=== PATIENT | male | born 1940 | race Hispanic/Latino ===

== ENCOUNTER 2019-01-08 16:57 | Inpatient (IN) | payer MEDICARE, OTHER, SELFPAY ==
[2019-01-08] VITALS (22 sets, daily range): BP systolic 76–187; BP diastolic 51–80; PULSE 123–170; RESP 12–50; TEMP 38–39.2; O2SAT 6–98; BMI 28.8; BMI 28.5
--- NOTE | 2019-01-08 17:12 | EKG12_ITS ---
Test Reason : SOB Blood Pressure : / mmHG Vent. Rate : 148 BPM Atrial Rate : 148 BPM P-R Int : 132 ms QRS Dur : 088 ms QT Int : 264 ms P-R-T Axes : 056 034 021 degrees QTc Int : 414 ms Sinus tachycardia Nonspecific ST and T wave abnormality Abnormal ECG Confirmed by SHARRI TILLMAN, ARIEL ([id number]), acquisition editor KINGSLEY VANG ([id number] on 01/10/2019 1:34:42 PM Referred By: Hebert Perkins Confirmed By:ARIEL HARRELL MD
--- NOTE | 2019-01-08 17:20 | RAD_ITS ---
STUDY: X-RAY CHEST REASON FOR EXAM: Male, 78 years old. Shortness of breath. TECHNIQUE: Single AP portable view of the chest. COMPARISON: September 21, 2017. FINDINGS: Telemetry wires overlie the chest. The lungs are hypoexpanded. There is patchy infiltrate in the left hilar and left lung base. Minimal patchy infiltrate is seen laterally in the lower right lung. Pleural effusions cannot be ruled out. Normal size heart. Normal mediastinum and darnell. Normal visualized pulmonary arteries. There is atherosclerotic calcification of the aortic arch with tortuosity. There are diffuse degenerative changes of the visualized thoracic spine. There is degenerative osteoarthritis of the bilateral shoulders. There is no demonstrated abnormality of the visualized soft tissue structures of the upper abdomen. RAD/Chest 1 View (Portable) IMPRESSION: Bibasilar infiltrates. Electronically Signed: Parker Sun DO at 17:47 EST Tel [phone], Service support ,
[2019-01-08] MEDS: 0.9% Normal Saline 1,000 ML 150 ML IV (17:24)
[2019-01-08] MEDS: Ipratropium/Albuterol Sulfate 3 ML AMPUL.NEB INHALATION (17:39)
[2019-01-08] MEDS: Albuterol 2.5 MG/3 ML VIAL.NEB. INHALATION ×3 (17:39→18:00)
[2019-01-08] MEDS: MethylPREDNISolone 125 MG/2 ML Vial IV (17:43)
[2019-01-08] MEDS: Ceftriaxone 1 GM/50 ML BAG IV (17:43)
[2019-01-08 17:54] LABS: Hemoglobin 11.5 g/dl (13.0-16.5); Mean Corp Hgb Conc 31.9 g/gl (32-36); Mean Corpuscular Hgb 27.8 pg (27.0-32.0); Mean Corpuscular Volume 87.2 fL (80-94); Mean Platelet Vol. 9.9 fl (6.2-12.0); Platelet Count 246 K/mm3 (150-450); RBC Distribution Width CV 14.9 % (11.6-14.6); RBC Distribution Width SD 47.6 fl (35.1-43.9); Red Blood Count 4.13 M/mm3 (4.6-6.2); White Blood Count 2.1 K/mm3 (4.4-11.0)
[2019-01-08 17:56] LABS: POSITIVE COUNT NO; POSITIVE DIFFERENTIAL YES; POSITIVE MORPHOLOGY YES
[2019-01-08 17:57] LABS: Anion Gap 15 (5-15); BUN 44 mg/dL (7-18); BUN/Creat Ratio 20.6 RATIO (10-20); Calcium,Total 8.7 mg/dL (8.5-10.1); Chloride 107 mmol/L (98-107); Creatinine, Serum 2.14 mg/dL (0.70-1.30); EST Glomerular Filtration Rate 32 mL/min (>60); Est Glom Filt Rate - Afr Amer 38 mL/min (>60); Estimated Creatinine Clearance 27.08 ml/min; Glucose 198 mg/dL (74-106); Sodium Level 145 mmol/L (136-145)
[2019-01-08 18:05] LABS: Lactic Acid 6.2 mmol/L (0.4-2.0)
--- NOTE | 2019-01-08 18:06 | ED.RN ---
LACTIC 6.[address] THE LAB. DR ANDRADE AWARE
[2019-01-08] MEDS: Succinylcholine Chloride 200 MG/10 ML Vial 100 MG IV (18:19)
[2019-01-08] MEDS: Propofol 10MG/Ml 1,000 MG/100 ML Bottle 5.16 MG CONT INF (18:20)
--- NOTE | 2019-01-08 18:25 | RAD_ITS ---
STUDY: X-RAY CHEST REASON FOR EXAM: Male, 78 years old. Tube placement TECHNIQUE: Frontal views COMPARISON: January 08, 2019 at 17:18 hours FINDINGS: Endotracheal tube with tip 42 mm above the mora. Nasogastric tube extends into the stomach. The lungs are expanded. Patchy pulmonary infiltrates bilaterally, left more than right. Increasing right upper lobe infiltrate. Normal size heart. Normal mediastinum and darnell. Normal visualized pulmonary arteries. Calcified aortic arch and descending thoracic aorta. Degenerative changes of the thoracic spine. Normal visualized ribs, clavicles, and shoulders. There is no demonstrated abnormality of the visualized soft tissue structures of the upper abdomen. RAD/Chest 1 View (Portable) IMPRESSION: Patchy infiltrates bilaterally, left more than right. Increasing right upper lobe infiltrate. Electronically Signed: Lamin Keene DO at 19:06 EST Tel [phone], Service support ,
[2019-01-08 18:32] LABS: Lymphocyte 26 % (19-41); Metamyelocyte 22 % (0-1); Monocyte 4 % (0-10); Myelocyte 6 (0-0); Neutrophil-Band 28 % (0-5); Total Cells Counted 50 (MANUAL DIFF)
[2019-01-08 18:33] LABS: Hypochromasia RARE; Scan Smear per Review Criteria MANUAL DIFF
[2019-01-08 18:39] LABS: Blast 2 % (0-0); Neutrophil-Segmented 12 % (47-70)
[2019-01-08] MEDS: Acetaminophen 650 MG Suppository RECTAL (18:40)
--- NOTE | 2019-01-08 18:42 | ED.DCSUM_ITS ---
- ER Visit Summary Date of Service: 01/08/19 Chief Complaint: [Shortness of breath] History of Present Illness: The patient is a 78 M [presents to the emergency department complaint shortness of breath for about a week. Patient's been running a fever and had a cough. Patient had increased fatigue. Patient does not speak [place] however his son is with him and interprets for me. Patient does have a history of COPD, diabetes, and high cholesterol. Patient denies any chest pain. Cough apparently has been productive but patient has not described to the son what the sputum looks like.] Physical Examination: [HEENT-PERRLA, EOMI. Cranial nerves II through XII grossly intact. TMs clear. Mucous membranes moist. No adenopathy. Cardiovascular-regular and tachycardic. No murmurs auscultated. Lungs-diminished bilaterally with rhonchi and expiratory wheezes bilaterally. Patient is tachypneic. Patient has accessory muscle use. Patient has conversational dyspnea. Abdomen-normoactive bowel sounds, soft, nontender, no rebound or rigidity, no peritoneal signs. Extremities-intact ?4, normal range of motion, normal pulses, atraumatic] Test Results: [EKG obtained arrival shows sinus tachycardia with a ventricular rate of 148 bpm with some nonspecific ST changes. CBC with differential showed white count 2.1, hemoglobin 11.5, hematocrit 36, placed 246. Chemistries unremarkable. BUN was 44 and creatinine 2.14. Glucose is 198. Troponin was 0.017. Chest x-ray was read by radiology as bibasilar infiltrates.] Emergency Department Course and Treatment: [Patient initially given Solu-Medrol and DuoNeb aerosol as well as albuterol aerosols. Patient continued to be hypoxic and tachypneic therefore he was attempted on BiPAP. Despite BiPAP patient continues to be quite dyspneic and hypoxic and decision was made to intubate the patient. Patient was given etomidate initially 20 mg IV as well as 100 mg of succinyl choline and was easily intubated using a 7.5 ET tube. Patient was started on propofol drip. Patient initially on arrival had blood cultures ordered and was started on Rocephin and Zithromax.] Treatment Plan: [Admit] Disposition: [Admit] Impression: [[place] acquired pneumonia Respiratory failure Severe sepsis Acute kidney injury] This note was generated with Dragon dictation software. It may contain incorrect words, spelling, and punctuation that were not noted in review of the chart prior to signing ED Disposition - Plan for ED Patient: Referrals: Feliberto Richards MD [Primary Care Provider] -
--- NOTE | 2019-01-08 19:14 | PCM.HP.STD ---
Problem List (1) Sepsis due to pneumonia Status: Acute (2) Essential (primary) hypertension Status: Chronic (3) COPD (chronic obstructive pulmonary disease) Status: Chronic (4) Diabetes mellitus Status: Chronic (5) Hyperlipemia, mixed Status: Chronic History of Present Illness Date of Admission: 01/08/19 Chief Complaint: Fevers, shortness of breath The patient is a 78 year old M with PMH as below who presented to the ER from home with fevers, cough, and shortness of breath for about a week. On my exam and interview patient was intubated therefore most of the information was taken from chart review and patient's family. His son, who is power of contract attorney, stated that he was recently sick with an upper respiratory infection for the last week or so and then his father became sick around Monday and has steadily gotten worse. He tried to get him to come to the hospital which she refused to do multiplications. He went to work today when he came back he noticed that his father could barely speak because of how short of breath he was and called EMS who brought him into the hospital in the ER he was found to be febrile as well as to have leukopenia, tachypnea and tachycardia. Lactic acid was obtained which was elevated to 6.2, and a chest x-ray showed bibasilar infiltrates. He was intubated in the ER secondary to respiratory distress and hypoxia. Past Medical History Past Medical History (Chronic Problems): Chronic Problems (Last Updated 11/02/17 @ 08:07 by SHEYLA Smalls) Essential (primary) hypertension (Chronic) COPD (chronic obstructive pulmonary disease) (Chronic) Diabetes mellitus (Chronic) Hyperlipemia, mixed (Chronic) Chest pain, exertional (Chronic) Medical History: Medical History (Last Updated 11/02/17 @ 08:07 by ISABEL SmallsC) Essential (primary) hypertension (Chronic) I10 COPD (chronic obstructive pulmonary disease) (Chronic) J44.9 Diabetes mellitus (Chronic) E11.9 Hyperlipemia, mixed (Chronic) E78.2 Chest pain, exertional (Chronic) R07.9 Anemia D64.9 Emphysema, unspecified J43.9 GERD (gastroesophageal reflux disease) K21.9 Allergies metformin Allergy (Verified 01/08/19 16:59) Unknown Home Medications: Ambulatory Orders Medication Instructions Recorded Aspirin 81 mg PO DAILY 10/02/17 Atorvastatin Calcium 40 mg PO QHS 10/02/17 Clopidogrel Bisulfate [Plavix] 75 mg PO DAILY 10/02/17 Fluticasone Prop 100 mcg [Flovent 1 puff INHALATION BID 10/02/17 Diskus 100 Mcg] Gemfibrozil [Lopid] 600 mg PO BIDAC 10/02/17 Glimepiride [Amaryl] 2 mg PO DAILY 10/02/17 Lisinopril [Zestril] 2.5 mg PO DAILY 10/02/17 [place]-3 Fatty Acids/Fish Oil 1 each PO DAILY 10/02/17 [[place] 3 1,000 mg Softgel] Omeprazole 40 mg PO DAILY 10/02/17 Pioglitazone HCl 30 mg PO DAILY 10/02/17 Surgical History: Surgical History (Last Updated 11/02/17 @ 08:07 by Mauro Ley NP-C) H/O hernia repair Z98.890, Z87.19 Smoking Status: Former smoker Tobacco Use: Cigarettes Alcohol: None Drugs: None - *Family History Maternal Family History: Family History (Last Updated 11/02/17 @ 08:05 by Mauro Ley NP-C) Mother CAD (coronary artery disease) Father Colon cancer Review of Systems Unable to obtain accurate/complete ROS d/t: Intubation and sedation VTE Information - Inpt Only VTE Present on Admission: No Patient Problems: Active and Suspected Problems (Last Updated 11/02/17 @ 08:07 by Mauro Ley, LOCKSTITCH BINDER-C) Sepsis due to pneumonia (Acute) - Physical Exam General: - - Intubated and sedated HEENT: Atraumatic, PERRLA, Normocephalic Oral: Dry Mucosa Neck: Supple, No JVD, Trachea Midline Lungs: Diminished, Rhonchi, Tachypneic Cardiovascular: Regular Rhythm, Normal S1, Normal S2, No murmurs, Tachycardic Abdomen: Soft, Non-Distended, No Hepato-splenomegaly Extremities: No edema, Capillary Refill Less than 3 Seconds Skin: No rashes, No breakdown Neurological: - - Intubated and sedated Psych/Mental Status: - - Debated and sedated Vital Signs Temp Pulse Resp BP Pulse Ox 102.6 F H 137 H 29 H 127/52 H 97 01/08/19 18:45 01/08/19 18:45 01/08/19 18:45 01/08/19 18:45 01/08/19 18:45 Oxygen Flow Rate (L/min) 6 Oxygen Delivery Method Mechanical Ventilator Weight: 189 lb 9.561 oz Body Mass Index (BMI) 28.8 Microbiology Past 72 Hours 01/08/19 17:30 Influenza Types A,B Direct FA (BETTY) - Final Mucosa - Nose Laboratory Tests Past 24 Hrs 01/08/19 01/08/19 01/08/19 17:20 17:20 17:20 WBC 2.1 L RBC 4.13 L Hgb 11.5 L Hct 36.0 L MCV 87.2 MCH 27.8 MCHC 31.9 L RDW 14.9 H RDW Differential 47.6 H Plt Count 246 MPV 9.9 Immature Gran % (Auto) LOCKSTITCH BINDER Neut % (Auto) LOCKSTITCH BINDER Lymph % (Auto) LOCKSTITCH BINDER [place] % (Auto) LOCKSTITCH BINDER Eos % (Auto) LOCKSTITCH BINDER Baso % (Auto) LOCKSTITCH BINDER Absolute Neuts (auto) 0.8 L Absolute Lymphs (auto) 0.55 L Total Counted 50 Neutrophils % (Manual) 12 L Band Neutrophils % 28 H Lymphocytes % (Manual) 26 Monocytes % (Manual) 4 Metamyelocytes % 22 H Myelocytes % 6 H Blast Cells % 2 H* Diff Path Review May foll Hypochromasia RARE Sodium 145 Potassium 3.0 L Chloride 107 Carbon Dioxide 23.0 Anion Gap 15 BUN 44 H Creatinine 2.14 H Estim Creat Clear Calc 27.08 Est GFR (MDRD) Af Amer 38 L Est GFR (MDRD) Non-Af 32 L BUN/Creatinine Ratio 20.6 H Glucose 198 H Lactic Acid 6.2 H* Calcium 8.7 Troponin I 0.017 Assessment/Plan All Active Problems (Last Updated 11/02/17 @ 08:07 by Mauro Ley, LOCKSTITCH BINDER-C) Sepsis due to pneumonia (Acute) 1. Acute hypoxic respiratory failure secondary to community-acquired pneumonia leading to sepsis/AK I -He has 4 out of 4 Sirs criteria positive with bibasilar infiltrates on chest x-ray -Received sepsis bolus in the ER as well as first dose of Rocephin and azithromycin which will be continued on the inpatient side -We will admit to the ICU since patient is ventilated -Continue with propofol and fentanyl drip for sedation -IV fluids at 125 cc/h, will Place James for accurate I's and O's -Repeat lactate -Urine Legionella and strep antigen are pending -Creatinine is 2.14, prior creatinine was 1.11 two years ago, will monitor -Respiratory panel and influenza panel were both negative, blood cultures are pending 2. DM 2 -He is on home glimepiride and Actos, will hold -initiate every 4 glucose monitoring and sliding scale insulin while intubated and n.p.o. 3. HTN/HLD -We will hold his blood pressure medications -He has no history of coronary artery disease and will need to have an updated medication list prior to doing a home med rec 4. GERD -He is on omeprazole at home -We will currently continue with IV Pepcid for GI prophylaxis as well since he is intubated DVT: Lovenox/SCDs Code Visit Inpatient E&M: 23958 Init Hosp L3
--- NOTE | 2019-01-08 19:18 | HP.PCM_ITS ---
Problem List (1) Sepsis due to pneumonia Status: Acute (2) Essential (primary) hypertension Status: Chronic (3) COPD (chronic obstructive pulmonary disease) Status: Chronic (4) Diabetes mellitus Status: Chronic (5) Hyperlipemia, mixed Status: Chronic History of Present Illness Date of Admission: 01/08/19 Chief Complaint: Fevers, shortness of breath The patient is a 78 year old M with PMH as below who presented to the ER from home with fevers, cough, and shortness of breath for about a week. On my exam and interview patient was intubated therefore most of the information was taken from chart review and patient's family. His son, who is power of estate planning attorney, stated that he was recently sick with an upper respiratory infection for the last week or so and then his father became sick around Monday and has steadily gotten worse. He tried to get him to come to the hospital which she refused to do multiplications. He went to work today when he came back he noticed that his father could barely speak because of how short of breath he was and called EMS who brought him into the hospital in the ER he was found to be febrile as well as to have leukopenia, tachypnea and tachycardia. Lactic acid was obtained which was elevated to 6.2, and a chest x-ray showed bibasilar infiltrates. He was intubated in the ER secondary to respiratory distress and hypoxia. Past Medical History Past Medical History (Chronic Problems): Chronic Problems (Last Updated 11/02/17 @ 08:07 by SHEYLA Smalls) Essential (primary) hypertension (Chronic) COPD (chronic obstructive pulmonary disease) (Chronic) Diabetes mellitus (Chronic) Hyperlipemia, mixed (Chronic) Chest pain, exertional (Chronic) Medical History: Medical History (Last Updated 11/02/17 @ 08:07 by ISABEL SmallsC) Essential (primary) hypertension (Chronic) I10 COPD (chronic obstructive pulmonary disease) (Chronic) J44.9 Diabetes mellitus (Chronic) E11.9 Hyperlipemia, mixed (Chronic) E78.2 Chest pain, exertional (Chronic) R07.9 Anemia D64.9 Emphysema, unspecified J43.9 GERD (gastroesophageal reflux disease) K21.9 Allergies metformin Allergy (Verified 01/08/19 16:59) Unknown Home Medications: Ambulatory Orders Medication Instructions Recorded Aspirin 81 mg PO DAILY 10/02/17 Atorvastatin Calcium 40 mg PO QHS 10/02/17 Clopidogrel Bisulfate [Plavix] 75 mg PO DAILY 10/02/17 Fluticasone Prop 100 mcg [Flovent 1 puff INHALATION BID 10/02/17 Diskus 100 Mcg] Gemfibrozil [Lopid] 600 mg PO BIDAC 10/02/17 Glimepiride [Amaryl] 2 mg PO DAILY 10/02/17 Lisinopril [Zestril] 2.5 mg PO DAILY 10/02/17 [place]-3 Fatty Acids/Fish Oil 1 each PO DAILY 10/02/17 [[place] 3 1,000 mg Softgel] Omeprazole 40 mg PO DAILY 10/02/17 Pioglitazone HCl 30 mg PO DAILY 10/02/17 Surgical History: Surgical History (Last Updated 11/02/17 @ 08:07 by Mauro Ley NP-C) H/O hernia repair Z98.890, Z87.19 Smoking Status: Former smoker Tobacco Use: Cigarettes Alcohol: None Drugs: None - *Family History Maternal Family History: Family History (Last Updated 11/02/17 @ 08:05 by Mauro Ley NP-C) Mother CAD (coronary artery disease) Father Colon cancer Review of Systems Unable to obtain accurate/complete ROS d/t: Intubation and sedation VTE Information - Inpt Only VTE Present on Admission: No Patient Problems: Active and Suspected Problems (Last Updated 11/02/17 @ 08:07 by Mauro Ley, BUTTONHOLE MACHINE OPERATOR- C) Sepsis due to pneumonia (Acute) - Physical Exam General: - - Intubated and sedated HEENT: Atraumatic, PERRLA, Normocephalic Oral: Dry Mucosa Neck: Supple, No JVD, Trachea Midline Lungs: Diminished, Rhonchi, Tachypneic Cardiovascular: Regular Rhythm, Normal S1, Normal S2, No murmurs, Tachycardic Abdomen: Soft, Non-Distended, No Hepato-splenomegaly Extremities: No edema, Capillary Refill Less than 3 Seconds Skin: No rashes, No breakdown Neurological: - - Intubated and sedated Psych/Mental Status: - - Debated and sedated Vital Signs Temp Pulse Resp BP Pulse Ox 102.6 F H 137 H 29 H 127/52 H 97 01/08/19 18:45 01/08/19 18:45 01/08/19 18:45 01/08/19 18:45 01/08/19 18:45 Oxygen Flow Rate (L/min) 6 Oxygen Delivery Method Mechanical Ventilator Weight: 189 lb 9.561 oz Body Mass Index (BMI) 28.8 Microbiology Past 72 Hours 01/08/19 17:30 Influenza Types A,B Direct FA (BETTY) - Final Mucosa - Nose Laboratory Tests Past 24 Hrs 01/08/19 01/08/19 01/08/19 17:20 17:20 17:20 WBC 2.1 L RBC 4.13 L Hgb 11.5 L Hct 36.0 L MCV 87.2 MCH 27.8 MCHC 31.9 L RDW 14.9 H RDW Differential 47.6 H Plt Count 246 MPV 9.9 Immature Gran % (Auto) BUTTONHOLE MACHINE OPERATOR Neut % (Auto) BUTTONHOLE MACHINE OPERATOR Lymph % (Auto) BUTTONHOLE MACHINE OPERATOR [place] % (Auto) BUTTONHOLE MACHINE OPERATOR Eos % (Auto) BUTTONHOLE MACHINE OPERATOR Baso % (Auto) BUTTONHOLE MACHINE OPERATOR Absolute Neuts (auto) 0.8 L Absolute Lymphs (auto) 0.55 L Total Counted 50 Neutrophils % (Manual) 12 L Band Neutrophils % 28 H Lymphocytes % (Manual) 26 Monocytes % (Manual) 4 Metamyelocytes % 22 H Myelocytes % 6 H Blast Cells % 2 H* Diff Path Review May foll Hypochromasia RARE Sodium 145 Potassium 3.0 L Chloride 107 Carbon Dioxide 23.0 Anion Gap 15 BUN 44 H Creatinine 2.14 H Estim Creat Clear Calc 27.08 Est GFR (MDRD) Af Amer 38 L Est GFR (MDRD) Non-Af 32 L BUN/Creatinine Ratio 20.6 H Glucose 198 H Lactic Acid 6.2 H* Calcium 8.7 Troponin I 0.017 Assessment/Plan All Active Problems (Last Updated 11/02/17 @ 08:07 by Mauro Ley, BUTTONHOLE MACHINE OPERATOR-C) Sepsis due to pneumonia (Acute) 1. Acute hypoxic respiratory failure secondary to community-acquired pneumonia leading to sepsis/AK I -He has 4 out of 4 Sirs criteria positive with bibasilar infiltrates on chest x- ray -Received sepsis bolus in the ER as well as first dose of Rocephin and azithromycin which will be continued on the inpatient side -We will admit to the ICU since patient is ventilated -Continue with propofol and fentanyl drip for sedation -IV fluids at 125 cc/h, will Place [place] for accurate I's and O's -Repeat lactate -Urine Legionella and strep antigen are pending -Creatinine is 2.14, prior creatinine was 1.11 two years ago, will monitor -Respiratory panel and influenza panel were both negative, blood cultures are pending 2. DM 2 -He is on home glimepiride and Actos, will hold -initiate every 4 glucose monitoring and sliding scale insulin while intubated and n.p.o. 3. HTN/HLD -We will hold his blood pressure medications -He has no history of coronary artery disease and will need to have an updated medication list prior to doing a home med rec 4. GERD -He is on omeprazole at home -We will currently continue with IV Pepcid for GI prophylaxis as well since he is intubated DVT: Lovenox/SCDs Code Visit Inpatient E&M: 31850 Init Hosp L3
[2019-01-08] MEDS: fentaNYL drip 100 ML 2.5 MCG IV (19:22)
[2019-01-08 19:32] LABS: Base Excess -9 mmol/L (-2 to +2); Bicarbonate 19.1 mmol/L (22-26); Blood Gas Specimen Type ART; FI02 100; Mode A-C; O2 Delivery Device Vent; PEEP 5; PO2 289 mmHG (75-100); RR 30; SITE L Radial; SO2 100 % (95-99); Total Carbon Dioxide 21 mmol/L; Vt 490; pCO2 47.2 mmHg (35-45); pH 7.22 (7.35-7.45)
[2019-01-08 20:19] LABS: Differential Indicated MANUAL DIFF
[2019-01-08 20:20] LABS: Absolute Neutrophil Count 0.8 X10^3/uL (2.0-7.7)
[2019-01-08 20:21] LABS: Absolute Lymphocyte Count 0.55 X10^3/ul (0.83-4.51)
[2019-01-08 20:24] LABS: Absolute Nucleated RBC Count 0.16 10^3/uL (0-5); NRBC Flagged by Analyzer 7.7 % (0-5)
[2019-01-08] MEDS: Potassium Chloride 10mEq/100mL 10 MEQ/100 ML IV.SOLN. 100 MEQ IV BOLUS ×3 (21:08→23:10)
--- NOTE | 2019-01-08 21:15 | NURSING ---
SUKHJINDER Delgadillo RN, passed along in report Rodriguez ordered to keep MAPs >60.
[2019-01-08] MEDS: Chlorhexidine 15 ML PO (21:30)
[2019-01-08] MEDS: Insulin Lispro 100 UNIT/ML INSULN.PEN SQ (21:30)
--- NOTE | 2019-01-08 21:30 | NURSING ---
Patient's wedding ring placed in medication cup and locked in ICU4 medication drawer.
[2019-01-08 21:32] LABS: Reflex Lactate? Y
[2019-01-08] MEDS: 0.9% Normal Saline 1,000 ML 999 ML IV ×2 (21:45→23:02)
[2019-01-08 21:51] LABS: Bedside Glucose 222 mg/dL (70-110)
[2019-01-08 22:16] LABS: Lactic Acid 6.4 mmol/L (0.4-2.0)
--- NOTE | 2019-01-08 23:20 | RAD_ITS ---
STUDY: X-RAY CHEST REASON FOR EXAM: Male, 78 years old. Respiratory failure TECHNIQUE: Single AP portable view of the chest. COMPARISON: 01/08/2019 at 1829 hours FINDINGS: Endotracheal tube tip projects 2 cm above the mora. Nasogastric tube extends below the diaphragm. Patchy airspace infiltration throughout the left midlung with consolidation of the left lung base which obscures the hemidiaphragm, slightly worsened compared to prior imaging. Worsened patchy airspace infiltration in the right midlung and right lung base. Borderline cardiomegaly. Normal mediastinum and darnell. Normal visualized pulmonary arteries. There is atherosclerotic calcification of the aortic arch . There are diffuse degenerative changes of the visualized thoracic spine. Normal visualized ribs, clavicles, and shoulders. There is no demonstrated abnormality of the visualized soft tissue structures of the upper abdomen. RAD/Chest 1 View (Portable) IMPRESSION: 1. Worsening bilateral airspace infiltrates. 2. Appropriate positioning of supportive tubing. Electronically Signed: Wan Arora MD at 3:37 EST Tel , Service support ,
--- NOTE | 2019-01-08 23:27 | NURSING ---
Respiratory therapist advanced ETT at 2213 to 25 @ lip, portable CXR ordered.
[2019-01-08 23:43] LABS: Magnesium 1.8 mg/dL (1.6-2.6); Phosphorus 1.6 mg/dL (2.5-4.9)
[2019-01-09] VITALS (53 sets, daily range): BP systolic 68–104; BP diastolic 47–63; PULSE 108–132; RESP 12–30; TEMP 36.3–39.2; O2SAT 85–97
[2019-01-09] MEDS: Potassium Chloride 10mEq/100mL 10 MEQ/100 ML IV.SOLN. 100 MEQ IV BOLUS (00:12)
[2019-01-09] MEDS: Na Biphos/Potassium Phosphate PACKET 2 PACKET GT (00:32)
--- NOTE | 2019-01-09 00:51 | NURSING ---
Communication difficulties due to patient non-portuguese speaking, attempted iPad, however uncertain of dialect. Will attempt in AM to contact son for specific dialect to use iPad to aid communication.
[2019-01-09 01:08] LABS: Lactic Acid 4.3 mmol/L (0.4-2.0)
[2019-01-09] MEDS: 0.9% Normal Saline 1,000 ML 100 ML IV (01:57)
[2019-01-09 04:37] LABS: Anion Gap 13 (5-15); BUN 47 mg/dL (7-18); BUN/Creat Ratio 17.2 RATIO (10-20); Calcium,Total 7.2 mg/dL (8.5-10.1); Chloride 113 mmol/L (98-107); Creatinine, Serum 2.74 mg/dL (0.70-1.30); EST Glomerular Filtration Rate 24 mL/min (>60); Est Glom Filt Rate - Afr Amer 29 mL/min (>60); Estimated Creatinine Clearance 21.15 ml/min; Glucose 168 mg/dL (74-106); Lactic Acid 3.1 mmol/L (0.4-2.0); Magnesium 1.8 mg/dL (1.6-2.6); Phosphorus 4.8 mg/dL (2.5-4.9); Potassium 4.1 mmol/L (3.5-5.1); Sodium Level 146 mmol/L (136-145)
[2019-01-09 04:51] LABS: Reflex Lactate? Y
[2019-01-09] MEDS: fentaNYL drip 100 ML 2.5 MCG IV ×3 (05:08→19:43)
[2019-01-09] MEDS: Insulin Lispro 100 UNIT/ML INSULN.PEN SC (05:08)
[2019-01-09 05:17] LABS: Bedside Glucose 162 mg/dL (70-110)
[2019-01-09 05:25] LABS: Hematocrit 32.8 % (40-54); Hemoglobin 10.3 g/dl (13.0-16.5); Mean Corp Hgb Conc 31.4 g/gl (32-36); Mean Corpuscular Hgb 28.1 pg (27.0-32.0); Mean Corpuscular Volume 89.4 fL (80-94); Mean Platelet Vol. 10.3 fl (6.2-12.0); Platelet Count 188 K/mm3 (150-450); RBC Distribution Width CV 15.3 % (11.6-14.6); RBC Distribution Width SD 50.2 fl (35.1-43.9); Red Blood Count 3.67 M/mm3 (4.6-6.2); White Blood Count 2.3 K/mm3 (4.4-11.0)
[2019-01-09 05:36] LABS: Differential Indicated MANUAL DIFF; POSITIVE COUNT NO; POSITIVE DIFFERENTIAL NO; POSITIVE MORPHOLOGY YES
[2019-01-09] MEDS: Propofol 10MG/Ml 1,000 MG/100 ML Bottle 5.16 MG CONT INF ×2 (05:40→18:20)
[2019-01-09 06:29] LABS: International Normalized Ratio 1.6; Prothrombin Time (Protime)PT. 19.4 SECONDS (11.7-14.9)
[2019-01-09 06:30] LABS: Partial Thromboplast Time 40.5 Seconds (24.1-36.2)
--- NOTE | 2019-01-09 06:38 | NURSING ---
Spoke with son, Aakash, in regards to patient's low BPs. Son consented to both central line and arterial line placement, and to give blood products if needed. Verified by this RN and Sammi Trinh RN.
--- NOTE | 2019-01-09 07:04 | PCM.CON.CC ---
Problem List (1) Sepsis due to pneumonia Status: Acute (2) Essential (primary) hypertension Status: Chronic (3) COPD (chronic obstructive pulmonary disease) Status: Chronic (4) Diabetes mellitus Status: Chronic (5) Hyperlipemia, mixed Status: Chronic Reason for Consult Date of Consultation: 01/09/19 Reason for Consultation: Respiratory failure History of Present Illness: The patient is a 78 year old M, with past medical history listed below, who presented to [facility] on 01/08/2019 secondary to progressive shortness of breath over a week with fever and a productive cough. Patient reportedly does not speak K[place] at baseline, but has a reported history of COPD. Patient reportedly had a productive cough, but color was unclear. Patient was noted to have conversational dyspnea on presentation. In the emergency room, patient was given Solu-Medrol, DuoNeb and noted to be hypoxic and tachypneic. Patient was attempted on BiPAP therapy, but ended up having to require rapid sequence intubation. Patient was placed on Rocephin, Zithromax and admitted to the intensive care unit. Patient was noted to be in sinus tachycardia with a rate of 148 bpm on presentation. CBC was remarkable for a white count of 2.1 and an elevated creatinine at 2.14. Troponin was negative. Since being in the intensive care unit, patient has had significant hypoxemia. Patient had responded initially to increase in PEEP therapy, but required 80-90% FiO2 to maintain saturations. On my arrival this morning, patient was noted to be hypotensive and hypoxic despite 100% FiO2. PEEP has been increased with some stabilization in oxygenation. Patient is unresponsive at this time. Chest x-ray showing progressive bilateral infiltrates. ABG has been ordered. Past Medical History Past Medical History (Chronic Problems): Chronic Problems (Last Updated 11/02/17 @ 08:07 by SHEYLA Smalls) Essential (primary) hypertension (Chronic) COPD (chronic obstructive pulmonary disease) (Chronic) Diabetes mellitus (Chronic) Hyperlipemia, mixed (Chronic) Chest pain, exertional (Chronic) Medical History: Medical History (Last Updated 11/02/17 @ 08:07 by SHEYLA Smalls) Essential (primary) hypertension (Chronic) I10 COPD (chronic obstructive pulmonary disease) (Chronic) J44.9 Diabetes mellitus (Chronic) E11.9 Hyperlipemia, mixed (Chronic) E78.2 Chest pain, exertional (Chronic) R07.9 Anemia D64.9 Emphysema, unspecified J43.9 GERD (gastroesophageal reflux disease) K21.9 Allergies metformin Allergy (Verified 01/08/19 16:59) Unknown Home Medications: Ambulatory Orders Medication Instructions Recorded Aspirin 81 mg PO DAILY 10/02/17 Atorvastatin Calcium 40 mg PO QHS 10/02/17 Clopidogrel Bisulfate [Plavix] 75 mg PO DAILY 10/02/17 Fluticasone Prop 100 mcg [Flovent 1 puff INHALATION BID 10/02/17 Diskus 100 Mcg] Gemfibrozil [Lopid] 600 mg PO BIDAC 10/02/17 Glimepiride [Amaryl] 2 mg PO DAILY 10/02/17 Lisinopril [Zestril] 2.5 mg PO DAILY 10/02/17 [place]-3 Fatty Acids/Fish Oil 1 each PO DAILY 10/02/17 [[place] 3 1,000 mg Softgel] Omeprazole 40 mg PO DAILY 10/02/17 Pioglitazone HCl 30 mg PO DAILY 10/02/17 Surgical History: Surgical History (Last Updated 11/02/17 @ 08:07 by ISABEL SmallsC) H/O hernia repair Z98.890, Z87.19 Smoking Status: Former smoker Tobacco Use: Cigarettes Alcohol: None Drugs: None - *Family History Maternal Family History: Family History (Last Updated 11/02/17 @ 08:05 by ISABEL SmallsC) Mother CAD (coronary artery disease) Father Colon cancer Review of Systems Unable to obtain accurate/complete ROS d/t: Intubated and sedated Patient Problems: Active and Suspected Problems (Last Updated 11/02/17 @ 08:07 by Mauro Ley NP-C) Sepsis due to pneumonia (Acute) Objective: Chest x-ray shows progressive bilateral infiltrates. Cardiac catheterization completed September 2017 showed an EF of 65% with normal coronary arteries - Physical Exam General: - - Intubated and sedated. Breathing with the ventilator. RASS -2. HEENT: Atraumatic, PERRLA, EOMI, Normocephalic, - - No scleral icterus or injection noted. Oral: Moist Mucosa, No Gingival or Mucosal Lesions/ Ulcerations Neck: Supple, No JVD, No Nodes, Trachea Midline Lungs: No wheeze, No rales, Rhonchi - Bilateral, - - Symmetric expansion. No dullness to percussion. Brown secretions noted Cardiovascular: Normal S1, Normal S2, No murmurs, No rub noted, No Gallop, Tachycardic Abdomen: Bowel Sounds Present, Soft, Non Tender, Non-Distended Extremities: No clubbing, No cyanosis, No edema, Capillary Refill Less than 3 Seconds Skin: No rashes, No breakdown Musculoskeletal: No Tenderness to Palpation of Joints or Extremities Lymphatic: No Cervical, Supraclavicular, or Inguinal Adenopathy Neurological: Cranial nerves II-XII grossly intact, Neuro grossly intact Psych/Mental Status: Flat Affect Vital Signs Temp Pulse Resp BP Pulse Ox 36.3 C L 115 H 14 88/51 L 89 01/09/19 06:00 01/09/19 07:00 01/09/19 07:00 01/09/19 07:00 01/09/19 07:00 Oxygen Flow Rate (L/min) 6 Oxygen Delivery Method Mechanical Ventilator Weight: 88.7 kg Body Mass Index (BMI) 28.5 Intake and Output for Last 24 Hours 01/07/19 01/08/19 01/09/19 23:59 23:59 23:59 Intake Total 2585.5 / 2585.5 1186.2 / 1186.2 Output Total 100 / 100 275 / 275 Balance 2485.5 / 2485.5 911.2 / 911.2 Microbiology Past 72 Hours 01/08/19 21:25 Legionella Antigen - Final Urine Catheter - Catheter 01/08/19 21:25 Streptococcus pneumoniae Antigen (M - Final Urine Catheter - Catheter 01/08/19 17:30 Influenza Types A,B Direct FA (BETTY) - Final Mucosa - Nose Laboratory Tests Past 24 Hrs 01/08/19 01/08/19 01/08/19 17:20 17:20 17:20 WBC 2.1 L RBC 4.13 L Hgb 11.5 L Hct 36.0 L MCV 87.2 MCH 27.8 MCHC 31.9 L RDW 14.9 H RDW Differential 47.6 H Plt Count 246 MPV 9.9 Immature Gran % (Auto) [employer] Neut % (Auto) [employer]ST[employer]ER Lymph % (Auto) [employer]ER [place] % (Auto) [employer] INST[employer]ER Eos % (Auto) [employer] INST[employer]ER Baso % (Auto) [employer]ER Absolute Neuts (auto) 0.8 L Absolute Lymphs (auto) 0.55 L Total Counted 50 Neutrophils % (Manual) 12 L Band Neutrophils % 28 H Lymphocytes % (Manual) 26 Monocytes % (Manual) 4 Metamyelocytes % 22 H Myelocytes % 6 H Blast Cells % 2 H* Nucleated RBC % 7.7 H Diff Path Review May foll Hypochromasia RARE Absolute Retic 0.16 PT INR APTT Specimen Type Sample Site pH Bicarbonate Actual POC Total CO2 Base Excess O2 Saturation O2 % ABG pCO2 ABG pO2 David Test Respiration Rate O2 Delivery Device Minute Volume Vent Mode Tidal Volume POC PEEP Blood Gas Notified Whom Sodium 145 Potassium 3.0 L Chloride 107 Carbon Dioxide 23.0 Anion Gap 15 BUN 44 H Creatinine 2.14 H Estim Creat Clear Calc 27.08 Est GFR (MDRD) Af Amer 38 L Est GFR (MDRD) Non-Af 32 L BUN/Creatinine Ratio 20.6 H Glucose 198 H Lactic Acid 6.2 H* Calcium 8.7 Phosphorus Magnesium Troponin I 0.017 01/08/19 01/08/19 01/08/19 17:22 19:25 20:05 WBC RBC Hgb Hct MCV MCH MCHC RDW RDW Differential Plt Count MPV Immature Gran % (Auto) Neut % (Auto) Lymph % (Auto) [place] % (Auto) Eos % (Auto) Baso % (Auto) Absolute Neuts (auto) Absolute Lymphs (auto) Total Counted Neutrophils % (Manual) Band Neutrophils % Lymphocytes % (Manual) Monocytes % (Manual) Metamyelocytes % Myelocytes % Blast Cells % Nucleated RBC % Diff Path Review Hypochromasia Absolute Retic PT INR APTT Specimen Type ART Sample Site L Radial pH 7.22 L Bicarbonate Actual 19.1 L POC Total CO2 21 Base Excess -9 L O2 Saturation 100 H O2 % 100 ABG pCO2 47.2 H ABG pO2 289 H David Test NA Respiration Rate 30 O2 Delivery Device Vent Minute Volume 14.00 Vent Mode A-C Tidal Volume 490 POC PEEP 5 Blood Gas Notified Whom ED Sodium Potassium Chloride Carbon Dioxide Anion Gap BUN Creatinine Estim Creat Clear Calc Est GFR (MDRD) Af Amer Est GFR (MDRD) Non-Af BUN/Creatinine Ratio Glucose Lactic Acid 6.4 H* Calcium Phosphorus 1.6 L Magnesium 1.8 Troponin I 01/09/19 01/09/19 01/09/19 00:30 03:50 03:50 WBC 2.3 L RBC 3.67 L Hgb 10.3 L Hct 32.8 L MCV 89.4 MCH 28.1 MCHC 31.4 L RDW 15.3 H RDW Differential 50.2 H Plt Count 188 MPV 10.3 Immature Gran % (Auto) Neut % (Auto) Not Reportable Lymph % (Auto) [place] % (Auto) Eos % (Auto) Baso % (Auto) Absolute Neuts (auto) Not Reportable Absolute Lymphs (auto) Total Counted Pending Neutrophils % (Manual) Band Neutrophils % Lymphocytes % (Manual) Monocytes % (Manual) Metamyelocytes % Myelocytes % Blast Cells % Nucleated RBC % Diff Path Review Hypochromasia Absolute Retic PT INR APTT Specimen Type Sample Site pH Bicarbonate Actual POC Total CO2 Base Excess O2 Saturation O2 % ABG pCO2 ABG pO2 David Test Respiration Rate O2 Delivery Device Minute Volume Vent Mode Tidal Volume POC PEEP Blood Gas Notified Whom Sodium 146 H Potassium 4.1 Chloride 113 H Carbon Dioxide 20.0 L Anion Gap 13 BUN 47 H Creatinine 2.74 H Estim Creat Clear Calc 21.15 Est GFR (MDRD) Af Amer 29 L Est GFR (MDRD) Non-Af 24 L BUN/Creatinine Ratio 17.2 Glucose 168 H Lactic Acid 4.3 H* Calcium 7.2 L Phosphorus Magnesium Troponin I 01/09/19 01/09/19 01/09/19 03:50 03:50 06:10 WBC RBC Hgb Hct MCV MCH MCHC RDW RDW Differential Plt Count MPV Immature Gran % (Auto) Neut % (Auto) Lymph % (Auto) [place] % (Auto) Eos % (Auto) Baso % (Auto) Absolute Neuts (auto) Absolute Lymphs (auto) Total Counted Neutrophils % (Manual) Band Neutrophils % Lymphocytes % (Manual) Monocytes % (Manual) Metamyelocytes % Myelocytes % Blast Cells % Nucleated RBC % Diff Path Review Hypochromasia Absolute Retic PT 19.4 H INR 1.6 APTT 40.5 H Specimen Type Sample Site pH Bicarbonate Actual POC Total CO2 Base Excess O2 Saturation O2 % ABG pCO2 ABG pO2 David Test Respiration Rate O2 Delivery Device Minute Volume Vent Mode Tidal Volume POC PEEP Blood Gas Notified Whom Sodium Potassium Chloride Carbon Dioxide Anion Gap BUN Creatinine Estim Creat Clear Calc Est GFR (MDRD) Af Amer Est GFR (MDRD) Non-Af BUN/Creatinine Ratio Glucose Lactic Acid 3.1 H Calcium Phosphorus 4.8 Magnesium 1.8 Troponin I POC Glucose 01/09/19 01/08/19 05:04 21:26 POC Glucose 162 H 222 H Clinical Impression(s) from Imaging Studies Chest X-Ray 01/08/19 17:20 IMPRESSION: Bibasilar infiltrates. Electronically Signed: Parker Sun, DO at 17:47 EST Tel [phone], Service support , Chest X-Ray 01/08/19 18:25 IMPRESSION: Patchy infiltrates bilaterally, left more than right. Increasing right upper lobe infiltrate. Electronically Signed: Lamin Jassi, DO at 19:06 EST Tel [phone], Service support , Chest X-Ray 01/08/19 23:20 IMPRESSION: 1. Worsening bilateral airspace infiltrates. 2. Appropriate positioning of supportive tubing. Electronically Signed: Wan Arora MD at 3:37 EST Tel , Service support , Assessment/Plan Active and Suspected Problems (Last Updated 11/02/17 @ 08:07 by Mauro Ley NP-C) Sepsis due to pneumonia (Acute) RECOMMENDATIONS: 1. Increase PEEP as necessary 2. Potential need for central line and pressors 3. Continue empiric antibiotics, add empiric steroid therapy 4. Clarify CODE STATUS with family 5. Wean oxygen as tolerated, spontaneous breathing and awakening trial per protocol 6. Likely initiate tube feeds later today IMPRESSIONS: 1. Acute hypoxic respiratory failure secondary to probable ARDS secondary to community-acquired pneumonia Patient with bilateral infiltrates and reported preserved ejection fraction on previous cardiac catheterization approximately 1 year ago. Clinical suspicion for ARDS secondary to community-acquired pneumonia. Unclear patient has received antibiotics recently. We will need to verify this with the family. If patient has received antibiotics, broadening spectrum would be indicated. Await ABG to see if low tidal volume ventilation is an option. Patient has a reported history of COPD of unclear significance. Will add empiric steroid therapy 2. Severe sepsis, potential septic shock secondary to community-acquired pneumonia Patient has received significant fluids overnight. Patient's blood pressure is marginal at this time. Unclear if this is secondary to decreased venous return from PEEP versus septic shock. Patient does have an elevated temperature overnight and 4 out of 4 Sirs criteria. Patient will likely need a central line placed. May initiate pressor therapy. 3. Pth-vjhtjcg-pqxjixepu diabetes mellitus She currently on sliding scale insulin. Will need to watch closely given initiation of steroid therapy. 4. Acute renal failure Clinical suspicion for ATN secondary to prerenal etiology associated with problem #1 and problem #2. Decreased urine output over the 12-16 hours. ARDS would recommend low fluid balance if possible. Hold off any diuretic therapy given patient's current acute renal failure. 5. Poor history/hypertension/hyperlipidemia/GERD Complicates care, management, recovery and prognosis. Will attempt to clarify CODE STATUS on family arrival. Addendum 7:23 AM: ABG shows significant mixed acidosis. Ventilator was increased to a rate of 14 and 500 tidal volume. TIME: 48 minutes critical care time spent addressing patient's acute hypoxic respiratory failure, ARDS, septic shock, diabetes mellitus, acute renal failure, review of all data and collaboration with care team (5:45 AM to 6:45 AM) Code Visit 9xxxx: [id number] Critical care first hour
--- NOTE | 2019-01-09 07:08 | CON.PCM_ITS ---
Problem List (1) Sepsis due to pneumonia Status: Acute (2) Essential (primary) hypertension Status: Chronic (3) COPD (chronic obstructive pulmonary disease) Status: Chronic (4) Diabetes mellitus Status: Chronic (5) Hyperlipemia, mixed Status: Chronic Reason for Consult Date of Consultation: 01/09/19 Reason for Consultation: Respiratory failure History of Present Illness: The patient is a 78 year old M, with past medical history listed below, who presented to [facility] on 01/08/2019 secondary to progressive shortness of breath over a week with fever and a productive cough. Patient reportedly does not speak Turkmen at baseline, but has a reported history of COPD. Patient reportedly had a productive cough, but color was unclear. Patient was noted to have conversational dyspnea on presentation. In the emergency room, patient was given Solu-Medrol, DuoNeb and noted to be hypoxic and tachypneic. Patient was attempted on BiPAP therapy, but ended up having to require rapid sequence intubation. Patient was placed on Rocephin, Zithromax and admitted to the intensive care unit. Patient was noted to be in sinus tachycardia with a rate of 148 bpm on presentation. CBC was remarkable for a white count of 2.1 and an elevated creatinine at 2.14. Troponin was negative. Since being in the intensive care unit, patient has had significant hypoxemia. Patient had responded initially to increase in PEEP therapy, but required 80-90% FiO2 to maintain saturations. On my arrival this morning, patient was noted to be hypotensive and hypoxic despite 100% FiO2. PEEP has been increased with some stabilization in oxygenation. Patient is unresponsive at this time. Chest x- ray showing progressive bilateral infiltrates. ABG has been ordered. Past Medical History Past Medical History (Chronic Problems): Chronic Problems (Last Updated 11/02/17 @ 08:07 by SHEYLA Smalls) Essential (primary) hypertension (Chronic) COPD (chronic obstructive pulmonary disease) (Chronic) Diabetes mellitus (Chronic) Hyperlipemia, mixed (Chronic) Chest pain, exertional (Chronic) Medical History: Medical History (Last Updated 11/02/17 @ 08:07 by SHEYLA Smalls) Essential (primary) hypertension (Chronic) I10 COPD (chronic obstructive pulmonary disease) (Chronic) J44.9 Diabetes mellitus (Chronic) E11.9 Hyperlipemia, mixed (Chronic) E78.2 Chest pain, exertional (Chronic) R07.9 Anemia D64.9 Emphysema, unspecified J43.9 GERD (gastroesophageal reflux disease) K21.9 Allergies metformin Allergy (Verified 01/08/19 16:59) Unknown Home Medications: Ambulatory Orders Medication Instructions Recorded Aspirin 81 mg PO DAILY 10/02/17 Atorvastatin Calcium 40 mg PO QHS 10/02/17 Clopidogrel Bisulfate [Plavix] 75 mg PO DAILY 10/02/17 Fluticasone Prop 100 mcg [Flovent 1 puff INHALATION BID 10/02/17 Diskus 100 Mcg] Gemfibrozil [Lopid] 600 mg PO BIDAC 10/02/17 Glimepiride [Amaryl] 2 mg PO DAILY 10/02/17 Lisinopril [Zestril] 2.5 mg PO DAILY 10/02/17 Girdletree-3 Fatty Acids/Fish Oil 1 each PO DAILY 10/02/17 [Gird[place]ree 3 1,000 mg Softgel] Omeprazole 40 mg PO DAILY 10/02/17 Pioglitazone HCl 30 mg PO DAILY 10/02/17 Surgical History: Surgical History (Last Updated 11/02/17 @ 08:07 by ISABEL SmallsC) H/O hernia repair Z98.890, Z87.19 Smoking Status: Former smoker Tobacco Use: Cigarettes Alcohol: None Drugs: None - *Family History Maternal Family History: Family History (Last Updated 11/02/17 @ 08:05 by ISABEL SmallsC) Mother CAD (coronary artery disease) Father Colon cancer Review of Systems Unable to obtain accurate/complete ROS d/t: Intubated and sedated Patient Problems: Active and Suspected Problems (Last Updated 11/02/17 @ 08:07 by Mauro Ley NP- C) Sepsis due to pneumonia (Acute) Objective: Chest x-ray shows progressive bilateral infiltrates. Cardiac catheterization completed September 2017 showed an EF of 65% with normal coronary arteries - Physical Exam General: - - Intubated and sedated. Breathing with the ventilator. RASS -2. HEENT: Atraumatic, PERRLA, EOMI, Normocephalic, - - No scleral icterus or inj ection noted. Oral: Moist Mucosa, No Gingival or Mucosal Lesions/ Ulcerations Neck: Supple, No JVD, No Nodes, Trachea Midline Lungs: No wheeze, No rales, Rhonchi - Bilateral, - - Symmetric expansion. No dullness to percussion. Brown secretions noted Cardiovascular: Normal S1, Normal S2, No murmurs, No rub noted, No Gallop, Tachycardic Abdomen: Bowel Sounds Present, Soft, Non Tender, Non-Distended Extremities: No clubbing, No cyanosis, No edema, Capillary Refill Less than 3 Seconds Skin: No rashes, No breakdown Musculoskeletal: No Tenderness to Palpation of Joints or Extremities Lymphatic: No Cervical, Supraclavicular, or Inguinal Adenopathy Neurological: Cranial nerves II-XII grossly intact, Neuro grossly intact Psych/Mental Status: Flat Affect Vital Signs Temp Pulse Resp BP Pulse Ox 36.3 C L 115 H 14 88/51 L 89 01/09/19 06:00 01/09/19 07:00 01/09/19 07:00 01/09/19 07:00 01/09/19 07:00 Oxygen Flow Rate (L/min) 6 Oxygen Delivery Method Mechanical Ventilator Weight: 88.7 kg Body Mass Index (BMI) 28.5 Intake and Output for Last 24 Hours 01/07/19 01/08/19 01/09/19 23:59 23:59 23:59 Intake Total 2585.5 / 2585.5 1186.2 / 1186.2 Output Total 100 / 100 275 / 275 Balance 2485.5 / 2485.5 911.2 / 911.2 Microbiology Past 72 Hours 01/08/19 21:25 Legionella Antigen - Final Urine Catheter - Catheter 01/08/19 21:25 Streptococcus pneumoniae Antigen (M - Final Urine Catheter - Catheter 01/08/19 17:30 Influenza Types A,B Direct FA (BETTY) - Final Mucosa - Nose Laboratory Tests Past 24 Hrs 01/08/19 01/08/19 01/08/19 17:20 17:20 17:20 WBC 2.1 L RBC 4.13 L Hgb 11.5 L Hct 36.0 L MCV 87.2 MCH 27.8 MCHC 31.9 L RDW 14.9 H RDW Differential 47.6 H Plt Count 246 MPV 9.9 Immature Gran % (Auto) [employer] Neut % (Auto) [employer] Lymph % (Auto) [employer]ER Chester % (Auto) [employer]ER Eos % (Auto) [employer]ER Baso % (Auto) [employer] Absolute Neuts (auto) 0.8 L Absolute Lymphs (auto) 0.55 L Total Counted 50 Neutrophils % (Manual) 12 L Band Neutrophils % 28 H Lymphocytes % (Manual) 26 Monocytes % (Manual) 4 Metamyelocytes % 22 H Myelocytes % 6 H Blast Cells % 2 H* Nucleated RBC % 7.7 H Diff Path Review May foll Hypochromasia RARE Absolute Retic 0.16 PT INR APTT Specimen Type Sample Site pH Bicarbonate Actual POC Total CO2 Base Excess O2 Saturation O2 % ABG pCO2 ABG pO2 David Test Respiration Rate O2 Delivery Device Minute Volume Vent Mode Tidal Volume POC PEEP Blood Gas Notified Whom Sodium 145 Potassium 3.0 L Chloride 107 Carbon Dioxide 23.0 Anion Gap 15 BUN 44 H Creatinine 2.14 H Estim Creat Clear Calc 27.08 Est GFR (MDRD) Af Amer 38 L Est GFR (MDRD) Non-Af 32 L BUN/Creatinine Ratio 20.6 H Glucose 198 H Lactic Acid 6.2 H* Calcium 8.7 Phosphorus Magnesium Troponin I 0.017 01/08/19 01/08/19 01/08/19 17:22 19:25 20:05 WBC RBC Hgb Hct MCV MCH MCHC RDW RDW Differential Plt Count MPV Immature Gran % (Auto) Neut % (Auto) Lymph % (Auto) Chester % (Auto) Eos % (Auto) Baso % (Auto) Absolute Neuts (auto) Absolute Lymphs (auto) Total Counted Neutrophils % (Manual) Band Neutrophils % Lymphocytes % (Manual) Monocytes % (Manual) Metamyelocytes % Myelocytes % Blast Cells % Nucleated RBC % Diff Path Review Hypochromasia Absolute Retic PT INR APTT Specimen Type ART Sample Site L Radial pH 7.22 L Bicarbonate Actual 19.1 L POC Total CO2 21 Base Excess -9 L O2 Saturation 100 H O2 % 100 ABG pCO2 47.2 H ABG pO2 289 H David Test NA Respiration Rate 30 O2 Delivery Device Vent Minute Volume 14.00 Vent Mode A-C Tidal Volume 490 POC PEEP 5 Blood Gas Notified Whom ED Sodium Potassium Chloride Carbon Dioxide Anion Gap BUN Creatinine Estim Creat Clear Calc Est GFR (MDRD) Af Amer Est GFR (MDRD) Non-Af BUN/Creatinine Ratio Glucose Lactic Acid 6.4 H* Calcium Phosphorus 1.6 L Magnesium 1.8 Troponin I 01/09/19 01/09/19 01/09/19 00:30 03:50 03:50 WBC 2.3 L RBC 3.67 L Hgb 10.3 L Hct 32.8 L MCV 89.4 MCH 28.1 MCHC 31.4 L RDW 15.3 H RDW Differential 50.2 H Plt Count 188 MPV 10.3 Immature Gran % (Auto) Neut % (Auto) Not Reportable Lymph % (Auto) Chester % (Auto) Eos % (Auto) Baso % (Auto) Absolute Neuts (auto) Not Reportable Absolute Lymphs (auto) Total Counted Pending Neutrophils % (Manual) Band Neutrophils % Lymphocytes % (Manual) Monocytes % (Manual) Metamyelocytes % Myelocytes % Blast Cells % Nucleated RBC % Diff Path Review Hypochromasia Absolute Retic PT INR APTT Specimen Type Sample Site pH Bicarbonate Actual POC Total CO2 Base Excess O2 Saturation O2 % ABG pCO2 ABG pO2 David Test Respiration Rate O2 Delivery Device Minute Volume Vent Mode Tidal Volume POC PEEP Blood Gas Notified Whom Sodium 146 H Potassium 4.1 Chloride 113 H Carbon Dioxide 20.0 L Anion Gap 13 BUN 47 H Creatinine 2.74 H Estim Creat Clear Calc 21.15 Est GFR (MDRD) Af Amer 29 L Est GFR (MDRD) Non-Af 24 L BUN/Creatinine Ratio 17.2 Glucose 168 H Lactic Acid 4.3 H* Calcium 7.2 L Phosphorus Magnesium Troponin I 01/09/19 01/09/19 01/09/19 03:50 03:50 06:10 WBC RBC Hgb Hct MCV MCH MCHC RDW RDW Differential Plt Count MPV Immature Gran % (Auto) Neut % (Auto) Lymph % (Auto) Chester % (Auto) Eos % (Auto) Baso % (Auto) Absolute Neuts (auto) Absolute Lymphs (auto) Total Counted Neutrophils % (Manual) Band Neutrophils % Lymphocytes % (Manual) Monocytes % (Manual) Metamyelocytes % Myelocytes % Blast Cells % Nucleated RBC % Diff Path Review Hypochromasia Absolute Retic PT 19.4 H INR 1.6 APTT 40.5 H Specimen Type Sample Site pH Bicarbonate Actual POC Total CO2 Base Excess O2 Saturation O2 % ABG pCO2 ABG pO2 David Test Respiration Rate O2 Delivery Device Minute Volume Vent Mode Tidal Volume POC PEEP Blood Gas Notified Whom Sodium Potassium Chloride Carbon Dioxide Anion Gap BUN Creatinine Estim Creat Clear Calc Est GFR (MDRD) Af Amer Est GFR (MDRD) Non-Af BUN/Creatinine Ratio Glucose Lactic Acid 3.1 H Calcium Phosphorus 4.8 Magnesium 1.8 Troponin I POC Glucose 01/09/19 01/08/19 05:04 21:26 POC Glucose 162 H 222 H Clinical Impression(s) from Imaging Studies Chest X-Ray 01/08/19 17:20 IMPRESSION: Bibasilar infiltrates. Electronically Signed: Parker Haverford, at 17:47 EST Tel [phone], Service support , Chest X-Ray 01/08/19 18:25 IMPRESSION: Patchy infiltrates bilaterally, left more than right. Increasing right upper lobe infiltrate. Electronically Signed: Laminandriy Keene, DO at 19:06 EST Tel [phone], Service support , Chest X-Ray 01/08/19 23:20 IMPRESSION: 1. Worsening bilateral airspace infiltrates. 2. Appropriate positioning of supportive tubing. Electronically Signed: Wan Arora MD at 3:37 EST Tel , Service support , Assessment/Plan Active and Suspected Problems (Last Updated 11/02/17 @ 08:07 by Mauro Ley [employer]ER- C) Sepsis due to pneumonia (Acute) RECOMMENDATIONS: 1. Increase PEEP as necessary 2. Potential need for central line and pressors 3. Continue empiric antibiotics, add empiric steroid therapy 4. Clarify CODE STATUS with family 5. Wean oxygen as tolerated, spontaneous breathing and awakening trial per protocol 6. Likely initiate tube feeds later today IMPRESSIONS: 1. Acute hypoxic respiratory failure secondary to probable ARDS secondary to community-acquired pneumonia Patient with bilateral infiltrates and reported preserved ejection fraction on previous cardiac catheterization approximately 1 year ago. Clinical suspicion for ARDS secondary to community-acquired pneumonia. Unclear patient has received antibiotics recently. We will need to verify this with the family. If patient has received antibiotics, broadening spectrum would be indicated. A wait ABG to see if low tidal volume ventilation is an option. Patient has a reported history of COPD of unclear significance. Will add empiric steroid therapy 2. Severe sepsis, potential septic shock secondary to community-acquired pneumonia Patient has received significant fluids overnight. Patient's blood pressure is marginal at this time. Unclear if this is secondary to decreased venous return from PEEP versus septic shock. Patient does have an elevated temperature overnight and 4 out of 4 Sirs criteria. Patient will likely need a central line placed. May initiate pressor therapy. 3. Mav-mrngiqz-cstooqpje diabetes mellitus She currently on sliding scale insulin. Will need to watch closely given initiation of steroid therapy. 4. Acute renal failure Clinical suspicion for ATN secondary to prerenal etiology associated with problem #1 and problem #2. Decreased urine output over the 12-16 hours. ARDS would recommend low fluid balance if possible. Hold off any diuretic therapy given patient's current acute renal failure. 5. Poor history/hypertension/hyperlipidemia/GERD Complicates care, management, recovery and prognosis. Will attempt to clarify CODE STATUS on family arrival. Addendum 7:23 AM: ABG shows significant mixed acidosis. Ventilator was increased to a rate of 14 and 500 tidal volume. TIME: 48 minutes critical care time spent addressing patient's acute hypoxic respiratory failure, ARDS, septic shock, diabetes mellitus, acute renal failure, review of all data and collaboration with care team (5:45 AM to 6:45 AM) Code Visit 9xxxx: [id number] Critical care first hour
[2019-01-09 07:09] LABS: Lymphocyte 24 % (19-41); Metamyelocyte 24 % (0-1); Monocyte 4 % (0-10); Myelocyte 2 (0-0); Neutrophil-Band 40 % (0-5); Neutrophil-Segmented 6 % (47-70); Total Cells Counted 50 (MANUAL DIFF)
[2019-01-09 07:10] LABS: Anisocytosis 1+; Hypochromasia 1+; Microcytosis 1+; Platelet Estimate ADEQUATE (ADEQ); Platelet Morphology LARGE; Polychromasia 1+
[2019-01-09 07:12] LABS: Absolute Nucleated RBC Count 0.25 10^3/uL (0-5); NRBC Flagged by Analyzer 10.8 % (0-5)
[2019-01-09 07:13] LABS: Absolute Lymphocyte Count 0.55 X10^3/ul (0.83-4.51); Absolute Neutrophil Count 1.1 X10^3/uL (2.0-7.7)
[2019-01-09 07:16] LABS: Base Excess -12 mmol/L (-2 to +2); Bicarbonate 19.1 mmol/L (22-26); Blood Gas Specimen Type ART; FI02 100; Mode A-C; O2 Delivery Device Vent; PEEP 12; PO2 77 mmHG (75-100); RR 12; SITE R Radial; SO2 85 % (95-99); Time Given 711; Total Carbon Dioxide 21 mmol/L; Vt 450
[2019-01-09 08:01] LABS: Reflex Lactate? Y
[2019-01-09 09:03] LABS: Allen Test POS; Blood Gas Specimen Type ART; FI02 60; Mode A-C; O2 Delivery Device Vent; PEEP 5; RR 16; SITE L RADIAL; Vt 500
[2019-01-09 09:04] LABS: Base Excess -11 mmol/L (-2 to +2); Bicarbonate 16.3 mmol/L (22-26); PO2 68 mmHG (75-100); SO2 89 % (95-99); Time Given 2150; Total Carbon Dioxide 18 mmol/L; pCO2 39.8 mmHg (35-45); pH 7.22 (7.35-7.45)
--- NOTE | 2019-01-09 09:15 | CASEMGMT ---
RN CM Note: Interdisciplinary rounds: presented with pneumonia. Pt continues on mechanical ventilation, OG, Central line placement today. -Attempted to complete RN CM Assessment. Pt unable to participate and family not available. Attempted call to son, Aakash, no answer. Will attempt tomorrow after ICU rounds. Shanae OSORION RN ACM
--- NOTE | 2019-01-09 09:43 | RAD_ITS ---
STUDY: X-RAY CHEST REASON FOR EXAM: Male, 78 years old. Line placement TECHNIQUE: Single AP portable view of the chest. COMPARISON: 01/08/2019 FINDINGS: Stable ET tube and enteric tube. Placement of right IJ central venous catheter with tip in the mid SVC. No definite pneumothorax. Slight worsening of diffuse patchy airspace disease and consolidation; left greater than right. Remainder is unchanged. RAD/Chest 1 View (Portable) IMPRESSION: Stable ET tube and enteric tube. Placement of right IJ central venous catheter as above. No evidence of pneumothorax. Worsening patchy consolidation Electronically Signed: James Alvarez DO at 10:37 EST Tel , Service support ,
--- NOTE | 2019-01-09 09:56 | PCM.OPRPT ---
Report of Operation Date of Procedure: 01/09/19 Surgery/Procedure Performed:: Triple-lumen insertion Description of Surgical Findings:: Central line placement procedure note Indication: IV access/hemodynamic instability/vasoactive medications Procedure: A time-out was completed to verify correct patient, indication, medication allergies, procedure, coagulation studies, informed consent signed, and equipment needed. The patient was placed in the supine position for a central line placement to the rt IJ vein. The patients rt neck was prepped using chlorhexidine and a full body sterile drape was applied. 1% lidocaine was used to anesthetize the surrounding skin. A 7fr 16 cm blue guard triple lumen catheter introduced into the internal jugular vein using the modified Seldinger technique with the assistance of ultrasound. The catheter was threaded smoothly over the guidewire, the guidewire was removed easily, nonpulsatile blood returned. All ports were aspirated of air and flushed with sterile saline. The catheter was sutured in place and covered with an occlusive dressing impregnated with chlorhexidine. Post-procedure: The patient tolerated the procedure well. Vital signs remained stable. EBL 5cc. No complications. Chest X Ray ordered to confirm tip placement and the absence of pneumothorax. Code Visit Procedures: [id number] Insert Non-tunnel CV Cath
--- NOTE | 2019-01-09 10:11 | PCM.PROGNOTE ---
Patient Problems: Active and Suspected Problems (Last Updated 11/02/17 @ 08:07 by Mauro Ley, EMS COORDINATOR-C) Acute combined respiratory failure (Acute) Respiratory acidosis (Acute) Acute renal failure (Acute) Septic shock (Acute) Community acquired pneumonia (Acute) Subjective: Chief complaint: Follow-up after admission for septic shock secondary to bilateral community-acquired pneumonia, acute hypoxic and hypercapnic respiratory failure, respiratory acidosis and acute renal failure. Patient seen and examined. He is sedated, intubated, on full vent support. He is on IV fentanyl and propofol for sedation, on IV Levophed. He is hypotensive, tachycardic, afebrile. - Physical Exam General: - - Sedated, intubated. HEENT: Atraumatic, PERRLA, Normocephalic Oral: Moist Mucosa, No Gingival or Mucosal Lesions/ Ulcerations Neck: Supple, No JVD, Negative Carotid Bruits, Trachea Midline, Thyroid Normal Size and Texture Lungs: No wheeze, Diminished, Rales, Rhonchi, - - Decreased breath sounds bilateral, bilateral rhonchi. Cardiovascular: Regular rate, Regular Rhythm, Normal S1, Normal S2, PMI Normal, Tachycardic Abdomen: Bowel Sounds Present, Soft, Non Tender, Non-Distended, No Hepato-splenomegaly Extremities: No clubbing, No cyanosis, No edema Skin: No rashes, No breakdown Lymphatic: No Cervical, Supraclavicular, or Inguinal Adenopathy Neurological: - - Unable to assess, patient is sedated. Psych/Mental Status: - - Unable to assess, patient is sedated. Vital Signs Temp Pulse Resp BP Pulse Ox 97.8 F 119 H 14 96/55 L 86 01/09/19 08:00 01/09/19 09:30 01/09/19 09:30 01/09/19 08:00 01/09/19 09:30 Oxygen Flow Rate (L/min) 6 Oxygen Delivery Method Mechanical Ventilator Weight: 195 lb 8.8 oz Body Mass Index (BMI) 28.5 Intake and Output for Last 24 Hours 01/07/19 01/08/19 01/09/19 23:59 23:59 23:59 Intake Total 2585.5 / 2585.5 1186.2 / 1186.2 Output Total 100 / 100 275 / 275 Balance 2485.5 / 2485.5 911.2 / 911.2 Microbiology Past 72 Hours 01/08/19 17:30 Respiratory Panel (PCR) - Final Mucosa - Nose Influenza A (Subtype H1) 01/08/19 17:22 Blood Culture - Preliminary Blood Culture (Wb) - Left Wrist 01/08/19 17:20 Blood Culture - Preliminary Blood Culture (Wb) #2 - Anticubital Right 01/08/19 21:25 Legionella Antigen - Final Urine Catheter - Catheter 01/08/19 21:25 Streptococcus pneumoniae Antigen (M - Final Urine Catheter - Catheter 01/08/19 17:30 Influenza Types A,B Direct FA (BETTY) - Final Mucosa - Nose Laboratory Tests Past 24 Hrs 01/08/19 01/08/19 01/08/19 17:20 17:20 17:20 WBC 2.1 L RBC 4.13 L Hgb 11.5 L Hct 36.0 L MCV 87.2 MCH 27.8 MCHC 31.9 L RDW 14.9 H RDW Differential 47.6 H Plt Count 246 MPV 9.9 Immature Gran % (Auto) EMS COORDINATOR Neut % (Auto) EMS COORDINATOR Lymph % (Auto) EMS COORDINATOR Woodward % (Auto) EMS COORDINATOR Eos % (Auto) EMS COORDINATOR Baso % (Auto) EMS COORDINATOR Absolute Neuts (auto) 0.8 L Absolute Lymphs (auto) 0.55 L Total Counted 50 Neutrophils % (Manual) 12 L Band Neutrophils % 28 H Lymphocytes % (Manual) 26 Monocytes % (Manual) 4 Metamyelocytes % 22 H Myelocytes % 6 H Blast Cells % 2 H* Nucleated RBC % 7.7 H Diff Path Review May foll Platelet Estimate Plt Morphology Comment Polychromasia Hypochromasia RARE Anisocytosis Microcytosis Absolute Retic 0.16 PT INR APTT Specimen Type Sample Site pH Bicarbonate Actual POC Total CO2 Base Excess O2 Saturation O2 % ABG pCO2 ABG pO2 David Test Respiration Rate O2 Delivery Device Minute Volume Vent Mode Tidal Volume POC PEEP Blood Gas Notified Whom Blood Gas Notified Time Sodium 145 Potassium 3.0 L Chloride 107 Carbon Dioxide 23.0 Anion Gap 15 BUN 44 H Creatinine 2.14 H Estim Creat Clear Calc 27.08 Est GFR (MDRD) Af Amer 38 L Est GFR (MDRD) Non-Af 32 L BUN/Creatinine Ratio 20.6 H Glucose 198 H Lactic Acid 6.2 H* Calcium 8.7 Phosphorus Magnesium Troponin I 0.017 MRSA (PCR) 01/08/19 01/08/19 01/08/19 17:22 19:25 20:05 WBC RBC Hgb Hct MCV MCH MCHC RDW RDW Differential Plt Count MPV Immature Gran % (Auto) Neut % (Auto) Lymph % (Auto) Woodward % (Auto) Eos % (Auto) Baso % (Auto) Absolute Neuts (auto) Absolute Lymphs (auto) Total Counted Neutrophils % (Manual) Band Neutrophils % Lymphocytes % (Manual) Monocytes % (Manual) Metamyelocytes % Myelocytes % Blast Cells % Nucleated RBC % Diff Path Review Platelet Estimate Plt Morphology Comment Polychromasia Hypochromasia Anisocytosis Microcytosis Absolute Retic PT INR APTT Specimen Type ART Sample Site L Radial pH 7.22 L Bicarbonate Actual 19.1 L POC Total CO2 21 Base Excess -9 L O2 Saturation 100 H O2 % 100 ABG pCO2 47.2 H ABG pO2 289 H David Test NA Respiration Rate 30 O2 Delivery Device Vent Minute Volume 14.00 Vent Mode A-C Tidal Volume 490 POC PEEP 5 Blood Gas Notified Whom ED MD Blood Gas Notified Time Sodium Potassium Chloride Carbon Dioxide Anion Gap BUN Creatinine Estim Creat Clear Calc Est GFR (MDRD) Af Amer Est GFR (MDRD) Non-Af BUN/Creatinine Ratio Glucose Lactic Acid 6.4 H* Calcium Phosphorus 1.6 L Magnesium 1.8 Troponin I MRSA (PCR) 01/08/19 01/09/19 01/09/19 21:50 00:30 03:50 WBC 2.3 L RBC 3.67 L Hgb 10.3 L Hct 32.8 L MCV 89.4 MCH 28.1 MCHC 31.4 L RDW 15.3 H RDW Differential 50.2 H Plt Count 188 MPV 10.3 Immature Gran % (Auto) Neut % (Auto) Not Reportable Lymph % (Auto) Woodward % (Auto) Eos % (Auto) Baso % (Auto) Absolute Neuts (auto) 1.1 L Absolute Lymphs (auto) 0.55 L Total Counted 50 Neutrophils % (Manual) 6 L Band Neutrophils % 40 H Lymphocytes % (Manual) 24 Monocytes % (Manual) 4 Metamyelocytes % 24 H Myelocytes % 2 H Blast Cells % Nucleated RBC % 10.8 H Diff Path Review May foll Platelet Estimate ADEQUATE Plt Morphology Comment LARGE Polychromasia 1+ Hypochromasia 1+ Anisocytosis 1+ Microcytosis 1+ Absolute Retic 0.25 PT INR APTT Specimen Type ART Sample Site L RADIAL pH 7.22 L Bicarbonate Actual 16.3 L POC Total CO2 18 Base Excess -11 L O2 Saturation 89 L O2 % 60 ABG pCO2 39.8 ABG pO2 68 L David Test POS Respiration Rate 16 O2 Delivery Device Vent Minute Volume 14.00 Vent Mode A-C Tidal Volume 500 POC PEEP 5 Blood Gas Notified Whom ICU MD Blood Gas Notified Time 2150 Sodium Potassium Chloride Carbon Dioxide Anion Gap BUN Creatinine Estim Creat Clear Calc Est GFR (MDRD) Af Amer Est GFR (MDRD) Non-Af BUN/Creatinine Ratio Glucose Lactic Acid 4.3 H* Calcium Phosphorus Magnesium Troponin I MRSA (PCR) 01/09/19 01/09/19 01/09/19 03:50 03:50 03:50 WBC RBC Hgb Hct MCV MCH MCHC RDW RDW Differential Plt Count MPV Immature Gran % (Auto) Neut % (Auto) Lymph % (Auto) Woodward % (Auto) Eos % (Auto) Baso % (Auto) Absolute Neuts (auto) Absolute Lymphs (auto) Total Counted Neutrophils % (Manual) Band Neutrophils % Lymphocytes % (Manual) Monocytes % (Manual) Metamyelocytes % Myelocytes % Blast Cells % Nucleated RBC % Diff Path Review Platelet Estimate Plt Morphology Comment Polychromasia Hypochromasia Anisocytosis Microcytosis Absolute Retic PT INR APTT Specimen Type Sample Site pH Bicarbonate Actual POC Total CO2 Base Excess O2 Saturation O2 % ABG pCO2 ABG pO2 David Test Respiration Rate O2 Delivery Device Minute Volume Vent Mode Tidal Volume POC PEEP Blood Gas Notified Whom Blood Gas Notified Time Sodium 146 H Potassium 4.1 Chloride 113 H Carbon Dioxide 20.0 L Anion Gap 13 BUN 47 H Creatinine 2.74 H Estim Creat Clear Calc 21.15 Est GFR (MDRD) Af Amer 29 L Est GFR (MDRD) Non-Af 24 L BUN/Creatinine Ratio 17.2 Glucose 168 H Lactic Acid 3.1 H Calcium 7.2 L Phosphorus 4.8 Magnesium 1.8 Troponin I MRSA (PCR) 01/09/19 01/09/19 01/09/19 06:10 07:10 09:10 WBC RBC Hgb Hct MCV MCH MCHC RDW RDW Differential Plt Count MPV Immature Gran % (Auto) Neut % (Auto) Lymph % (Auto) [place] % (Auto) Eos % (Auto) Baso % (Auto) Absolute Neuts (auto) Absolute Lymphs (auto) Total Counted Neutrophils % (Manual) Band Neutrophils % Lymphocytes % (Manual) Monocytes % (Manual) Metamyelocytes % Myelocytes % Blast Cells % Nucleated RBC % Diff Path Review Platelet Estimate Plt Morphology Comment Polychromasia Hypochromasia Anisocytosis Microcytosis Absolute Retic PT 19.4 H INR 1.6 APTT 40.5 H Specimen Type ART Sample Site R Radial pH 7.00 L* Bicarbonate Actual 19.1 L POC Total CO2 21 Base Excess -12 L O2 Saturation 85 L O2 % 100 ABG pCO2 77.0 H* ABG pO2 77 David Test NA Respiration Rate 12 O2 Delivery Device Vent Minute Volume 6.00 Vent Mode A-C Tidal Volume 450 POC PEEP 12 Blood Gas Notified Whom ICU MD Blood Gas Notified Time 711 Sodium Potassium Chloride Carbon Dioxide Anion Gap BUN Creatinine Estim Creat Clear Calc Est GFR (MDRD) Af Amer Est GFR (MDRD) Non-Af BUN/Creatinine Ratio Glucose Lactic Acid Calcium Phosphorus Magnesium Troponin I MRSA (PCR) Pending POC Glucose 01/09/19 01/08/19 05:04 21:26 POC Glucose 162 H 222 H Clinical Impression(s) from Imaging Studies Chest X-Ray 01/08/19 17:20 IMPRESSION: Bibasilar infiltrates. Electronically Signed: Parker Sun DO at 17:47 EST Tel [phone], Service support , Chest X-Ray 01/08/19 18:25 IMPRESSION: Patchy infiltrates bilaterally, left more than right. Increasing right upper lobe infiltrate. Electronically Signed: Lamin Keene DO at 19:06 EST Tel [phone], Service support , Chest X-Ray 01/08/19 23:20 IMPRESSION: 1. Worsening bilateral airspace infiltrates. 2. Appropriate positioning of supportive tubing. Electronically Signed: Wan Arora MD at 3:37 EST Tel , Service support , Medical Necessity - Tobacco Use Smoking Status: Former smoker Tobacco Use: Cigarettes Assessment/Plan All Active Problems (Last Updated 11/02/17 @ 08:07 by Mauro Ley, EMS COORDINATOR-C) Acute combined respiratory failure (Acute) Respiratory acidosis (Acute) Acute renal failure (Acute) Septic shock (Acute) Community acquired pneumonia (Acute) This is a 78 years old male patient presented to the emergency room because of shortness of breath, found to have bilateral infiltrates on chest x-ray consistent with community-acquired pneumonia, became very dyspneic and tachypneic while on BiPAP in the ED and he was intubated and started on mechanical ventilation, found to have septic shock secondary to chronic acquired pneumonia complicated by acute hypoxic and hypercapnic respiratory failure and acute renal failure. #1 septic shock: Secondary to pneumonia. Patient is on IV vasopressors, IV antibiotics, IV steroids and IV fluids. He is hypotensive, tachycardic. Lactic acid is trending down. Respiratory panel for viruses positive for influenza A. Pneumococcal and Legionella antigen were negative. Blood culture is positive for gram-positive cocci. Plan to continue vasopressors, IV antibiotics, continue mechanical ventilation. #2 acute bacterial bilateral community-acquired pneumonia: Chest x-ray reviewed. He is on IV Rocephin and Zithromax. Blood cultures positive for gram-positive cocci. Pneumococcal and Legionella antigen were negative. Positive for influenza A. Plan to continue same treatment, continue IV vasopressors and antibiotics. #3 gram-positive bacteremia: Probable source is the pneumonia. He is on IV Rocephin and Zithromax as above. Plan as above. #4 acute hypoxic and hypercapnic respiratory failure/respiratory acidosis: Secondary to pneumonia. ABG this morning revealed pH of 7, PCO2 of 77 and PO2 of 77. He does have a respiratory acidosis because of CO2 retention. Plan as above. #5 acute renal failure: Secondary to septic shock, tissue hypoperfusion. Baseline kidney function is normal, admission creatinine is 2.14, today's creatinine is 2.74, worsening. He has poor urine output, plan to continue IV fluids, IV vasopressors, repeat BMP tomorrow morning. #6 type 2 diabetes mellitus: Blood sugar has been stable, he is on sliding scale only. #7 hypertension: He is hypotensive because of septic shock. Antihypertensive medications held. #8 hyperlipidemia: Statin is held, patient is intubated. #9 GERD: He is on IV Pepcid daily. #10 DVT prophylaxis: Change to subcu heparin. This note was generated with [employer] dictation software. It may contain incorrect words, spelling, and punctuation that were not noted in checking the note before signing. Code Visit Inpatient E&M: 56355 Subs Hosp L3
--- NOTE | 2019-01-09 10:16 | PN_ITS ---
Patient Problems: Active and Suspected Problems (Last Updated 11/02/17 @ 08:07 by Mauro Ley, JAVA APPLICATION ENGINEER- C) Acute combined respiratory failure (Acute) Respiratory acidosis (Acute) Acute renal failure (Acute) Septic shock (Acute) Community acquired pneumonia (Acute) Subjective: Chief complaint: Follow-up after admission for septic shock secondary to bilateral community-acquired pneumonia, acute hypoxic and hypercapnic respiratory failure, respiratory acidosis and acute renal failure. Patient seen and examined. He is sedated, intubated, on full vent support. He is on IV fentanyl and propofol for sedation, on IV Levophed. He is hypotensive, tachycardic, afebrile. - Physical Exam General: - - Sedated, intubated. HEENT: Atraumatic, PERRLA, Normocephalic Oral: Moist Mucosa, No Gingival or Mucosal Lesions/ Ulcerations Neck: Supple, No JVD, Negative Carotid Bruits, Trachea Midline, Thyroid Normal Size and Texture Lungs: No wheeze, Diminished, Rales, Rhonchi, - - Decreased breath sounds bi lateral, bilateral rhonchi. Cardiovascular: Regular rate, Regular Rhythm, Normal S1, Normal S2, PMI Normal, Tachycardic Abdomen: Bowel Sounds Present, Soft, Non Tender, Non-Distended, No Hepato- splenomegaly Extremities: No clubbing, No cyanosis, No edema Skin: No rashes, No breakdown Lymphatic: No Cervical, Supraclavicular, or Inguinal Adenopathy Neurological: - - Unable to assess, patient is sedated. Psych/Mental Status: - - Unable to assess, patient is sedated. Vital Signs Temp Pulse Resp BP Pulse Ox 97.8 F 119 H 14 96/55 L 86 01/09/19 08:00 01/09/19 09:30 01/09/19 09:30 01/09/19 08:00 01/09/19 09:30 Oxygen Flow Rate (L/min) 6 Oxygen Delivery Method Mechanical Ventilator Weight: 195 lb 8.8 oz Body Mass Index (BMI) 28.5 Intake and Output for Last 24 Hours 01/07/19 01/08/19 01/09/19 23:59 23:59 23:59 Intake Total 2585.5 / 2585.5 1186.2 / 1186.2 Output Total 100 / 100 275 / 275 Balance 2485.5 / 2485.5 911.2 / 911.2 Microbiology Past 72 Hours 01/08/19 17:30 Respiratory Panel (PCR) - Final Mucosa - Nose Influenza A (Subtype H1) 01/08/19 17:22 Blood Culture - Preliminary Blood Culture (Wb) - Left Wrist 01/08/19 17:20 Blood Culture - Preliminary Blood Culture (Wb) #2 - Anticubital Right 01/08/19 21:25 Legionella Antigen - Final Urine Catheter - Catheter 01/08/19 21:25 Streptococcus pneumoniae Antigen (M - Final Urine Catheter - Catheter 01/08/19 17:30 Influenza Types A,B Direct FA (BETTY) - Final Mucosa - Nose Laboratory Tests Past 24 Hrs 01/08/19 01/08/19 01/08/19 17:20 17:20 17:20 WBC 2.1 L RBC 4.13 L Hgb 11.5 L Hct 36.0 L MCV 87.2 MCH 27.8 MCHC 31.9 L RDW 14.9 H RDW Differential 47.6 H Plt Count 246 MPV 9.9 Immature Gran % (Auto) JAVA APPLICATION ENGINEER Neut % (Auto) JAVA APPLICATION ENGINEER Lymph % (Auto) JAVA APPLICATION ENGINEER [place] % (Auto) JAVA APPLICATION ENGINEER Eos % (Auto) JAVA APPLICATION ENGINEER Baso % (Auto) JAVA APPLICATION ENGINEER Absolute Neuts (auto) 0.8 L Absolute Lymphs (auto) 0.55 L Total Counted 50 Neutrophils % (Manual) 12 L Band Neutrophils % 28 H Lymphocytes % (Manual) 26 Monocytes % (Manual) 4 Metamyelocytes % 22 H Myelocytes % 6 H Blast Cells % 2 H* Nucleated RBC % 7.7 H Diff Path Review May foll Platelet Estimate Plt Morphology Comment Polychromasia Hypochromasia RARE Anisocytosis Microcytosis Absolute Retic 0.16 PT INR APTT Specimen Type Sample Site pH Bicarbonate Actual POC Total CO2 Base Excess O2 Saturation O2 % ABG pCO2 ABG pO2 David Test Respiration Rate O2 Delivery Device Minute Volume Vent Mode Tidal Volume POC PEEP Blood Gas Notified Whom Blood Gas Notified Time Sodium 145 Potassium 3.0 L Chloride 107 Carbon Dioxide 23.0 Anion Gap 15 BUN 44 H Creatinine 2.14 H Estim Creat Clear Calc 27.08 Est GFR (MDRD) Af Amer 38 L Est GFR (MDRD) Non-Af 32 L BUN/Creatinine Ratio 20.6 H Glucose 198 H Lactic Acid 6.2 H* Calcium 8.7 Phosphorus Magnesium Troponin I 0.017 MRSA (PCR) 01/08/19 01/08/19 01/08/19 17:22 19:25 20:05 WBC RBC Hgb Hct MCV MCH MCHC RDW RDW Differential Plt Count MPV Immature Gran % (Auto) Neut % (Auto) Lymph % (Auto) [place] % (Auto) Eos % (Auto) Baso % (Auto) Absolute Neuts (auto) Absolute Lymphs (auto) Total Counted Neutrophils % (Manual) Band Neutrophils % Lymphocytes % (Manual) Monocytes % (Manual) Metamyelocytes % Myelocytes % Blast Cells % Nucleated RBC % Diff Path Review Platelet Estimate Plt Morphology Comment Polychromasia Hypochromasia Anisocytosis Microcytosis Absolute Retic PT INR APTT Specimen Type ART Sample Site L Radial pH 7.22 L Bicarbonate Actual 19.1 L POC Total CO2 21 Base Excess -9 L O2 Saturation 100 H O2 % 100 ABG pCO2 47.2 H ABG pO2 289 H David Test NA Respiration Rate 30 O2 Delivery Device Vent Minute Volume 14.00 Vent Mode A-C Tidal Volume 490 POC PEEP 5 Blood Gas Notified Whom ED MD Blood Gas Notified Time Sodium Potassium Chloride Carbon Dioxide Anion Gap BUN Creatinine Estim Creat Clear Calc Est GFR (MDRD) Af Amer Est GFR (MDRD) Non-Af BUN/Creatinine Ratio Glucose Lactic Acid 6.4 H* Calcium Phosphorus 1.6 L Magnesium 1.8 Troponin I MRSA (PCR) 01/08/19 01/09/19 01/09/19 21:50 00:30 03:50 WBC 2.3 L RBC 3.67 L Hgb 10.3 L Hct 32.8 L MCV 89.4 MCH 28.1 MCHC 31.4 L RDW 15.3 H RDW Differential 50.2 H Plt Count 188 MPV 10.3 Immature Gran % (Auto) Neut % (Auto) Not Reportable Lymph % (Auto) [place] % (Auto) Eos % (Auto) Baso % (Auto) Absolute Neuts (auto) 1.1 L Absolute Lymphs (auto) 0.55 L Total Counted 50 Neutrophils % (Manual) 6 L Band Neutrophils % 40 H Lymphocytes % (Manual) 24 Monocytes % (Manual) 4 Metamyelocytes % 24 H Myelocytes % 2 H Blast Cells % Nucleated RBC % 10.8 H Diff Path Review May foll Platelet Estimate ADEQUATE Plt Morphology Comment LARGE Polychromasia 1+ Hypochromasia 1+ Anisocytosis 1+ Microcytosis 1+ Absolute Retic 0.25 PT INR APTT Specimen Type ART Sample Site L RADIAL pH 7.22 L Bicarbonate Actual 16.3 L POC Total CO2 18 Base Excess -11 L O2 Saturation 89 L O2 % 60 ABG pCO2 39.8 ABG pO2 68 L David Test POS Respiration Rate 16 O2 Delivery Device Vent Minute Volume 14.00 Vent Mode A-C Tidal Volume 500 POC PEEP 5 Blood Gas Notified Whom ICU MD Blood Gas Notified Time 2150 Sodium Potassium Chloride Carbon Dioxide Anion Gap BUN Creatinine Estim Creat Clear Calc Est GFR (MDRD) Af Amer Est GFR (MDRD) Non-Af BUN/Creatinine Ratio Glucose Lactic Acid 4.3 H* Calcium Phosphorus Magnesium Troponin I MRSA (PCR) 01/09/19 01/09/19 01/09/19 03:50 03:50 03:50 WBC RBC Hgb Hct MCV MCH MCHC RDW RDW Differential Plt Count MPV Immature Gran % (Auto) Neut % (Auto) Lymph % (Auto) [place] % (Auto) Eos % (Auto) Baso % (Auto) Absolute Neuts (auto) Absolute Lymphs (auto) Total Counted Neutrophils % (Manual) Band Neutrophils % Lymphocytes % (Manual) Monocytes % (Manual) Metamyelocytes % Myelocytes % Blast Cells % Nucleated RBC % Diff Path Review Platelet Estimate Plt Morphology Comment Polychromasia Hypochromasia Anisocytosis Microcytosis Absolute Retic PT INR APTT Specimen Type Sample Site pH Bicarbonate Actual POC Total CO2 Base Excess O2 Saturation O2 % ABG pCO2 ABG pO2 David Test Respiration Rate O2 Delivery Device Minute Volume Vent Mode Tidal Volume POC PEEP Blood Gas Notified Whom Blood Gas Notified Time Sodium 146 H Potassium 4.1 Chloride 113 H Carbon Dioxide 20.0 L Anion Gap 13 BUN 47 H Creatinine 2.74 H Estim Creat Clear Calc 21.15 Est GFR (MDRD) Af Amer 29 L Est GFR (MDRD) Non-Af 24 L BUN/Creatinine Ratio 17.2 Glucose 168 H Lactic Acid 3.1 H Calcium 7.2 L Phosphorus 4.8 Magnesium 1.8 Troponin I MRSA (PCR) 01/09/19 01/09/19 01/09/19 06:10 07:10 09:10 WBC RBC Hgb Hct MCV MCH MCHC RDW RDW Differential Plt Count MPV Immature Gran % (Auto) Neut % (Auto) Lymph % (Auto) [place] % (Auto) Eos % (Auto) Baso % (Auto) Absolute Neuts (auto) Absolute Lymphs (auto) Total Counted Neutrophils % (Manual) Band Neutrophils % Lymphocytes % (Manual) Monocytes % (Manual) Metamyelocytes % Myelocytes % Blast Cells % Nucleated RBC % Diff Path Review Platelet Estimate Plt Morphology Comment Polychromasia Hypochromasia Anisocytosis Microcytosis Absolute Retic PT 19.4 H INR 1.6 APTT 40.5 H Specimen Type ART Sample Site R Radial pH 7.00 L* Bicarbonate Actual 19.1 L POC Total CO2 21 Base Excess -12 L O2 Saturation 85 L O2 % 100 ABG pCO2 77.0 H* ABG pO2 77 David Test NA Respiration Rate 12 O2 Delivery Device Vent Minute Volume 6.00 Vent Mode A-C Tidal Volume 450 POC PEEP 12 Blood Gas Notified Whom ICU Blood Gas Notified Time 711 Sodium Potassium Chloride Carbon Dioxide Anion Gap BUN Creatinine Estim Creat Clear Calc Est GFR (MDRD) Af Amer Est GFR (MDRD) Non-Af BUN/Creatinine Ratio Glucose Lactic Acid Calcium Phosphorus Magnesium Troponin I MRSA (PCR) Pending POC Glucose 01/09/19 01/08/19 05:04 21:26 POC Glucose 162 H 222 H Clinical Impression(s) from Imaging Studies Chest X-Ray 01/08/19 17:20 IMPRESSION: Bibasilar infiltrates. Electronically Signed: Parker Sun DO at 17:47 EST Tel [phone], Service support , Chest X-Ray 01/08/19 18:25 IMPRESSION: Patchy infiltrates bilaterally, left more than right. Increasing right upper lobe infiltrate. Electronically Signed: Lamin Keene DO at 19:06 EST Tel [phone], Service support , Chest X-Ray 01/08/19 23:20 IMPRESSION: 1. Worsening bilateral airspace infiltrates. 2. Appropriate positioning of supportive tubing. Electronically Signed: Wan Arora MD at 3:37 EST Tel , Service support , Medical Necessity - Tobacco Use Smoking Status: Former smoker Tobacco Use: Cigarettes Assessment/Plan All Active Problems (Last Updated 11/02/17 @ 08:07 by Mauro Ley, JAVA APPLICATION ENGINEER-C) Acute combined respiratory failure (Acute) Respiratory acidosis (Acute) Acute renal failure (Acute) Septic shock (Acute) Community acquired pneumonia (Acute) This is a 78 years old male patient presented to the emergency room because of shortness of breath, found to have bilateral infiltrates on chest x-ray consistent with community-acquired pneumonia, became very dyspneic and tachypneic while on BiPAP in the ED and he was intubated and started on mechanical ventilation, found to have septic shock secondary to chronic acquired pneumonia complicated by acute hypoxic and hypercapnic respiratory failure and acute renal failure. #1 septic shock: Secondary to pneumonia. Patient is on IV vasopressors, IV antibiotics, IV steroids and IV fluids. He is hypotensive, tachycardic. Lactic acid is trending down. Respiratory panel for viruses positive for influenza A. Pneumococcal and Legionella antigen were negative. Blood culture is positive for gram-positive cocci. Plan to continue vasopressors, IV antibiotics, co ntinue mechanical ventilation. #2 acute bacterial bilateral community-acquired pneumonia: Chest x-ray reviewed. He is on IV Rocephin and Zithromax. Blood cultures positive for gram-positive cocci. Pneumococcal and Legionella antigen were negative. Positive for influenza A. Plan to continue same treatment, continue IV vasopressors and antibiotics. #3 gram-positive bacteremia: Probable source is the pneumonia. He is on IV Rocephin and Zithromax as above. Plan as above. #4 acute hypoxic and hypercapnic respiratory failure/respiratory acidosis: Secondary to pneumonia. ABG this morning revealed pH of 7, PCO2 of 77 and PO2 of 77. He does have a respiratory acidosis because of CO2 retention. Plan as above. #5 acute renal failure: Secondary to septic shock, tissue hypoperfusion. [facility] kidney function is normal, admission creatinine is 2.14, today's creatinine is 2.74, worsening. He has poor urine output, plan to continue IV fluids, IV vasopressors, repeat BMP tomorrow morning. #6 type 2 diabetes mellitus: Blood sugar has been stable, he is on sliding scale only. #7 hypertension: He is hypotensive because of septic shock. Antihypertensive medications held. #8 hyperlipidemia: Statin is held, patient is intubated. #9 GERD: He is on IV Pepcid daily. #10 DVT prophylaxis: Change to subcu heparin. This note was generated with [employer] dictation software. It may contain incorrect words, spelling, and punctuation that were not noted in checking the note before signing. Code Visit Inpatient E&M: 66891 Subs Hosp L3
[2019-01-09] MEDS: Senna/Docusate Sodium 1 Tablet 2 TABLET PO (10:44)
[2019-01-09] MEDS: Chlorhexidine 15 ML PO ×2 (10:45→21:38)
[2019-01-09] MEDS: Enoxaparin 30 MG/0.3 ML Syringe SC (10:46)
[2019-01-09 12:09] LABS: M R Staph aureus DNA By PCR Negative (Negative); Probe Check PASS; Specimen Processing Control PASS
[2019-01-09 12:21] LABS: Bedside Glucose 91 mg/dL (70-110)
[2019-01-09] MEDS: Vital AF 1.2 Cal Liquid 1,000 ML 70 ML GT (12:29)
[2019-01-09 12:34] LABS: Pathologist Review Reviewed
[2019-01-09 12:36] LABS: Pathologist Review Reviewed
[2019-01-09] MEDS: CHLORHEXIDINE GLUC 2% CLOTH 1 EACH TOWELETTE TOPICAL (16:24)
[2019-01-09 18:37] LABS: Bedside Glucose 74 mg/dL (70-110)
--- NOTE | 2019-01-09 20:50 | NURSING ---
Patient's wedding ring and necklace given to Aakash Sandovalfosterbg, son/Next of Kin.
[2019-01-09] MEDS: Ceftriaxone 1 GM/50 ML BAG IV (21:38)
[2019-01-09] MEDS: Heparin Injection (Vial) 5,000 UNIT/ML VIAL 5000 UNIT SC (21:38)
[2019-01-09] MEDS: Acetaminophen 650 MG/20 ML UDC GT (21:52)
[2019-01-09] MEDS: 0.9% NaCl Peripheral Flush Adult/Peds IV (22:00)
[2019-01-09 23:41] LABS: Bedside Glucose 140 mg/dL (70-110)
[2019-01-10] VITALS (57 sets, daily range): BP systolic 77–137; BP diastolic 44–83; PULSE 92–129; RESP 20–48; TEMP 36.7–39.4; O2SAT 86–96
--- NOTE | 2019-01-10 00:29 | NURSING ---
At 2330, repositioned patient, patient fighting ventilator, slow cautious movement of right arm, gag reflux present. Entered room at this time to check cooling blanket d/t patient's temp increasing to 103.0, patient's O2 sats remain 86%, suctioned patient, no gag reflux present, no babinski reflux present, not responding to painful stimuli, no PERRLA. Respiratory at bedside to obtain ABG. Will notifiy .
[2019-01-10 00:51] LABS: Base Excess -14 mmol/L (-2 to +2); Bicarbonate 16.9 mmol/L (22-26); Blood Gas Specimen Type ART; FI02 100; Mode A-C; O2 Delivery Device Vent; PEEP 16; PO2 58 mmHG (75-100); RR 14; SITE L Brachial; SO2 74 % (95-99); Time Given 37; Total Carbon Dioxide 19 mmol/L; Vt 500; pCO2 65.7 mmHg (35-45); pH 7.02 (7.35-7.45)
--- NOTE | 2019-01-10 01:03 | RAD_ITS ---
HISTORY: Respiratory failure EXAM:XR Chest 1 View: Portable COMPARISON: 01/09/2019 and 01/08/2019 FINDINGS: EKG leads in place. Medical devices: The endotracheal tube and NG tube remain in good position. The right internal jugular central venous line appears unchanged in position. No significant change. Extensive consolidation involving the right upper lobe and the left mid and left lower lung zones. Right basilar patchy infiltrate. The heart is unchanged in size. No pneumothorax. RAD/Chest 1 View (Portable) IMPRESSION: 1. No significant change. Extensive bilateral pulmonary infiltrates. at 0453 Reported and signed by: Mello Calvillo MD Electronically Signed: Mello Calvillo, at 4:52 EST Tel , Service support ,
[2019-01-10 01:07] LABS: Base Excess -15 mmol/L (-2 to +2); Bicarbonate 16.7 mmol/L (22-26); Blood Gas Specimen Type ART; FI02 100; Mode A-C; O2 Delivery Device Vent; PEEP 16; PO2 56 mmHG (75-100); RR 14; SITE L Radial; SO2 71 % (95-99); Time Given 48; Total Carbon Dioxide 19 mmol/L; Vt 500; pCO2 67.4 mmHg (35-45)
[2019-01-10] MEDS: Sodium Bicarbonate 8.4% 50 ML Syringe 100 MEQ IV (01:12)
[2019-01-10] MEDS: 0.9% NaCl Peripheral Flush Adult/Peds IV ×2 (01:13→05:16)
[2019-01-10 02:36] LABS: Base Excess -10 mmol/L (-2 to +2); Bicarbonate 19.7 mmol/L (22-26); Blood Gas Specimen Type ART; FI02 100; Mode APRV; O2 Delivery Device Vent; PO2 61 mmHG (75-100); SITE L Radial; SO2 79 % (95-99); T LOW 0.5; Time Given 220; Total Carbon Dioxide 22 mmol/L; pCO2 66.1 mmHg (35-45); pH 7.08 (7.35-7.45)
[2019-01-10 04:18] LABS: Anion Gap 14 (5-15); BUN 67 mg/dL (7-18); BUN/Creat Ratio 15.1 RATIO (10-20); Calcium,Total 7.2 mg/dL (8.5-10.1); Chloride 111 mmol/L (98-107); Creatinine, Serum 4.43 mg/dL (0.70-1.30); EST Glomerular Filtration Rate 14 mL/min (>60); Est Glom Filt Rate - Afr Amer 17 mL/min (>60); Estimated Creatinine Clearance 13.08 ml/min; Glucose 154 mg/dL (74-106); Phosphorus 8.1 mg/dL (2.5-4.9); Potassium 5.2 mmol/L (3.5-5.1); Sodium Level 144 mmol/L (136-145)
[2019-01-10 04:48] LABS: Hematocrit 35.1 % (40-54); Hemoglobin 10.6 g/dl (13.0-16.5); Mean Corp Hgb Conc 30.2 g/gl (32-36); Mean Corpuscular Hgb 27.3 pg (27.0-32.0); Mean Corpuscular Volume 90.5 fL (80-94); Mean Platelet Vol. 11.6 fl (6.2-12.0); Platelet Count 179 K/mm3 (150-450); RBC Distribution Width CV 16.3 % (11.6-14.6); RBC Distribution Width SD 54.6 fl (35.1-43.9); Red Blood Count 3.88 M/mm3 (4.6-6.2); White Blood Count 12.1 K/mm3 (4.4-11.0)
[2019-01-10 04:49] LABS: Absolute Nucleated RBC Count 0.23 10^3/uL (0-5); Differential Indicated MANUAL DIFF; NRBC Flagged by Analyzer 1.9 % (0-5); POSITIVE COUNT NO; POSITIVE DIFFERENTIAL NO; POSITIVE MORPHOLOGY YES
--- NOTE | 2019-01-10 06:07 | CPS ---
Critical Results read to Dr. Flores. Physician Aware.
--- NOTE | 2019-01-10 06:08 | CPS ---
Critical Result read to Dr. Flores. Physician Aware.
[2019-01-10 06:44] LABS: Lymphocyte 7 % (19-41); Metamyelocyte 5 % (0-1); Monocyte 2 % (0-10); Myelocyte 2 (0-0); Neutrophil-Band 27 % (0-5); Neutrophil-Segmented 56 % (47-70); Promyelocyte 1 (0-0); Total Cells Counted 100 (MANUAL DIFF)
[2019-01-10 06:46] LABS: Platelet Estimate ADEQUATE (ADEQ); Red Cell Morphology NORM C+C NORMAL (NORM C&C)
[2019-01-10] MEDS: Cefazolin 2 GM in 0.9% Normal Saline 100 ML IV ×2 (06:46→21:01)
[2019-01-10 06:47] LABS: Absolute Lymphocyte Count 0.85 X10^3/ul (0.83-4.51)
[2019-01-10 06:51] LABS: Bedside Glucose 141 mg/dL (70-110)
--- NOTE | 2019-01-10 06:55 | PCM.PN.INT ---
Subjective: Patient with significant hypoxemia and hypotension overnight. Patient did have to be transitioned to APRV ventilation with improvement in oxygenation. Patient continues to have little to no urine output. Patient did spike a fever of 39.4 ?C overnight. Transition APRV has led to improvement in blood pressure and patient's Levophed is currently off. Objective: Chest x-ray was personally reviewed and shows bilateral infiltrates that are slightly improved compared to previous. There is a possible left effusion noted. General: - - Intubated and sedated. Not following any commands at this time. HEENT: Atraumatic, Normocephalic, - - No scleral icterus or injection noted. Oral: Moist Mucosa, No Gingival or Mucosal Lesions/ Ulcerations Neck: Supple, No JVD, No Nodes, Trachea Midline Lungs: No rales, Diminished, Rhonchi, Wheezes, - - Symmetric expansion. No dullness to percussion. Cardiovascular: Normal S1, Normal S2, No murmurs, No rub noted, No Gallop, Tachycardic Abdomen: Soft, Non Tender, Hypoactive Bowel Sounds, Distended - Slightly Extremities: No clubbing, No cyanosis, Capillary Refill Less than 3 Seconds, Edema Skin: No rashes, No breakdown Musculoskeletal: No Tenderness to Palpation of Joints or Extremities Lymphatic: No Cervical, Supraclavicular, or Inguinal Adenopathy Neurological: - - Decreased spontaneous movement. Patient did have a cough and gag reflex noted. Patient would shake his head up and down to verbal commands, but would not open his eyes. Psych/Mental Status: Flat Affect Vital Signs Temp Pulse Resp BP Pulse Ox 36.8 C 120 H 23 H 107/80 90 01/10/19 06:00 01/10/19 06:30 01/10/19 06:00 01/10/19 06:30 01/10/19 06:00 Oxygen Flow Rate (L/min) 6 Oxygen Delivery Method Mechanical Ventilator Weight: 91.5 kg Body Mass Index (BMI) 28.5 Intake and Output for Last 24 Hours 01/08/19 01/09/19 01/10/19 23:59 23:59 23:59 Intake Total 2585.5 / 2585.5 4902.5 / 4902.5 567.6 / 567.6 Output Total 100 / 100 345 / 345 15 / 15 Balance 2485.5 / 2485.5 4557.5 / 4557.5 552.6 / 552.6 Labs (Last 48 Hours) 01/08/19 01/08/19 01/08/19 17:20 17:20 17:20 WBC 2.1 L RBC 4.13 L Hgb 11.5 L Hct 36.0 L MCV 87.2 MCH 27.8 MCHC 31.9 L RDW 14.9 H RDW Differential 47.6 H Plt Count 246 MPV 9.9 Immature Gran % (Auto) FUNDS DEVELOPMENT DIRECTOR Neut % (Auto) FUNDS DEVELOPMENT DIRECTOR Lymph % (Auto) FUNDS DEVELOPMENT DIRECTOR [place] % (Auto) FUNDS DEVELOPMENT DIRECTOR Eos % (Auto) FUNDS DEVELOPMENT DIRECTOR Baso % (Auto) FUNDS DEVELOPMENT DIRECTOR Absolute Neuts (auto) 0.8 L Absolute Lymphs (auto) 0.55 L Total Counted 50 Neutrophils % (Manual) 12 L Band Neutrophils % 28 H Lymphocytes % (Manual) 26 Monocytes % (Manual) 4 Metamyelocytes % 22 H Myelocytes % 6 H Promyelocytes % Blast Cells % 2 H* Nucleated RBC % 7.7 H Diff Path Review Reviewed Platelet Estimate Plt Morphology Comment RBC Morphology Polychromasia Hypochromasia RARE Anisocytosis Microcytosis Absolute Retic 0.16 PT INR APTT Specimen Type Sample Site pH Bicarbonate Actual POC Total CO2 Base Excess O2 Saturation O2 % ABG pCO2 ABG pO2 David Test Respiration Rate O2 Delivery Device Minute Volume Vent Mode Tidal Volume POC PEEP Pressure High Pressure Low Time High Time Low Blood Gas Notified Whom Blood Gas Notified Time Sodium 145 Potassium 3.0 L Chloride 107 Carbon Dioxide 23.0 Anion Gap 15 BUN 44 H Creatinine 2.14 H Estim Creat Clear Calc 27.08 Est GFR (MDRD) Af Amer 38 L Est GFR (MDRD) Non-Af 32 L BUN/Creatinine Ratio 20.6 H Glucose 198 H Lactic Acid 6.2 H* Calcium 8.7 Phosphorus Magnesium Troponin I 0.017 MRSA (PCR) POC Glucose 01/08/19 01/08/19 01/08/19 17:22 19:25 20:05 WBC RBC Hgb Hct MCV MCH MCHC RDW RDW Differential Plt Count MPV Immature Gran % (Auto) Neut % (Auto) Lymph % (Auto) [place] % (Auto) Eos % (Auto) Baso % (Auto) Absolute Neuts (auto) Absolute Lymphs (auto) Total Counted Neutrophils % (Manual) Band Neutrophils % Lymphocytes % (Manual) Monocytes % (Manual) Metamyelocytes % Myelocytes % Promyelocytes % Blast Cells % Nucleated RBC % Diff Path Review Platelet Estimate Plt Morphology Comment RBC Morphology Polychromasia Hypochromasia Anisocytosis Microcytosis Absolute Retic PT INR APTT Specimen Type ART Sample Site L Radial pH 7.22 L Bicarbonate Actual 19.1 L POC Total CO2 21 Base Excess -9 L O2 Saturation 100 H O2 % 100 ABG pCO2 47.2 H ABG pO2 289 H David Test NA Respiration Rate 30 O2 Delivery Device Vent Minute Volume 14.00 Vent Mode A-C Tidal Volume 490 POC PEEP 5 Pressure High Pressure Low Time High Time Low Blood Gas Notified Whom ED MD Blood Gas Notified Time Sodium Potassium Chloride Carbon Dioxide Anion Gap BUN Creatinine Estim Creat Clear Calc Est GFR (MDRD) Af Amer Est GFR (MDRD) Non-Af BUN/Creatinine Ratio Glucose Lactic Acid 6.4 H* Calcium Phosphorus 1.6 L Magnesium 1.8 Troponin I MRSA (PCR) POC Glucose 01/08/19 01/08/19 01/09/19 21:26 21:50 00:30 WBC RBC Hgb Hct MCV MCH MCHC RDW RDW Differential Plt Count MPV Immature Gran % (Auto) Neut % (Auto) Lymph % (Auto) [place] % (Auto) Eos % (Auto) Baso % (Auto) Absolute Neuts (auto) Absolute Lymphs (auto) Total Counted Neutrophils % (Manual) Band Neutrophils % Lymphocytes % (Manual) Monocytes % (Manual) Metamyelocytes % Myelocytes % Promyelocytes % Blast Cells % Nucleated RBC % Diff Path Review Platelet Estimate Plt Morphology Comment RBC Morphology Polychromasia Hypochromasia Anisocytosis Microcytosis Absolute Retic PT INR APTT Specimen Type ART Sample Site L RADIAL pH 7.22 L Bicarbonate Actual 16.3 L POC Total CO2 18 Base Excess -11 L O2 Saturation 89 L O2 % 60 ABG pCO2 39.8 ABG pO2 68 L David Test POS Respiration Rate 16 O2 Delivery Device Vent Minute Volume 14.00 Vent Mode A-C Tidal Volume 500 POC PEEP 5 Pressure High Pressure Low Time High Time Low Blood Gas Notified Whom ICU Blood Gas Notified Time 2150 Sodium Potassium Chloride Carbon Dioxide Anion Gap BUN Creatinine Estim Creat Clear Calc Est GFR (MDRD) Af Amer Est GFR (MDRD) Non-Af BUN/Creatinine Ratio Glucose Lactic Acid 4.3 H* Calcium Phosphorus Magnesium Troponin I MRSA (PCR) POC Glucose 222 H 02/20/19 02/20/19 02/20/19 03:50 03:50 03:50 WBC 2.3 L RBC 3.67 L Hgb 10.3 L Hct 32.8 L MCV 89.4 MCH 28.1 MCHC 31.4 L RDW 15.3 H RDW Differential 50.2 H Plt Count 188 MPV 10.3 Immature Gran % (Auto) Neut % (Auto) Not Reportable Lymph % (Auto) [place] % (Auto) Eos % (Auto) Baso % (Auto) Absolute Neuts (auto) 1.1 L Absolute Lymphs (auto) 0.55 L Total Counted 50 Neutrophils % (Manual) 6 L Band Neutrophils % 40 H Lymphocytes % (Manual) 24 Monocytes % (Manual) 4 Metamyelocytes % 24 H Myelocytes % 2 H Promyelocytes % Blast Cells % Nucleated RBC % 10.8 H Diff Path Review Reviewed Platelet Estimate ADEQUATE Plt Morphology Comment LARGE RBC Morphology Polychromasia 1+ Hypochromasia 1+ Anisocytosis 1+ Microcytosis 1+ Absolute Retic 0.25 PT INR APTT Specimen Type Sample Site pH Bicarbonate Actual POC Total CO2 Base Excess O2 Saturation O2 % ABG pCO2 ABG pO2 David Test Respiration Rate O2 Delivery Device Minute Volume Vent Mode Tidal Volume POC PEEP Pressure High Pressure Low Time High Time Low Blood Gas Notified Whom Blood Gas Notified Time Sodium 146 H Potassium 4.1 Chloride 113 H Carbon Dioxide 20.0 L Anion Gap 13 BUN 47 H Creatinine 2.74 H Estim Creat Clear Calc 21.15 Est GFR (MDRD) Af Amer 29 L Est GFR (MDRD) Non-Af 24 L BUN/Creatinine Ratio 17.2 Glucose 168 H Lactic Acid 3.1 H Calcium 7.2 L Phosphorus Magnesium Troponin I MRSA (PCR) POC Glucose 01/09/19 01/09/19 01/09/19 03:50 05:04 06:10 WBC RBC Hgb Hct MCV MCH MCHC RDW RDW Differential Plt Count MPV Immature Gran % (Auto) Neut % (Auto) Lymph % (Auto) [place] % (Auto) Eos % (Auto) Baso % (Auto) Absolute Neuts (auto) Absolute Lymphs (auto) Total Counted Neutrophils % (Manual) Band Neutrophils % Lymphocytes % (Manual) Monocytes % (Manual) Metamyelocytes % Myelocytes % Promyelocytes % Blast Cells % Nucleated RBC % Diff Path Review Platelet Estimate Plt Morphology Comment RBC Morphology Polychromasia Hypochromasia Anisocytosis Microcytosis Absolute Retic PT 19.4 H INR 1.6 APTT 40.5 H Specimen Type Sample Site pH Bicarbonate Actual POC Total CO2 Base Excess O2 Saturation O2 % ABG pCO2 ABG pO2 David Test Respiration Rate O2 Delivery Device Minute Volume Vent Mode Tidal Volume POC PEEP Pressure High Pressure Low Time High Time Low Blood Gas Notified Whom Blood Gas Notified Time Sodium Potassium Chloride Carbon Dioxide Anion Gap BUN Creatinine Estim Creat Clear Calc Est GFR (MDRD) Af Amer Est GFR (MDRD) Non-Af BUN/Creatinine Ratio Glucose Lactic Acid Calcium Phosphorus 4.8 Magnesium 1.8 Troponin I MRSA (PCR) POC Glucose 162 H 01/09/19 01/09/19 01/09/19 07:10 09:10 12:08 WBC RBC Hgb Hct MCV MCH MCHC RDW RDW Differential Plt Count MPV Immature Gran % (Auto) Neut % (Auto) Lymph % (Auto) [place] % (Auto) Eos % (Auto) Baso % (Auto) Absolute Neuts (auto) Absolute Lymphs (auto) Total Counted Neutrophils % (Manual) Band Neutrophils % Lymphocytes % (Manual) Monocytes % (Manual) Metamyelocytes % Myelocytes % Promyelocytes % Blast Cells % Nucleated RBC % Diff Path Review Platelet Estimate Plt Morphology Comment RBC Morphology Polychromasia Hypochromasia Anisocytosis Microcytosis Absolute Retic PT INR APTT Specimen Type ART Sample Site R Radial pH 7.00 L* Bicarbonate Actual 19.1 L POC Total CO2 21 Base Excess -12 L O2 Saturation 85 L O2 % 100 ABG pCO2 77.0 H* ABG pO2 77 David Test NA Respiration Rate 12 O2 Delivery Device Vent Minute Volume 6.00 Vent Mode A-C Tidal Volume 450 POC PEEP 12 Pressure High Pressure Low Time High Time Low Blood Gas Notified Whom ICU Blood Gas Notified Time 711 Sodium Potassium Chloride Carbon Dioxide Anion Gap BUN Creatinine Estim Creat Clear Calc Est GFR (MDRD) Af Amer Est GFR (MDRD) Non-Af BUN/Creatinine Ratio Glucose Lactic Acid Calcium Phosphorus Magnesium Troponin I MRSA (PCR) Negative POC Glucose 91 01/09/19 01/09/19 01/10/19 18:24 23:27 00:40 WBC RBC Hgb Hct MCV MCH MCHC RDW RDW Differential Plt Count MPV Immature Gran % (Auto) Neut % (Auto) Lymph % (Auto) [place] % (Auto) Eos % (Auto) Baso % (Auto) Absolute Neuts (auto) Absolute Lymphs (auto) Total Counted Neutrophils % (Manual) Band Neutrophils % Lymphocytes % (Manual) Monocytes % (Manual) Metamyelocytes % Myelocytes % Promyelocytes % Blast Cells % Nucleated RBC % Diff Path Review Platelet Estimate Plt Morphology Comment RBC Morphology Polychromasia Hypochromasia Anisocytosis Microcytosis Absolute Retic PT INR APTT Specimen Type ART Sample Site L Brachial pH 7.02 L* Bicarbonate Actual 16.9 L POC Total CO2 19 Base Excess -14 L O2 Saturation 74 L O2 % 100 ABG pCO2 65.7 H ABG pO2 58 L David Test NA Respiration Rate 14 O2 Delivery Device Vent Minute Volume Vent Mode A-C Tidal Volume 500 POC PEEP 16 Pressure High Pressure Low Time High Time Low Blood Gas Notified Whom ICU MD Blood Gas Notified Time 37 Sodium Potassium Chloride Carbon Dioxide Anion Gap BUN Creatinine Estim Creat Clear Calc Est GFR (MDRD) Af Amer Est GFR (MDRD) Non-Af BUN/Creatinine Ratio Glucose Lactic Acid Calcium Phosphorus Magnesium Troponin I MRSA (PCR) POC Glucose 74 140 H 01/10/19 01/10/19 01/10/19 00:55 02:25 03:40 WBC 12.1 H RBC 3.88 L Hgb 10.6 L Hct 35.1 L MCV 90.5 MCH 27.3 MCHC 30.2 L RDW 16.3 H RDW Differential 54.6 H Plt Count 179 MPV 11.6 Immature Gran % (Auto) Neut % (Auto) Not Reportable Lymph % (Auto) [place] % (Auto) Eos % (Auto) Baso % (Auto) Absolute Neuts (auto) 10.0 H Absolute Lymphs (auto) 0.85 Total Counted 100 Neutrophils % (Manual) 56 Band Neutrophils % 27 H Lymphocytes % (Manual) 7 L Monocytes % (Manual) 2 Metamyelocytes % 5 H Myelocytes % 2 H Promyelocytes % 1 H Blast Cells % Nucleated RBC % 1.9 Diff Path Review May foll Platelet Estimate ADEQUATE Plt Morphology Comment RBC Morphology NORM C+C Polychromasia Hypochromasia Anisocytosis Microcytosis Absolute Retic 0.23 PT INR APTT Specimen Type ART ART Sample Site L Radial L Radial pH 7.00 L* 7.08 L* Bicarbonate Actual 16.7 L 19.7 L POC Total CO2 19 22 Base Excess -15 L -10 L O2 Saturation 71 L 79 L O2 % 100 100 ABG pCO2 67.4 H* 66.1 H ABG pO2 56 L 61 L David Test NA Respiration Rate 14 O2 Delivery Device Vent Vent Minute Volume Vent Mode A-C APRV Tidal Volume 500 POC PEEP 16 Pressure High 22.0 Pressure Low 0.0 Time High 4.0 Time Low 0.5 Blood Gas Notified Whom ICU MD Blood Gas Notified Time 48 220 Sodium Potassium Chloride Carbon Dioxide Anion Gap BUN Creatinine Estim Creat Clear Calc Est GFR (MDRD) Af Amer Est GFR (MDRD) Non-Af BUN/Creatinine Ratio Glucose Lactic Acid Calcium Phosphorus Magnesium Troponin I MRSA (PCR) POC Glucose 01/10/19 01/10/19 03:40 05:14 WBC RBC Hgb Hct MCV MCH MCHC RDW RDW Differential Plt Count MPV Immature Gran % (Auto) Neut % (Auto) Lymph % (Auto) [place] % (Auto) Eos % (Auto) Baso % (Auto) Absolute Neuts (auto) Absolute Lymphs (auto) Total Counted Neutrophils % (Manual) Band Neutrophils % Lymphocytes % (Manual) Monocytes % (Manual) Metamyelocytes % Myelocytes % Promyelocytes % Blast Cells % Nucleated RBC % Diff Path Review Platelet Estimate Plt Morphology Comment RBC Morphology Polychromasia Hypochromasia Anisocytosis Microcytosis Absolute Retic PT INR APTT Specimen Type Sample Site pH Bicarbonate Actual POC Total CO2 Base Excess O2 Saturation O2 % ABG pCO2 ABG pO2 David Test Respiration Rate O2 Delivery Device Minute Volume Vent Mode Tidal Volume POC PEEP Pressure High Pressure Low Time High Time Low Blood Gas Notified Whom Blood Gas Notified Time Sodium 144 Potassium 5.2 H Chloride 111 H Carbon Dioxide 19.0 L Anion Gap 14 BUN 67 H Creatinine 4.43 H Estim Creat Clear Calc 13.08 Est GFR (MDRD) Af Amer 17 L Est GFR (MDRD) Non-Af 14 L BUN/Creatinine Ratio 15.1 Glucose 154 H Lactic Acid Calcium 7.2 L Phosphorus 8.1 H Magnesium 2.0 Troponin I MRSA (PCR) POC Glucose 141 H Microbiology 01/08/19 17:20 Blood Culture (Wb) #2 - Anticubital Right Bacteria Detection (PCR) - Final Staphylococcus aureus 01/08/19 17:20 Blood Culture (Wb) #2 - Anticubital Right Blood Culture - Preliminary 01/09/19 00:15 Sputum, Induced/Lukens Gram Stain - Final 01/08/19 17:30 Mucosa - Nose Respiratory Panel (PCR) - Final Influenza A (Subtype H1) 01/08/19 17:22 Blood Culture (Wb) - Left Wrist Blood Culture - Preliminary 01/08/19 21:25 Urine Catheter - Catheter Legionella Antigen - Final 01/08/19 21:25 Urine Catheter - Catheter Streptococcus pneumoniae Antigen (M - Final 01/08/19 17:30 Mucosa - Nose Influenza Types A,B Direct FA (BETTY) - Final Clinical Impression(s) from Imaging Studies Chest X-Ray 01/09/19 09:43 IMPRESSION: Stable ET tube and enteric tube. Placement of right IJ central venous catheter as above. No evidence of pneumothorax. Worsening patchy consolidation Electronically Signed: James Alvarez DO at 10:37 EST Tel , Service support , Chest X-Ray 01/10/19 01:03 IMPRESSION: 1. No significant change. Extensive bilateral pulmonary infiltrates. at [id number] Reported and signed by: Mello Calvillo MD Electronically Signed: Mello Calvillo, at 4:52 EST Tel , Service support , Medical Necessity - Tobacco Use Smoking Status: Former smoker Tobacco Use: Cigarettes Assessment/Plan All Active Problems (Last Updated 11/02/17 @ 08:07 by Mauro Ley FUNDS DEVELOPMENT DIRECTOR-C) Acute combined respiratory failure (Acute) Respiratory acidosis (Acute) Acute renal failure (Acute) Septic shock (Acute) Community acquired pneumonia (Acute) RECOMMENDATIONS: 1. Continue APRV, wean oxygen as tolerated 2. Reinitiate Levophed if necessary 3. Continue empiric steroid therapy and transition to Ancef for MSSA 4. Clarify CODE STATUS with family 5. Wean oxygen as tolerated, spontaneous breathing and awakening trial per protocol 6. Okay to continue with tube feeds IMPRESSIONS: 1. Acute hypoxic respiratory failure secondary to probable ARDS secondary to community-acquired pneumonia Patient with bilateral infiltrates and reported preserved ejection fraction on previous cardiac catheterization approximately 1 year ago. Clinical suspicion for ARDS secondary to community-acquired pneumonia. Patient on empiric steroid therapy at this time. Patient does have extensive infiltrates and blood cultures positive for MSSA. Patient will be transition to [facility] for better coverage. 2. Septic shock secondary to community-acquired pneumonia Patient has received significant fluids overnight. Patient's blood pressure is improving on APRV. Unclear if this is secondary to decreased venous return from PEEP versus septic shock. Patient does have an elevated temperature overnight and 4 out of 4 Sirs criteria. Patient did require significant amounts of Levophed overnight. 3. Icj-[id number] diabetes mellitus Patient currently on sliding scale insulin. Will need to watch closely given initiation of steroid therapy. 4. Acute renal failure Clinical suspicion for ATN secondary to prerenal etiology associated with problem #1 and problem #2. Decreased urine output over the 12-16 hours. ARDS would recommend low fluid balance if possible. Hold off any diuretic therapy given patient's current acute renal failure. Will need to discuss with the family today if hemodialysis is an option. Patient does have an element of non-anion gap metabolic acidosis. 5. Poor history/hypertension/hyperlipidemia/GERD Complicates care, management, recovery and prognosis. Will attempt to clarify CODE STATUS on family arrival. TIME: 45 minutes critical care time spent addressing patient's acute hypoxic respiratory failure, ARDS, septic shock, diabetes mellitus, acute renal failure, review of all data and collaboration with care team (6:15 AM to 7:15 AM) Code Visit 9xxxx: [id number] Critical care first hour
--- NOTE | 2019-01-10 07:00 | PN_ITS ---
Subjective: Patient with significant hypoxemia and hypotension overnight. Patient did have to be transitioned to APRV ventilation with improvement in oxygenation. Patient continues to have little to no urine output. Patient did spike a fever of 39.4 ?C overnight. Transition APRV has led to improvement in blood pressure and patient's Levophed is currently off. Objective: Chest x-ray was personally reviewed and shows bilateral infiltrates that are slightly improved compared to previous. There is a possible left effusion not ed. General: - - Intubated and sedated. Not following any commands at this time. HEENT: Atraumatic, Normocephalic, - - No scleral icterus or injection noted. Oral: Moist Mucosa, No Gingival or Mucosal Lesions/ Ulcerations Neck: Supple, No JVD, No Nodes, Trachea Midline Lungs: No rales, Diminished, Rhonchi, Wheezes, - - Symmetric expansion. No dullness to percussion. Cardiovascular: Normal S1, Normal S2, No murmurs, No rub noted, No Gallop, Tac hycardic Abdomen: Soft, Non Tender, Hypoactive Bowel Sounds, Distended - Slightly Extremities: No clubbing, No cyanosis, Capillary Refill Less than 3 Seconds, Edema Skin: No rashes, No breakdown Musculoskeletal: No Tenderness to Palpation of Joints or Extremities Lymphatic: No Cervical, Supraclavicular, or Inguinal Adenopathy Neurological: - - Decreased spontaneous movement. Patient did have a cough and gag reflex noted. Patient would shake his head up and down to verbal commands, but would not open his eyes. Psych/Mental Status: Flat Affect Vital Signs Temp Pulse Resp BP Pulse Ox 36.8 C 120 H 23 H 107/80 90 01/10/19 06:00 01/10/19 06:30 01/10/19 06:00 01/10/19 06:30 01/10/19 06:00 Oxygen Flow Rate (L/min) 6 Oxygen Delivery Method Mechanical Ventilator Weight: 91.5 kg Body Mass Index (BMI) 28.5 Intake and Output for Last 24 Hours 01/08/19 01/09/19 01/10/19 23:59 23:59 23:59 Intake Total 2585.5 / 2585.5 4902.5 / 4902.5 567.6 / 567.6 Output Total 100 / 100 345 / 345 / Balance 2485.5 / 2485.5 4557.5 / 4557.5 552.6 / 552.6 Labs (Last 48 Hours) 01/08/19 01/08/19 01/08/19 17:20 17:20 17:20 WBC 2.1 L RBC 4.13 L Hgb 11.5 L Hct 36.0 L MCV 87.2 MCH 27.8 MCHC 31.9 L RDW 14.9 H RDW Differential 47.6 H Plt Count 246 MPV 9.9 Immature Gran % (Auto) [employer] Neut % (Auto) [employer] Lymph % (Auto) [employer] [place] % (Auto) [employer] Eos % (Auto) [employer] Baso % (Auto) [employer] Absolute Neuts (auto) 0.8 L Absolute Lymphs (auto) 0.55 L Total Counted 50 Neutrophils % (Manual) 12 L Band Neutrophils % 28 H Lymphocytes % (Manual) 26 Monocytes % (Manual) 4 Metamyelocytes % 22 H Myelocytes % 6 H Promyelocytes % Blast Cells % 2 H* Nucleated RBC % 7.7 H Diff Path Review Reviewed Platelet Estimate Plt Morphology Comment RBC Morphology Polychromasia Hypochromasia RARE Anisocytosis Microcytosis Absolute Retic 0.16 PT INR APTT Specimen Type Sample Site pH Bicarbonate Actual POC Total CO2 Base Excess O2 Saturation O2 % ABG pCO2 ABG pO2 David Test Respiration Rate O2 Delivery Device Minute Volume Vent Mode Tidal Volume POC PEEP Pressure High Pressure Low Time High Time Low Blood Gas Notified Whom Blood Gas Notified Time Sodium 145 Potassium 3.0 L Chloride 107 Carbon Dioxide 23.0 Anion Gap 15 BUN 44 H Creatinine 2.14 H Estim Creat Clear Calc 27.08 Est GFR (MDRD) Af Amer 38 L Est GFR (MDRD) Non-Af 32 L BUN/Creatinine Ratio 20.6 H Glucose 198 H Lactic Acid 6.2 H* Calcium 8.7 Phosphorus Magnesium Troponin I 0.017 MRSA (PCR) POC Glucose 01/08/19 01/08/19 01/08/19 17:22 19:25 20:05 WBC RBC Hgb Hct MCV MCH MCHC RDW RDW Differential Plt Count MPV Immature Gran % (Auto) Neut % (Auto) Lymph % (Auto) [place] % (Auto) Eos % (Auto) Baso % (Auto) Absolute Neuts (auto) Absolute Lymphs (auto) Total Counted Neutrophils % (Manual) Band Neutrophils % Lymphocytes % (Manual) Monocytes % (Manual) Metamyelocytes % Myelocytes % Promyelocytes % Blast Cells % Nucleated RBC % Diff Path Review Platelet Estimate Plt Morphology Comment RBC Morphology Polychromasia Hypochromasia Anisocytosis Microcytosis Absolute Retic PT INR APTT Specimen Type ART Sample Site L Radial pH 7.22 L Bicarbonate Actual 19.1 L POC Total CO2 21 Base Excess -9 L O2 Saturation 100 H O2 % 100 ABG pCO2 47.2 H ABG pO2 289 H David Test NA Respiration Rate 30 O2 Delivery Device Vent Minute Volume 14.00 Vent Mode A-C Tidal Volume 490 POC PEEP 5 Pressure High Pressure Low Time High Time Low Blood Gas Notified Whom ED Blood Gas Notified Time Sodium Potassium Chloride Carbon Dioxide Anion Gap BUN Creatinine Estim Creat Clear Calc Est GFR (MDRD) Af Amer Est GFR (MDRD) Non-Af BUN/Creatinine Ratio Glucose Lactic Acid 6.4 H* Calcium Phosphorus 1.6 L Magnesium 1.8 Troponin I MRSA (PCR) POC Glucose 01/08/19 01/08/19 01/09/19 21:26 21:50 00:30 WBC RBC Hgb Hct MCV MCH MCHC RDW RDW Differential Plt Count MPV Immature Gran % (Auto) Neut % (Auto) Lymph % (Auto) [place] % (Auto) Eos % (Auto) Baso % (Auto) Absolute Neuts (auto) Absolute Lymphs (auto) Total Counted Neutrophils % (Manual) Band Neutrophils % Lymphocytes % (Manual) Monocytes % (Manual) Metamyelocytes % Myelocytes % Promyelocytes % Blast Cells % Nucleated RBC % Diff Path Review Platelet Estimate Plt Morphology Comment RBC Morphology Polychromasia Hypochromasia Anisocytosis Microcytosis Absolute Retic PT INR APTT Specimen Type ART Sample Site L RADIAL pH 7.22 L Bicarbonate Actual 16.3 L POC Total CO2 18 Base Excess -11 L O2 Saturation 89 L O2 % 60 ABG pCO2 39.8 ABG pO2 68 L David Test POS Respiration Rate 16 O2 Delivery Device Vent Minute Volume 14.00 Vent Mode A-C Tidal Volume 500 POC PEEP 5 Pressure High Pressure Low Time High Time Low Blood Gas Notified Whom ICU Blood Gas Notified Time 2150 Sodium Potassium Chloride Carbon Dioxide Anion Gap BUN Creatinine Estim Creat Clear Calc Est GFR (MDRD) Af Amer Est GFR (MDRD) Non-Af BUN/Creatinine Ratio Glucose Lactic Acid 4.3 H* Calcium Phosphorus Magnesium Troponin I MRSA (PCR) POC Glucose 222 H 01/09/19 01/09/19 01/09/19 03:50 03:50 03:50 WBC 2.3 L RBC 3.67 L Hgb 10.3 L Hct 32.8 L MCV 89.4 MCH 28.1 MCHC 31.4 L RDW 15.3 H RDW Differential 50.2 H Plt Count 188 MPV 10.3 Immature Gran % (Auto) Neut % (Auto) Not Reportable Lymph % (Auto) [place] % (Auto) Eos % (Auto) Baso % (Auto) Absolute Neuts (auto) 1.1 L Absolute Lymphs (auto) 0.55 L Total Counted 50 Neutrophils % (Manual) 6 L Band Neutrophils % 40 H Lymphocytes % (Manual) 24 Monocytes % (Manual) 4 Metamyelocytes % 24 H Myelocytes % 2 H Promyelocytes % Blast Cells % Nucleated RBC % 10.8 H Diff Path Review Reviewed Platelet Estimate ADEQUATE Plt Morphology Comment LARGE RBC Morphology Polychromasia 1+ Hypochromasia 1+ Anisocytosis 1+ Microcytosis 1+ Absolute Retic 0.25 PT INR APTT Specimen Type Sample Site pH Bicarbonate Actual POC Total CO2 Base Excess O2 Saturation O2 % ABG pCO2 ABG pO2 David Test Respiration Rate O2 Delivery Device Minute Volume Vent Mode Tidal Volume POC PEEP Pressure High Pressure Low Time High Time Low Blood Gas Notified Whom Blood Gas Notified Time Sodium 146 H Potassium 4.1 Chloride 113 H Carbon Dioxide 20.0 L Anion Gap 13 BUN 47 H Creatinine 2.74 H Estim Creat Clear Calc 21.15 Est GFR (MDRD) Af Amer 29 L Est GFR (MDRD) Non-Af 24 L BUN/Creatinine Ratio 17.2 Glucose 168 H Lactic Acid 3.1 H Calcium 7.2 L Phosphorus Magnesium Troponin I MRSA (PCR) POC Glucose 01/09/19 01/09/19 01/09/19 03:50 05:04 06:10 WBC RBC Hgb Hct MCV MCH MCHC RDW RDW Differential Plt Count MPV Immature Gran % (Auto) Neut % (Auto) Lymph % (Auto) [place] % (Auto) Eos % (Auto) Baso % (Auto) Absolute Neuts (auto) Absolute Lymphs (auto) Total Counted Neutrophils % (Manual) Band Neutrophils % Lymphocytes % (Manual) Monocytes % (Manual) Metamyelocytes % Myelocytes % Promyelocytes % Blast Cells % Nucleated RBC % Diff Path Review Platelet Estimate Plt Morphology Comment RBC Morphology Polychromasia Hypochromasia Anisocytosis Microcytosis Absolute Retic PT 19.4 H INR 1.6 APTT 40.5 H Specimen Type Sample Site pH Bicarbonate Actual POC Total CO2 Base Excess O2 Saturation O2 % ABG pCO2 ABG pO2 David Test Respiration Rate O2 Delivery Device Minute Volume Vent Mode Tidal Volume POC PEEP Pressure High Pressure Low Time High Time Low Blood Gas Notified Whom Blood Gas Notified Time Sodium Potassium Chloride Carbon Dioxide Anion Gap BUN Creatinine Estim Creat Clear Calc Est GFR (MDRD) Af Amer Est GFR (MDRD) Non-Af BUN/Creatinine Ratio Glucose Lactic Acid Calcium Phosphorus 4.8 Magnesium 1.8 Troponin I MRSA (PCR) POC Glucose 162 H 01/09/19 01/09/19 01/09/19 07:10 09:10 12:08 WBC RBC Hgb Hct MCV MCH MCHC RDW RDW Differential Plt Count MPV Immature Gran % (Auto) Neut % (Auto) Lymph % (Auto) [place] % (Auto) Eos % (Auto) Baso % (Auto) Absolute Neuts (auto) Absolute Lymphs (auto) Total Counted Neutrophils % (Manual) Band Neutrophils % Lymphocytes % (Manual) Monocytes % (Manual) Metamyelocytes % Myelocytes % Promyelocytes % Blast Cells % Nucleated RBC % Diff Path Review Platelet Estimate Plt Morphology Comment RBC Morphology Polychromasia Hypochromasia Anisocytosis Microcytosis Absolute Retic PT INR APTT Specimen Type ART Sample Site R Radial pH 7.00 L* Bicarbonate Actual 19.1 L POC Total CO2 21 Base Excess -12 L O2 Saturation 85 L O2 % 100 ABG pCO2 77.0 H* ABG pO2 77 David Test NA Respiration Rate 12 O2 Delivery Device Vent Minute Volume 6.00 Vent Mode A-C Tidal Volume 450 POC PEEP 12 Pressure High Pressure Low Time High Time Low Blood Gas Notified Whom ICU Blood Gas Notified Time 711 Sodium Potassium Chloride Carbon Dioxide Anion Gap BUN Creatinine Estim Creat Clear Calc Est GFR (MDRD) Af Amer Est GFR (MDRD) Non-Af BUN/Creatinine Ratio Glucose Lactic Acid Calcium Phosphorus Magnesium Troponin I MRSA (PCR) Negative POC Glucose 91 01/09/19 01/09/19 01/10/19 18:24 23:27 00:40 WBC RBC Hgb Hct MCV MCH MCHC RDW RDW Differential Plt Count MPV Immature Gran % (Auto) Neut % (Auto) Lymph % (Auto) [place] % (Auto) Eos % (Auto) Baso % (Auto) Absolute Neuts (auto) Absolute Lymphs (auto) Total Counted Neutrophils % (Manual) Band Neutrophils % Lymphocytes % (Manual) Monocytes % (Manual) Metamyelocytes % Myelocytes % Promyelocytes % Blast Cells % Nucleated RBC % Diff Path Review Platelet Estimate Plt Morphology Comment RBC Morphology Polychromasia Hypochromasia Anisocytosis Microcytosis Absolute Retic PT INR APTT Specimen Type ART Sample Site L Brachial pH 7.02 L* Bicarbonate Actual 16.9 L POC Total CO2 19 Base Excess -14 L O2 Saturation 74 L O2 % 100 ABG pCO2 65.7 H ABG pO2 58 L David Test NA Respiration Rate 14 O2 Delivery Device Vent Minute Volume Vent Mode A-C Tidal Volume 500 POC PEEP 16 Pressure High Pressure Low Time High Time Low Blood Gas Notified Whom ICU MD Blood Gas Notified Time 37 Sodium Potassium Chloride Carbon Dioxide Anion Gap BUN Creatinine Estim Creat Clear Calc Est GFR (MDRD) Af Amer Est GFR (MDRD) Non-Af BUN/Creatinine Ratio Glucose Lactic Acid Calcium Phosphorus Magnesium Troponin I MRSA (PCR) POC Glucose 74 140 H 01/10/19 01/10/19 01/10/19 00:55 02:25 03:40 WBC 12.1 H RBC 3.88 L Hgb 10.6 L Hct 35.1 L MCV 90.5 MCH 27.3 MCHC 30.2 L RDW 16.3 H RDW Differential 54.6 H Plt Count 179 MPV 11.6 Immature Gran % (Auto) Neut % (Auto) Not Reportable Lymph % (Auto) [place] % (Auto) Eos % (Auto) Baso % (Auto) Absolute Neuts (auto) 10.0 H Absolute Lymphs (auto) 0.85 Total Counted 100 Neutrophils % (Manual) 56 Band Neutrophils % 27 H Lymphocytes % (Manual) 7 L Monocytes % (Manual) 2 Metamyelocytes % 5 H Myelocytes % 2 H Promyelocytes % 1 H Blast Cells % Nucleated RBC % 1.9 Diff Path Review May foll Platelet Estimate ADEQUATE Plt Morphology Comment RBC Morphology NORM C+C Polychromasia Hypochromasia Anisocytosis Microcytosis Absolute Retic 0.23 PT INR APTT Specimen Type ART ART Sample Site L Radial L Radial pH 7.00 L* 7.08 L* Bicarbonate Actual 16.7 L 19.7 L POC Total CO2 19 22 Base Excess -15 L -10 L O2 Saturation 71 L 79 L O2 % 100 100 ABG pCO2 67.4 H* 66.1 H ABG pO2 56 L 61 L David Test NA Respiration Rate 14 O2 Delivery Device Vent Vent Minute Volume Vent Mode A-C APRV Tidal Volume 500 POC PEEP 16 Pressure High 22.0 Pressure Low 0.0 Time High 4.0 Time Low 0.5 Blood Gas Notified Whom ICU MD Blood Gas Notified Time 48 220 Sodium Potassium Chloride Carbon Dioxide Anion Gap BUN Creatinine Estim Creat Clear Calc Est GFR (MDRD) Af Amer Est GFR (MDRD) Non-Af BUN/Creatinine Ratio Glucose Lactic Acid Calcium Phosphorus Magnesium Troponin I MRSA (PCR) POC Glucose 01/10/19 01/10/19 03:40 05:14 WBC RBC Hgb Hct MCV MCH MCHC RDW RDW Differential Plt Count MPV Immature Gran % (Auto) Neut % (Auto) Lymph % (Auto) [place] % (Auto) Eos % (Auto) Baso % (Auto) Absolute Neuts (auto) Absolute Lymphs (auto) Total Counted Neutrophils % (Manual) Band Neutrophils % Lymphocytes % (Manual) Monocytes % (Manual) Metamyelocytes % Myelocytes % Promyelocytes % Blast Cells % Nucleated RBC % Diff Path Review Platelet Estimate Plt Morphology Comment RBC Morphology Polychromasia Hypochromasia Anisocytosis Microcytosis Absolute Retic PT INR APTT Specimen Type Sample Site pH Bicarbonate Actual POC Total CO2 Base Excess O2 Saturation O2 % ABG pCO2 ABG pO2 David Test Respiration Rate O2 Delivery Device Minute Volume Vent Mode Tidal Volume POC PEEP Pressure High Pressure Low Time High Time Low Blood Gas Notified Whom Blood Gas Notified Time Sodium 144 Potassium 5.2 H Chloride 111 H Carbon Dioxide 19.0 L Anion Gap 14 BUN 67 H Creatinine 4.43 H Estim Creat Clear Calc 13.08 Est GFR (MDRD) Af Amer 17 L Est GFR (MDRD) Non-Af 14 L BUN/Creatinine Ratio 15.1 Glucose 154 H Lactic Acid Calcium 7.2 L Phosphorus 8.1 H Magnesium 2.0 Troponin I MRSA (PCR) POC Glucose 141 H Microbiology 01/08/19 17:20 Blood Culture (Wb) #2 - Anticubital Right Bacteria Detection (PCR) - Final Staphylococcus aureus 01/08/19 17:20 Blood Culture (Wb) #2 - Anticubital Right Blood Culture - Preliminary 01/09/19 00:15 Sputum, Induced/Lukens Gram Stain - Final 01/08/19 17:30 Mucosa - Nose Respiratory Panel (PCR) - Final Influenza A (Subtype H1) 01/08/19 17:22 Blood Culture (Wb) - Left Wrist Blood Culture - Preliminary 01/08/19 21:25 Urine Catheter - Catheter Legionella Antigen - Final 01/08/19 21:25 Urine Catheter - Catheter Streptococcus pneumoniae Antigen (M - Final 01/08/19 17:30 Mucosa - Nose Influenza Types A,B Direct FA (BETTY) - Final Clinical Impression(s) from Imaging Studies Chest X-Ray 01/09/19 09:43 IMPRESSION: Stable ET tube and enteric tube. Placement of right IJ central venous catheter as above. No evidence of pneumothorax. Worsening patchy consolidation Electronically Signed: James Alvarez DO at 10:37 EST Tel , Service support , Chest X-Ray 01/10/19 01:03 IMPRESSION: 1. No significant change. Extensive bilateral pulmonary infiltrates. at [id number] Reported and signed by: Mello Calvillo MD Electronically Signed: Mello Calvillo, at 4:52 EST Tel , Service support , Medical Necessity - Tobacco Use Smoking Status: Former smoker Tobacco Use: Cigarettes Assessment/Plan All Active Problems (Last Updated 11/02/17 @ 08:07 by Mauro Ley [employer]) Acute combined respiratory failure (Acute) Respiratory acidosis (Acute) Acute renal failure (Acute) Septic shock (Acute) Community acquired pneumonia (Acute) RECOMMENDATIONS: 1. Continue APRV, wean oxygen as tolerated 2. Reinitiate Levophed if necessary 3. Continue empiric steroid therapy and transition to Ancef for MSSA 4. Clarify CODE STATUS with family 5. Wean oxygen as tolerated, spontaneous breathing and awakening trial per protocol 6. Okay to continue with tube feeds IMPRESSIONS: 1. Acute hypoxic respiratory failure secondary to probable ARDS secondary to community-acquired pneumonia Patient with bilateral infiltrates and reported preserved ejection fraction on previous cardiac catheterization approximately 1 year ago. Clinical suspicion for ARDS secondary to community-acquired pneumonia. Patient on empiric steroid therapy at this time. Patient does have extensive infiltrates and blood cultures positive for MSSA. Patient will be transition to [facility] for better coverage. 2. Septic shock secondary to community-acquired pneumonia Patient has received significant fluids overnight. Patient's blood pressure is improving on APRV. Unclear if this is secondary to decreased venous return from PEEP versus septic shock. Patient does have an elevated temperature overnight and 4 out of 4 Sirs criteria. Patient did require significant amounts of Levophed overnight. 3. Ygu-dekubok-oickqppaw diabetes mellitus Patient currently on sliding scale insulin. Will need to watch closely given initiation of steroid therapy. 4. Acute renal failure Clinical suspicion for ATN secondary to prerenal etiology associated with problem #1 and problem #2. Decreased urine output over the 12-16 hours. ARDS would recommend low fluid balance if possible. Hold off any diuretic therapy given patient's current acute renal failure. Will need to discuss with the family today if hemodialysis is an option. Patient does have an element of non- anion gap metabolic acidosis. 5. Poor history/hypertension/hyperlipidemia/GERD Complicates care, management, recovery and prognosis. Will attempt to clarify CODE STATUS on family arrival. TIME: 45 minutes critical care time spent addressing patient's acute hypoxic res piratory failure, ARDS, septic shock, diabetes mellitus, acute renal failure, review of all data and collaboration with care team (6:15 AM to 7:15 AM) Code Visit 9xxxx: [id number] Critical care first hour
--- NOTE | 2019-01-10 07:56 | PN_ITS ---
Patient Problems: Active and Suspected Problems (Last Updated 11/02/17 @ 08:07 by Mauro Ley, BANK ANALYST- C) Acute combined respiratory failure (Acute) Respiratory acidosis (Acute) Acute renal failure (Acute) Septic shock (Acute) Community acquired pneumonia (Acute) Subjective: Chief complaint: Follow-up after admission for septic shock secondary to bilateral community-acquired pneumonia, acute hypoxic and hypercapnic respiratory failure, respiratory acidosis and acute renal failure. Patient seen and examined. Overnight, patient remained hypotensive and hypoxic. Still having spikes of high-grade fever. Nursing staff reported that after midnight, patient became unresponsive although he was in sedation but that was a change from his level of responsiveness. This morning, he was taken off IV Levophed drip. Transition to APRV vent settings and his progression improved. - Physical Exam General: - - Intubated, sedated. Not following commands. HEENT: Atraumatic, PERRLA, Normocephalic Oral: Moist Mucosa, No Gingival or Mucosal Lesions/ Ulcerations Neck: Supple, No JVD, Negative Carotid Bruits, Trachea Midline, Thyroid Normal Size and Texture Lungs: No rales, Diminished, Rhonchi, Short of Breath, Wheezes Cardiovascular: Regular rate, Regular Rhythm, Normal S1, Normal S2, PMI Normal, Tachycardic Abdomen: Soft, Non Tender, No Hepato-splenomegaly, Hypoactive Bowel Sounds, Distended Extremities: No clubbing, No cyanosis, No edema Skin: No rashes, No breakdown Lymphatic: No Cervical, Supraclavicular, or Inguinal Adenopathy Neurological: - - Patient was able to shake head up on verbal stimuli, no spontaneous eye opening. Moving all limbs. Psych/Mental Status: - - Unable to assess, patient is sedated. Vital Signs Temp Pulse Resp BP Pulse Ox 98.4 F 120 H 24 H 113/65 93 01/10/19 07:00 01/10/19 07:00 01/10/19 07:00 01/10/19 07:00 01/10/19 07:00 Oxygen Flow Rate (L/min) 6 Oxygen Delivery Method Mechanical Ventilator Weight: 201 lb 11.567 oz Body Mass Index (BMI) 28.5 Intake and Output for Last 24 Hours 01/08/19 01/09/19 01/10/19 23:59 23:59 23:59 Intake Total 2585.5 / 2585.5 4902.5 / 4902.5 567.6 / 567.6 Output Total 100 / 100 345 / 345 15 Balance 2485.5 / 2485.5 4557.5 / 4557.5 552.6 / 552.6 Microbiology Past 72 Hours 01/08/19 17:20 Bacteria Detection (PCR) - Final Blood Culture (Wb) #2 - Anticubital Right Staphylococcus aureus Blood Culture - Preliminary 01/09/19 00:15 Gram Stain - Final Sputum, Induced/Lukens 01/08/19 17:30 Respiratory Panel (PCR) - Final Mucosa - Nose Influenza A (Subtype H1) 01/08/19 17:22 Blood Culture - Preliminary Blood Culture (Wb) - Left Wrist 01/08/19 21:25 Legionella Antigen - Final Urine Catheter - Catheter 01/08/19 21:25 Streptococcus pneumoniae Antigen (M - Final Urine Catheter - Catheter 01/08/19 17:30 Influenza Types A,B Direct FA (BETTY) - Final Mucosa - Nose Laboratory Tests Past 24 Hrs 01/08/19 01/08/19 01/09/19 17:20 21:50 03:50 WBC RBC Hgb Hct MCV MCH MCHC RDW RDW Differential Plt Count MPV Neut % (Auto) Absolute Neuts (auto) Absolute Lymphs (auto) Total Counted Neutrophils % (Manual) Band Neutrophils % Lymphocytes % (Manual) Monocytes % (Manual) Metamyelocytes % Myelocytes % Promyelocytes % Nucleated RBC % Diff Path Review Reviewed Reviewed Platelet Estimate RBC Morphology Absolute Retic Specimen Type ART Sample Site L RADIAL pH 7.22 L Bicarbonate Actual 16.3 L POC Total CO2 18 Base Excess -11 L O2 Saturation 89 L O2 % 60 ABG pCO2 39.8 ABG pO2 68 L David Test POS Respiration Rate 16 O2 Delivery Device Vent Minute Volume 14.00 Vent Mode A-C Tidal Volume 500 POC PEEP 5 Pressure High Pressure Low Time High Time Low Blood Gas Notified Whom ICU Blood Gas Notified Time 2150 Sodium Potassium Chloride Carbon Dioxide Anion Gap BUN Creatinine Estim Creat Clear Calc Est GFR (MDRD) Af Amer Est GFR (MDRD) Non-Af BUN/Creatinine Ratio Glucose Calcium Phosphorus Magnesium MRSA (PCR) 01/09/19 01/10/19 01/10/19 09:10 00:40 00:55 WBC RBC Hgb Hct MCV MCH MCHC RDW RDW Differential Plt Count MPV Neut % (Auto) Absolute Neuts (auto) Absolute Lymphs (auto) Total Counted Neutrophils % (Manual) Band Neutrophils % Lymphocytes % (Manual) Monocytes % (Manual) Metamyelocytes % Myelocytes % Promyelocytes % Nucleated RBC % Diff Path Review Platelet Estimate RBC Morphology Absolute Retic Specimen Type ART ART Sample Site L Brachial L Radial pH 7.02 L* 7.00 L* Bicarbonate Actual 16.9 L 16.7 L POC Total CO2 19 19 Base Excess -14 L -15 L O2 Saturation 74 L 71 L O2 % 100 100 ABG pCO2 65.7 H 67.4 H* ABG pO2 58 L 56 L David Test NA NA Respiration Rate 14 14 O2 Delivery Device Vent Vent Minute Volume Vent Mode A-C A-C Tidal Volume 500 500 POC PEEP 16 16 Pressure High Pressure Low Time High Time Low Blood Gas Notified Whom ICU Blood Gas Notified Time 37 48 Sodium Potassium Chloride Carbon Dioxide Anion Gap BUN Creatinine Estim Creat Clear Calc Est GFR (MDRD) Af Amer Est GFR (MDRD) Non-Af BUN/Creatinine Ratio Glucose Calcium Phosphorus Magnesium MRSA (PCR) Negative 01/10/19 01/10/19 01/10/19 02:25 03:40 03:40 WBC 12.1 H RBC 3.88 L Hgb 10.6 L Hct 35.1 L MCV 90.5 MCH 27.3 MCHC 30.2 L RDW 16.3 H RDW Differential 54.6 H Plt Count 179 MPV 11.6 Neut % (Auto) Not Reportable Absolute Neuts (auto) 10.0 H Absolute Lymphs (auto) 0.85 Total Counted 100 Neutrophils % (Manual) 56 Band Neutrophils % 27 H Lymphocytes % (Manual) 7 L Monocytes % (Manual) 2 Metamyelocytes % 5 H Myelocytes % 2 H Promyelocytes % 1 H Nucleated RBC % 1.9 Diff Path Review May foll Platelet Estimate ADEQUATE RBC Morphology NORM C+C Absolute Retic 0.23 Specimen Type ART Sample Site L Radial pH 7.08 L* Bicarbonate Actual 19.7 L POC Total CO2 22 Base Excess -10 L O2 Saturation 79 L O2 % 100 ABG pCO2 66.1 H ABG pO2 61 L David Test Respiration Rate O2 Delivery Device Vent Minute Volume Vent Mode APRV Tidal Volume POC PEEP Pressure High 22.0 Pressure Low 0.0 Time High 4.0 Time Low 0.5 Blood Gas Notified Whom ICU Blood Gas Notified Time 220 Sodium 144 Potassium 5.2 H Chloride 111 H Carbon Dioxide 19.0 L Anion Gap 14 BUN 67 H Creatinine 4.43 H Estim Creat Clear Calc 13.08 Est GFR (MDRD) Af Amer 17 L Est GFR (MDRD) Non-Af 14 L BUN/Creatinine Ratio 15.1 Glucose 154 H Calcium 7.2 L Phosphorus 8.1 H Magnesium 2.0 MRSA (PCR) POC Glucose 01/10/19 01/09/19 01/09/19 05:14 23:27 18:24 POC Glucose 141 H 140 H 74 01/09/19 12:08 POC Glucose 91 Clinical Impression(s) from Imaging Studies Chest X-Ray 01/10/19 01:03 IMPRESSION: 1. No significant change. Extensive bilateral pulmonary infiltrates. at 0453 Reported and signed by: Mello Calvillo MD Electronically Signed: Mello Calvillo, at 4:52 EST Tel , Service support , Medical Necessity - Tobacco Use Smoking Status: Former smoker Tobacco Use: Cigarettes Assessment/Plan All Active Problems (Last Updated 11/02/17 @ 08:07 by Mauro Ley BANK ANALYST-C) Acute combined respiratory failure (Acute) Respiratory acidosis (Acute) Acute renal failure (Acute) Septic shock (Acute) Community acquired pneumonia (Acute) This is a 78 years old male patient presented to the emergency room because of shortness of breath, found to have bilateral infiltrates on chest x-ray consistent with community-acquired pneumonia, became very dyspneic and tachypneic while on BiPAP in the ED and he was intubated and started on mechanical ventilation, found to have septic shock secondary to chronic acquired pneumonia complicated by acute hypoxic and hypercapnic respiratory failure and acute renal failure. #1 septic shock: Secondary to pneumonia. At this time, he is off IV Levophed, blood pressure is maintained, tachycardic. Patient is on IV vasopressors, IV antibiotics, IV steroids and IV fluids. Respiratory panel for viruses positive for influenza A. Pneumococcal and Legionella antigen were negative. Blood culture is positive for staph aureus, final is pending. Plan to continue same treatment. #2 acute bacterial bilateral community-acquired pneumonia: Repeat chest x-ray today revealed extensive bilateral basilar infiltrate. Remained on IV Rocephin and Zithromax. Blood cultures positive for staph aureus, final is pending. Pneumococcal and Legionella antigen were negative. Positive for influenza A. Plan to continue same treatment as above. #3 Staphylococcal bacteremia: Probable source is the pneumonia. He is on IV Rocephin and Zithromax as above. Plan as above, awaiting final culture report. #4 acute hypoxic and hypercapnic respiratory failure/respiratory acidosis: Secondary to pneumonia. This morning, ABG revealed pH of 7.08, PCO2 of 66 and PO2 of 61. He is still acidotic, carbon dioxide is trending down. Plan to treat underlying etiology as above. #5 acute renal failure: Secondary to septic shock, tissue hypoperfusion. [facility] kidney function is normal, admission creatinine is 2.14, today's creatinine is 4.43, continued to worsen. He has poor urine output. Continue IV fluids, monitor BMP. #6 type 2 diabetes mellitus: Blood sugar has been stable, he is on sliding scale only. #7 hypertension: Blood pressure improved, still tachycardic. Antihypertensive medications held. #8 hyperlipidemia: Statin is held, patient is intubated. #9 GERD: He is on IV Pepcid daily. #10 DVT prophylaxis: Subcu heparin. This note was generated with [employer] software. It may contain incorrect words, spelling, and punctuation that were not noted in checking the note before signing. Code Visit Inpatient E&M: [id number] [facility] L[facility]
--- NOTE | 2019-01-10 09:50 | PCM.CONS.R ---
Problem List (1) LAURIE (acute kidney injury) Status: Acute Consultation - Renal PCP/ Referring MD: Requesting physician: [] Primary care physician: Feliberto Richards MD - History of Present Illness History of Present Illness: The patient is a 78 year old M past medical history of hypertension, diabetes, COPD and hyperlipidemia. Patient presented to the hospital on January 08 with progressive shortness of breath along with fever and cough. X-ray at admission showed bibasilar infiltrate. Patient was found to be tachypneic and hypoxemic and was intubated and admitted to ICU. Patient has been no shock from sepsis . Renal team was consulted for acute kidney injury with anuria for the last 48 hours. Potassium slightly high at 5.2. In 2017, creatinine was 1.1 mg a deciliter. Review of system: 12 systems review is not obtainable due to patient's condition [] - Allergies Allergies: Allergies metformin Allergy (Verified 01/08/19 16:59) Unknown - Current Medications Current Medications: Current Medications Acetaminophen (Tylenol Liquid) 650 mg GT Q6H PRN PRN PRN Reason: temp >100.4 Last Admin: 01/09/19 21:52 Dose: 650 mg Chlorhexidine Gluconate () 15 ml PO BID [facility] Last Admin: 01/09/19 21:38 Dose: 15 ml Chlorhexidine Gluconate () 1 each TOPICAL DAILY [facility] Last Admin: 01/09/19 16:24 Dose: 1 each Dextrose (D50w Syringe) 0 gm IV X1 PRN; Protocol PRN Reason: Hypoglycemia Glucagon () 1 mg IM .X1 PRN PRN Reason: Hypoglycemia Heparin Sodium (Porcine) (Heparin Na) 5,000 unit SC Q12 [facility] Last Admin: 01/09/19 21:38 Dose: 5,000 unit Propofol (Diprivan) 1,000 mg in 100 mls @ 5.16 mls/hr CONT INF .Q12H [facility] Last Admin: 01/10/19 06:33 Dose: Not Given Sodium Chloride () 250 mls @ 15 mls/hr IV .[id number] PRN PRN Reason: SALINE FLUSH Famotidine 20 mg/ Sodium (Chloride) 10 mls @ 300 mls/hr IV Q24 [facility] Last Admin: 01/09/19 13:09 Dose: 300 mls/hr Fentanyl () 100 mls @ 2.5 mls/hr IV .Q40H [facility] Last Admin: 01/09/19 19:43 Dose: 2.5 mls/hr Norepinephrine Bitartrate 8 mg (/ Dextrose) 258 mls @ 9.68 mls/hr IV .[id number] [facility] Last Admin: 01/09/19 18:22 Dose: 9.68 mls/hr Enteral Nutritional Formula (Vital Af 1.2 Malcom Liquid) 1,000 mls @ 70 mls/hr GT .[id number] [facility] Last Admin: 01/10/19 01:17 Dose: Not Given Cefazolin Sodium 2 gm/ Sodium (Chloride) 110 mls @ 150 mls/hr IV Q12 [facility] Last Admin: 01/10/19 06:46 Dose: 150 mls/hr Insulin Human Lispro (Humalog Kwikpen (Bkc)) 0 unit SC Q6 [facility]; Protocol Last Admin: 01/10/19 05:16 Dose: Not Given Magnesium Hydroxide (Milk Of Magnesia) 30 ml PO DAILY PRN PRN PRN Reason: Constipation Methylprednisolone (Solu-Medrol) 40 mg IV Q6 [facility] Last Admin: 01/10/19 05:16 Dose: 40 mg Senna/Docusate Sodium (Senokot-S, Meaghan-Colace) 2 tablet PO DAILY [facility] Last Admin: 01/09/19 10:44 Dose: 2 tablet Sodium Chloride () 5 - 15 ml IV UD PRN PRN Reason: SALINE FLUSH Last Admin: 01/10/19 05:16 Dose: 10 ml - Past Medical History Past Medical History (Chronic Problems): Chronic Problems (Last Updated 11/02/17 @ 08:07 by SHEYLA Smalls) Essential (primary) hypertension (Chronic) COPD (chronic obstructive pulmonary disease) (Chronic) Diabetes mellitus (Chronic) Hyperlipemia, mixed (Chronic) Chest pain, exertional (Chronic) - Social History Smoking Status: Former smoker Alcohol: None Drugs: None - Family History Maternal Family History: Family History (Last Updated 11/02/17 @ 08:05 by SHEYLA Smalls) Mother CAD (coronary artery disease) Father Colon cancer Patient Problems: Active and Suspected Problems (Last Updated 11/02/17 @ 08:07 by SHEYLA Smalls) LAURIE (acute kidney injury) (Acute) Acute combined respiratory failure (Acute) Respiratory acidosis (Acute) Acute renal failure (Acute) Septic shock (Acute) Community acquired pneumonia (Acute) - Physical Exam General: - - Intubated and sedated HEENT: Atraumatic, PERRLA Oral: - - ET tube in place Neck: Supple, No JVD Lungs: Tachypneic, Using Accessory Muscles, - - Bilateral rhonchi. Equal air entry. On vent support with FiO2 100% Cardiovascular: Regular Rhythm, Normal S1, Normal S2, Tachycardic Abdomen: Soft, Non Tender, Hypoactive Bowel Sounds Extremities: Cool, Edema - +1 edema of lower extremities Musculoskeletal: No Muscle Wasting Lymphatic: No Cervical, Supraclavicular, or Inguinal Adenopathy Neurological: - - Sedated Vital Signs Temp Pulse Resp BP Pulse Ox 98.4 F 120 H 26 H 123/65 H 94 01/10/19 07:00 01/10/19 08:00 01/10/19 08:00 01/10/19 08:00 01/10/19 08:00 Oxygen Flow Rate (L/min) 6 Oxygen Delivery Method Mechanical Ventilator Weight: 91.5 kg Body Mass Index (BMI) 28.5 Intake and Output for Last 24 Hours 01/08/19 01/09/19 01/10/19 23:59 23:59 23:59 Intake Total 2585.5 / 2585.5 4902.5 / 4902.5 567.6 / 567.6 Output Total 100 / 100 345 / 345 15 / 15 Balance 2485.5 / 2485.5 4557.5 / 4557.5 552.6 / 552.6 Microbiology Past 72 Hours 01/09/19 00:15 Gram Stain - Final Sputum, Induced/Lukens Respiratory Culture - Preliminary Staphylococcus aureus Streptococcus group C 01/08/19 17:22 Blood Culture - Final Blood Culture (Wb) - Left Wrist Staphylococcus aureus 01/08/19 17:20 Bacteria Detection (PCR) - Final Blood Culture (Wb) #2 - Anticubital Right Staphylococcus aureus Blood Culture - Preliminary Staphylococcus aureus 01/08/19 17:30 Respiratory Panel (PCR) - Final Mucosa - Nose Influenza A (Subtype H1) 01/08/19 21:25 Legionella Antigen - Final Urine Catheter - Catheter 01/08/19 21:25 Streptococcus pneumoniae Antigen (M - Final Urine Catheter - Catheter 01/08/19 17:30 Influenza Types A,B Direct FA (BETTY) - Final Mucosa - Nose Laboratory Tests Past 24 Hrs 01/08/19 01/09/19 01/09/19 17:20 03:50 09:10 WBC RBC Hgb Hct MCV MCH MCHC RDW RDW Differential Plt Count MPV Neut % (Auto) Absolute Neuts (auto) Absolute Lymphs (auto) Total Counted Neutrophils % (Manual) Band Neutrophils % Lymphocytes % (Manual) Monocytes % (Manual) Metamyelocytes % Myelocytes % Promyelocytes % Nucleated RBC % Diff Path Review Reviewed Reviewed Platelet Estimate RBC Morphology Absolute Retic Specimen Type Sample Site pH Bicarbonate Actual POC Total CO2 Base Excess O2 Saturation O2 % ABG pCO2 ABG pO2 David Test Respiration Rate O2 Delivery Device Vent Mode Tidal Volume POC PEEP Pressure High Pressure Low Time High Time Low Blood Gas Notified Whom Blood Gas Notified Time Sodium Potassium Chloride Carbon Dioxide Anion Gap BUN Creatinine Estim Creat Clear Calc Est GFR (MDRD) Af Amer Est GFR (MDRD) Non-Af BUN/Creatinine Ratio Glucose Calcium Phosphorus Magnesium MRSA (PCR) Negative 01/10/19 01/10/19 01/10/19 00:40 00:55 02:25 WBC RBC Hgb Hct MCV MCH MCHC RDW RDW Differential Plt Count MPV Neut % (Auto) Absolute Neuts (auto) Absolute Lymphs (auto) Total Counted Neutrophils % (Manual) Band Neutrophils % Lymphocytes % (Manual) Monocytes % (Manual) Metamyelocytes % Myelocytes % Promyelocytes % Nucleated RBC % Diff Path Review Platelet Estimate RBC Morphology Absolute Retic Specimen Type ART ART ART Sample Site L Brachial L Radial L Radial pH 7.02 L* 7.00 L* 7.08 L* Bicarbonate Actual 16.9 L 16.7 L 19.7 L POC Total CO2 19 19 22 Base Excess -14 L -15 L -10 L O2 Saturation 74 L 71 L 79 L O2 % 100 100 100 ABG pCO2 65.7 H 67.4 H* 66.1 H ABG pO2 58 L 56 L 61 L David Test NA NA Respiration Rate 14 14 O2 Delivery Device Vent Vent Vent Vent Mode A-C A-C APRV Tidal Volume 500 500 POC PEEP 16 16 Pressure High 22.0 Pressure Low 0.0 Time High 4.0 Time Low 0.5 Blood Gas Notified Whom ICU ICU MD Blood Gas Notified Time 37 48 220 Sodium Potassium Chloride Carbon Dioxide Anion Gap BUN Creatinine Estim Creat Clear Calc Est GFR (MDRD) Af Amer Est GFR (MDRD) Non-Af BUN/Creatinine Ratio Glucose Calcium Phosphorus Magnesium MRSA (PCR) 01/10/19 01/10/19 03:40 03:40 WBC 12.1 H RBC 3.88 L Hgb 10.6 L Hct 35.1 L MCV 90.5 MCH 27.3 MCHC 30.2 L RDW 16.3 H RDW Differential 54.6 H Plt Count 179 MPV 11.6 Neut % (Auto) Not Reportable Absolute Neuts (auto) 10.0 H Absolute Lymphs (auto) 0.85 Total Counted 100 Neutrophils % (Manual) 56 Band Neutrophils % 27 H Lymphocytes % (Manual) 7 L Monocytes % (Manual) 2 Metamyelocytes % 5 H Myelocytes % 2 H Promyelocytes % 1 H Nucleated RBC % 1.9 Diff Path Review May foll Platelet Estimate ADEQUATE RBC Morphology NORM C+C Absolute Retic 0.23 Specimen Type Sample Site pH Bicarbonate Actual POC Total CO2 Base Excess O2 Saturation O2 % ABG pCO2 ABG pO2 David Test Respiration Rate O2 Delivery Device Vent Mode Tidal Volume POC PEEP Pressure High Pressure Low Time High Time Low Blood Gas Notified Whom Blood Gas Notified Time Sodium 144 Potassium 5.2 H Chloride 111 H Carbon Dioxide 19.0 L Anion Gap 14 BUN 67 H Creatinine 4.43 H Estim Creat Clear Calc 13.08 Est GFR (MDRD) Af Amer 17 L Est GFR (MDRD) Non-Af 14 L BUN/Creatinine Ratio 15.1 Glucose 154 H Calcium 7.2 L Phosphorus 8.1 H Magnesium 2.0 MRSA (PCR) POC Glucose 01/10/19 01/09/19 01/09/19 05:14 23:27 18:24 POC Glucose 141 H 140 H 74 01/09/19 12:08 POC Glucose 91 Assessment/Plan All Active Problems (Last Updated 11/02/17 @ 08:07 by ISABEL SmallsC) LAURIE (acute kidney injury) (Acute) Acute combined respiratory failure (Acute) Respiratory acidosis (Acute) Acute renal failure (Acute) Septic shock (Acute) Community acquired pneumonia (Acute) 1-acute kidney injury and chronic kidney disease baseline creatinine seems around 1.1 mg a deciliter in 2017. Acute kidney injury is most probably from ischemic ATN. Creatinine rising significantly last 24-hour urine creatinine trend 2.7->4.23. Patient is anuric. No clear indication for hemodialysis today. If by tomorrow, patient remains anuric with worsening kidney function patient will need hemodialysis. I discussed with the family when they are back to the patient's room. Please keep mean arterial pressure more than 65. Avoid nephrotoxic. 2-high anion gap metabolic acidosis related to acute kidney injury and lactic acidosis. Lactic acid is trending down. Last lactic acid level is 3.1. We will continue to monitor bicarb level. No need for sodium bicarb for now 3-hyperkalemia: Related to acidosis, and LAURIE. Potassium 5.2. I will give 1 dose of Kayexalate 15 g p.o. 4-acute hypoxemic respiratory failure due to ARDS/pneumonia. On vent support as per the ICU team. 5- Sepsis from bilateral pneumonia with bacteremia. On antibiotics as per the ICU/ID team. Please dose medication for patient for GFR less than 10 Thank you for the consult. Renal team will continue to follow. Please call with any question or concern at my cell phone #[phone] Plan of care was discussed with Dr. Rajeev Mason MD
--- NOTE | 2019-01-10 09:54 | CON.PCM_ITS ---
Problem List (1) LAURIE (acute kidney injury) Status: Acute Consultation - Renal PCP/ Referring MD: Requesting physician: [] Primary care physician: Feliberto Richards MD - History of Present Illness History of Present Illness: The patient is a 78 year old M past medical history of hypertension, diabetes, COPD and hyperlipidemia. Patient presented to the hospital on January 08 with progressive shortness of breath along with fever and cough. X-ray at admission showed bibasilar infiltrate. Patient was found to be tachypneic and hypoxemic and was intubated and admitted to ICU. Patient has been no shock from sepsis . Renal team was consulted for acute kidney injury with anuria for the last 48 hours. Potassium slightly high at 5.2. In 2017, creatinine was 1.1 mg a deciliter. Review of system: 12 systems review is not obtainable due to patient's condition [] - Allergies Allergies: Allergies metformin Allergy (Verified 01/08/19 16:59) Unknown - Current Medications Current Medications: Current Medications Acetaminophen (Tylenol Liquid) 650 mg GT Q6H PRN PRN PRN Reason: temp >100.4 Last Admin: 01/09/19 21:52 Dose: 650 mg Chlorhexidine Gluconate () 15 ml PO BID ARPIT Last Admin: 01/09/19 21:38 Dose: 15 ml Chlorhexidine Gluconate () 1 each TOPICAL DAILY [facility] Last Admin: 01/09/19 16:24 Dose: 1 each Dextrose (D50w Syringe) 0 gm IV X1 PRN; Protocol PRN Reason: Hypoglycemia Glucagon () 1 mg IM .X1 PRN PRN Reason: Hypoglycemia Heparin Sodium (Porcine) (Heparin Na) 5,000 unit SC Q12 [facility] Last Admin: 01/09/19 21:38 Dose: 5,000 unit Propofol (Diprivan) 1,000 mg in 100 mls @ 5.16 mls/hr CONT INF .Q12H [facility] Last Admin: 01/10/19 06:33 Dose: Not Given Sodium Chloride () 250 mls @ 15 mls/hr IV .[id number] PRN PRN Reason: SALINE FLUSH Famotidine 20 mg/ Sodium (Chloride) 10 mls @ 300 mls/hr IV Q24 [facility] Last Admin: 01/09/19 13:09 Dose: 300 mls/hr Fentanyl () 100 mls @ 2.5 mls/hr IV .Q40H [facility] Last Admin: 01/09/19 19:43 Dose: 2.5 mls/hr Norepinephrine Bitartrate 8 mg (/ Dextrose) 258 mls @ 9.68 mls/hr IV .[id number] [facility] Last Admin: 01/09/19 18:22 Dose: 9.68 mls/hr Enteral Nutritional Formula (Vital Af 1.2 Malcom Liquid) 1,000 mls @ 70 mls/hr GT .[id number] [facility] Last Admin: 01/10/19 01:17 Dose: Not Given Cefazolin Sodium 2 gm/ Sodium (Chloride) 110 mls @ 150 mls/hr IV Q12 [facility] Last Admin: 01/10/19 06:46 Dose: 150 mls/hr Insulin Human Lispro (Humalog Kwikpen (Bkc)) 0 unit SC Q6 [facility]; Protocol Last Admin: 01/10/19 05:16 Dose: Not Given Magnesium Hydroxide (Milk Of Magnesia) 30 ml PO DAILY PRN PRN PRN Reason: Constipation Methylprednisolone (Solu-Medrol) 40 mg IV Q6 [facility] Last Admin: 01/10/19 05:16 Dose: 40 mg Senna/Docusate Sodium (Senokot-S, Meaghan-Colace) 2 tablet PO DAILY [facility] Last Admin: 01/09/19 10:44 Dose: 2 tablet Sodium Chloride () 5 - 15 ml IV UD PRN PRN Reason: SALINE FLUSH Last Admin: 01/10/19 05:16 Dose: 10 ml - Past Medical History Past Medical History (Chronic Problems): Chronic Problems (Last Updated 11/02/17 @ 08:07 by SHEYLA Smalls) Essential (primary) hypertension (Chronic) COPD (chronic obstructive pulmonary disease) (Chronic) Diabetes mellitus (Chronic) Hyperlipemia, mixed (Chronic) Chest pain, exertional (Chronic) - Social History Smoking Status: Former smoker Alcohol: None Drugs: None - Family History Maternal Family History: Family History (Last Updated 11/02/17 @ 08:05 by SHEYLA Smalls) Mother CAD (coronary artery disease) Father Colon cancer Patient Problems: Active and Suspected Problems (Last Updated 11/02/17 @ 08:07 by ISABEL Smalls) LAURIE (acute kidney injury) (Acute) Acute combined respiratory failure (Acute) Respiratory acidosis (Acute) Acute renal failure (Acute) Septic shock (Acute) Community acquired pneumonia (Acute) - Physical Exam General: - - Intubated and sedated HEENT: Atraumatic, PERRLA Oral: - - ET tube in place Neck: Supple, No JVD Lungs: Tachypneic, Using Accessory Muscles, - - Bilateral rhonchi. Equal air entry. On vent support with FiO2 100% Cardiovascular: Regular Rhythm, Normal S1, Normal S2, Tachycardic Abdomen: Soft, Non Tender, Hypoactive Bowel Sounds Extremities: Cool, Edema - +1 edema of lower extremities Musculoskeletal: No Muscle Wasting Lymphatic: No Cervical, Supraclavicular, or Inguinal Adenopathy Neurological: - - Sedated Vital Signs Temp Pulse Resp BP Pulse Ox 98.4 F 120 H 26 H 123/65 H 94 01/10/19 07:00 01/10/19 08:00 01/10/19 08:00 01/10/19 08:00 01/10/19 08:00 Oxygen Flow Rate (L/min) 6 Oxygen Delivery Method Mechanical Ventilator Weight: 91.5 kg Body Mass Index (BMI) 28.5 Intake and Output for Last 24 Hours 01/08/19 01/09/19 01/10/19 23:59 23:59 23:59 Intake Total 2585.5 / 2585.5 4902.5 / 4902.5 567.6 / 567.6 Output Total 100 / 100 345 / 345 15 / 15 Balance 2485.5 / 2485.5 4557.5 / 4557.5 552.6 / 552.6 Microbiology Past 72 Hours 01/09/19 00:15 Gram Stain - Final Sputum, Induced/Lukens Respiratory Culture - Preliminary Staphylococcus aureus Streptococcus group C 01/08/19 17:22 Blood Culture - Final Blood Culture (Wb) - Left Wrist Staphylococcus aureus 01/08/19 17:20 Bacteria Detection (PCR) - Final Blood Culture (Wb) #2 - Anticubital Right Staphylococcus aureus Blood Culture - Preliminary Staphylococcus aureus 01/08/19 17:30 Respiratory Panel (PCR) - Final Mucosa - Nose Influenza A (Subtype H1) 01/08/19 21:25 Legionella Antigen - Final Urine Catheter - Catheter 01/08/19 21:25 Streptococcus pneumoniae Antigen (M - Final Urine Catheter - Catheter 01/08/19 17:30 Influenza Types A,B Direct FA (BETTY) - Final Mucosa - Nose Laboratory Tests Past 24 Hrs 01/08/19 01/09/19 01/09/19 17:20 03:50 09:10 WBC RBC Hgb Hct MCV MCH MCHC RDW RDW Differential Plt Count MPV Neut % (Auto) Absolute Neuts (auto) Absolute Lymphs (auto) Total Counted Neutrophils % (Manual) Band Neutrophils % Lymphocytes % (Manual) Monocytes % (Manual) Metamyelocytes % Myelocytes % Promyelocytes % Nucleated RBC % Diff Path Review Reviewed Reviewed Platelet Estimate RBC Morphology Absolute Retic Specimen Type Sample Site pH Bicarbonate Actual POC Total CO2 Base Excess O2 Saturation O2 % ABG pCO2 ABG pO2 David Test Respiration Rate O2 Delivery Device Vent Mode Tidal Volume POC PEEP Pressure High Pressure Low Time High Time Low Blood Gas Notified Whom Blood Gas Notified Time Sodium Potassium Chloride Carbon Dioxide Anion Gap BUN Creatinine Estim Creat Clear Calc Est GFR (MDRD) Af Amer Est GFR (MDRD) Non-Af BUN/Creatinine Ratio Glucose Calcium Phosphorus Magnesium MRSA (PCR) Negative 01/10/19 01/10/19 01/10/19 00:40 00:55 02:25 WBC RBC Hgb Hct MCV MCH MCHC RDW RDW Differential Plt Count MPV Neut % (Auto) Absolute Neuts (auto) Absolute Lymphs (auto) Total Counted Neutrophils % (Manual) Band Neutrophils % Lymphocytes % (Manual) Monocytes % (Manual) Metamyelocytes % Myelocytes % Promyelocytes % Nucleated RBC % Diff Path Review Platelet Estimate RBC Morphology Absolute Retic Specimen Type ART ART ART Sample Site L Brachial L Radial L Radial pH 7.02 L* 7.00 L* 7.08 L* Bicarbonate Actual 16.9 L 16.7 L 19.7 L POC Total CO2 19 19 22 Base Excess -14 L -15 L -10 L O2 Saturation 74 L 71 L 79 L O2 % 100 100 100 ABG pCO2 65.7 H 67.4 H* 66.1 H ABG pO2 58 L 56 L 61 L David Test NA NA Respiration Rate 14 14 O2 Delivery Device Vent Vent Vent Vent Mode A-C A-C APRV Tidal Volume 500 500 POC PEEP 16 16 Pressure High 22.0 Pressure Low 0.0 Time High 4.0 Time Low 0.5 Blood Gas Notified Whom ICU ICU MD Blood Gas Notified Time 37 48 220 Sodium Potassium Chloride Carbon Dioxide Anion Gap BUN Creatinine Estim Creat Clear Calc Est GFR (MDRD) Af Amer Est GFR (MDRD) Non-Af BUN/Creatinine Ratio Glucose Calcium Phosphorus Magnesium MRSA (PCR) 01/10/19 01/10/19 03:40 03:40 WBC 12.1 H RBC 3.88 L Hgb 10.6 L Hct 35.1 L MCV 90.5 MCH 27.3 MCHC 30.2 L RDW 16.3 H RDW Differential 54.6 H Plt Count 179 MPV 11.6 Neut % (Auto) Not Reportable Absolute Neuts (auto) 10.0 H Absolute Lymphs (auto) 0.85 Total Counted 100 Neutrophils % (Manual) 56 Band Neutrophils % 27 H Lymphocytes % (Manual) 7 L Monocytes % (Manual) 2 Metamyelocytes % 5 H Myelocytes % 2 H Promyelocytes % 1 H Nucleated RBC % 1.9 Diff Path Review May foll Platelet Estimate ADEQUATE RBC Morphology NORM C+C Absolute Retic 0.23 Specimen Type Sample Site pH Bicarbonate Actual POC Total CO2 Base Excess O2 Saturation O2 % ABG pCO2 ABG pO2 David Test Respiration Rate O2 Delivery Device Vent Mode Tidal Volume POC PEEP Pressure High Pressure Low Time High Time Low Blood Gas Notified Whom Blood Gas Notified Time Sodium 144 Potassium 5.2 H Chloride 111 H Carbon Dioxide 19.0 L Anion Gap 14 BUN 67 H Creatinine 4.43 H Estim Creat Clear Calc 13.08 Est GFR (MDRD) Af Amer 17 L Est GFR (MDRD) Non-Af 14 L BUN/Creatinine Ratio 15.1 Glucose 154 H Calcium 7.2 L Phosphorus 8.1 H Magnesium 2.0 MRSA (PCR) POC Glucose 01/10/19 01/09/19 01/09/19 05:14 23:27 18:24 POC Glucose 141 H 140 H 74 01/09/19 12:08 POC Glucose 91 Assessment/Plan All Active Problems (Last Updated 11/02/17 @ 08:07 by ISABEL SmallsC) LAURIE (acute kidney injury) (Acute) Acute combined respiratory failure (Acute) Respiratory acidosis (Acute) Acute renal failure (Acute) Septic shock (Acute) Community acquired pneumonia (Acute) 1-acute kidney injury and chronic kidney disease baseline creatinine seems around 1.1 mg a deciliter in 2017. Acute kidney injury is most probably from ischemic ATN. Creatinine rising significantly last 24-hour urine creatinine trend 2.7->4.23. Patient is anuric. No clear indication for hemodialysis today. If by tomorrow, patient remains anuric with worsening kidney function patient will need hemodialysis. I discussed with the family when they are back to the patient's room. Please keep mean arterial pressure more than 65. Avoid nephrotoxic. 2-high anion gap metabolic acidosis related to acute kidney injury and lactic acidosis. Lactic acid is trending down. Last lactic acid level is 3.1. We will continue to monitor bicarb level. No need for sodium bicarb for now 3-hyperkalemia: Related to acidosis, and LAURIE. Potassium 5.2. I will give 1 dose of Kayexalate 15 g p.o. 4-acute hypoxemic respiratory failure due to ARDS/pneumonia. On vent support as per the ICU team. 5- Sepsis from bilateral pneumonia with bacteremia. On antibiotics as per the ICU/ID team. Please dose medication for patient for GFR less than 10 Thank you for the consult. Renal team will continue to follow. Please call with any question or concern at my cell phone #[phone] Plan of care was discussed with Dr. Rajeev Mason MD
--- NOTE | 2019-01-10 09:59 | CASEMGMT ---
RN CM Assessment Presentation: Acute hypoxic respiratory failure/Pneumonia. Required mechanical ventilation, pressor support and ICU monitoring. Will be starting hemodialysis. Intro role of CM and purpose of RN CM assessment. PCP: Dr. Richards Specialists: Dr. Avila, Dr. Mason Preferred Pharmacy: [facility] Pharmacy Insurance: [facility] Prescription Benefit: yes LNOK: sonAakash Living Arrangements: lives with son and daughter in law in one story home, 4 steps into home. Per son, independent in all ADL's. Transportation: son drives him DME/HHC: per son, pt does not have any ambulatory or oxygen DME. Is independent with ambulation and active prior to admission. DC PLAN: undetermined, remains on ventilator, starting acute dialysis. Shanae OSORION RN ACM
[2019-01-10] MEDS: Heparin Injection (Vial) 5,000 UNIT/ML VIAL 5000 UNIT SC ×2 (10:30→21:01)
[2019-01-10] MEDS: Senna/Docusate Sodium 1 Tablet 2 TABLET PO (10:30)
[2019-01-10] MEDS: Chlorhexidine 15 ML PO ×2 (10:30→21:01)
[2019-01-10] MEDS: Sodium Polystyrene Sulfonate 15 GM/60 ML UDC PO (12:05)
[2019-01-10] MEDS: Insulin Lispro 100 UNIT/ML INSULN.PEN SC ×3 (12:05→23:23)
[2019-01-10] MEDS: Vital AF 1.2 Cal Liquid 1,000 ML 70 ML GT (12:23)
[2019-01-10 12:35] LABS: Bedside Glucose 159 mg/dL (70-110)
[2019-01-10 13:41] LABS: Pathologist Review Reviewed
[2019-01-10] MEDS: Propofol 10MG/Ml 1,000 MG/100 ML Bottle 5.16 MG CONT INF (14:34)
[2019-01-10] MEDS: Acetaminophen 650 MG/20 ML UDC GT (15:43)
[2019-01-10] MEDS: Polyethylene Glycol 3350 17 GM PACKET GT ×2 (17:06→21:01)
[2019-01-10 18:36] LABS: Bedside Glucose 230 mg/dL (70-110)
--- NOTE | 2019-01-10 21:47 | EKG12_ITS ---
Test Reason : AFIB Blood Pressure : / mmHG Vent. Rate : 113 BPM Atrial Rate : 192 BPM P-R Int : 000 ms QRS Dur : 104 ms QT Int : 326 ms P-R-T Axes : 000 061 009 degrees QTc Int : 447 ms Atrial fibrillation Abnormal ECG Confirmed by SHARRI TILLMAN, ARIEL ([id number]), editorial manager PIPPA REINA ([id number] on 01/16/2019 10:39:24 AM Referred By: Hebert Perkins Confirmed By:ARIEL HARRELL MD
[2019-01-10] MEDS: Metoprolol Tartrate 5 MG/5 ML Vial 2.5 MG IV (21:58)
[2019-01-10] MEDS: 0.9% Saline Lock 10 ML Syringe IV ×2 (22:00→23:23)
[2019-01-10 23:36] LABS: Bedside Glucose 181 mg/dL (70-110)
[2019-01-11] VITALS (57 sets, daily range): BP systolic 77–127; BP diastolic 44–76; PULSE 102–127; RESP 20–52; TEMP 36.4–38.8; O2SAT 79–100
[2019-01-11 00:06] LABS: Allen Test POS; Base Excess -14 mmol/L (-2 to +2); Bicarbonate 16.1 mmol/L (22-26); Blood Gas Specimen Type ART; FI02 100; Mode APRV; O2 Delivery Device Vent; PEEP 0; PO2 87 mmHG (75-100); SITE R Radial; SO2 91 % (95-99); Time Given 2350; Total Carbon Dioxide 18 mmol/L; pH 7.04 (7.35-7.45)
--- NOTE | 2019-01-11 00:19 | CPS ---
YOBANI critical results read to GOSIA Morelos and .
[2019-01-11 05:13] LABS: Anion Gap 15 (5-15); BUN 93 mg/dL (7-18); Calcium,Total 7.1 mg/dL (8.5-10.1); Chloride 108 mmol/L (98-107); Creatinine, Serum 5.48 mg/dL (0.70-1.30); EST Glomerular Filtration Rate 11 mL/min (>60); Est Glom Filt Rate - Afr Amer 13 mL/min (>60); Estimated Creatinine Clearance 10.57 ml/min; Glucose 271 mg/dL (74-106); Magnesium 2.3 mg/dL (1.6-2.6); Phosphorus 7.7 mg/dL (2.5-4.9); Potassium 4.9 mmol/L (3.5-5.1); Sodium Level 141 mmol/L (136-145)
[2019-01-11 05:39] LABS: Hematocrit 29.4 % (40-54); Hemoglobin 9.2 g/dl (13.0-16.5); Mean Corp Hgb Conc 31.3 g/gl (32-36); Mean Corpuscular Hgb 27.6 pg (27.0-32.0); Mean Corpuscular Volume 88.3 fL (80-94); Platelet Count 150 K/mm3 (150-450); RBC Distribution Width CV 16.4 % (11.6-14.6); RBC Distribution Width SD 53.7 fl (35.1-43.9); Red Blood Count 3.33 M/mm3 (4.6-6.2); White Blood Count 21.3 K/mm3 (4.4-11.0)
[2019-01-11 05:41] LABS: Differential Indicated MANUAL DIFF; POSITIVE COUNT NO; POSITIVE DIFFERENTIAL NO; POSITIVE MORPHOLOGY YES
[2019-01-11 05:46] LABS: Bedside Glucose 240 mg/dL (70-110)
[2019-01-11] MEDS: 0.9% Saline Lock 10 ML Syringe IV (05:58)
[2019-01-11] MEDS: CHLORHEXIDINE GLUC 2% CLOTH 1 EACH TOWELETTE TOPICAL (05:58)
[2019-01-11] MEDS: Insulin Lispro 100 UNIT/ML INSULN.PEN SC ×3 (05:59→18:08)
[2019-01-11] MEDS: Acetaminophen 650 MG/20 ML UDC GT (06:22)
[2019-01-11 07:19] LABS: Anisocytosis 1+; Burr Cells 1+; Hypochromasia 1+; Lymphocyte 3 % (19-41); Metamyelocyte 6 % (0-1); Microcytosis 1+; Neutrophil-Band 19 % (0-5); Neutrophil-Segmented 72 % (47-70); Platelet Estimate ADEQUATE (ADEQ); Total Cells Counted 100 (MANUAL DIFF); Toxic Granulation 1+; Vacuolated Cells 1+
[2019-01-11 07:20] LABS: Dohle Bodies 1+; Platelet Morphology LARGE
[2019-01-11 07:22] LABS: Absolute Lymphocyte Count 0.64 X10^3/ul (0.83-4.51); Absolute Neutrophil Count 19.4 X10^3/uL (2.0-7.7); Absolute Nucleated RBC Count 0.27 10^3/uL (0-5); NRBC Flagged by Analyzer 1.2 % (0-5)
--- NOTE | 2019-01-11 07:28 | PN_ITS ---
Subjective: Patient with significant fever overnight leading to decompensation. Patient did have to be reinitiated on Levophed therapy. Patient also was noted to develop atrial fibrillation. Significant acidosis and little urine output has also been noted. Patient has been able to stay on 80% FiO2 without change in pressures on APRV. General: - - Intubated. Not following commands. Appears stated age. HEENT: Atraumatic, PERRLA, EOMI, Normocephalic, - - Scleral injection without icterus. Pinpoint pupils, but responsive. Oral: Moist Mucosa, No Gingival or Mucosal Lesions/ Ulcerations Neck: Supple, No JVD, No Nodes, Trachea Midline Lungs: No wheeze, No rales, Diminished, Rhonchi, - - Symmetric expansion. Cardiovascular: Normal S1, Normal S2, No murmurs, Irregular Rate, No rub noted, No Gallop, Tachycardic Abdomen: Bowel Sounds Present, Soft, Non Tender, Non-Distended, Obese Extremities: No clubbing, No cyanosis, Capillary Refill Less than 3 Seconds, Edema Skin: - - No significant change compared to previous Musculoskeletal: No Tenderness to Palpation of Joints or Extremities Lymphatic: No Cervical, Supraclavicular, or Inguinal Adenopathy Neurological: Cranial nerves II-XII grossly intact, Neuro grossly intact Psych/Mental Status: Flat Affect, Restless - At times Vital Signs Temp Pulse Resp BP Pulse Ox 37.4 C H 114 H 33 H 120/52 L 100 01/11/19 06:00 01/11/19 06:00 01/11/19 06:00 01/11/19 06:00 01/11/19 06:00 Oxygen Flow Rate (L/min) 6 Oxygen Delivery Method Mechanical Ventilator Weight: 93.1 kg Body Mass Index (BMI) 28.5 Intake and Output for Last 24 Hours 01/09/19 01/10/19 01/11/19 23:59 23:59 23:59 Intake Total 4902.5 / 4902.5 3117.1 / 3117.1 1297.4 / 1297.4 Output Total 345 / 345 88 / 88 5 / 5 Balance 4557.5 / 4557.5 3029.1 / 3029.1 1292.4 / 1292.4 Labs (Last 48 Hours) 01/08/19 01/08/19 01/09/19 17:20 21:50 03:50 WBC RBC Hgb Hct MCV MCH MCHC RDW RDW Differential Plt Count MPV Neut % (Auto) Absolute Neuts (auto) Absolute Lymphs (auto) Total Counted Neutrophils % (Manual) Band Neutrophils % Lymphocytes % (Manual) Monocytes % (Manual) Metamyelocytes % Myelocytes % Promyelocytes % Nucleated RBC % Differential Comment Diff Path Review Reviewed Reviewed Toxic Granulation Dohle Bodies Platelet Estimate Plt Morphology Comment RBC Morphology Hypochromasia Anisocytosis Microcytosis [place] Cells Absolute Retic Specimen Type ART Sample Site L RADIAL pH 7.22 L Bicarbonate Actual 16.3 L POC Total CO2 18 Base Excess -11 L O2 Saturation 89 L O2 % 60 ABG pCO2 39.8 ABG pO2 68 L David Test POS Respiration Rate 16 O2 Delivery Device Vent Minute Volume 14.00 Vent Mode A-C Tidal Volume 500 POC PEEP 5 Pressure High Pressure Low Time High Time Low Blood Gas Notified Whom ICU MD Blood Gas Notified Time 2150 Sodium Potassium Chloride Carbon Dioxide Anion Gap BUN Creatinine Estim Creat Clear Calc Est GFR (MDRD) Af Amer Est GFR (MDRD) Non-Af BUN/Creatinine Ratio Glucose Calcium Phosphorus Magnesium MRSA (PCR) POC Glucose 01/09/19 01/09/19 01/09/19 09:10 12:08 18:24 WBC RBC Hgb Hct MCV MCH MCHC RDW RDW Differential Plt Count MPV Neut % (Auto) Absolute Neuts (auto) Absolute Lymphs (auto) Total Counted Neutrophils % (Manual) Band Neutrophils % Lymphocytes % (Manual) Monocytes % (Manual) Metamyelocytes % Myelocytes % Promyelocytes % Nucleated RBC % Differential Comment Diff Path Review Toxic Granulation Dohle Bodies Platelet Estimate Plt Morphology Comment RBC Morphology Hypochromasia Anisocytosis Microcytosis [place] Cells Absolute Retic Specimen Type Sample Site pH Bicarbonate Actual POC Total CO2 Base Excess O2 Saturation O2 % ABG pCO2 ABG pO2 David Test Respiration Rate O2 Delivery Device Minute Volume Vent Mode Tidal Volume POC PEEP Pressure High Pressure Low Time High Time Low Blood Gas Notified Whom Blood Gas Notified Time Sodium Potassium Chloride Carbon Dioxide Anion Gap BUN Creatinine Estim Creat Clear Calc Est GFR (MDRD) Af Amer Est GFR (MDRD) Non-Af BUN/Creatinine Ratio Glucose Calcium Phosphorus Magnesium MRSA (PCR) Negative POC Glucose 91 74 01/09/19 01/10/19 01/10/19 23:27 00:40 00:55 WBC RBC Hgb Hct MCV MCH MCHC RDW RDW Differential Plt Count MPV Neut % (Auto) Absolute Neuts (auto) Absolute Lymphs (auto) Total Counted Neutrophils % (Manual) Band Neutrophils % Lymphocytes % (Manual) Monocytes % (Manual) Metamyelocytes % Myelocytes % Promyelocytes % Nucleated RBC % Differential Comment Diff Path Review Toxic Granulation Dohle Bodies Platelet Estimate Plt Morphology Comment RBC Morphology Hypochromasia Anisocytosis Microcytosis [place] Cells Absolute Retic Specimen Type ART ART Sample Site L Brachial L Radial pH 7.02 L* 7.00 L* Bicarbonate Actual 16.9 L 16.7 L POC Total CO2 19 19 Base Excess -14 L -15 L O2 Saturation 74 L 71 L O2 % 100 100 ABG pCO2 65.7 H 67.4 H* ABG pO2 58 L 56 L David Test NA NA Respiration Rate 14 14 O2 Delivery Device Vent Vent Minute Volume Vent Mode A-C A-C Tidal Volume 500 500 POC PEEP 16 16 Pressure High Pressure Low Time High Time Low Blood Gas Notified Whom ICU MD Blood Gas Notified Time 37 48 Sodium Potassium Chloride Carbon Dioxide Anion Gap BUN Creatinine Estim Creat Clear Calc Est GFR (MDRD) Af Amer Est GFR (MDRD) Non-Af BUN/Creatinine Ratio Glucose Calcium Phosphorus Magnesium MRSA (PCR) POC Glucose 140 H 01/10/19 01/10/19 01/10/19 02:25 03:40 03:40 WBC 12.1 H RBC 3.88 L Hgb 10.6 L Hct 35.1 L MCV 90.5 MCH 27.3 MCHC 30.2 L RDW 16.3 H RDW Differential 54.6 H Plt Count 179 MPV 11.6 Neut % (Auto) Not Reportable Absolute Neuts (auto) 10.0 H Absolute Lymphs (auto) 0.85 Total Counted 100 Neutrophils % (Manual) 56 Band Neutrophils % 27 H Lymphocytes % (Manual) 7 L Monocytes % (Manual) 2 Metamyelocytes % 5 H Myelocytes % 2 H Promyelocytes % 1 H Nucleated RBC % 1.9 Differential Comment Diff Path Review Reviewed Toxic Granulation Dohle Bodies Platelet Estimate ADEQUATE Plt Morphology Comment RBC Morphology NORM C+C Hypochromasia Anisocytosis Microcytosis [place] Cells Absolute Retic 0.23 Specimen Type ART Sample Site L Radial pH 7.08 L* Bicarbonate Actual 19.7 L POC Total CO2 22 Base Excess -10 L O2 Saturation 79 L O2 % 100 ABG pCO2 66.1 H ABG pO2 61 L David Test Respiration Rate O2 Delivery Device Vent Minute Volume Vent Mode APRV Tidal Volume POC PEEP Pressure High 22.0 Pressure Low 0.0 Time High 4.0 Time Low 0.5 Blood Gas Notified Whom ICU MD Blood Gas Notified Time 220 Sodium 144 Potassium 5.2 H Chloride 111 H Carbon Dioxide 19.0 L Anion Gap 14 BUN 67 H Creatinine 4.43 H Estim Creat Clear Calc 13.08 Est GFR (MDRD) Af Amer 17 L Est GFR (MDRD) Non-Af 14 L BUN/Creatinine Ratio 15.1 Glucose 154 H Calcium 7.2 L Phosphorus 8.1 H Magnesium 2.0 MRSA (PCR) POC Glucose 01/10/19 01/10/19 01/10/19 05:14 12:03 18:25 WBC RBC Hgb Hct MCV MCH MCHC RDW RDW Differential Plt Count MPV Neut % (Auto) Absolute Neuts (auto) Absolute Lymphs (auto) Total Counted Neutrophils % (Manual) Band Neutrophils % Lymphocytes % (Manual) Monocytes % (Manual) Metamyelocytes % Myelocytes % Promyelocytes % Nucleated RBC % Differential Comment Diff Path Review Toxic Granulation Dohle Bodies Platelet Estimate Plt Morphology Comment RBC Morphology Hypochromasia Anisocytosis Microcytosis [place] Cells Absolute Retic Specimen Type Sample Site pH Bicarbonate Actual POC Total CO2 Base Excess O2 Saturation O2 % ABG pCO2 ABG pO2 David Test Respiration Rate O2 Delivery Device Minute Volume Vent Mode Tidal Volume POC PEEP Pressure High Pressure Low Time High Time Low Blood Gas Notified Whom Blood Gas Notified Time Sodium Potassium Chloride Carbon Dioxide Anion Gap BUN Creatinine Estim Creat Clear Calc Est GFR (MDRD) Af Amer Est GFR (MDRD) Non-Af BUN/Creatinine Ratio Glucose Calcium Phosphorus Magnesium MRSA (PCR) POC Glucose 141 H 159 H 230 H 01/10/19 01/10/19 01/11/19 23:21 23:57 04:30 WBC 21.3 H RBC 3.33 L Hgb 9.2 L Hct 29.4 L MCV 88.3 MCH 27.6 MCHC 31.3 L RDW 16.4 H RDW Differential 53.7 H Plt Count 150 MPV 11.0 Neut % (Auto) Not Reportable Absolute Neuts (auto) Not Reportable Absolute Lymphs (auto) Total Counted Pending Neutrophils % (Manual) Pending Band Neutrophils % Pending Lymphocytes % (Manual) Pending Monocytes % (Manual) Metamyelocytes % Pending Myelocytes % Promyelocytes % Nucleated RBC % Differential Comment Pending Diff Path Review Toxic Granulation Pending Dohle Bodies Pending Platelet Estimate Pending Plt Morphology Comment Pending RBC Morphology Hypochromasia Pending Anisocytosis Pending Microcytosis Pending [place] Cells Pending Absolute Retic Pending Specimen Type ART Sample Site R Radial pH 7.04 L* Bicarbonate Actual 16.1 L POC Total CO2 18 Base Excess -14 L O2 Saturation 91 L O2 % 100 ABG pCO2 59.0 H ABG pO2 87 David Test POS Respiration Rate O2 Delivery Device Vent Minute Volume Vent Mode APRV Tidal Volume POC PEEP 0 Pressure High 26.0 Pressure Low 0.0 Time High 4.0 Time Low 0.0 Blood Gas Notified Whom ICU MD Blood Gas Notified Time 2350 Sodium Potassium Chloride Carbon Dioxide Anion Gap BUN Creatinine Estim Creat Clear Calc Est GFR (MDRD) Af Amer Est GFR (MDRD) Non-Af BUN/Creatinine Ratio Glucose Calcium Phosphorus Magnesium MRSA (PCR) POC Glucose 181 H 01/11/19 01/11/19 04:30 05:38 WBC RBC Hgb Hct MCV MCH MCHC RDW RDW Differential Plt Count MPV Neut % (Auto) Absolute Neuts (auto) Absolute Lymphs (auto) Total Counted Neutrophils % (Manual) Band Neutrophils % Lymphocytes % (Manual) Monocytes % (Manual) Metamyelocytes % Myelocytes % Promyelocytes % Nucleated RBC % Differential Comment Diff Path Review Toxic Granulation Dohle Bodies Platelet Estimate Plt Morphology Comment RBC Morphology Hypochromasia Anisocytosis Microcytosis [place] Cells Absolute Retic Specimen Type Sample Site pH Bicarbonate Actual POC Total CO2 Base Excess O2 Saturation O2 % ABG pCO2 ABG pO2 David Test Respiration Rate O2 Delivery Device Minute Volume Vent Mode Tidal Volume POC PEEP Pressure High Pressure Low Time High Time Low Blood Gas Notified Whom Blood Gas Notified Time Sodium 141 Potassium 4.9 Chloride 108 H Carbon Dioxide 18.0 L Anion Gap 15 BUN 93 H Creatinine 5.48 H Estim Creat Clear Calc 10.57 Est GFR (MDRD) Af Amer 13 L Est GFR (MDRD) Non-Af 11 L BUN/Creatinine Ratio 17.0 Glucose 271 H Calcium 7.1 L Phosphorus 7.7 H Magnesium 2.3 MRSA (PCR) POC Glucose 240 H Microbiology 01/09/19 00:15 Sputum, Induced/Lukens Gram Stain - Final 01/09/19 00:15 Sputum, Induced/Lukens Respiratory Culture - Preliminary Staphylococcus aureus Streptococcus group C 01/08/19 17:22 Blood Culture (Wb) - Left Wrist Blood Culture - Final Staphylococcus aureus 01/08/19 17:20 Blood Culture (Wb) #2 - Anticubital Right Bacteria Detection (PCR) - Final Staphylococcus aureus 01/08/19 17:20 Blood Culture (Wb) #2 - Anticubital Right Blood Culture - Preliminary Staphylococcus aureus 01/08/19 17:30 Mucosa - Nose Respiratory Panel (PCR) - Final Influenza A (Subtype H1) Medical Necessity - Tobacco Use Smoking Status: Former smoker Tobacco Use: Cigarettes Assessment/Plan All Active Problems (Last Updated 11/02/17 @ 08:07 by Mauro Ley MASS SPECTROMETRY MANAGER-C) LAURIE (acute kidney injury) (Acute) Acute combined respiratory failure (Acute) Respiratory acidosis (Acute) Acute renal failure (Acute) Septic shock (Acute) Community acquired pneumonia (Acute) RECOMMENDATIONS: 1. Continue APRV, wean oxygen as tolerated 2. Reinitiate Levophed if necessary 3. Continue empiric steroid therapy and Ancef for MSSA 4. Repeat blood cultures to ensure clearance 5. Hemodialysis catheter today with hemodialysis as tolerated 6. Okay to continue with tube feeds IMPRESSIONS: 1. Acute hypoxic respiratory failure secondary to probable ARDS secondary to community-acquired pneumonia Patient with bilateral infiltrates and reported preserved ejection fraction on previous cardiac catheterization approximately 1 year ago. Clinical suspicion for ARDS secondary to community-acquired pneumonia. Patient on empiric steroid therapy at this time given history of COPD. Patient does have extensive infiltrates and blood cultures positive for MSSA. Patient will be transition to Ancef for better coverage. Patient remains on APRV with mixed acidosis. Unable to use lower tidal volumes. Patient is in renal failure, so diuretics have not been used. 2. Septic shock secondary to community-acquired pneumonia Patient's blood pressure was improving on APRV, but appears to drop with any fever. Patient did require significant amounts of Levophed overnight. Repe at blood cultures today for evaluation of clearance. Previous cultures have been positive for MSSA in sputum and blood. 3. Shp-sgoiriz-vwyavticr diabetes mellitus Patient currently on sliding scale insulin. Will need to watch closely given initiation of steroid therapy. 4. Acute renal failure Clinical suspicion for ATN secondary to prerenal etiology associated with problem #1 and problem #2. Since admission. ARDS would recommend low fluid balance if possible. Hold off any diuretic therapy given patient's current acute renal failure. Patient continues to have no urine output and significant increase in creatinine and BUN indicating minimal GFR. 5. Poor history/hypertension/hyperlipidemia/GERD Complicates care, management, recovery and prognosis. Will attempt to clarify CODE STATUS on family arrival. TIME: 55 minutes critical care time, excluding procedures, spent addressing patient's acute hypoxic respiratory failure, ARDS, septic shock, diabetes mellitus, acute renal failure, review of all data and collaboration with care team (5:45 AM to 7 AM) Code Visit 9xxxx: [id number] Critical care first hour
--- NOTE | 2019-01-11 08:34 | PCM.PROGNOTE ---
Patient Problems: Active and Suspected Problems (Last Updated 11/02/17 @ 08:07 by Mauro Ley, OUTPATIENT SURGERY RN-C) LAURIE (acute kidney injury) (Acute) Acute combined respiratory failure (Acute) Respiratory acidosis (Acute) Acute renal failure (Acute) Septic shock (Acute) Community acquired pneumonia (Acute) Subjective: Chief complaint: Follow-up after admission for septic shock secondary to bilateral community-acquired pneumonia, acute hypoxic and hypercapnic respiratory failure, respiratory acidosis and acute renal failure. Patient seen and examined. Overnight, patient again having high-grade fever. He went into A. fib with RVR, received 1 small dose of IV Lopressor and his blood pressure dropped. He was a started back on IV Levophed drip. He is tachycardic, and A. fib with RVR, blood pressure is borderline with IV Levophed drip, remained on mechanical ventilation. - Physical Exam General: - - Intubated, sedated, spontaneous eye opening, not following commands. HEENT: Atraumatic, PERRLA, Normocephalic Oral: Moist Mucosa, No Gingival or Mucosal Lesions/ Ulcerations Neck: Supple, No JVD, Negative Carotid Bruits, Trachea Midline, Thyroid Normal Size and Texture Lungs: No wheeze, No rales, Diminished, Rhonchi, - - Decreased breath sounds bilateral, bilateral rhonchi. Cardiovascular: Normal S1, Normal S2, No murmurs, PMI Normal, Irregular Rate, Tachycardic Abdomen: Bowel Sounds Present, Soft, Non Tender, Non-Distended, No Hepato-splenomegaly Extremities: No clubbing, No cyanosis, No edema Skin: No rashes, No breakdown Lymphatic: No Cervical, Supraclavicular, or Inguinal Adenopathy Neurological: Cranial nerves II-XII grossly intact, - - Spontaneous eye opening, moving all limbs. Psych/Mental Status: Restless, - - Unable to assess. Vital Signs Temp Pulse Resp BP Pulse Ox 99.4 F H 121 H 44 H 120/52 L 93 01/11/19 06:00 01/11/19 07:13 01/11/19 07:13 01/11/19 06:00 01/11/19 07:13 Oxygen Flow Rate (L/min) 6 Oxygen Delivery Method Mechanical Ventilator Weight: 205 lb 4.006 oz Body Mass Index (BMI) 28.5 Intake and Output for Last 24 Hours 01/09/19 01/10/19 01/11/19 23:59 23:59 23:59 Intake Total 4902.5 / 4902.5 3117.1 / 3117.1 1297.4 / 1297.4 Output Total 345 / 345 88 / 88 5 / 5 Balance 4557.5 / 4557.5 3029.1 / 3029.1 1292.4 / 1292.4 Microbiology Past 72 Hours 01/09/19 00:15 Gram Stain - Final Sputum, Induced/Lukens Respiratory Culture - Final Staphylococcus aureus Streptococcus group C 01/08/19 17:20 Bacteria Detection (PCR) - Final Blood Culture (Wb) #2 - Anticubital Right Staphylococcus aureus Blood Culture - Final Staphylococcus aureus 01/08/19 17:22 Blood Culture - Final Blood Culture (Wb) - Left Wrist Staphylococcus aureus 01/08/19 17:30 Respiratory Panel (PCR) - Final Mucosa - Nose Influenza A (Subtype H1) 01/08/19 21:25 Legionella Antigen - Final Urine Catheter - Catheter 01/08/19 21:25 Streptococcus pneumoniae Antigen (M - Final Urine Catheter - Catheter 01/08/19 17:30 Influenza Types A,B Direct FA (BETTY) - Final Mucosa - Nose Laboratory Tests Past 24 Hrs 01/10/19 01/10/19 01/11/19 03:40 23:57 04:30 WBC 21.3 H RBC 3.33 L Hgb 9.2 L Hct 29.4 L MCV 88.3 MCH 27.6 MCHC 31.3 L RDW 16.4 H RDW Differential 53.7 H Plt Count 150 MPV 11.0 Neut % (Auto) Not Reportable Absolute Neuts (auto) 19.4 H Absolute Lymphs (auto) 0.64 L Total Counted 100 Neutrophils % (Manual) 72 H Band Neutrophils % 19 H Lymphocytes % (Manual) 3 L Metamyelocytes % 6 H Nucleated RBC % 1.2 Differential Comment 1+ Diff Path Review Reviewed May foll Toxic Granulation 1+ Dohle Bodies 1+ Platelet Estimate ADEQUATE Plt Morphology Comment LARGE Hypochromasia 1+ Anisocytosis 1+ Microcytosis 1+ [place] Cells 1+ Absolute Retic 0.27 Specimen Type ART Sample Site R Radial pH 7.04 L* Bicarbonate Actual 16.1 L POC Total CO2 18 Base Excess -14 L O2 Saturation 91 L O2 % 100 ABG pCO2 59.0 H ABG pO2 87 David Test POS O2 Delivery Device Vent Vent Mode APRV POC PEEP 0 Pressure High 26.0 Pressure Low 0.0 Time High 4.0 Time Low 0.0 Blood Gas Notified Whom ICU MD Blood Gas Notified Time 2350 Sodium Potassium Chloride Carbon Dioxide Anion Gap BUN Creatinine Estim Creat Clear Calc Est GFR (MDRD) Af Amer Est GFR (MDRD) Non-Af BUN/Creatinine Ratio Glucose Calcium Phosphorus Magnesium 01/11/19 04:30 WBC RBC Hgb Hct MCV MCH MCHC RDW RDW Differential Plt Count MPV Neut % (Auto) Absolute Neuts (auto) Absolute Lymphs (auto) Total Counted Neutrophils % (Manual) Band Neutrophils % Lymphocytes % (Manual) Metamyelocytes % Nucleated RBC % Differential Comment Diff Path Review Toxic Granulation Dohle Bodies Platelet Estimate Plt Morphology Comment Hypochromasia Anisocytosis Microcytosis [place] Cells Absolute Retic Specimen Type Sample Site pH Bicarbonate Actual POC Total CO2 Base Excess O2 Saturation O2 % ABG pCO2 ABG pO2 David Test O2 Delivery Device Vent Mode POC PEEP Pressure High Pressure Low Time High Time Low Blood Gas Notified Whom Blood Gas Notified Time Sodium 141 Potassium 4.9 Chloride 108 H Carbon Dioxide 18.0 L Anion Gap 15 BUN 93 H Creatinine 5.48 H Estim Creat Clear Calc 10.57 Est GFR (MDRD) Af Amer 13 L Est GFR (MDRD) Non-Af 11 L BUN/Creatinine Ratio 17.0 Glucose 271 H Calcium 7.1 L Phosphorus 7.7 H Magnesium 2.3 POC Glucose 01/11/19 01/10/19 01/10/19 05:38 23:21 18:25 POC Glucose 240 H 181 H 230 H 01/10/19 12:03 POC Glucose 159 H Medical Necessity - Tobacco Use Smoking Status: Former smoker Tobacco Use: Cigarettes Assessment/Plan All Active Problems (Last Updated 11/02/17 @ 08:07 by ISABEL SmallsC) LAURIE (acute kidney injury) (Acute) Acute combined respiratory failure (Acute) Respiratory acidosis (Acute) Acute renal failure (Acute) Septic shock (Acute) Community acquired pneumonia (Acute) This is a 78 years old male patient presented to the emergency room because of shortness of breath, found to have bilateral infiltrates on chest x-ray consistent with community-acquired pneumonia, became very dyspneic and tachypneic while on BiPAP in the ED and he was intubated and started on mechanical ventilation, found to have septic shock secondary to chronic acquired pneumonia complicated by acute hypoxic and hypercapnic respiratory failure and acute renal failure. #1 septic shock: Secondary to pneumonia. Over night, patient declined, started having high-grade fever again, went into A. fib with RVR and became hypotensive. Started back on IV Levophed drip. At this time, he is on full vent support, dyspneic, tachypneic, tachycardic. He is on IV fluids, IV antibiotics and IV steroids. Respiratory panel for viruses positive for influenza A. Pneumococcal and Legionella antigen were negative. Blood culture revealed MSSA. Plan to continue same treatment. #2 new onset A. fib with RVR: Patient went to A. fib with RVR, heart rate has been in the 120s. Received 1 dose of IV metoprolol 2.5 mg and his blood pressure dropped. Now, he is back on IV Levophed drip, still tachycardic. #3 acute bacterial bilateral community-acquired pneumonia: He is on IV cefazolin. Hemodynamically unstable, started back on IV Levophed drip. Blood cultures positive for MSSA. Pneumococcal and Legionella antigen were negative. Positive for influenza A. Plan to continue same treatment as above. #4 MSSA bacteremia: Probable source is the pneumonia. He is on IV cefazolin. Repeat blood cultures pending. #5 acute hypoxic and hypercapnic respiratory failure/respiratory acidosis: Secondary to pneumonia. Remained on mechanical ventilation, high PEEP with high FiO2. Plan to treat underlying etiology as above. #6 acute renal failure: Secondary to septic shock, tissue hypoperfusion. Baseline kidney function is normal, kidney function continued to worsen. Nephrology consulted, dialysis catheter inserted. Probably patient will need to start dialysis now. #7 type 2 diabetes mellitus: Blood sugar has been stable, he is on sliding scale only. #8 hypertension: Blood pressure dropped again, started back on IV Levophed drip as above. #9 hyperlipidemia: Statin is held, patient is intubated. #10 GERD: He is on IV Pepcid daily. #11 DVT prophylaxis: Subcu heparin. This note was generated with Patient Home Monitoring dictation software. It may contain incorrect words, spelling, and punctuation that were not noted in checking the note before signing. Code Visit Inpatient E&M: 89771 Subs Hosp L3
--- NOTE | 2019-01-11 09:33 | RAD_ITS ---
STUDY: X-RAY CHEST REASON FOR EXAM: Male, 78 years old. Dialysis catheter placement TECHNIQUE: A single frontal view of the chest was obtained. COMPARISON: January 10, 2019 FINDINGS: Lines and tubes: The endotracheal tube terminates about 3.4 cm above the mora. The gastric tube extends adequately into the upper abdomen. The right internal jugular central line is again seen terminating in the expected location of the distal SVC or cavoatrial junction. A left internal jugular catheter is now present. Lungs: Under aerated. Patchy airspace opacities are again seen in the mid right lung, mid left lung and left lung base. Pleura: Minimal blunting of the left costophrenic angle. Mediastinum/darnell: Unremarkable. Cardiovascular: Mildly enlarged cardiac silhouette. Indistinct central vessels. Atherosclerotic calcifications in the thoracic aorta. Soft tissues: Bones: Degenerative changes in spine and shoulders. Upper abdomen: No demonstrated abnormality. RAD/Chest 1 View (Portable) IMPRESSION: There are no acute abnormalities after left internal jugular dialysis catheter placement. There is no pneumothorax. The tip is in the expected location of the proximal SVC. Mildly improved bilateral patchy airspace opacities. Decreased size of the left pleural effusion. Stable mild enlargement of the cardiac silhouette with vascular congestion. Vascularity is mildly improved. Electronically Signed: Heather Gordon MD at 10:32 EST , Service support ,
--- NOTE | 2019-01-11 09:43 | CASEMGMT ---
Addendum entered by Nena Tran 01/11/19 12:09: SW did ask Aakash if he was adopted by pt, he states he was adopted by pt, they have the court papers at home. DIVINA Atkins, FORENSIC IDENTIFICATION SPECIALIST Original Note: Addendum entered by Nena Tran 01/11/19 12:00: Pt's son Best Nelson came in to visit pt w/Aakash. He states he supports any decisions Aakash makes in regard to pt. Best states Aakash is more of a POA than he is as pt lives w/him. He then called pt's son Yogi Nelson. SW spoke w/Yogi, Yogi also in agreement with any decisions Aakash makes in regard to pt's care. Aakash then called daughter Criss Melchor. SW then spoke w/Criss, who also states she is agreeable to any decisions Aakash makes in regard to pt's care. There was one more child, however that child has passed. All three children at this time are deferring to Aakash to make medical decisions. DIVINA Atkins, FORENSIC IDENTIFICATION SPECIALIST Original Note: Addendum entered by Nena Tran 01/11/19 10:54: CHELSEY spoke w/son, he states that the POA papers should be on file at the main campus of [facility]. SW attempted to call [facility], however nobody answers the phone in medical records. SW called son back. He states he called [facility], and though they have it documented that the POA papers were completed for both pt and his , there is no record of pt's POA papers in their record. Son is getting the numbers together of pt's other children so SW can call to see if they would like to be part of any decision making in regard this pt. DIVINA Atkins, FORENSIC IDENTIFICATION SPECIALIST Original Note: CHELSEY participated in ICU rounds this morning, spoke w/pt's son Aakash after rounds, support offered. Son Aakash explains that pt has lived with he and his since pt's . Aakash explains that he is the son of pt's late , pt has been the only father he has known for 50 years. Aakash explains pt does have 3 biological children. He states one son comes to visit in the evening even though he is staying in a hotel locally. Aakash has contacted the other two children and they do not want anything to do w/pt. He states one of the children told him to call him once the pt is gone, as he can't take time off of work. CHELSEY asked Aakash about POA papers, if he can bring them in. Aakash states he thinks Dr. Richards's office may have the papers. CHELSEY called Dr. Richards's office and they do not have POA papers on the chart, they have Aakash Sandovalclaudia listed as emergency contact. CHELSEY will call son again to let him know that they are not on file at Dr. Richards's office. DIVINA Atkins, FORENSIC IDENTIFICATION SPECIALIST
--- NOTE | 2019-01-11 09:44 | PCM.OPRPT ---
Report of Operation Date of Procedure: 01/11/19 Surgery/Procedure Performed:: Temporary dialysis catheter insertion Description of Surgical Findings:: Temporary dialysis catheter placement procedure note Indication: Hemodialysis Procedure: A time-out was completed to verify correct patient, indication, medication allergies, procedure, coagulation studies, informed consent signed, and equipment needed. The patient was placed in the supine position for a central line placement to the left IJ vein. The patients left neck was prepped using chlorhexidine and a full body sterile drape was applied. 1% lidocaine was used to anesthetize the surrounding skin. A 12fr 20 cm blue guard triple lumen catheter introduced into the internal jugular vein using the modified Seldinger technique with the assistance of ultrasound. The catheter was threaded smoothly over the guidewire, the guidewire was removed easily, nonpulsatile blood returned. All ports were aspirated of air and flushed with sterile saline. The catheter was sutured in place and covered with an occlusive dressing impregnated with chlorhexidine. Post-procedure: The patient tolerated the procedure well. Vital signs remained stable. EBL 5 cc. No complications. Chest X Ray ordered to confirm tip placement and the absence of pneumothorax. Code Visit Procedures: 56690 Insert Non-tunnel CV Cath
[2019-01-11] MEDS: Chlorhexidine 15 ML PO ×2 (10:24→22:04)
[2019-01-11] MEDS: Cefazolin 2 GM in 0.9% Normal Saline 100 ML IV (10:26)
[2019-01-11] MEDS: Senna/Docusate Sodium 1 Tablet 2 TABLET PO (10:26)
[2019-01-11] MEDS: Heparin Injection (Vial) 5,000 UNIT/ML VIAL 5000 UNIT SC ×2 (10:26→22:04)
[2019-01-11] MEDS: Heparin 10,000 UNITS/10 ML Vial IV ×2 (10:27→16:22)
--- NOTE | 2019-01-11 11:06 | CASEMGMT ---
SW spoke w/son Aakash who is POA in regard to POA papers, see CHELSEY note for further details, however the papers cannot be located at this time. Son to get this SW the numbers to the biological children, to see if any of them would like to be involved in decisions regarding this pt. DIVINA Atkins, HEEL SHAVER
[2019-01-11 12:20] LABS: Bedside Glucose 288 mg/dL (70-110)
[2019-01-11 13:26] LABS: Pathologist Review Reviewed
--- NOTE | 2019-01-11 15:20 | DIALYSIS ---
Hemodialysis x 2 hours completed. Pt tolerated tx well. Fluid balance -2000ml. Heparin 1000units/ml to close CVC ports to fill volume. Report givem to GOSIA Monet. Pt stable.
[2019-01-11] MEDS: Vital AF 1.2 Cal Liquid 1,000 ML 70 ML GT (15:30)
--- NOTE | 2019-01-11 15:48 | PCM.HP.ID ---
Problem List (1) Septic shock Status: Acute Reason for Consult: bacteremia Consulted by: Dr. Sadler History of Present Illness: The patient is a 78 year old M with h/o COPD who presented 01/08 with one week of reported SOB, fever, not feeling well. Lactate was over 6, in LAURIE, admitted to icu, intubated with 100% fiO2 requirements. Started on azithro/ceftriaxone. Sputum cx and Bcxs with mSSA, abx now narrowed to cefazolin. Remains febrile. Intermittent pressors. Rising Cr, neph following and HD started today. Flu A pcr was (+). ROS unobtainable due to intubation - Medical History Past Medical History (Chronic Problems): Chronic Problems (Last Updated 11/02/17 @ 08:07 by Mauro Ley NP-C) Essential (primary) hypertension (Chronic) COPD (chronic obstructive pulmonary disease) (Chronic) Diabetes mellitus (Chronic) Hyperlipemia, mixed (Chronic) Chest pain, exertional (Chronic) Allergies/Adverse Reactions: Allergies metformin Allergy (Verified 01/08/19 16:59) Unknown Home Medications: Ambulatory Orders Medication Instructions Recorded Aspirin 81 mg PO DAILY 10/02/17 Atorvastatin Calcium 40 mg PO QHS 10/02/17 Fluticasone Prop 100 mcg [Flovent 1 puff INHALATION BID 10/02/17 Diskus 100 Mcg] Gemfibrozil [Lopid] 600 mg PO BIDAC 10/02/17 Glimepiride [Amaryl] 2 mg PO BREAKFAST 10/02/17 Lisinopril [Zestril] 2.5 mg PO DAILY 10/02/17 [place]-3 Fatty Acids/Fish Oil 1 each PO DAILY 10/02/17 [[place] 3 1,000 mg Softgel] Omeprazole 40 mg PO DAILY 10/02/17 Pioglitazone HCl 30 mg PO DAILY 10/02/17 Ferrous Sulfate 325 mg PO BID 01/09/19 Vital Signs Temp Pulse Resp BP Pulse Ox 98.4 F 112 H 46 H 105/70 93 01/11/19 14:00 01/11/19 15:41 01/11/19 15:41 01/11/19 15:00 01/11/19 15:41 Oxygen Flow Rate (L/min) 6 Oxygen Delivery Method Mechanical Ventilator Weight: 93.1 kg Body Mass Index (BMI) 28.5 Microbiology Past 72 Hours 01/09/19 00:15 Gram Stain - Final Sputum, Induced/Lukens Respiratory Culture - Final Staphylococcus aureus Streptococcus group C 01/08/19 17:20 Bacteria Detection (PCR) - Final Blood Culture (Wb) #2 - Anticubital Right Staphylococcus aureus Blood Culture - Final Staphylococcus aureus 01/08/19 17:22 Blood Culture - Final Blood Culture (Wb) - Left Wrist Staphylococcus aureus 01/08/19 17:30 Respiratory Panel (PCR) - Final Mucosa - Nose Influenza A (Subtype H1) 01/08/19 21:25 Legionella Antigen - Final Urine Catheter - Catheter 01/08/19 21:25 Streptococcus pneumoniae Antigen (M - Final Urine Catheter - Catheter 01/08/19 17:30 Influenza Types A,B Direct FA (BETTY) - Final Mucosa - Nose Laboratory Tests Past 24 Hrs 01/10/19 01/11/19 01/11/19 23:57 04:30 04:30 WBC 21.3 H RBC 3.33 L Hgb 9.2 L Hct 29.4 L MCV 88.3 MCH 27.6 MCHC 31.3 L RDW 16.4 H RDW Differential 53.7 H Plt Count 150 MPV 11.0 Neut % (Auto) Not Reportable Absolute Neuts (auto) 19.4 H Absolute Lymphs (auto) 0.64 L Total Counted 100 Neutrophils % (Manual) 72 H Band Neutrophils % 19 H Lymphocytes % (Manual) 3 L Metamyelocytes % 6 H Nucleated RBC % 1.2 Differential Comment 1+ Diff Path Review Reviewed Toxic Granulation 1+ Dohle Bodies 1+ Platelet Estimate ADEQUATE Plt Morphology Comment LARGE Hypochromasia 1+ Anisocytosis 1+ Microcytosis 1+ Flaquito Cells 1+ Absolute Retic 0.27 Specimen Type ART Sample Site R Radial pH 7.04 L* Bicarbonate Actual 16.1 L POC Total CO2 18 Base Excess -14 L O2 Saturation 91 L O2 % 100 ABG pCO2 59.0 H ABG pO2 87 David Test POS O2 Delivery Device Vent Vent Mode APRV POC PEEP 0 Pressure High 26.0 Pressure Low 0.0 Time High 4.0 Time Low 0.0 Blood Gas Notified Whom ICU Blood Gas Notified Time 2350 Sodium 141 Potassium 4.9 Chloride 108 H Carbon Dioxide 18.0 L Anion Gap 15 BUN 93 H Creatinine 5.48 H Estim Creat Clear Calc 10.57 Est GFR (MDRD) Af Amer 13 L Est GFR (MDRD) Non-Af 11 L BUN/Creatinine Ratio 17.0 Glucose 271 H Calcium 7.1 L Phosphorus 7.7 H Magnesium 2.3 Hep Bs Antigen 01/11/19 13:52 WBC RBC Hgb Hct MCV MCH MCHC RDW RDW Differential Plt Count MPV Neut % (Auto) Absolute Neuts (auto) Absolute Lymphs (auto) Total Counted Neutrophils % (Manual) Band Neutrophils % Lymphocytes % (Manual) Metamyelocytes % Nucleated RBC % Differential Comment Diff Path Review Toxic Granulation Dohle Bodies Platelet Estimate Plt Morphology Comment Hypochromasia Anisocytosis Microcytosis [place] Cells Absolute Retic Specimen Type Sample Site pH Bicarbonate Actual POC Total CO2 Base Excess O2 Saturation O2 % ABG pCO2 ABG pO2 David Test O2 Delivery Device Vent Mode POC PEEP Pressure High Pressure Low Time High Time Low Blood Gas Notified Whom Blood Gas Notified Time Sodium Potassium Chloride Carbon Dioxide Anion Gap BUN Creatinine Estim Creat Clear Calc Est GFR (MDRD) Af Amer Est GFR (MDRD) Non-Af BUN/Creatinine Ratio Glucose Calcium Phosphorus Magnesium Hep Bs Antigen Pending - Other Studies Radiology: [] reviewed Other Studies: [] Route of nutrition/ use of supplements: [] Nutritional Intake: [] IV Site: [] James Catheter: [] - Physical Exam General: - - ill appearing, on vent, on HD HEENT: Atraumatic, PERRLA Neck: No Nodes Lungs: Diminished - bilat rhonchi Cardiovascular: Tachycardic Abdomen: Soft, Non Tender, Non-Distended Extremities: No edema Skin: No rashes, - - no janeway/osler/splinter hemorrhages on hands or feet IV Site: Central Line, without redness Musculoskeletal: No Tenderness to Palpation of Joints or Extremities Neurological: - - unable to follow commands - Assessment/Plan Antibiotics: [] Assessment/Plan: [] Active and Suspected Problems (Last Updated 11/02/17 @ 08:07 by Mauro Ley NP-C) LAURIE (acute kidney injury) (Acute) Acute combined respiratory failure (Acute) Respiratory acidosis (Acute) Acute renal failure (Acute) Septic shock (Acute) Community acquired pneumonia (Acute) Septic shock with LAURIE due to MSSA bacteremia from pneumonia and acute flu A - BP and FiO2 slightly improved. Remains critically ill. Neutropenic on admit. Repeat bcx pending. Sputum also showing some strep. HD started today, so will add tamiflu 30mg, should be given after dialysis sessions over the next 5 days. Recommend TTE; no sign of endocarditis or joint involvement on exam. Continue cefazolin, will change to q24h now he's on HD. Will follow, thank you, d/w Dr. Avila.
--- NOTE | 2019-01-11 16:15 | ECHOCS_ITS ---
Reason For Study: Afib, Aflutter Procedure This was a 2D Doppler, Color Flow transthoracic echocardiogram. The study was technically difficult. Contrast injection was performed. Patient scanned supine due to recent cardiac arrest. Definity used per Dr. Campoverde. Exam performed portable in ICU/CCU. Left Ventricle Normal LV size. Left ventricular systolic function is normal. The estimated ejection fraction is 60 %. No regional wall motion abnormalities noted. Right Ventricle Normal RV size. Normal systolic function. Atria The left atrium is mildly enlarged. Normal right atrium. No doppler evidence for ASD. Mitral Valve There is no mitral annular calcification. Normal mitral valve. Mild (1+) mitral valve insufficiency. Tricuspid Valve Normal tricuspid valve. Mild tricuspid valve insufficiency. Right ventricular systolic pressure estimated to be 55 mmHg. Aortic Valve Trisinus/trileaflet aortic valve. Mild focal aortic valve calcification. Pulmonic Valve The pulmonic valve is not well visualized. Mild (1+) pulmonic valve insufficiency. Great Vessels Normal sized aortic root. Pericardium/Pleural No pericardial effusion. Medication Definity0.2ml given slow IV push to enhance endocardial definition. MMode/2D Measurements & Calculations LVIDd: 4.5 cm IVSd: 1.4 cm Ao root diam: 2.4 cm LVIDs: 3.1 cm LVPWd: 1.2 cm LA dimension: 3.7 cm FS: 31.0 % LAV(MOD-bp): 45.5 ml LVAd ap4: 21.5 cm2 SV(MOD-sp4): 34.6 ml LAV(MOD-bp) Indexed: 22.8 ml/m2 EDV(MOD-sp4): 59.0 ml LAV(MOD-sp2): 49.5 ml EDV(sp4-el): 59.0 ml LAV(MOD-sp4): 37.2 ml LVAs ap4: 12.4 cm2 ESV(MOD-sp4): 24.5 ml ESV(sp4-el): 23.8 ml EF(MOD-sp4): 58.5 % EF(sp4-el): 59.6 % SV(sp4-el): 35.2 ml LA A4 area: 16.4 cm2 RA A4 area: 16.8 cm2 Doppler Measurements & Calculations MV E max cesar: 74.9 cm/sec Lat Peak E' Cesar: 9.9 cm/sec Med Peak E' Cesar: 6.8 cm/sec MV A max cesar: 36.0 cm/sec E/E' lat: 7.6 E/E' med: 11.0 MV E/A: 2.1 Ao V2 max: 178.6 cm/sec LV V1 max: 106.6 cm/sec PA V2 max: 98.8 cm/sec Ao max P.8 mmHg LV V1 max P.6 mmHg Ao V2 mean: 114.6 cm/sec Ao mean P.0 mmHg Ao V2 VTI: 19.2 cm TR max cesar: 313.9 cm/sec TR max P.4 mmHg Interpretation Summary The study was technically difficult. Contrast injection was performed. Left ventricular systolic function is normal. The estimated ejection fraction is 60 %. The left atrium is mildly enlarged. Mild (1+) mitral valve insufficiency. Mild tricuspid valve insufficiency. Mild focal aortic valve calcification. Mild (1+) pulmonic valve insufficiency. Right ventricular systolic pressure estimated to be 55 mmHg. Transmitral diastolic flow velocities suggest diastolic dysfunction (pseudonormal pattern). Ordering Physician: Aakash Wilson Referring Physician: Feliberto Richards Performed By: Nanette Ley, ENEDINA, RVT
--- NOTE | 2019-01-11 17:18 | PN.RENAL_ITS ---
Patient Problems: Active and Suspected Problems (Last Updated 11/02/17 @ 08:07 by Mauro Ley INVESTIGATIVE ANALYST- C) LAURIE (acute kidney injury) (Acute) Acute combined respiratory failure (Acute) Respiratory acidosis (Acute) Acute renal failure (Acute) Septic shock (Acute) Community acquired pneumonia (Acute) Subjective: Patient remain intubated, FiO2 80%. Not on any pressor. Patient had the first session of hemodialysis earlier today with 2 L ultrafiltration. Remains anuric. Cannot do review of system - Physical Exam General: - - Sedated and intubated HEENT: Atraumatic Oral: Moist Mucosa Neck: Supple, No JVD Lungs: No rhonchi, No wheeze - Equal air entry, Tachypneic, Using Accessory Muscles, - Cardiovascular: Regular Rhythm, Normal S1, Normal S2, Tachycardic Abdomen: Soft, Non-Distended, Hypoactive Bowel Sounds Extremities: No clubbing, No cyanosis, No edema Musculoskeletal: No Muscle Wasting Lymphatic: No Cervical, Supraclavicular, or Inguinal Adenopathy Neurological: - - Sedated Vital Signs Temp Pulse Resp BP Pulse Ox 98.4 F 125 H 30 H 106/58 L 96 01/11/19 14:00 01/11/19 15:45 01/11/19 15:45 01/11/19 15:45 01/11/19 15:45 Oxygen Flow Rate (L/min) 6 Oxygen Delivery Method Mechanical Ventilator Weight: 93.1 kg Body Mass Index (BMI) 28.5 Intake and Output for Last 24 Hours 01/09/19 01/10/19 01/11/19 23:59 23:59 23:59 Intake Total 4902.5 / 4902.5 3117.1 / 3117.1 2147.4 / 2147.4 Output Total 345 / 345 88 / 88 15 / Balance 4557.5 / 4557.5 3029.1 / 3029.1 2132.4 / 2132.4 Microbiology Past 72 Hours 01/09/19 00:15 Gram Stain - Final Sputum, Induced/Lukens Respiratory Culture - Final Staphylococcus aureus Streptococcus group C 01/08/19 17:20 Bacteria Detection (PCR) - Final Blood Culture (Wb) #2 - Anticubital Right Staphylococcus aureus Blood Culture - Final Staphylococcus aureus 01/08/19 17:22 Blood Culture - Final Blood Culture (Wb) - Left Wrist Staphylococcus aureus 01/08/19 17:30 Respiratory Panel (PCR) - Final Mucosa - Nose Influenza A (Subtype H1) 01/08/19 21:25 Legionella Antigen - Final Urine Catheter - Catheter 01/08/19 21:25 Streptococcus pneumoniae Antigen (M - Final Urine Catheter - Catheter 01/08/19 17:30 Influenza Types A,B Direct FA (BETTY) - Final Mucosa - Nose Laboratory Tests Past 24 Hrs 01/10/19 01/11/19 01/11/19 23:57 04:30 04:30 WBC 21.3 H RBC 3.33 L Hgb 9.2 L Hct 29.4 L MCV 88.3 MCH 27.6 MCHC 31.3 L RDW 16.4 H RDW Differential 53.7 H Plt Count 150 MPV 11.0 Neut % (Auto) Not Reportable Absolute Neuts (auto) 19.4 H Absolute Lymphs (auto) 0.64 L Total Counted 100 Neutrophils % (Manual) 72 H Band Neutrophils % 19 H Lymphocytes % (Manual) 3 L Metamyelocytes % 6 H Nucleated RBC % 1.2 Differential Comment 1+ Diff Path Review Reviewed Toxic Granulation 1+ Dohle Bodies 1+ Platelet Estimate ADEQUATE Plt Morphology Comment LARGE Hypochromasia 1+ Anisocytosis 1+ Microcytosis 1+ Flaquito Cells 1+ Absolute Retic 0.27 Specimen Type ART Sample Site R Radial pH 7.04 L* Bicarbonate Actual 16.1 L POC Total CO2 18 Base Excess -14 L O2 Saturation 91 L O2 % 100 ABG pCO2 59.0 H ABG pO2 87 David Test POS O2 Delivery Device Vent Vent Mode APRV POC PEEP 0 Pressure High 26.0 Pressure Low 0.0 Time High 4.0 Time Low 0.0 Blood Gas Notified Whom ICU Blood Gas Notified Time 2350 Sodium 141 Potassium 4.9 Chloride 108 H Carbon Dioxide 18.0 L Anion Gap 15 BUN 93 H Creatinine 5.48 H Estim Creat Clear Calc 10.57 Est GFR (MDRD) Af Amer 13 L Est GFR (MDRD) Non-Af 11 L BUN/Creatinine Ratio 17.0 Glucose 271 H Calcium 7.1 L Phosphorus 7.7 H Magnesium 2.3 Hep Bs Antigen 01/11/19 13:52 WBC RBC Hgb Hct MCV MCH MCHC RDW RDW Differential Plt Count MPV Neut % (Auto) Absolute Neuts (auto) Absolute Lymphs (auto) Total Counted Neutrophils % (Manual) Band Neutrophils % Lymphocytes % (Manual) Metamyelocytes % Nucleated RBC % Differential Comment Diff Path Review Toxic Granulation Dohle Bodies Platelet Estimate Plt Morphology Comment Hypochromasia Anisocytosis Microcytosis [place] Cells Absolute Retic Specimen Type Sample Site pH Bicarbonate Actual POC Total CO2 Base Excess O2 Saturation O2 % ABG pCO2 ABG pO2 David Test O2 Delivery Device Vent Mode POC PEEP Pressure High Pressure Low Time High Time Low Blood Gas Notified Whom Blood Gas Notified Time Sodium Potassium Chloride Carbon Dioxide Anion Gap BUN Creatinine Estim Creat Clear Calc Est GFR (MDRD) Af Amer Est GFR (MDRD) Non-Af BUN/Creatinine Ratio Glucose Calcium Phosphorus Magnesium Hep Bs Antigen Pending POC Glucose 01/11/19 01/11/19 01/10/19 12:03 05:38 23:21 POC Glucose 288 H 240 H 181 H 01/10/19 18:25 POC Glucose 230 H Medical Necessity - Tobacco Use Smoking Status: Former smoker Tobacco Use: Cigarettes Assessment/Plan All Active Problems (Last Updated 11/02/17 @ 08:07 by Mauro Ley NP-C) LAURIE (acute kidney injury) (Acute) Acute combined respiratory failure (Acute) Respiratory acidosis (Acute) Acute renal failure (Acute) Septic shock (Acute) Community acquired pneumonia (Acute) 1-Acute kidney injury and chronic kidney disease baseline creatinine seems around 1.1 mg a deciliter in 2017. Acute kidney injury is most probably from ischemic ATN. Patient was started on hemodialysis today January 10 for metabolic and volume support We will arrange for the second hemodialysis session tomorrow for 2-1/2 hours . No recovery of kidney function .patient remains anuric . Please keep mean arterial pressure more than 65 .we will continue to monitor for kidney function recovered. Avoid nephrotoxic. 2-high anion gap metabolic acidosis related to acute kidney injury and lactic acidosis. Lactic acid is trending down. Last lactic acid level is 3.1. Should improve with hemodialysis 3-hyperkalemia: Patient was treated with Kayexalate yesterday. Potassium today 4.9. Patient had hemodialysis today with 2K dialysate Check potassium level in the morning 4-Acute hypoxemic respiratory failure due to ARDS/pneumonia. On vent support as per the ICU team. 5- Sepsis from bilateral pneumonia with bacteremia. On antibiotics as per the ID team. Please decrease Tamiflu dose to 30 mg every other hemodialysis session Tamiflu should be given after the hemodialysis because it is dialyzable Renal team will continue to follow. Please call with any question or concern at my cell phone #[phone] Plan of care was discussed with Dr. Rajeev Mason MD
[2019-01-11] MEDS: Oseltamivir Phosphate 30 MG Capsule NG (18:09)
[2019-01-11 18:25] LABS: Bedside Glucose 166 mg/dL (70-110)
[2019-01-11] MEDS: 0.9% NaCl IVPB Med Flush (250 mL) 15 ML IV (22:04)
[2019-01-11] MEDS: Cefazolin 1 GM/50 ML BAG IV (22:04)
[2019-01-12] VITALS (73 sets, daily range): BP systolic 47–199; BP diastolic 35–87; PULSE 81–220; RESP 24–46; TEMP 36.3–39.4; O2SAT 70–96
[2019-01-12] MEDS: Insulin Lispro 100 UNIT/ML INSULN.PEN SC ×5 (00:03→23:00)
[2019-01-12] MEDS: 0.9% Saline Lock 10 ML Syringe IV ×6 (00:04→23:01)
[2019-01-12 00:20] LABS: Bedside Glucose 244 mg/dL (70-110)
[2019-01-12] MEDS: Acetaminophen 650 MG/20 ML UDC GT ×2 (04:37→11:21)
[2019-01-12] MEDS: CHLORHEXIDINE GLUC 2% CLOTH 1 EACH TOWELETTE TOPICAL (04:37)
[2019-01-12 05:17] LABS: Hematocrit 25.7 % (40-54); Hemoglobin 8.3 g/dl (13.0-16.5); Mean Corp Hgb Conc 32.3 g/gl (32-36); Mean Corpuscular Hgb 27.6 pg (27.0-32.0); Mean Corpuscular Volume 85.4 fL (80-94); Mean Platelet Vol. 11.2 fl (6.2-12.0); Platelet Count 126 K/mm3 (150-450); RBC Distribution Width CV 16.7 % (11.6-14.6); RBC Distribution Width SD 52.6 fl (35.1-43.9); Red Blood Count 3.01 M/mm3 (4.6-6.2); White Blood Count 21.9 K/mm3 (4.4-11.0)
[2019-01-12 05:18] LABS: Anion Gap 16 (5-15); BUN 98 mg/dL (7-18); Calcium,Total 7.2 mg/dL (8.5-10.1); Chloride 103 mmol/L (98-107); Creatinine, Serum 5.45 mg/dL (0.70-1.30); EST Glomerular Filtration Rate 11 mL/min (>60); Est Glom Filt Rate - Afr Amer 13 mL/min (>60); Estimated Creatinine Clearance 10.63 ml/min; Glucose 255 mg/dL (74-106); Magnesium 2.4 mg/dL (1.6-2.6); Phosphorus 6.5 mg/dL (2.5-4.9); Potassium 4.8 mmol/L (3.5-5.1); Sodium Level 138 mmol/L (136-145)
[2019-01-12 05:19] LABS: Differential Indicated MANUAL DIFF; POSITIVE COUNT YES; POSITIVE DIFFERENTIAL YES; POSITIVE MORPHOLOGY YES
[2019-01-12 05:56] LABS: Bedside Glucose 266 mg/dL (70-110)
[2019-01-12 07:38] LABS: Lymphocyte 8 % (19-41); Metamyelocyte 3 % (0-1); Monocyte 1 % (0-10); Neutrophil-Band 7 % (0-5); Neutrophil-Segmented 81 % (47-70); Nucleated Red Bld Cells,Manual 3 % (0-5); Total Cells Counted 100 (MANUAL DIFF)
[2019-01-12 07:39] LABS: Crenated RBC 2+; Platelet Estimate SLT DEC (ADEQ); Platelet Morphology LARGE
[2019-01-12 07:40] LABS: Absolute Neutrophil Count 19.5 X10^3/uL (2.0-7.7)
--- NOTE | 2019-01-12 07:41 | PN_ITS ---
Subjective: Patient did okay overnight. Patient was able to come off of Levophed therapy approximate 1 hour after hemodialysis. 2 L was removed. Patient's oxygenation status has remained stable. Patient has been tachycardic. Nursing continues to report stable neurologic status and no need for sedation therapy. No focal neurologic deficits have been reported, but patient is not following commands. General: Lethargic, Non-Cooperative, - - Intubated. No sedation at this time. HEENT: Atraumatic, PERRLA - Pinpoint but responsive, Normocephalic, - - Slight scleral injection without icterus Oral: Moist Mucosa, No Gingival or Mucosal Lesions/ Ulcerations, - - Fair dentition Neck: Supple, No Nodes, Trachea Midline, - - IJ's are clean, dry and intact. Lungs: No rales, Diminished, Rhonchi, Wheezes, - - Symmetric expansion. No dullness to percussion. Cardiovascular: Normal S1, Normal S2, No murmurs, No rub noted, No Gallop, Tachycardic Abdomen: Bowel Sounds Present, Soft, Non Tender, Distended - Slightly Extremities: No clubbing, No cyanosis, Diminished Peripheral Pulses, Edema Skin: - - No significant change compared to previous Musculoskeletal: No Tenderness to Palpation of Joints or Extremities, No Muscle Wasting Lymphatic: No Cervical, Supraclavicular, or Inguinal Adenopathy Neurological: Cranial nerves II-XII grossly intact, Neuro grossly intact, Motor Exam 5/5 strength throughout Psych/Mental Status: Flat Affect Vital Signs Temp Pulse Resp BP Pulse Ox 38.7 C H 126 H 39 H 94/66 91 01/12/19 06:00 01/12/19 07:11 01/12/19 07:11 01/12/19 06:00 01/12/19 07:11 Oxygen Flow Rate (L/min) 6 Oxygen Delivery Method Mechanical Ventilator Weight: 90.2 kg Body Mass Index (BMI) 28.5 Intake and Output for Last 24 Hours 01/10/19 01/11/19 01/12/19 23:59 23:59 23:59 Intake Total 3117.1 / 3117.1 3489.4 / 3489.4 683.5 / 683.5 Output Total 88 / 88 2019 / 2019 5 5 Balance 3029.1 / 3029.1 1469.4 / 1469.4 678.5 / 678.5 Labs (Last 48 Hours) 01/10/19 01/10/19 01/10/19 03:40 12:03 18:25 WBC RBC Hgb Hct MCV MCH MCHC RDW RDW Differential Plt Count MPV Neut % (Auto) Absolute Neuts (auto) Absolute Lymphs (auto) Total Counted Neutrophils % (Manual) Band Neutrophils % Lymphocytes % (Manual) Metamyelocytes % Nucleated RBC % Differential Comment Diff Path Review Reviewed Toxic Granulation Dohle Bodies Platelet Estimate Plt Morphology Comment Hypochromasia Anisocytosis Microcytosis [place] Cells Absolute Retic Specimen Type Sample Site pH Bicarbonate Actual POC Total CO2 Base Excess O2 Saturation O2 % ABG pCO2 ABG pO2 David Test O2 Delivery Device Vent Mode POC PEEP Pressure High Pressure Low Time High Time Low Blood Gas Notified Whom Blood Gas Notified Time Sodium Potassium Chloride Carbon Dioxide Anion Gap BUN Creatinine Estim Creat Clear Calc Est GFR (MDRD) Af Amer Est GFR (MDRD) Non-Af BUN/Creatinine Ratio Glucose Calcium Phosphorus Magnesium Hep Bs Antigen POC Glucose 159 H 230 H 01/10/19 01/10/19 01/11/19 23:21 23:57 04:30 WBC 21.3 H RBC 3.33 L Hgb 9.2 L Hct 29.4 L MCV 88.3 MCH 27.6 MCHC 31.3 L RDW 16.4 H RDW Differential 53.7 H Plt Count 150 MPV 11.0 Neut % (Auto) Not Reportable Absolute Neuts (auto) 19.4 H Absolute Lymphs (auto) 0.64 L Total Counted 100 Neutrophils % (Manual) 72 H Band Neutrophils % 19 H Lymphocytes % (Manual) 3 L Metamyelocytes % 6 H Nucleated RBC % 1.2 Differential Comment 1+ Diff Path Review Reviewed Toxic Granulation 1+ Dohle Bodies 1+ Platelet Estimate ADEQUATE Plt Morphology Comment LARGE Hypochromasia 1+ Anisocytosis 1+ Microcytosis 1+ [place] Cells 1+ Absolute Retic 0.27 Specimen Type ART Sample Site R Radial pH 7.04 L* Bicarbonate Actual 16.1 L POC Total CO2 18 Base Excess -14 L O2 Saturation 91 L O2 % 100 ABG pCO2 59.0 H ABG pO2 87 David Test POS O2 Delivery Device Vent Vent Mode APRV POC PEEP 0 Pressure High 26.0 Pressure Low 0.0 Time High 4.0 Time Low 0.0 Blood Gas Notified Whom ICU MD Blood Gas Notified Time 2350 Sodium Potassium Chloride Carbon Dioxide Anion Gap BUN Creatinine Estim Creat Clear Calc Est GFR (MDRD) Af Amer Est GFR (MDRD) Non-Af BUN/Creatinine Ratio Glucose Calcium Phosphorus Magnesium Hep Bs Antigen POC Glucose 181 H 01/11/19 01/11/19 01/11/19 04:30 05:38 12:03 WBC RBC Hgb Hct MCV MCH MCHC RDW RDW Differential Plt Count MPV Neut % (Auto) Absolute Neuts (auto) Absolute Lymphs (auto) Total Counted Neutrophils % (Manual) Band Neutrophils % Lymphocytes % (Manual) Metamyelocytes % Nucleated RBC % Differential Comment Diff Path Review Toxic Granulation Dohle Bodies Platelet Estimate Plt Morphology Comment Hypochromasia Anisocytosis Microcytosis [place] Cells Absolute Retic Specimen Type Sample Site pH Bicarbonate Actual POC Total CO2 Base Excess O2 Saturation O2 % ABG pCO2 ABG pO2 David Test O2 Delivery Device Vent Mode POC PEEP Pressure High Pressure Low Time High Time Low Blood Gas Notified Whom Blood Gas Notified Time Sodium 141 Potassium 4.9 Chloride 108 H Carbon Dioxide 18.0 L Anion Gap 15 BUN 93 H Creatinine 5.48 H Estim Creat Clear Calc 10.57 Est GFR (MDRD) Af Amer 13 L Est GFR (MDRD) Non-Af 11 L BUN/Creatinine Ratio 17.0 Glucose 271 H Calcium 7.1 L Phosphorus 7.7 H Magnesium 2.3 Hep Bs Antigen POC Glucose 240 H 288 H 01/11/19 01/11/19 01/12/19 13:52 18:04 00:02 WBC RBC Hgb Hct MCV MCH MCHC RDW RDW Differential Plt Count MPV Neut % (Auto) Absolute Neuts (auto) Absolute Lymphs (auto) Total Counted Neutrophils % (Manual) Band Neutrophils % Lymphocytes % (Manual) Metamyelocytes % Nucleated RBC % Differential Comment Diff Path Review Toxic Granulation Dohle Bodies Platelet Estimate Plt Morphology Comment Hypochromasia Anisocytosis Microcytosis [place] Cells Absolute Retic Specimen Type Sample Site pH Bicarbonate Actual POC Total CO2 Base Excess O2 Saturation O2 % ABG pCO2 ABG pO2 David Test O2 Delivery Device Vent Mode POC PEEP Pressure High Pressure Low Time High Time Low Blood Gas Notified Whom Blood Gas Notified Time Sodium Potassium Chloride Carbon Dioxide Anion Gap BUN Creatinine Estim Creat Clear Calc Est GFR (MDRD) Af Amer Est GFR (MDRD) Non-Af BUN/Creatinine Ratio Glucose Calcium Phosphorus Magnesium Hep Bs Antigen Pending POC Glucose 166 H 244 H 01/12/19 01/12/19 01/12/19 04:45 04:45 05:38 WBC 21.9 H RBC 3.01 L Hgb 8.3 L Hct 25.7 L MCV 85.4 MCH 27.6 MCHC 32.3 RDW 16.7 H RDW Differential 52.6 H Plt Count 126 L MPV 11.2 Neut % (Auto) Not Reportable Absolute Neuts (auto) Not Reportable Absolute Lymphs (auto) Total Counted Pending Neutrophils % (Manual) Band Neutrophils % Lymphocytes % (Manual) Metamyelocytes % Nucleated RBC % Differential Comment Diff Path Review Toxic Granulation Dohle Bodies Platelet Estimate Plt Morphology Comment Hypochromasia Anisocytosis Microcytosis [place] Cells Absolute Retic Specimen Type Sample Site pH Bicarbonate Actual POC Total CO2 Base Excess O2 Saturation O2 % ABG pCO2 ABG pO2 David Test O2 Delivery Device Vent Mode POC PEEP Pressure High Pressure Low Time High Time Low Blood Gas Notified Whom Blood Gas Notified Time Sodium 138 Potassium 4.8 Chloride 103 Carbon Dioxide 19.0 L Anion Gap 16 H BUN 98 H Creatinine 5.45 H Estim Creat Clear Calc 10.63 Est GFR (MDRD) Af Amer 13 L Est GFR (MDRD) Non-Af 11 L BUN/Creatinine Ratio 18.0 Glucose 255 H Calcium 7.2 L Phosphorus 6.5 H Magnesium 2.4 Hep Bs Antigen POC Glucose 266 H Microbiology 01/09/19 00:15 Sputum, Induced/Lukens Gram Stain - Final 01/09/19 00:15 Sputum, Induced/Lukens Respiratory Culture - Final Staphylococcus aureus Streptococcus group C 01/08/19 17:20 Blood Culture (Wb) #2 - Anticubital Right Bacteria Detection (PCR) - Final Staphylococcus aureus 01/08/19 17:20 Blood Culture (Wb) #2 - Anticubital Right Blood Culture - Final Staphylococcus aureus 01/08/19 17:22 Blood Culture (Wb) - Left Wrist Blood Culture - Final Staphylococcus aureus Clinical Impression(s) from Imaging Studies Chest X-Ray 01/11/19 09:33 IMPRESSION: There are no acute abnormalities after left internal jugular dialysis catheter placement. There is no pneumothorax. The tip is in the expected location of the proximal SVC. Mildly improved bilateral patchy airspace opacities. Decreased size of the left pleural effusion. Stable mild enlargement of the cardiac silhouette with vascular congestion. Vascularity is mildly improved. Electronically Signed: Heather Gordon MD at 10:32 EST , Service support , Medical Necessity - Tobacco Use Smoking Status: Former smoker Tobacco Use: Cigarettes Assessment/Plan All Active Problems (Last Updated 11/02/17 @ 08:07 by Mauro Ley NP-C) LAURIE (acute kidney injury) (Acute) Acute combined respiratory failure (Acute) Respiratory acidosis (Acute) Acute renal failure (Acute) Septic shock (Acute) Community acquired pneumonia (Acute) RECOMMENDATIONS: 1. Continue APRV, wean oxygen as tolerated 2. Reinitiate Levophed if necessary, especially to facilitate hemodialysis 3. Continue empiric steroid therapy and Ancef for MSSA 4. Await repeat blood cultures to ensure clearance, echo pending 5. Hemodialysis per nephrology 6. Okay to continue with tube feeds IMPRESSIONS: 1. Acute hypoxic respiratory failure secondary to probable ARDS secondary to community-acquired pneumonia Patient with bilateral infiltrates and reported preserved ejection fraction on previous cardiac catheterization approximately 1 year ago. Clinical suspicion for ARDS secondary to community-acquired pneumonia. Patient on em piric steroid therapy at this time given history of COPD. Patient does have extensive infiltrates and blood cultures positive for MSSA. Patient has been transition to Ancef for better coverage. Patient remains on APRV with mixed acidosis. Unable to use lower tidal volumes. Will repeat ABG today. Patient is in renal failure, so diuretics have not been used. 2. Septic shock secondary to community-acquired pneumonia Patient's blood pressure was improving on APRV, but appears to drop with any fever. Pressor requirements has improved with decrease in fever. Patient may also require Levophed to facilitate hemodialysis. Repeat blood cultures for evaluation of clearance completed. Previous cultures have been positive for MSSA in sputum and blood. 3. Hld-bfhmnrz-kkmrfephc diabetes mellitus Patient currently on sliding scale insulin. Will need to watch closely given initiation of steroid therapy. 4. Acute renal failure Clinical suspicion for ATN secondary to prerenal etiology associated with problem #1 and problem #2. Since admission. ARDS would recommend low fluid balance if possible. Hold off any diuretic therapy given patient's current acute renal failure. Patient continues to have no urine output and significant increase in creatinine and BUN indicating minimal GFR. 5. Poor history/hypertension/hyperlipidemia/GERD Complicates care, management, recovery and prognosis. Will attempt to clarify CODE STATUS on family arrival. CODE VANNESA update 8:44 AM ALBA GRANADO called at 8:14 AM when patient went bradycardic and then into PEA. Patient received approximately 5 minutes of CPR and 1 amp of epinephrine. Pat ient was bag mask ventilated with 16 of PEEP bivalve. Spontaneous rhythm was returned. Patient has remained hypoxic. EKG following acute episode did show some ST elevations. This has been forwarded to the ST elevation doc public administration teacher. Awaiting response at this time. ADDENDUM 11:32 AM After the code, patient's pH was noted at 6.8. Patient was transitioned to a T high of 3.5 for approximately 2 hours. Family meeting was conducted with 2 sons, multiple grandchildren and patient's cousin. Patient's current condition was reviewed in detail. They understand the prognosis is grim, but state that the patient was very active prior to hospitalization. They had decided that the patient would be DNR Comfort Care arrest, but want to continue with hemodialysis and other aggressive measures at this time. Repeat ABG showed improvement in pH to 7.2. However, patient saturating in the 80s. Patient was transitioned back to a T high of 4.5 in an effort to improve recruitment and therefore improved saturations. TIME: 111 minutes critical care time, excluding procedures, spent addressing patient's acute hypoxic respiratory failure, ARDS, septic shock, diabetes mellitus, acute renal failure, review of all data and collaboration with care team (6 AM to 7 AM, 8:15 AM to 8:50 AM, 9:30 AM to 11:30 AM) Code Visit Procedures: 75418 Critial Care Addl 30 Min - x2 (110 Minutes of total CCT) 9xxxx: [id number] Critical care first hour
--- NOTE | 2019-01-12 08:14 | NURSING ---
0814- Levophed started at 20 mcg/min. 0815- pt hillary, PEA, asystole, CPR started.
--- NOTE | 2019-01-12 08:42 | NURSING ---
91/44 map 59, Levo increased to 20 mcg/min.
[2019-01-12] MEDS: Sodium Bicarbonate 8.4% 50 ML Syringe 50 MEQ IV ×2 (08:53→09:17)
[2019-01-12 09:00] LABS: Base Excess -15 mmol/L (-2 to +2); Bicarbonate 17.9 mmol/L (22-26); Blood Gas Specimen Type ART; FI02 100; Mode APRV; O2 Delivery Device Vent; PEEP 5; PO2 69 mmHG (75-100); SITE R Radial; SO2 76 % (95-99); Time Given 850; Total Carbon Dioxide 21 mmol/L
[2019-01-12 09:28] LABS: HEPATITIS B SURFACE AG Negative (Negative)
--- NOTE | 2019-01-12 09:55 | CM.UR ---
Participated in interdisciplinary rounds. Patient has continued with fever. This am his bp dropped then he went into cardiac arrest. CPR was performed and rhythm returned. Patient is currently on vent with 100% o2. Dc plan is undetermined at this time. Case mgmt will continue to follow for discharge planning. GOSIA Tejada,CCM
[2019-01-12 11:15] LABS: Allen Test POS; Base Excess -6 mmol/L (-2 to +2); Bicarbonate 20.9 mmol/L (22-26); Blood Gas Specimen Type ART; FI02 100; Mode APRV; O2 Delivery Device Vent; PEEP 5; PO2 52 mmHG (75-100); SITE L Radial; SO2 81 % (95-99); Time Given 1108; Total Carbon Dioxide 22 mmol/L; pCO2 47.1 mmHg (35-45); pH 7.26 (7.35-7.45)
[2019-01-12] MEDS: Vital AF 1.2 Cal Liquid 1,000 ML 70 ML GT (11:19)
[2019-01-12] MEDS: Heparin Injection (Vial) 5,000 UNIT/ML VIAL 5000 UNIT SC ×2 (11:20→22:37)
[2019-01-12] MEDS: Chlorhexidine 15 ML PO ×2 (11:21→22:37)
[2019-01-12] MEDS: fentaNYL drip 100 ML 2.5 MCG IV (11:34)
--- NOTE | 2019-01-12 11:55 | PN_ITS ---
Patient Problems: Active and Suspected Problems (Last Updated 11/02/17 @ 08:07 by Mauro Ley, JAVA PERFORMANCE ENGINEER- C) LAURIE (acute kidney injury) (Acute) Subjective: Chief complaint: Follow-up after admission for septic shock secondary to bilateral community-acquired pneumonia, acute hypoxic and hypercapnic respiratory failure, respiratory acidosis and acute renal failure. This morning, CODE VANNESA called, patient was bradycardic and went into PEA, CPR initiated for about 5 minutes and received 1 dose of IV epinephrine. After 5 minutes, patient started having pulse again, remained hypoxic. EKG revealed questionable acute ST elevation on V5 and V6, cardiology consulted. Patient seen this morning after he had CODE BLUE. He remained on mechanical ventilation, tachycardic, blood pressure low, on IV Levophed. Started on IV vasopressin. Still having spikes of high-grade fever, tachycardia, hypotensive, on mechanical ventilation - Physical Exam General: - - Sedated, intubated, on mechanical ventilation, dyspneic and tachypneic. HEENT: Atraumatic, PERRLA, Normocephalic Oral: Moist Mucosa, No Gingival or Mucosal Lesions/ Ulcerations Neck: Supple, No JVD, Negative Carotid Bruits, Trachea Midline, Thyroid Normal Size and Texture Lungs: No wheeze, No rales, Diminished, Rhonchi, Short of Breath, Tachypneic, - - Decreased sounds bilateral, bilateral rhonchi. Cardiovascular: Regular rate, Regular Rhythm, Normal S1, Normal S2, No murmurs, PMI Normal, Tachycardic Abdomen: Bowel Sounds Present, Soft, Non Tender, Non-Distended, No Hepato-splenomegaly Extremities: No clubbing, No cyanosis, Edema Skin: No rashes, No breakdown Lymphatic: No Cervical, Supraclavicular, or Inguinal Adenopathy Neurological: - - Unable to assess, patient is sedated, intubated. Psych/Mental Status: - - Unable to assess, patient is sedated. Vital Signs Temp Pulse Resp BP Pulse Ox 101.6 F H 118 H 37 H 94/66 82 01/12/19 06:00 01/12/19 11:00 01/12/19 11:00 01/12/19 06:00 01/12/19 11:00 Oxygen Flow Rate (L/min) 6 Oxygen Delivery Method Mechanical Ventilator Weight: 198 lb 13.711 oz Body Mass Index (BMI) 28.5 Intake and Output for Last 24 Hours 01/10/19 01/11/19 01/12/19 23:59 23:59 23:59 Intake Total 3117.1 / 3117.1 3489.4 / 3489.4 683.5 / 683.5 Output Total / 2019 5 / 5 Balance 3029.1 / 3029.1 1469.4 / 1469.4 678.5 / 678.5 Microbiology Past 72 Hours 01/09/19 00:15 Gram Stain - Final Sputum, Induced/Lukens Respiratory Culture - Final Staphylococcus aureus Streptococcus group C 01/08/19 17:20 Bacteria Detection (PCR) - Final Blood Culture (Wb) #2 - Anticubital Right Staphylococcus aureus Blood Culture - Final Staphylococcus aureus 01/08/19 17:22 Blood Culture - Final Blood Culture (Wb) - Left Wrist Staphylococcus aureus 01/08/19 17:30 Respiratory Panel (PCR) - Final Mucosa - Nose Influenza A (Subtype H1) Laboratory Tests Past 24 Hrs 01/11/19 01/11/19 01/12/19 04:30 13:52 04:45 WBC 21.9 H RBC 3.01 L Hgb 8.3 L Hct 25.7 L MCV 85.4 MCH 27.6 MCHC 32.3 RDW 16.7 H RDW Differential 52.6 H Plt Count 126 L MPV 11.2 Neut % (Auto) Not Reportable Absolute Neuts (auto) 19.5 H Absolute Lymphs (auto) 1.80 Total Counted 100 Neutrophils % (Manual) 81 H Band Neutrophils % 7 H Lymphocytes % (Manual) 8 L Monocytes % (Manual) 1 Metamyelocytes % 3 H Nucleated RBCs/100 WBC 3 Diff Path Review Reviewed May foll Platelet Estimate SLT DEC Plt Morphology Comment LARGE RBC Morphology 2+ Specimen Type Sample Site pH Bicarbonate Actual POC Total CO2 Base Excess O2 Saturation O2 % ABG pCO2 ABG pO2 David Test O2 Delivery Device Vent Mode POC PEEP Pressure High Pressure Low Time High Time Low Blood Gas Notified Whom Blood Gas Notified Time Sodium Potassium Chloride Carbon Dioxide Anion Gap BUN Creatinine Estim Creat Clear Calc Est GFR (MDRD) Af Amer Est GFR (MDRD) Non-Af BUN/Creatinine Ratio Glucose Calcium Phosphorus Magnesium Hep Bs Antigen Negative 02/23/19 02/23/19 02/23/19 04:45 08:49 11:09 WBC RBC Hgb Hct MCV MCH MCHC RDW RDW Differential Plt Count MPV Neut % (Auto) Absolute Neuts (auto) Absolute Lymphs (auto) Total Counted Neutrophils % (Manual) Band Neutrophils % Lymphocytes % (Manual) Monocytes % (Manual) Metamyelocytes % Nucleated RBCs/100 WBC Diff Path Review Platelet Estimate Plt Morphology Comment RBC Morphology Specimen Type ART ART Sample Site R Radial L Radial pH 6.90 L* 7.26 L Bicarbonate Actual 17.9 L 20.9 L POC Total CO2 21 22 Base Excess -15 L -6 L O2 Saturation 76 L 81 L O2 % 100 100 ABG pCO2 92.0 H* 47.1 H ABG pO2 69 L 52 L David Test NA POS O2 Delivery Device Vent Vent Vent Mode APRV APRV POC PEEP 5 5 Pressure High 28.0 28.0 Pressure Low 0.0 0.0 Time High 4.0 4.0 Time Low 0.0 0.0 Blood Gas Notified Whom ICU MD ICU MD Blood Gas Notified Time 850 1108 Sodium 138 Potassium 4.8 Chloride 103 Carbon Dioxide 19.0 L Anion Gap 16 H BUN 98 H Creatinine 5.45 H Estim Creat Clear Calc 10.63 Est GFR (MDRD) Af Amer 13 L Est GFR (MDRD) Non-Af 11 L BUN/Creatinine Ratio 18.0 Glucose 255 H Calcium 7.2 L Phosphorus 6.5 H Magnesium 2.4 Hep Bs Antigen POC Glucose 01/12/19 01/12/19 01/11/19 05:38 00:02 18:04 POC Glucose 266 H 244 H 166 H 01/11/19 12:03 POC Glucose 288 H Medical Necessity - Tobacco Use Smoking Status: Former smoker Tobacco Use: Cigarettes Assessment/Plan All Active Problems (Last Updated 11/02/17 @ 08:07 by Mauro Ley NP-C) LAURIE (acute kidney injury) (Acute) Acute combined respiratory failure (Acute) Respiratory acidosis (Acute) Acute renal failure (Acute) Septic shock (Acute) Community acquired pneumonia (Acute) This is a 78 years old male patient presented to the emergency room because of shortness of breath, found to have bilateral infiltrates on chest x-ray consistent with community-acquired pneumonia, became very dyspneic and tachypneic while on BiPAP in the ED and he was intubated and started on mechanical ventilation, found to have septic shock secondary to chronic acquired pneumonia complicated by acute hypoxic and hypercapnic respiratory failure and acute renal failure. #1 septic shock: Secondary to pneumonia. Unstable, went into cardiac arrest this morning with bradycardia and then PEA, CPR for 5 minutes and pulse and blood pressure regained. He is tachycardic, febrile, blood pressure is low. Is back on IV Levophed, started on IV vasopressin. At this time, he is in sinus tachycardia. He is on IV fluids, IV antibiotics and IV steroids. Respiratory panel for viruses positive for influenza A. Pneumococcal and Legionella antigen were negative. Blood culture revealed MSSA, repeat blood cultures pending. Dr. Avila had a discussion with the family this morning about what happened this morning and family decided to go with DNR CC at this time, they want to continue treatment for now continue dialysis but no CPR if patient has cardiac arrest again. #2 new onset A. fib with RVR: This morning, sinus tachycardia after he had the episode of the cardiac arrest, received 1 dose of IV epinephrine. Now, he remained in the 130s 140s heart rate, blood pressure is low, dyspneic and tachypneic. Plan as above. #3 acute bacterial bilateral community-acquired pneumonia: He is on IV cefazolin. He is tachycardic, hypotensive, hemodynamic and stable. Blood cultures positive for MSSA. Pneumococcal and Legionella antigen were negative. Positive for influenza A. Plan to continue same treatment as above. #4 MSSA bacteremia: Probable source is the pneumonia. He is on IV cefazolin. Repeat blood cultures pending. #5 acute hypoxic and hypercapnic respiratory failure/respiratory acidosis: Secondary to pneumonia. Remained on mechanical ventilation, high PEEP with high FiO2. #6 acute renal failure: Secondary to septic shock, tissue hypoperfusion. Baseline kidney function is normal, kidney function remained the same as yesterday. Nephrology consulted, dialysis catheter inserted. Plan for hemodialysis as per nephrology recommendations. #7 type 2 diabetes mellitus: Blood sugar started to fluctuate, likely because of IV steroids. he is on sliding scale only. #8 hypertension: Blood pressure is low,, he is on IV Levophed drip and started on IV vasopressin as above. #9 hyperlipidemia: Statin is held, patient is intubated. #10 GERD: He is on IV Pepcid daily. #11 DVT prophylaxis: Subcu heparin. This note was generated with [employer] software. It may contain incorrect words, spelling, and punctuation that were not noted in checking the note before signing. Code Visit Inpatient E&M: 23050 Subs Hosp L3
[2019-01-12 12:05] LABS: Bedside Glucose 236 mg/dL (70-110)
--- NOTE | 2019-01-12 15:35 | PCM.PN.REN ---
Patient Problems: Active and Suspected Problems (Last Updated 11/02/17 @ 08:07 by Mauro Ley NP-C) LAURIE (acute kidney injury) (Acute) Subjective: events noted s/p arrest this am worsening oxygenation - Physical Exam HEENT: Atraumatic, PERRLA, EOMI, Normocephalic Neck: Supple, No JVD, Negative Carotid Bruits Lungs: Normal air movement Cardiovascular: Regular rate, No murmurs Abdomen: Bowel Sounds Present, Soft, Non Tender Extremities: No edema, Capillary Refill Less than 3 Seconds Skin: No rashes, No breakdown Musculoskeletal: No Tenderness to Palpation of Joints or Extremities Vital Signs Temp Pulse Resp BP Pulse Ox 100.8 F H 114 H 41 H 93/47 L 85 01/12/19 13:00 01/12/19 15:15 01/12/19 15:15 01/12/19 13:00 01/12/19 15:15 Oxygen Flow Rate (L/min) 6 Oxygen Delivery Method Mechanical Ventilator Weight: 90.2 kg Body Mass Index (BMI) 28.5 Intake and Output for Last 24 Hours 01/10/19 01/11/19 01/12/19 23:59 23:59 23:59 Intake Total 3117.1 / 3117.1 3489.4 / 3489.4 683.5 / 683.5 Output Total 88 / 88 2019 / 2019 5 / 5 Balance 3029.1 / 3029.1 1469.4 / 1469.4 678.5 / 678.5 Microbiology Past 72 Hours 01/09/19 00:15 Gram Stain - Final Sputum, Induced/Lukens Respiratory Culture - Final Staphylococcus aureus Streptococcus group C 01/08/19 17:20 Bacteria Detection (PCR) - Final Blood Culture (Wb) #2 - Anticubital Right Staphylococcus aureus Blood Culture - Final Staphylococcus aureus 01/08/19 17:22 Blood Culture - Final Blood Culture (Wb) - Left Wrist Staphylococcus aureus Laboratory Tests Past 24 Hrs 01/11/19 01/12/19 01/12/19 13:52 04:45 04:45 WBC 21.9 H RBC 3.01 L Hgb 8.3 L Hct 25.7 L MCV 85.4 MCH 27.6 MCHC 32.3 RDW 16.7 H RDW Differential 52.6 H Plt Count 126 L MPV 11.2 Neut % (Auto) Not Reportable Absolute Neuts (auto) 19.5 H Absolute Lymphs (auto) 1.80 Total Counted 100 Neutrophils % (Manual) 81 H Band Neutrophils % 7 H Lymphocytes % (Manual) 8 L Monocytes % (Manual) 1 Metamyelocytes % 3 H Nucleated RBCs/100 WBC 3 Diff Path Review May foll Platelet Estimate SLT DEC Plt Morphology Comment LARGE RBC Morphology 2+ Specimen Type Sample Site pH Bicarbonate Actual POC Total CO2 Base Excess O2 Saturation O2 % ABG pCO2 ABG pO2 David Test O2 Delivery Device Vent Mode POC PEEP Pressure High Pressure Low Time High Time Low Blood Gas Notified Whom Blood Gas Notified Time Sodium 138 Potassium 4.8 Chloride 103 Carbon Dioxide 19.0 L Anion Gap 16 H BUN 98 H Creatinine 5.45 H Estim Creat Clear Calc 10.63 Est GFR (MDRD) Af Amer 13 L Est GFR (MDRD) Non-Af 11 L BUN/Creatinine Ratio 18.0 Glucose 255 H Calcium 7.2 L Phosphorus 6.5 H Magnesium 2.4 Hep Bs Antigen Negative 01/12/19 01/12/19 08:49 11:09 WBC RBC Hgb Hct MCV MCH MCHC RDW RDW Differential Plt Count MPV Neut % (Auto) Absolute Neuts (auto) Absolute Lymphs (auto) Total Counted Neutrophils % (Manual) Band Neutrophils % Lymphocytes % (Manual) Monocytes % (Manual) Metamyelocytes % Nucleated RBCs/100 WBC Diff Path Review Platelet Estimate Plt Morphology Comment RBC Morphology Specimen Type ART ART Sample Site R Radial L Radial pH 6.90 L* 7.26 L Bicarbonate Actual 17.9 L 20.9 L POC Total CO2 21 22 Base Excess -15 L -6 L O2 Saturation 76 L 81 L O2 % 100 100 ABG pCO2 92.0 H* 47.1 H ABG pO2 69 L 52 L David Test NA POS O2 Delivery Device Vent Vent Vent Mode APRV APRV POC PEEP 5 5 Pressure High 28.0 28.0 Pressure Low 0.0 0.0 Time High 4.0 4.0 Time Low 0.0 0.0 Blood Gas Notified Whom ICU MD ICU MD Blood Gas Notified Time 850 1108 Sodium Potassium Chloride Carbon Dioxide Anion Gap BUN Creatinine Estim Creat Clear Calc Est GFR (MDRD) Af Amer Est GFR (MDRD) Non-Af BUN/Creatinine Ratio Glucose Calcium Phosphorus Magnesium Hep Bs Antigen POC Glucose 01/12/19 01/12/19 01/12/19 11:53 05:38 00:02 POC Glucose 236 H 266 H 244 H 01/11/19 18:04 POC Glucose 166 H Medical Necessity - Tobacco Use Smoking Status: Former smoker Tobacco Use: Cigarettes Assessment/Plan All Active Problems (Last Updated 11/02/17 @ 08:07 by Mauro Ley BUSINESS ACCOUNT SPECIALIST-C) LAURIE (acute kidney injury) (Acute) Acute combined respiratory failure (Acute) Respiratory acidosis (Acute) Acute renal failure (Acute) Septic shock (Acute) Community acquired pneumonia (Acute) 1-Acute kidney injury and chronic kidney disease baseline creatinine seems around 1.1 mg a deciliter in 2017. Acute kidney injury is most probably from ischemic ATN. Patient was started on hemodialysis January 10 for metabolic and volume support 2-high anion gap metabolic acidosis related to acute kidney injury and lactic acidosis. Lactic acid is trending down. 3-hyperkalemia: HD today 4-Acute hypoxemic respiratory failure due to ARDS/pneumonia. On vent support as per the ICU team. 5- Sepsis from bilateral pneumonia with bacteremia. On antibiotics as per the ID team. Plan dialysis today. will use slightly longer treatment to get fluid off. discussed with ICU staff called dialysis staff and went over prescription
--- NOTE | 2019-01-12 16:53 | CPS ---
Dr. Avila was notified of critical values on ABG.
[2019-01-12 17:31] LABS: Bedside Glucose 197 mg/dL (70-110)
[2019-01-12] MEDS: Oseltamivir Phosphate 30 MG Capsule NG (18:52)
[2019-01-12] MEDS: Cefazolin 1 GM/50 ML BAG IV (22:37)
[2019-01-12 23:06] LABS: Bedside Glucose 238 mg/dL (70-110)
[2019-01-13] VITALS (60 sets, daily range): BP systolic 87–148; BP diastolic 21–102; PULSE 95–170; RESP 17–40; TEMP 36.2–37.7; O2SAT 70–98
[2019-01-13] MEDS: 0.9% Saline Lock 10 ML Syringe IV ×5 (03:13→23:27)
[2019-01-13] MEDS: Vital AF 1.2 Cal Liquid 1,000 ML 70 ML GT (03:13)
[2019-01-13] MEDS: CHLORHEXIDINE GLUC 2% CLOTH 1 EACH TOWELETTE TOPICAL (03:13)
[2019-01-13] MEDS: Acetaminophen 650 MG/20 ML UDC GT ×2 (04:52→23:31)
[2019-01-13] MEDS: Insulin Lispro 100 UNIT/ML INSULN.PEN SC (05:11)
[2019-01-13 05:16] LABS: Bedside Glucose 184 mg/dL (70-110)
[2019-01-13 05:31] LABS: Allen Test POS; Base Excess -15 mmol/L (-2 to +2); Bicarbonate 17.1 mmol/L (22-26); Blood Gas Specimen Type ART; FI02 100; Mode APRV; O2 Delivery Device Vent; PO2 81 mmHG (75-100); SITE L Radial; SO2 84 % (95-99); Time Given 515; Total Carbon Dioxide 20 mmol/L; pCO2 82.8 mmHg (35-45); pH 6.92 (7.35-7.45)
--- NOTE | 2019-01-13 05:40 | RAD_ITS ---
STUDY: X-RAY CHEST REASON FOR EXAM: Male, 78 years old. Pneumonia TECHNIQUE: Frontal view COMPARISON: 01/11/2019 FINDINGS: The endotracheal tube is in the proximal trachea. NG tube is in the stomach. There is a RIGHT-sided central venous catheter. The tip is in the superior vena cava. The lungs are expanded. There are bilateral pulmonary infiltrates similar to prior study. There is no demonstrated pleural abnormality. The heart is borderline enlarged. Normal mediastinum and darnell. Normal visualized pulmonary arteries. Normal visualized aortic arch and descending thoracic aorta. Normal visualized thoracic spine. Normal visualized ribs, clavicles, and shoulders. There is no demonstrated abnormality of the visualized soft tissue structures of the upper abdomen. RAD/Chest 1 View (Portable) IMPRESSION: The endotracheal tube is in the proximal trachea. NG tube is in the stomach. There is a RIGHT-sided central venous catheter. The tip is in the superior vena cava. The lungs are expanded. There are bilateral pulmonary infiltrates similar to prior study. There is no demonstrated pleural abnormality. The heart is borderline enlarged. Electronically Signed: Dragan Love MD at 6:43 EST , Service support ,
[2019-01-13] MEDS: fentaNYL drip 100 ML 2.5 MCG IV (06:16)
--- NOTE | 2019-01-13 06:28 | CPS ---
Critical Values given to GOSIA Morelos and read to . Physician Aware of results.
[2019-01-13 06:29] LABS: Anion Gap 22 (5-15); BUN 84 mg/dL (7-18); BUN/Creat Ratio 16.8 RATIO (10-20); Calcium,Total 7.2 mg/dL (8.5-10.1); Chloride 96 mmol/L (98-107); Creatinine, Serum 4.99 mg/dL (0.70-1.30); EST Glomerular Filtration Rate 12 mL/min (>60); Est Glom Filt Rate - Afr Amer 15 mL/min (>60); Estimated Creatinine Clearance 11.61 ml/min; Glucose 174 mg/dL (74-106); Magnesium 2.9 mg/dL (1.6-2.6); Phosphorus 12.1 mg/dL (2.5-4.9); Potassium 5.7 mmol/L (3.5-5.1); Sodium Level 136 mmol/L (136-145)
--- NOTE | 2019-01-13 07:18 | PN_ITS ---
Subjective: Patient continues to have difficulty with oxygenation. Patient did have an episode of desaturation to 60% overnight despite 100% FiO2 and APRV. Repeat blood cultures from 01/12/2019 are now showing a possible gram-negative yuridia. Patient continues to spike high fevers. Patient did receive hemodialysis yesterday with 2.5 L removal of fluid. Patient continues to have minimal purposeful movement. Nursing is reporting some passage of blood clots with the stool this morning. This is new. Objective: Echocardiogram shows an EF of 60%, with no ASD. Right ventricular systolic pressure estimated at 55 mmHg. Patient does have some trivial valve insufficiency, but no vegetation was noted. Chest x-ray completed this morning during hypoxic episode is relatively unchanged continues to show bilateral infiltrates. General: - - Intubated and unresponsive. Anasarca. HEENT: Atraumatic, PERRLA, Normocephalic, - - Scleral injection without icterus noted. Oral: Moist Mucosa, No Gingival or Mucosal Lesions/ Ulcerations, - - Poor dentition Neck: Supple, No Nodes, Trachea Midline, JVD, Right, - - IJ's are clean, dry and intact. Lungs: No rhonchi, No wheeze, No rales, Diminished, - - Symmetric expansion. No dullness to percussion. Cardiovascular: Normal S1, Normal S2, No murmurs, No rub noted, No Gallop, Tachycardic Abdomen: Soft, Non Tender, Hypoactive Bowel Sounds, Distended Extremities: No clubbing, No cyanosis, Capillary Refill Less than 3 Seconds, Edema Skin: - - No significant change compared to previous Musculoskeletal: No Tenderness to Palpation of Joints or Extremities Lymphatic: No Cervical, Supraclavicular, or Inguinal Adenopathy Neurological: - - Neuro exam is grossly unchanged compared to previous. Patient continues to have pinpoint pupils, cough and gag reflexes. Very little spontaneous movement. Psych/Mental Status: Flat Affect Vital Signs Temp Pulse Resp BP Pulse Ox 37.0 C 105 H 40 H 116/63 89 01/13/19 07:00 01/13/19 07:05 01/13/19 07:05 01/13/19 07:00 01/13/19 07:05 Oxygen Flow Rate (L/min) 6 Oxygen Delivery Method Mechanical Ventilator Weight: 91.4 kg Body Mass Index (BMI) 28.5 Intake and Output for Last 24 Hours 01/11/19 01/12/19 01/13/19 23:59 23:59 23:59 Intake Total 3489.4 / 3489.4 2770.7 / 2770.7 1242.5 / 1242.5 Output Total 2019 2545 / 2545 5 / 5 Balance 1469.4 / 1469.4 225.7 / 225.7 1237.5 / 1237.5 Labs (Last 48 Hours) 01/11/19 01/11/19 01/11/19 04:30 12:03 13:52 WBC RBC Hgb Hct MCV MCH MCHC RDW RDW Differential Plt Count MPV Neut % (Auto) Absolute Neuts (auto) 19.4 H Absolute Lymphs (auto) 0.64 L Total Counted 100 Neutrophils % (Manual) 72 H Band Neutrophils % 19 H Lymphocytes % (Manual) 3 L Monocytes % (Manual) Metamyelocytes % 6 H Nucleated RBC % 1.2 Nucleated RBCs/100 WBC Differential Comment 1+ Diff Path Review Reviewed Toxic Granulation 1+ Dohle Bodies 1+ Platelet Estimate ADEQUATE Plt Morphology Comment LARGE RBC Morphology Hypochromasia 1+ Anisocytosis 1+ Microcytosis 1+ [place] Cells 1+ Absolute Retic 0.27 Specimen Type Sample Site pH Bicarbonate Actual POC Total CO2 Base Excess O2 Saturation O2 % ABG pCO2 ABG pO2 David Test O2 Delivery Device Vent Mode POC PEEP Pressure High Pressure Low Time High Time Low Blood Gas Notified Whom Blood Gas Notified Time Sodium Potassium Chloride Carbon Dioxide Anion Gap BUN Creatinine Estim Creat Clear Calc Est GFR (MDRD) Af Amer Est GFR (MDRD) Non-Af BUN/Creatinine Ratio Glucose Calcium Phosphorus Magnesium Hep Bs Antigen Negative POC Glucose 288 H 01/11/19 01/12/19 01/12/19 18:04 00:02 04:45 WBC 21.9 H RBC 3.01 L Hgb 8.3 L Hct 25.7 L MCV 85.4 MCH 27.6 MCHC 32.3 RDW 16.7 H RDW Differential 52.6 H Plt Count 126 L MPV 11.2 Neut % (Auto) Not Reportable Absolute Neuts (auto) 19.5 H Absolute Lymphs (auto) 1.80 Total Counted 100 Neutrophils % (Manual) 81 H Band Neutrophils % 7 H Lymphocytes % (Manual) 8 L Monocytes % (Manual) 1 Metamyelocytes % 3 H Nucleated RBC % Nucleated RBCs/100 WBC 3 Differential Comment Diff Path Review May foll Toxic Granulation Dohle Bodies Platelet Estimate SLT DEC Plt Morphology Comment LARGE RBC Morphology 2+ Hypochromasia Anisocytosis Microcytosis [place] Cells Absolute Retic Specimen Type Sample Site pH Bicarbonate Actual POC Total CO2 Base Excess O2 Saturation O2 % ABG pCO2 ABG pO2 David Test O2 Delivery Device Vent Mode POC PEEP Pressure High Pressure Low Time High Time Low Blood Gas Notified Whom Blood Gas Notified Time Sodium Potassium Chloride Carbon Dioxide Anion Gap BUN Creatinine Estim Creat Clear Calc Est GFR (MDRD) Af Amer Est GFR (MDRD) Non-Af BUN/Creatinine Ratio Glucose Calcium Phosphorus Magnesium Hep Bs Antigen POC Glucose 166 H 244 H 01/12/19 01/12/19 01/12/19 04:45 05:38 08:49 WBC RBC Hgb Hct MCV MCH MCHC RDW RDW Differential Plt Count MPV Neut % (Auto) Absolute Neuts (auto) Absolute Lymphs (auto) Total Counted Neutrophils % (Manual) Band Neutrophils % Lymphocytes % (Manual) Monocytes % (Manual) Metamyelocytes % Nucleated RBC % Nucleated RBCs/100 WBC Differential Comment Diff Path Review Toxic Granulation Dohle Bodies Platelet Estimate Plt Morphology Comment RBC Morphology Hypochromasia Anisocytosis Microcytosis [place] Cells Absolute Retic Specimen Type ART Sample Site R Radial pH 6.90 L* Bicarbonate Actual 17.9 L POC Total CO2 21 Base Excess -15 L O2 Saturation 76 L O2 % 100 ABG pCO2 92.0 H* ABG pO2 69 L David Test NA O2 Delivery Device Vent Vent Mode APRV POC PEEP 5 Pressure High 28.0 Pressure Low 0.0 Time High 4.0 Time Low 0.0 Blood Gas Notified Whom ICU MD Blood Gas Notified Time 850 Sodium 138 Potassium 4.8 Chloride 103 Carbon Dioxide 19.0 L Anion Gap 16 H BUN 98 H Creatinine 5.45 H Estim Creat Clear Calc 10.63 Est GFR (MDRD) Af Amer 13 L Est GFR (MDRD) Non-Af 11 L BUN/Creatinine Ratio 18.0 Glucose 255 H Calcium 7.2 L Phosphorus 6.5 H Magnesium 2.4 Hep Bs Antigen POC Glucose 266 H 01/12/19 01/12/19 01/12/19 11:09 11:53 17:24 WBC RBC Hgb Hct MCV MCH MCHC RDW RDW Differential Plt Count MPV Neut % (Auto) Absolute Neuts (auto) Absolute Lymphs (auto) Total Counted Neutrophils % (Manual) Band Neutrophils % Lymphocytes % (Manual) Monocytes % (Manual) Metamyelocytes % Nucleated RBC % Nucleated RBCs/100 WBC Differential Comment Diff Path Review Toxic Granulation Dohle Bodies Platelet Estimate Plt Morphology Comment RBC Morphology Hypochromasia Anisocytosis Microcytosis [place] Cells Absolute Retic Specimen Type ART Sample Site L Radial pH 7.26 L Bicarbonate Actual 20.9 L POC Total CO2 22 Base Excess -6 L O2 Saturation 81 L O2 % 100 ABG pCO2 47.1 H ABG pO2 52 L David Test POS O2 Delivery Device Vent Vent Mode APRV POC PEEP 5 Pressure High 28.0 Pressure Low 0.0 Time High 4.0 Time Low 0.0 Blood Gas Notified Whom ICU Blood Gas Notified Time 1108 Sodium Potassium Chloride Carbon Dioxide Anion Gap BUN Creatinine Estim Creat Clear Calc Est GFR (MDRD) Af Amer Est GFR (MDRD) Non-Af BUN/Creatinine Ratio Glucose Calcium Phosphorus Magnesium Hep Bs Antigen POC Glucose 236 H 197 H 01/12/19 01/13/19 01/13/19 22:59 04:45 04:45 WBC Pending RBC Pending Hgb Pending Hct Pending MCV Pending MCH Pending MCHC Pending RDW Pending RDW Differential Pending Plt Count Pending MPV Neut % (Auto) Pending Absolute Neuts (auto) Pending Absolute Lymphs (auto) Total Counted Pending Neutrophils % (Manual) Band Neutrophils % Lymphocytes % (Manual) Monocytes % (Manual) Metamyelocytes % Nucleated RBC % Nucleated RBCs/100 WBC Differential Comment Diff Path Review Toxic Granulation Dohle Bodies Platelet Estimate Plt Morphology Comment RBC Morphology Hypochromasia Anisocytosis Microcytosis [place] Cells Absolute Retic Specimen Type Sample Site pH Bicarbonate Actual POC Total CO2 Base Excess O2 Saturation O2 % ABG pCO2 ABG pO2 David Test O2 Delivery Device Vent Mode POC PEEP Pressure High Pressure Low Time High Time Low Blood Gas Notified Whom Blood Gas Notified Time Sodium 136 Potassium 5.7 H Chloride 96 L Carbon Dioxide 18.0 L Anion Gap 22 H BUN 84 H Creatinine 4.99 H Estim Creat Clear Calc 11.61 Est GFR (MDRD) Af Amer 15 L Est GFR (MDRD) Non-Af 12 L BUN/Creatinine Ratio 16.8 Glucose 174 H Calcium 7.2 L Phosphorus 12.1 H* Magnesium 2.9 H Hep Bs Antigen POC Glucose 238 H 01/13/19 01/13/19 05:10 05:20 WBC RBC Hgb Hct MCV MCH MCHC RDW RDW Differential Plt Count MPV Neut % (Auto) Absolute Neuts (auto) Absolute Lymphs (auto) Total Counted Neutrophils % (Manual) Band Neutrophils % Lymphocytes % (Manual) Monocytes % (Manual) Metamyelocytes % Nucleated RBC % Nucleated RBCs/100 WBC Differential Comment Diff Path Review Toxic Granulation Dohle Bodies Platelet Estimate Plt Morphology Comment RBC Morphology Hypochromasia Anisocytosis Microcytosis [place] Cells Absolute Retic Specimen Type ART Sample Site L Radial pH 6.92 L* Bicarbonate Actual 17.1 L POC Total CO2 20 Base Excess -15 L O2 Saturation 84 L O2 % 100 ABG pCO2 82.8 H* ABG pO2 81 David Test POS O2 Delivery Device Vent Vent Mode APRV POC PEEP Pressure High 28.0 Pressure Low 0.0 Time High 4.0 Time Low 0.0 Blood Gas Notified Whom ICU Blood Gas Notified Time 515 Sodium Potassium Chloride Carbon Dioxide Anion Gap BUN Creatinine Estim Creat Clear Calc Est GFR (MDRD) Af Amer Est GFR (MDRD) Non-Af BUN/Creatinine Ratio Glucose Calcium Phosphorus Magnesium Hep Bs Antigen POC Glucose 184 H Microbiology 01/12/19 04:45 Blood Culture (Wb) - Line Draw Blood Culture - Preliminary 01/09/19 00:15 Sputum, Induced/Lukens Gram Stain - Final 01/09/19 00:15 Sputum, Induced/Lukens Respiratory Culture - Final Staphylococcus aureus Streptococcus group C 01/08/19 17:20 Blood Culture (Wb) #2 - Anticubital Right Bacteria Detection (PCR) - Final Staphylococcus aureus 01/08/19 17:20 Blood Culture (Wb) #2 - Anticubital Right Blood Culture - Final Staphylococcus aureus Clinical Impression(s) from Imaging Studies Chest X-Ray 01/13/19 05:40 IMPRESSION: The endotracheal tube is in the proximal trachea. NG tube is in the stomach. There is a RIGHT-sided central venous catheter. The tip is in the superior vena cava. The lungs are expanded. There are bilateral pulmonary infiltrates similar to prior study. There is no demonstrated pleural abnormality. The heart is borderline enlarged. Electronically Signed: Dragan Love MD at 6:43 EST , Service support , Medical Necessity - Tobacco Use Smoking Status: Former smoker Tobacco Use: Cigarettes Assessment/Plan All Active Problems (Last Updated 11/02/17 @ 08:07 by Mauro Ley NP-C) LAURIE (acute kidney injury) (Acute) Acute combined respiratory failure (Acute) Respiratory acidosis (Acute) Acute renal failure (Acute) Septic shock (Acute) Community acquired pneumonia (Acute) RECOMMENDATIONS: 1. Continue APRV, wean oxygen as tolerated 2. Continue Levophed, add vasopressin 3. Continue empiric steroid therapy 4. Will broaden antibiotic coverage to Zosyn given reported gram-negatives on blood cultures 5. Hemodialysis per nephrology. Would prefer volume removal if possible 6. We will hold tube feeds for now to limit volume intake. IMPRESSIONS: 1. Acute hypoxic respiratory failure secondary to probable ARDS secondary to community-acquired pneumonia Patient with bilateral infiltrates and reported preserved ejection fraction on previous cardiac catheterization approximately 1 year ago. Clinical suspicion for ARDS secondary to community-acquired pneumonia. Patient on empiric steroid therapy at this time given history of COPD. Patient does have extensive infiltrates and blood cultures positive for MSSA. Patient appears to have more of a respiratory acidosis today on ABG. Patient does have 12-15 L minute ventilation on APRV. No changes in ventilator at this time. Chest x-ray does not show any significant difference. 2. Septic shock secondary to community-acquired pneumonia Patient's blood pressure was improving on APRV, but appears to drop with any fever. Pressor requirements has improved with decrease in fever. Patient may also require Levophed to facilitate hemodialysis. Patient's repeat blood cultures are showing a potential gram-negative. Will expand coverage with Zosyn pending species. Unclear source of gram-negative if present. 3. [id number] diabetes mellitus Patient currently on sliding scale insulin. Will need to watch closely given initiation of steroid therapy. 4. Acute renal failure Clinical suspicion for ATN secondary to prerenal etiology associated with problem #1 and problem #2. Since admission. ARDS would recommend low fluid balance if possible. Patient did receive hemodialysis yesterday with significa nt volume removal. Patient appeared to tolerate this well. Would continue to take fluid as possible. 5. Poor history/hypertension/hyperlipidemia/GERD Complicates care, management, recovery and prognosis. Family meeting yesterday confirmed CODE STATUS is DNR Comfort Care arrest. Family is not interested in comfort care only as they believe the patient was very functional prior to this hospitalization. 6. Hematochezia Nursing is reporting some blood clots noted in this morning stool. Unclear if this is secondary to bowel ischemia versus diverticular bleed versus diverticulitis. Await CBC from the morning. TIME: 35 minutes critical care time, excluding procedures, spent addressing laurence ent's acute hypoxic respiratory failure, ARDS, septic shock, diabetes mellitus, acute renal failure, review of all data and collaboration with care team (5:50 AM to 6:50 AM) Code Visit [id number]: [id number] Critical care first hour
[2019-01-13 07:24] LABS: Hematocrit 24.2 % (40-54); Hemoglobin 7.6 g/dl (13.0-16.5); Mean Corp Hgb Conc 31.4 g/gl (32-36); Mean Corpuscular Volume 89.3 fL (80-94); Platelet Count 71 K/mm3 (150-450); RBC Distribution Width CV 17.8 % (11.6-14.6); RBC Distribution Width SD 58.5 fl (35.1-43.9)
[2019-01-13 07:26] LABS: Red Blood Count 2.71 M/mm3 (4.6-6.2)
[2019-01-13 07:27] LABS: Differential Indicated MANUAL DIFF; POSITIVE COUNT YES; POSITIVE DIFFERENTIAL NO; POSITIVE MORPHOLOGY YES
[2019-01-13 07:37] LABS: White Blood Count 35.4 K/mm3 (4.4-11.0)
[2019-01-13 07:39] LABS: Lymphocyte 6 % (19-41); Metamyelocyte 11 % (0-1); Myelocyte 1 (0-0); Neutrophil-Band 4 % (0-5); Neutrophil-Segmented 75 % (47-70); Nucleated Red Bld Cells,Manual 3 % (0-5); Promyelocyte 3 (0-0); Total Cells Counted 100 (MANUAL DIFF)
[2019-01-13 07:40] LABS: Hypochromasia 1+; Platelet Estimate MOD DEC (ADEQ); Red Cell Morphology N CYTIC NORMAL (NORM C&C); Toxic Granulation 1+
[2019-01-13 07:41] LABS: Absolute Neutrophil Count 27.9 X10^3/uL (2.0-7.7)
--- NOTE | 2019-01-13 09:05 | PN_ITS ---
Patient Problems: Active and Suspected Problems (Last Updated 11/02/17 @ 08:07 by Mauro Ley NP- C) LAURIE (acute kidney injury) (Acute) Subjective: Chief complaint: Follow-up after admission for septic shock secondary to bilateral community-acquired pneumonia, acute hypoxic and hypercapnic respiratory failure, respiratory acidosis and acute renal failure. Status post cardiac arrest and CPR yesterday due to PEA. Patient seen and examined. At this time, he is on IV Levophed and vasopressin. Still requiring full vent support, desaturated to 60% overnight with FiO2 of 100%. Had dialysis yesterday, 2.5 L removed. Nursing staff reported that he had bowel movement l this morning and he had some blood clots. He is afebrile, tachycardic, blood pressure is maintained with 2 vasopressors, remains on mechanical ventilation. - Physical Exam General: - - Sedated, intubated, unresponsive. HEENT: Atraumatic, PERRLA, Normocephalic Oral: Moist Mucosa, No Gingival or Mucosal Lesions/ Ulcerations Neck: Supple, No JVD, Negative Carotid Bruits, Trachea Midline, Thyroid Normal Size and Texture Lungs: No wheeze, No rales, Diminished, Rhonchi, Short of Breath Cardiovascular: Regular rate, Regular Rhythm, Normal S1, Normal S2, PMI Normal, Tachycardic Abdomen: Bowel Sounds Present, Soft, Non Tender, No Hepato-splenomegaly, Distended Extremities: No clubbing, No cyanosis, No edema Skin: No rashes, No breakdown Lymphatic: No Cervical, Supraclavicular, or Inguinal Adenopathy Neurological: - - Unable to assess, patient sedated, unresponsive. Psych/Mental Status: - - Unable to assess, patient is sedated. Vital Signs Temp Pulse Resp BP Pulse Ox 98.6 F 105 H 40 H 116/63 89 01/13/19 07:00 01/13/19 07:05 01/13/19 07:05 01/13/19 07:00 01/13/19 07:05 Oxygen Flow Rate (L/min) 6 Oxygen Delivery Method Mechanical Ventilator Weight: 201 lb 8.04 oz Body Mass Index (BMI) 28.5 Intake and Output for Last 24 Hours 01/11/19 01/12/19 01/13/19 23:59 23:59 23:59 Intake Total 3489.4 / 3489.4 2770.7 / 2770.7 1242.5 / 1242.5 Output Total 2019 2545 / 2545 5 / 5 Balance 1469.4 / 1469.4 225.7 / 225.7 1237.5 / 1237.5 Microbiology Past 72 Hours 01/11/19 06:15 Blood Culture - Preliminary Blood Culture (Wb) - Central Line No growth in 48 hours. 01/11/19 06:15 Blood Culture - Preliminary Blood Culture (Wb) - Right Forearm No growth in 48 hours. 01/12/19 04:45 Blood Culture - Preliminary Blood Culture (Wb) - Line Draw 01/09/19 00:15 Gram Stain - Final Sputum, Induced/Lukens Respiratory Culture - Final Staphylococcus aureus Streptococcus group C 01/08/19 17:20 Bacteria Detection (PCR) - Final Blood Culture (Wb) #2 - Anticubital Right Staphylococcus aureus Blood Culture - Final Staphylococcus aureus 01/08/19 17:22 Blood Culture - Final Blood Culture (Wb) - Left Wrist Staphylococcus aureus Laboratory Tests Past 24 Hrs 01/11/19 01/12/19 01/12/19 13:52 08:49 11:09 WBC RBC Hgb Hct MCV MCH MCHC RDW RDW Differential Plt Count Neut % (Auto) Absolute Neuts (auto) Absolute Lymphs (auto) Total Counted Neutrophils % (Manual) Band Neutrophils % Lymphocytes % (Manual) Metamyelocytes % Myelocytes % Promyelocytes % Nucleated RBCs/100 WBC Diff Path Review Toxic Granulation Platelet Estimate RBC Morphology Hypochromasia Specimen Type ART ART Sample Site R Radial L Radial pH 6.90 L* 7.26 L Bicarbonate Actual 17.9 L 20.9 L POC Total CO2 21 22 Base Excess -15 L -6 L O2 Saturation 76 L 81 L O2 % 100 100 ABG pCO2 92.0 H* 47.1 H ABG pO2 69 L 52 L David Test NA POS O2 Delivery Device Vent Vent Vent Mode APRV APRV POC PEEP 5 5 Pressure High 28.0 28.0 Pressure Low 0.0 0.0 Time High 4.0 4.0 Time Low 0.0 0.0 Blood Gas Notified Whom ICU ICU Blood Gas Notified Time 850 1108 Sodium Potassium Chloride Carbon Dioxide Anion Gap BUN Creatinine Estim Creat Clear Calc Est GFR (MDRD) Af Amer Est GFR (MDRD) Non-Af BUN/Creatinine Ratio Glucose Calcium Phosphorus Magnesium Hep Bs Antigen Negative 01/13/19 01/13/19 01/13/19 04:45 04:45 05:20 WBC 35.4 H* RBC 2.71 L Hgb 7.6 L Hct 24.2 L MCV 89.3 MCH 28.0 MCHC 31.4 L RDW 17.8 H RDW Differential 58.5 H Plt Count 71 L Neut % (Auto) Not Reportable Absolute Neuts (auto) 27.9 H Absolute Lymphs (auto) 2.10 Total Counted 100 Neutrophils % (Manual) 75 H Band Neutrophils % 4 Lymphocytes % (Manual) 6 L Metamyelocytes % 11 H Myelocytes % 1 H Promyelocytes % 3 H Nucleated RBCs/100 WBC 3 Diff Path Review May foll Toxic Granulation 1+ Platelet Estimate MOD DEC RBC Morphology N CYTIC Hypochromasia 1+ Specimen Type ART Sample Site L Radial pH 6.92 L* Bicarbonate Actual 17.1 L POC Total CO2 20 Base Excess -15 L O2 Saturation 84 L O2 % 100 ABG pCO2 82.8 H* ABG pO2 81 David Test POS O2 Delivery Device Vent Vent Mode APRV POC PEEP Pressure High 28.0 Pressure Low 0.0 Time High 4.0 Time Low 0.0 Blood Gas Notified Whom ICU Blood Gas Notified Time 515 Sodium 136 Potassium 5.7 H Chloride 96 L Carbon Dioxide 18.0 L Anion Gap 22 H BUN 84 H Creatinine 4.99 H Estim Creat Clear Calc 11.61 Est GFR (MDRD) Af Amer 15 L Est GFR (MDRD) Non-Af 12 L BUN/Creatinine Ratio 16.8 Glucose 174 H Calcium 7.2 L Phosphorus 12.1 H* Magnesium 2.9 H Hep Bs Antigen POC Glucose 01/13/19 01/12/19 01/12/19 05:10 22:59 17:24 POC Glucose 184 H 238 H 197 H 01/12/19 11:53 POC Glucose 236 H Clinical Impression(s) from Imaging Studies Microbiology 01/11/19 06:15 Blood Culture (Wb) - Central Line Blood Culture - Preliminary No growth in 48 hours. 01/11/19 06:15 Blood Culture (Wb) - Right Forearm Blood Culture - Preliminary No growth in 48 hours. 01/12/19 04:45 Blood Culture (Wb) - Line Draw Blood Culture - Preliminary 01/09/19 00:15 Sputum, Induced/Lukens Gram Stain - Final 01/09/19 00:15 Sputum, Induced/Lukens Respiratory Culture - Final Staphylococcus aureus Streptococcus group C 01/08/19 17:20 Blood Culture (Wb) #2 - Anticubital Right Bacteria Detection (PCR) - Final Staphylococcus aureus 01/08/19 17:20 Blood Culture (Wb) #2 - Anticubital Right Blood Culture - Final Staphylococcus aureus 01/08/19 17:22 Blood Culture (Wb) - Left Wrist Blood Culture - Final Staphylococcus aureus 01/08/19 17:30 Mucosa - Nose Respiratory Panel (PCR) - Final Influenza A (Subtype H1) 01/08/19 21:25 Urine Catheter - Catheter Legionella Antigen - Final 01/08/19 21:25 Urine Catheter - Catheter Streptococcus pneumoniae Antigen (M - Final 01/08/19 17:30 Mucosa - Nose Influenza Types A,B Direct FA (BETTY) - Final Chest X-Ray 01/13/19 05:40 IMPRESSION: The endotracheal tube is in the proximal trachea. NG tube is in the stomach. There is a RIGHT-sided central venous catheter. The tip is in the superior vena cava. The lungs are expanded. There are bilateral pulmonary infiltrates similar to prior study. There is no demonstrated pleural abnormality. The heart is borderline enlarged. Electronically Signed: rDagan Love MD at 6:43 EST , Service support , Medical Necessity - Tobacco Use Smoking Status: Former smoker Tobacco Use: Cigarettes Assessment/Plan All Active Problems (Last Updated 11/02/17 @ 08:07 by Mauro Ley NP-C) LAURIE (acute kidney injury) (Acute) Acute combined respiratory failure (Acute) Respiratory acidosis (Acute) Acute renal failure (Acute) Septic shock (Acute) Community acquired pneumonia (Acute) This is a 78 years old male patient presented to the emergency room because of shortness of breath, found to have bilateral infiltrates on chest x-ray consistent with community-acquired pneumonia, became very dyspneic and tachypneic while on BiPAP in the ED and he was intubated and started on mechanical ventilation, found to have septic shock secondary to chronic acquired pneumonia complicated by acute hypoxic and hypercapnic respiratory failure and acute renal failure. #1 septic shock: Secondary to pneumonia. Remained on IV Levophed and vasopressin, still tachycardic, having spikes of fever. He is on IV fluids and IV steroids, antibiotic changed to IV Zosyn because repeat blood culture revealed gram-negative rods. White blood cell count is trending up. Respiratory panel for viruses positive for influenza A. Pneumococcal and Legionella antigen were negative. Blood culture revealed MSSA, repeat blood cultures revealed gram-negative rods, final is pending. Patient was changed to DNR CCA yesterday after he had cardiac arrest. Plan: Continue mechanical ventilation, continue AP RV, continue other treatments, hemodialysis as per nephrology. #2 acute on chronic anemia: Nursing staff reported that he had blood clots in his stool. Hemoglobin was 10.9 on 2017. Admission creatinine was 11.5, has been trending down and today, it is 7.6 g/dL. It is likely multifactorial because of hemodilution, infection, being not able to eat or drink for several days as well as probable GI bleed. May need to give blood transfusion if hemoglobin continues to drop, plan to repeat CBC tomorrow morning. #3 new onset A. fib with RVR: Remains in sinus tachycardia. As mentioned above, he is on IV Levophed and vasopressin. Yesterday, he had cardiac arrest, had PEA status post CPR for 5 minutes and we were able to regain his blood pressure and pulse. Afterwards, he had questionable ST elevation on V5 and V6, cardiology consulted and recommended medical treatment for now. #4 acute bacterial bilateral community-acquired pneumonia: Started on IV Zosyn today. Remained tachycardic, blood pressure is maintained with IV pressors. Blood cultures positive for MSSA. Repeat blood culture revealed gram-negative rods, final is pending. Pneumococcal and Legionella antigen were negative. Positive for influenza A. Plan to continue IV Zosyn. #5 MSSA bacteremia: Probable source is the pneumonia. Started on IV Zosyn today. Repeat blood cultures revealed gram-negative rods, final is pending. #6 acute hypoxic and hypercapnic respiratory failure/respiratory acidosis: Secondary to pneumonia. ABG today revealed severe acidosis, pH of 6.92, PCO2 of 82 and PO2 of 81. Remained on mechanical ventilation, APRV, high PEEP with high FiO2. #7 acute renal failure: Secondary to septic shock, tissue hypoperfusion. Had hemodialysis yesterday, 2.5 L taken out. BUN and creatinine are improving, poor urine output. Plan hemodialysis as per nephrology recommendation. #8 type 2 diabetes mellitus: Blood sugar has been fluctuating, likely because of IV steroids. he is on sliding scale only. #9 hypertension: Blood pressure is low, remained on IV Levophed and vasopressin.. #10 hyperlipidemia: Statin is held, patient is intubated. #11 GERD: He is on IV Pepcid daily. #12 DVT prophylaxis: Subcu heparin. This note was generated with [employer] dictation software. It may contain incorrect words, spelling, and punctuation that were not noted in checking the note before signing. Code Visit Inpatient E&M: 18545 Subs Hosp L3
[2019-01-13] MEDS: Chlorhexidine 15 ML PO ×2 (11:16→21:51)
--- NOTE | 2019-01-13 11:30 | PN.RENAL_ITS ---
Patient Problems: Active and Suspected Problems (Last Updated 11/02/17 @ 08:07 by Mauro Ley SCALE AND SKIP CAR OPERATOR- C) LAURIE (acute kidney injury) (Acute) Subjective: events noted. 2 pressors still on board. oxygenation poor. blood cultures now with gm negative rods. abx expanded to zosyn. WBC higher. PH is 6.9 most of it is respiratory with some metabolic component - Physical Exam Neck: Supple, No JVD, Negative Carotid Bruits Lungs: Clear to auscultation, Normal air movement Cardiovascular: Regular rate, No murmurs Abdomen: Bowel Sounds Present, Soft, Non Tender Extremities: No edema, Capillary Refill Less than 3 Seconds Skin: No rashes, No breakdown Musculoskeletal: No Tenderness to Palpation of Joints or Extremities Vital Signs Temp Pulse Resp BP Pulse Ox 97.5 F L 97 22 H 126/58 H 93 01/13/19 10:00 01/13/19 11:00 01/13/19 11:00 01/13/19 11:00 01/13/19 10:00 Oxygen Flow Rate (L/min) 6 Oxygen Delivery Method Mechanical Ventilator Weight: 91.4 kg Body Mass Index (BMI) 28.5 Intake and Output for Last 24 Hours 01/11/19 01/12/19 01/13/19 23:59 23:59 23:59 Intake Total 3489.4 / 3489.4 2770.7 / 2770.7 1633.1 / 1633.1 Output Total 2019 2545 / 2545 15 / 15 Balance 1469.4 / 1469.4 225.7 / 225.7 1618.1 / 1618.1 Microbiology Past 72 Hours 01/11/19 06:15 Blood Culture - Preliminary Blood Culture (Wb) - Central Line No growth in 48 hours. 01/11/19 06:15 Blood Culture - Preliminary Blood Culture (Wb) - Right Forearm No growth in 48 hours. 01/12/19 04:45 Blood Culture - Preliminary Blood Culture (Wb) - Line Draw 01/09/19 00:15 Gram Stain - Final Sputum, Induced/Lukens Respiratory Culture - Final Staphylococcus aureus Streptococcus group C 01/08/19 17:20 Bacteria Detection (PCR) - Final Blood Culture (Wb) #2 - Anticubital Right Staphylococcus aureus Blood Culture - Final Staphylococcus aureus 01/08/19 17:22 Blood Culture - Final Blood Culture (Wb) - Left Wrist Staphylococcus aureus Laboratory Tests Past 24 Hrs 01/13/19 01/13/19 01/13/19 04:45 04:45 05:20 WBC 35.4 H* RBC 2.71 L Hgb 7.6 L Hct 24.2 L MCV 89.3 MCH 28.0 MCHC 31.4 L RDW 17.8 H RDW Differential 58.5 H Plt Count 71 L Neut % (Auto) Not Reportable Absolute Neuts (auto) 27.9 H Absolute Lymphs (auto) 2.10 Total Counted 100 Neutrophils % (Manual) 75 H Band Neutrophils % 4 Lymphocytes % (Manual) 6 L Metamyelocytes % 11 H Myelocytes % 1 H Promyelocytes % 3 H Nucleated RBCs/100 WBC 3 Diff Path Review May foll Toxic Granulation 1+ Platelet Estimate MOD DEC RBC Morphology N CYTIC Hypochromasia 1+ Specimen Type ART Sample Site L Radial pH 6.92 L* Bicarbonate Actual 17.1 L POC Total CO2 20 Base Excess -15 L O2 Saturation 84 L O2 % 100 ABG pCO2 82.8 H* ABG pO2 81 David Test POS O2 Delivery Device Vent Vent Mode APRV Pressure High 28.0 Pressure Low 0.0 Time High 4.0 Time Low 0.0 Blood Gas Notified Whom ICU MD Blood Gas Notified Time 515 Sodium 136 Potassium 5.7 H Chloride 96 L Carbon Dioxide 18.0 L Anion Gap 22 H BUN 84 H Creatinine 4.99 H Estim Creat Clear Calc 11.61 Est GFR (MDRD) Af Amer 15 L Est GFR (MDRD) Non-Af 12 L BUN/Creatinine Ratio 16.8 Glucose 174 H Calcium 7.2 L Phosphorus 12.1 H* Magnesium 2.9 H POC Glucose 01/13/19 01/12/19 01/12/19 05:10 22:59 17:24 POC Glucose 184 H 238 H 197 H 01/12/19 11:53 POC Glucose 236 H Medical Necessity - Tobacco Use Smoking Status: Former smoker Tobacco Use: Cigarettes Assessment/Plan All Active Problems (Last Updated 11/02/17 @ 08:07 by Mauro Ley, SCALE AND SKIP CAR OPERATOR-C) LAURIE (acute kidney injury) (Acute) Acute combined respiratory failure (Acute) Respiratory acidosis (Acute) Acute renal failure (Acute) Septic shock (Acute) Community acquired pneumonia (Acute) 1-Acute kidney injury and chronic kidney disease baseline creatinine seems arou nd 1.1 mg a deciliter in 2017. Acute kidney injury is most probably from ischemic ATN. Patient was started on hemodialysis January 10 for metabolic and volume support 2-high anion gap metabolic acidosis related to acute kidney injury and lactic acidosis. last lactate 3.1 3-hyperkalemia: HD today 4-Acute hypoxemic respiratory failure due to ARDS/pneumonia. On vent support as per the ICU team. 5- Sepsis from bilateral pneumonia with bacteremia. On antibiotics as per the ID team. Plan CXR reviewed. looks about the same. mostly ARDS with some volume component likely ABG shows severe acidosis, mostly respiratory border line hyperkalemia severe hyperphosphatemia Plan HD today will try for volume removal today as well poor prognosis overall d/w Dr Avila
[2019-01-13 11:45] LABS: Bedside Glucose 153 mg/dL (70-110)
--- NOTE | 2019-01-13 13:17 | CPS ---
Unable to obtain a SpO2 at this time.
--- NOTE | 2019-01-13 17:06 | NURSING ---
1650- Pt's HR 130- ST, MAP<65, Levophed increased to 30 mcg/min. 1700- Pt's HR up to 170's, appears to be SVT vs AFIB w/RVR. Going from 170's back down to ST low 100's and back up again. senior finance manager stopping dialysis treatment. 1710- Pt's HR low 100's, SR.
[2019-01-13 19:11] LABS: Bedside Glucose 75 mg/dL (70-110)
[2019-01-13] MEDS: Oseltamivir Phosphate 30 MG Capsule NG (19:58)
[2019-01-13] MEDS: Vital AF 1.2 Cal Liquid 1,000 ML 20 ML GT (19:59)
[2019-01-14] VITALS (31 sets, daily range): BP systolic 35–143; BP diastolic 10–96; PULSE 65–109; RESP 16–37; TEMP 34.9–38.3; O2SAT 79–100
[2019-01-14 00:01] LABS: Bedside Glucose 75 mg/dL (70-110)
[2019-01-14] MEDS: 0.9% Saline Lock 10 ML Syringe IV (05:31)
[2019-01-14] MEDS: CHLORHEXIDINE GLUC 2% CLOTH 1 EACH TOWELETTE TOPICAL (05:31)
[2019-01-14] MEDS: Dextrose 50%-Water 25 GM/50 ML DISP.SYRIN IV ×3 (05:31→06:05)
[2019-01-14] MEDS: fentaNYL drip 100 ML 2.5 MCG IV (05:46)
[2019-01-14 05:55] LABS: Bedside Glucose 36 mg/dL (70-110)
[2019-01-14 05:55] LABS: Bedside Glucose < 10 mg/dL (70-110)
[2019-01-14 06:11] LABS: Bedside Glucose 33 mg/dL (70-110)
[2019-01-14 06:15] LABS: Hematocrit 20.8 % (40-54); Hemoglobin 6.4 g/dl (13.0-16.5); Mean Corp Hgb Conc 30.8 g/gl (32-36); Mean Corpuscular Hgb 27.8 pg (27.0-32.0); Mean Corpuscular Volume 90.4 fL (80-94); RBC Distribution Width CV 18.5 % (11.6-14.6); White Blood Count 29.4 K/mm3 (4.4-11.0)
[2019-01-14 06:16] LABS: AST(SGOT) 5720 U/L (15-37); Alanine Aminotransfer ALT/SGPT 411 U/L (16-61); Albumin, Serum 1.4 g/dL (3.2-5.0); Alkaline Phosphatase 340 U/L (45-117); Anion Gap 25 (5-15); BUN 82 mg/dL (7-18); BUN/Creat Ratio 15.8 RATIO (10-20); Bilirubin, Direct 3.07 mg/dL (0.00-0.30); Calcium,Total 6.8 mg/dL (8.5-10.1); Chloride 96 mmol/L (98-107); Creatinine, Serum 5.18 mg/dL (0.70-1.30); EST Glomerular Filtration Rate 12 mL/min (>60); Est Glom Filt Rate - Afr Amer 14 mL/min (>60); Estimated Creatinine Clearance 11.19 ml/min; Glucose 22 mg/dL (74-106); Magnesium 3.3 mg/dL (1.6-2.6); Phosphorus 15.3 mg/dL (2.5-4.9); Potassium 6.8 mmol/L (3.5-5.1); Protein, Total 5.4 g/dL (6.4-8.2); Sodium Level 137 mmol/L (136-145)
[2019-01-14 06:17] LABS: Differential Indicated MANUAL DIFF; POSITIVE COUNT YES; POSITIVE DIFFERENTIAL YES; POSITIVE MORPHOLOGY YES; Platelet Count 38 K/mm3 (150-450)
[2019-01-14] MEDS: Dextrose 10%-Water 250 ML 50 ML IV (06:42)
[2019-01-14 06:46] LABS: Bedside Glucose 32 mg/dL (70-110)
[2019-01-14 06:50] LABS: Anisocytosis 2+; Lymphocyte 8 % (19-41); Metamyelocyte 4 % (0-1); Monocyte 2 % (0-10); Myelocyte 1 (0-0); Neutrophil-Band 7 % (0-5); Neutrophil-Segmented 78 % (47-70); Total Cells Counted 100 (MANUAL DIFF)
[2019-01-14 06:51] LABS: Hypochromasia 2+; Schistocytes RARE
[2019-01-14 06:52] LABS: Platelet Estimate MKD DEC (ADEQ); Platelet Morphology LARGE; Polychromasia 1+
[2019-01-14 06:53] LABS: Absolute Lymphocyte Count 2.35 X10^3/ul (0.83-4.51)
[2019-01-14 06:55] LABS: Absolute Nucleated RBC Count 0.94 10^3/uL (0-5); NRBC Flagged by Analyzer 3.2 % (0-5)
[2019-01-14 07:05] LABS: Bedside Glucose 43 mg/dL (70-110)
--- NOTE | 2019-01-14 07:13 | PCM.PN.INT ---
Subjective: The patient was seen and examined at the bedside this morning. Events from the last 24 hours have been reviewed. The patient currently remains on levophed at 5 mcg and vasopressin to maintain hemodynamic stability. The patient did not tolerate hemodialysis yesterday due to the development of SVT. Overnight, the patient's blood sugars were noted to be extremely low. Glucose was noted to be 22 on this morning's chemistry profile. The patient continues to have a significant leukocytosis along with worsening anemia and thrombocytopenia. There are also a number of significant metabolic derangements including a potassium of 6.8, BUN of 82, and phosphorus of 15. The patient is currently overall net +13.7 L for the admission. The patient also has significantly elevated transaminase levels this morning, along with an elevated lipase level. I explained the clinical scenario to the patient's family at the bedside for rounds. They are going to have a family meeting this morning to discuss goals of care. Bedside Arterial Line Placement: A time-out was completed verifying correct patient, procedure, site, positioning, and special equipment if applicable. David?s test was performed to ensure adequate perfusion. The patient?s left wrist was prepped and draped in sterile fashion. A 18G Arrow arterial line was introduced into the radial artery. The catheter was threaded over the guide wire and the needle was removed with appropriate pulsatile blood return. The catheter was then sutured in place to the skin and a sterile dressing applied. Perfusion to the extremity distal to the point of catheter insertion was checked and found to be adequate. ULTRASOUND GUIDANCE STATEMENT (Vascular Access): I performed ultrasound image acquisition and interpretation for needle placement during this procedure. The vessel was identified and was found to be free of thrombosis by compression technique. A safe point of entry was marked at the skin and an angle for access was determined. The needle was guided by obtaining free flowing fluid and by real time visualization. Objective: The patient's most recent lab work, culture data and imaging studies have all been personally reviewed. Respiratory viral panel was positive for influenza A. Sputum culture was positive for staph aureus. Surface echocardiogram dated January 12 revealed normal LV size and function with an ejection fraction of 60%. Right ventricular systolic pressure was estimated to be 55 mmHg. General: - - Extremely ill in appearance. Currently nonresponsive to verbal and tactile stimulation. Remains intubated and mechanically ventilated. HEENT: Atraumatic, PERRLA, Normocephalic Oral: Dry Mucosa, - - Endotracheal and OG tubes are currently in place. Poor generalized dentition. Neck: Supple, No Nodes, Trachea Midline, - - Temporary hemodialysis catheter and triple-lumen central venous catheter in place. Lungs: No rhonchi, No wheeze, No rales, Diminished Cardiovascular: Normal S1, Normal S2, No murmurs, Tachycardic Abdomen: Soft, Hypoactive Bowel Sounds, Distended Extremities: Cool, Cyanosis, Diminished Peripheral Pulses, Edema Skin: - - Mottling of extremities present Musculoskeletal: No Tenderness to Palpation of Joints or Extremities Lymphatic: No Cervical, Supraclavicular, or Inguinal Adenopathy Neurological: - - The patient is currently nonresponsive to both verbal and noxious stimulation. No spontaneous movements noted. Vital Signs Temp Pulse Resp BP Pulse Ox 36.2 C L 67 23 H 102/56 L 99 01/14/19 07:00 01/14/19 07:00 01/14/19 07:00 01/14/19 07:00 01/14/19 04:00 Oxygen Flow Rate (L/min) 6 Oxygen Delivery Method Mechanical Ventilator Weight: 203 lb 14.841 oz Body Mass Index (BMI) 28.5 Intake and Output for Last 24 Hours 01/12/19 01/13/19 01/14/19 23:59 23:59 23:59 Intake Total 2770.7 / 2770.7 2496.0 / 2496.0 530 / 530 Output Total 2545 / 2545 1018 / 1018 0 / 0 Balance 225.7 / 225.7 1478.0 / 1478.0 530 / 530 Labs (Last 48 Hours) 01/11/19 01/12/19 01/12/19 13:52 04:45 08:49 WBC RBC Hgb Hct MCV MCH MCHC RDW RDW Differential Plt Count Neut % (Auto) Absolute Neuts (auto) 19.5 H Absolute Lymphs (auto) 1.80 Total Counted 100 Neutrophils % (Manual) 81 H Band Neutrophils % 7 H Lymphocytes % (Manual) 8 L Monocytes % (Manual) 1 Metamyelocytes % 3 H Myelocytes % Promyelocytes % Nucleated RBC % Nucleated RBCs/100 WBC 3 Diff Path Review May foll Toxic Granulation Platelet Estimate SLT DEC Plt Morphology Comment LARGE RBC Morphology 2+ Polychromasia Hypochromasia Anisocytosis Schistocytes Absolute Retic Specimen Type ART Sample Site R Radial pH 6.90 L* Bicarbonate Actual 17.9 L POC Total CO2 21 Base Excess -15 L O2 Saturation 76 L O2 % 100 ABG pCO2 92.0 H* ABG pO2 69 L David Test NA O2 Delivery Device Vent Vent Mode APRV POC PEEP 5 Pressure High 28.0 Pressure Low 0.0 Time High 4.0 Time Low 0.0 Blood Gas Notified Whom ICU MD Blood Gas Notified Time 850 Sodium Potassium Chloride Carbon Dioxide Anion Gap BUN Creatinine Estim Creat Clear Calc Est GFR (MDRD) Af Amer Est GFR (MDRD) Non-Af BUN/Creatinine Ratio Glucose Calcium Phosphorus Magnesium Total Bilirubin Direct Bilirubin AST ALT Alkaline Phosphatase Total Protein Albumin Globulin Hep Bs Antigen Negative POC Glucose 01/12/19 01/12/19 01/12/19 11:09 11:53 17:24 WBC RBC Hgb Hct MCV MCH MCHC RDW RDW Differential Plt Count Neut % (Auto) Absolute Neuts (auto) Absolute Lymphs (auto) Total Counted Neutrophils % (Manual) Band Neutrophils % Lymphocytes % (Manual) Monocytes % (Manual) Metamyelocytes % Myelocytes % Promyelocytes % Nucleated RBC % Nucleated RBCs/100 WBC Diff Path Review Toxic Granulation Platelet Estimate Plt Morphology Comment RBC Morphology Polychromasia Hypochromasia Anisocytosis Schistocytes Absolute Retic Specimen Type ART Sample Site L Radial pH 7.26 L Bicarbonate Actual 20.9 L POC Total CO2 22 Base Excess -6 L O2 Saturation 81 L O2 % 100 ABG pCO2 47.1 H ABG pO2 52 L David Test POS O2 Delivery Device Vent Vent Mode APRV POC PEEP 5 Pressure High 28.0 Pressure Low 0.0 Time High 4.0 Time Low 0.0 Blood Gas Notified Whom ICU MD Blood Gas Notified Time 1108 Sodium Potassium Chloride Carbon Dioxide Anion Gap BUN Creatinine Estim Creat Clear Calc Est GFR (MDRD) Af Amer Est GFR (MDRD) Non-Af BUN/Creatinine Ratio Glucose Calcium Phosphorus Magnesium Total Bilirubin Direct Bilirubin AST ALT Alkaline Phosphatase Total Protein Albumin Globulin Hep Bs Antigen POC Glucose 236 H 197 H 01/12/19 01/13/19 01/13/19 22:59 04:45 04:45 WBC 35.4 H* RBC 2.71 L Hgb 7.6 L Hct 24.2 L MCV 89.3 MCH 28.0 MCHC 31.4 L RDW 17.8 H RDW Differential 58.5 H Plt Count 71 L Neut % (Auto) Not Reportable Absolute Neuts (auto) 27.9 H Absolute Lymphs (auto) 2.10 Total Counted 100 Neutrophils % (Manual) 75 H Band Neutrophils % 4 Lymphocytes % (Manual) 6 L Monocytes % (Manual) Metamyelocytes % 11 H Myelocytes % 1 H Promyelocytes % 3 H Nucleated RBC % Nucleated RBCs/100 WBC 3 Diff Path Review May foll Toxic Granulation 1+ Platelet Estimate MOD DEC Plt Morphology Comment RBC Morphology N CYTIC Polychromasia Hypochromasia 1+ Anisocytosis Schistocytes Absolute Retic Specimen Type Sample Site pH Bicarbonate Actual POC Total CO2 Base Excess O2 Saturation O2 % ABG pCO2 ABG pO2 David Test O2 Delivery Device Vent Mode POC PEEP Pressure High Pressure Low Time High Time Low Blood Gas Notified Whom Blood Gas Notified Time Sodium 136 Potassium 5.7 H Chloride 96 L Carbon Dioxide 18.0 L Anion Gap 22 H BUN 84 H Creatinine 4.99 H Estim Creat Clear Calc 11.61 Est GFR (MDRD) Af Amer 15 L Est GFR (MDRD) Non-Af 12 L BUN/Creatinine Ratio 16.8 Glucose 174 H Calcium 7.2 L Phosphorus 12.1 H* Magnesium 2.9 H Total Bilirubin Direct Bilirubin AST ALT Alkaline Phosphatase Total Protein Albumin Globulin Hep Bs Antigen POC Glucose 238 H 01/13/19 01/13/19 01/13/19 05:10 05:20 11:24 WBC RBC Hgb Hct MCV MCH MCHC RDW RDW Differential Plt Count Neut % (Auto) Absolute Neuts (auto) Absolute Lymphs (auto) Total Counted Neutrophils % (Manual) Band Neutrophils % Lymphocytes % (Manual) Monocytes % (Manual) Metamyelocytes % Myelocytes % Promyelocytes % Nucleated RBC % Nucleated RBCs/100 WBC Diff Path Review Toxic Granulation Platelet Estimate Plt Morphology Comment RBC Morphology Polychromasia Hypochromasia Anisocytosis Schistocytes Absolute Retic Specimen Type ART Sample Site L Radial pH 6.92 L* Bicarbonate Actual 17.1 L POC Total CO2 20 Base Excess -15 L O2 Saturation 84 L O2 % 100 ABG pCO2 82.8 H* ABG pO2 81 David Test POS O2 Delivery Device Vent Vent Mode APRV POC PEEP Pressure High 28.0 Pressure Low 0.0 Time High 4.0 Time Low 0.0 Blood Gas Notified Whom ICU Blood Gas Notified Time 515 Sodium Potassium Chloride Carbon Dioxide Anion Gap BUN Creatinine Estim Creat Clear Calc Est GFR (MDRD) Af Amer Est GFR (MDRD) Non-Af BUN/Creatinine Ratio Glucose Calcium Phosphorus Magnesium Total Bilirubin Direct Bilirubin AST ALT Alkaline Phosphatase Total Protein Albumin Globulin Hep Bs Antigen POC Glucose 184 H 153 H 01/13/19 01/13/19 01/14/19 18:54 23:24 05:17 WBC RBC Hgb Hct MCV MCH MCHC RDW RDW Differential Plt Count Neut % (Auto) Absolute Neuts (auto) Absolute Lymphs (auto) Total Counted Neutrophils % (Manual) Band Neutrophils % Lymphocytes % (Manual) Monocytes % (Manual) Metamyelocytes % Myelocytes % Promyelocytes % Nucleated RBC % Nucleated RBCs/100 WBC Diff Path Review Toxic Granulation Platelet Estimate Plt Morphology Comment RBC Morphology Polychromasia Hypochromasia Anisocytosis Schistocytes Absolute Retic Specimen Type Sample Site pH Bicarbonate Actual POC Total CO2 Base Excess O2 Saturation O2 % ABG pCO2 ABG pO2 David Test O2 Delivery Device Vent Mode POC PEEP Pressure High Pressure Low Time High Time Low Blood Gas Notified Whom Blood Gas Notified Time Sodium Potassium Chloride Carbon Dioxide Anion Gap BUN Creatinine Estim Creat Clear Calc Est GFR (MDRD) Af Amer Est GFR (MDRD) Non-Af BUN/Creatinine Ratio Glucose Calcium Phosphorus Magnesium Total Bilirubin Direct Bilirubin AST ALT Alkaline Phosphatase Total Protein Albumin Globulin Hep Bs Antigen POC Glucose 75 75 < 10 L* 01/14/19 01/14/19 01/14/19 05:20 05:20 05:37 WBC 29.4 H RBC 2.30 L Hgb 6.4 L Hct 20.8 L MCV 90.4 MCH 27.8 MCHC 30.8 L RDW 18.5 H RDW Differential 61.0 H Plt Count 38 L* Neut % (Auto) Not Reportable Absolute Neuts (auto) 25.0 H Absolute Lymphs (auto) 2.35 Total Counted 100 Neutrophils % (Manual) 78 H Band Neutrophils % 7 H Lymphocytes % (Manual) 8 L Monocytes % (Manual) 2 Metamyelocytes % 4 H Myelocytes % 1 H Promyelocytes % Nucleated RBC % 3.2 Nucleated RBCs/100 WBC Diff Path Review May foll Toxic Granulation Platelet Estimate MKD DEC Plt Morphology Comment LARGE RBC Morphology Polychromasia 1+ Hypochromasia 2+ Anisocytosis 2+ Schistocytes RARE Absolute Retic 0.94 Specimen Type Sample Site pH Bicarbonate Actual POC Total CO2 Base Excess O2 Saturation O2 % ABG pCO2 ABG pO2 David Test O2 Delivery Device Vent Mode POC PEEP Pressure High Pressure Low Time High Time Low Blood Gas Notified Whom Blood Gas Notified Time Sodium 137 Potassium 6.8 H* Chloride 96 L Carbon Dioxide 16.0 L Anion Gap 25 H BUN 82 H Creatinine 5.18 H Estim Creat Clear Calc 11.19 Est GFR (MDRD) Af Amer 14 L Est GFR (MDRD) Non-Af 12 L BUN/Creatinine Ratio 15.8 Glucose 22 L* Calcium 6.8 L Phosphorus 15.3 H* Magnesium 3.3 H Total Bilirubin 3.70 H Direct Bilirubin 3.07 H AST 5720 H ALT 411 H Alkaline Phosphatase 340 H Total Protein 5.4 L Albumin 1.4 L Globulin 4.0 Hep Bs Antigen POC Glucose 36 L* 01/14/19 01/14/19 01/14/19 06:04 06:34 07:01 WBC RBC Hgb Hct MCV MCH MCHC RDW RDW Differential Plt Count Neut % (Auto) Absolute Neuts (auto) Absolute Lymphs (auto) Total Counted Neutrophils % (Manual) Band Neutrophils % Lymphocytes % (Manual) Monocytes % (Manual) Metamyelocytes % Myelocytes % Promyelocytes % Nucleated RBC % Nucleated RBCs/100 WBC Diff Path Review Toxic Granulation Platelet Estimate Plt Morphology Comment RBC Morphology Polychromasia Hypochromasia Anisocytosis Schistocytes Absolute Retic Specimen Type Sample Site pH Bicarbonate Actual POC Total CO2 Base Excess O2 Saturation O2 % ABG pCO2 ABG pO2 David Test O2 Delivery Device Vent Mode POC PEEP Pressure High Pressure Low Time High Time Low Blood Gas Notified Whom Blood Gas Notified Time Sodium Potassium Chloride Carbon Dioxide Anion Gap BUN Creatinine Estim Creat Clear Calc Est GFR (MDRD) Af Amer Est GFR (MDRD) Non-Af BUN/Creatinine Ratio Glucose Calcium Phosphorus Magnesium Total Bilirubin Direct Bilirubin AST ALT Alkaline Phosphatase Total Protein Albumin Globulin Hep Bs Antigen POC Glucose 33 L* 32 L* 43 L* Microbiology 01/11/19 06:15 Blood Culture (Wb) - Central Line Blood Culture - Preliminary No growth in 48 hours. 01/11/19 06:15 Blood Culture (Wb) - Right Forearm Blood Culture - Preliminary No growth in 48 hours. 01/12/19 04:45 Blood Culture (Wb) - Line Draw Blood Culture - Preliminary Clinical Impression(s) from Imaging Studies Chest X-Ray 01/08/19 17:20 IMPRESSION: Bibasilar infiltrates. Electronically Signed: Parker Sun, DO at 17:47 EST Tel [phone], Service support , Chest X-Ray 01/08/19 18:25 IMPRESSION: Patchy infiltrates bilaterally, left more than right. Increasing right upper lobe infiltrate. Electronically Signed: Lamin Keene, DO at 19:06 EST Tel [phone], Service support , Chest X-Ray 01/08/19 23:20 IMPRESSION: 1. Worsening bilateral airspace infiltrates. 2. Appropriate positioning of supportive tubing. Electronically Signed: Wan Arora MD at 3:37 EST Tel , Service support , Chest X-Ray 01/09/19 09:43 IMPRESSION: Stable ET tube and enteric tube. Placement of right IJ central venous catheter as above. No evidence of pneumothorax. Worsening patchy consolidation Electronically Signed: James Loftonkya, DO at 10:37 EST Tel , Service support , Chest X-Ray 01/10/19 01:03 IMPRESSION: 1. No significant change. Extensive bilateral pulmonary infiltrates. at 0453 Reported and signed by: Mello Calvillo MD Electronically Signed: Mello Calvillo, at 4:52 EST Tel , Service support , Chest X-Ray 01/11/19 09:33 IMPRESSION: There are no acute abnormalities after left internal jugular dialysis catheter placement. There is no pneumothorax. The tip is in the expected location of the proximal SVC. Mildly improved bilateral patchy airspace opacities. Decreased size of the left pleural effusion. Stable mild enlargement of the cardiac silhouette with vascular congestion. Vascularity is mildly improved. Electronically Signed: Heather Gordon MD at 10:32 EST , Service support , Chest X-Ray 01/13/19 05:40 IMPRESSION: The endotracheal tube is in the proximal trachea. NG tube is in the stomach. There is a RIGHT-sided central venous catheter. The tip is in the superior vena cava. The lungs are expanded. There are bilateral pulmonary infiltrates similar to prior study. There is no demonstrated pleural abnormality. The heart is borderline enlarged. Electronically Signed: Dragan Love MD at 6:43 EST , Service support , Medical Necessity - Tobacco Use Smoking Status: Former smoker Tobacco Use: Cigarettes Assessment/Plan All Active Problems (Last Updated 11/02/17 @ 08:07 by Mauro Ley [employer]PERVISOR-[employer]) LAURIE (acute kidney injury) (Acute) Acute combined respiratory failure (Acute) Respiratory acidosis (Acute) Acute renal failure (Acute) Septic shock (Acute) Community acquired pneumonia (Acute) RECOMMENDATIONS: 1. Hold tube feeds, given elevated lipase. 2. Continue D10 infusion until stabilization of blood glucose levels. 3. Discontinue all sedating medications. 4. Transition patient from APRV to assist control as ordered. 5. We will place arterial line, given inaccurate blood pressure readings by cuff. 6. Continue vasopressor support in an attempt to maintain a mean arterial pressure at or above 65 mmHg. 7. Continue antibiotics and Tamiflu as ordered. IMPRESSIONS: 1. Acute hypoxemic respiratory failure secondary to ARDS due to community-acquired pneumonia/influenza A infection The patient remains on treatment for ARDS secondary to influenza A with superimposed staphylococcal bacterial infection. Ventilator requirements remained exceedingly high. The patient will be transition from APRV to assist control this morning. We will plan to check repeat arterial blood gas. Continue to wean FiO2 and PEEP as tolerated. 2. Septic shock and multisystem organ failure secondary to community-acquired pneumonia The patient is essentially in refractory septic shock. He is currently requiring several vasopressors to maintain hemodynamic stability. Antibiotics will be continued accordingly. Overall clinical state and prognosis was discussed with the patient's family at length this morning. They are planning to gather is a family to discuss goals of care. 3. Acute kidney injury/anion gap metabolic acidosis/hyperkalemia/hyperphosphatemia Likely secondary to ischemic ATN in the setting of #2. Nephrology is currently following. Continue hemodialysis support as indicated. 4. Shock liver We will continue to provide supportive measures as noted above with vasopressor support as tolerated. We will continue to monitor liver function profile. 5. Encephalopathy Likely due to severe metabolic derangements. 6. Worsening anemia and thrombocytopenia Likely secondary to #2. Anticipate further worsening in the patient's clinical state. 7. Hypoglycemia Again, likely secondary to septic shock with multisystem organ dysfunction. In addition, the patient's fingerstick blood glucose readings are inaccurate. Continue dextrose containing infusion pending stability and blood glucose levels. 8. Diabetes mellitus/GERD/hypertension/hyperlipidemia/CODE STATUS Complicates care, management, recovery and prognosis. Hold all insulin-containing products for now. UPDATE: Following my discussion with the patient's family at the bedside this morning during rounds, and following a collective family discussion, the decision has been made to pursue comfort care measures and proceed with palliative extubation and withdrawal of life-sustaining support. The patient's CODE STATUS was updated accordingly to DNR comfort care. The patient will be premedicated with as needed fentanyl and Ativan for pain and anxiety. Family is in agreement with this plan. All questions were answered accordingly. At approximately 1307 on January 14, 2019, the patient peacefully with his family at the bedside. TIME: 50 minutes of critical care time, independent of procedures, was spent addressing the patient's acute respiratory failure, ARDS secondary to community-acquired pneumonia, refractory septic shock, multisystem organ dysfunction, acute kidney injury, shock liver, encephalopathy, anemia, thrombocytopenia, hypoglycemia, review of all data and collaboration with the care team. ([id number], [id number]) Code Visit [id number]: [id number] Critical care first hour
--- NOTE | 2019-01-14 07:18 | PN_ITS ---
Subjective: The patient was seen and examined at the bedside this morning. Events from the last 24 hours have been reviewed. The patient currently remains on levophed at 5 mcg and vasopressin to maintain hemodynamic stability. The patient did not tolerate hemodialysis yesterday due to the development of SVT. Overnight, the patient's blood sugars were noted to be extremely low. Glucose was noted to be 22 on this morning's chemistry profile. The patient continues to have a significant leukocytosis along with worsening anemia and thrombocytopenia. The re are also a number of significant metabolic derangements including a potassium of 6.8, BUN of 82, and phosphorus of 15. The patient is currently overall net +13.7 L for the admission. The patient also has significantly elevated transaminase levels this morning, along with an elevated lipase level. I explained the clinical scenario to the patient's family at the bedside for rounds. They are going to have a family meeting this morning to discuss goals of care. Bedside Arterial Line Placement: A time-out was completed verifying correct patient, procedure, site, p ositioning, and special equipment if applicable. David?s test was performed to ensure adequate perfusion. The patient?s left wrist was prepped and draped in sterile fashion. A 18G Arrow arterial line was introduced into the radial artery. The catheter was threaded over the guide wire and the needle was removed with appropriate pulsatile blood return. The catheter was then sutured in place to the skin and a sterile dressing applied. Perfusion to the extremity distal to the point of catheter insertion was checked and found to be adequate. ULTRASOUND GUIDANCE STATEMENT (Vascular Access): I performed ultrasound image acquisition and interpretation for needle placement during this procedure. The vessel was identified and was found to be free of thrombosis by compression technique. A safe point of entry was marked at the skin and an angle for access was determined. The needle was guided by obtaining free flowing fluid and by real time visualization. Objective: The patient's most recent lab work, culture data and imaging studies have all been personally reviewed. Respiratory viral panel was positive for influenza A. Sputum culture was positive for staph aureus. Surface echocardiogram dated January 12 revealed normal LV size and function with an ejection fraction of 60%. Right ventricular systolic pressure was estimated to be 55 mmHg. General: - - Extremely ill in appearance. Currently nonresponsive to verbal and tactile stimulation. Remains intubated and mechanically ventilated. HEENT: Atraumatic, PERRLA, Normocephalic Oral: Dry Mucosa, - - Endotracheal and OG tubes are currently in place. Poor generalized dentition. Neck: Supple, No Nodes, Trachea Midline, - - Temporary hemodialysis catheter and triple-lumen central venous catheter in place. Lungs: No rhonchi, No wheeze, No rales, Diminished Cardiovascular: Normal S1, Normal S2, No murmurs, Tachycardic Abdomen: Soft, Hypoactive Bowel Sounds, Distended Extremities: Cool, Cyanosis, Diminished Peripheral Pulses, Edema Skin: - - Mottling of extremities present Musculoskeletal: No Tenderness to Palpation of Joints or Extremities Lymphatic: No Cervical, Supraclavicular, or Inguinal Adenopathy Neurological: - - The patient is currently nonresponsive to both verbal and noxious stimulation. No spontaneous movements noted. Vital Signs Temp Pulse Resp BP Pulse Ox 36.2 C L 67 23 H 102/56 L 99 01/14/19 07:00 01/14/19 07:00 01/14/19 07:00 01/14/19 07:00 01/14/19 04:00 Oxygen Flow Rate (L/min) 6 Oxygen Delivery Method Mechanical Ventilator Weight: 203 lb 14.841 oz Body Mass Index (BMI) 28.5 Intake and Output for Last 24 Hours 01/12/19 01/13/19 01/14/19 23:59 23:59 23:59 Intake Total 2770.7 / 2770.7 2496.0 / 2496.0 530 / 530 Output Total 2545 / 2545 1018 / 1018 0 / 0 Balance 225.7 / 225.7 1478.0 / 1478.0 530 / 530 Labs (Last 48 Hours) 01/11/19 01/12/19 01/12/19 13:52 04:45 08:49 WBC RBC Hgb Hct MCV MCH MCHC RDW RDW Differential Plt Count Neut % (Auto) Absolute Neuts (auto) 19.5 H Absolute Lymphs (auto) 1.80 Total Counted 100 Neutrophils % (Manual) 81 H Band Neutrophils % 7 H Lymphocytes % (Manual) 8 L Monocytes % (Manual) 1 Metamyelocytes % 3 H Myelocytes % Promyelocytes % Nucleated RBC % Nucleated RBCs/100 WBC 3 Diff Path Review May foll Toxic Granulation Platelet Estimate SLT DEC Plt Morphology Comment LARGE RBC Morphology 2+ Polychromasia Hypochromasia Anisocytosis Schistocytes Absolute Retic Specimen Type ART Sample Site R Radial pH 6.90 L* Bicarbonate Actual 17.9 L POC Total CO2 21 Base Excess -15 L O2 Saturation 76 L O2 % 100 ABG pCO2 92.0 H* ABG pO2 69 L David Test NA O2 Delivery Device Vent Vent Mode APRV POC PEEP 5 Pressure High 28.0 Pressure Low 0.0 Time High 4.0 Time Low 0.0 Blood Gas Notified Whom ICU MD Blood Gas Notified Time 850 Sodium Potassium Chloride Carbon Dioxide Anion Gap BUN Creatinine Estim Creat Clear Calc Est GFR (MDRD) Af Amer Est GFR (MDRD) Non-Af BUN/Creatinine Ratio Glucose Calcium Phosphorus Magnesium Total Bilirubin Direct Bilirubin AST ALT Alkaline Phosphatase Total Protein Albumin Globulin Hep Bs Antigen Negative POC Glucose 01/12/19 01/12/19 01/12/19 11:09 11:53 17:24 WBC RBC Hgb Hct MCV MCH MCHC RDW RDW Differential Plt Count Neut % (Auto) Absolute Neuts (auto) Absolute Lymphs (auto) Total Counted Neutrophils % (Manual) Band Neutrophils % Lymphocytes % (Manual) Monocytes % (Manual) Metamyelocytes % Myelocytes % Promyelocytes % Nucleated RBC % Nucleated RBCs/100 WBC Diff Path Review Toxic Granulation Platelet Estimate Plt Morphology Comment RBC Morphology Polychromasia Hypochromasia Anisocytosis Schistocytes Absolute Retic Specimen Type ART Sample Site L Radial pH 7.26 L Bicarbonate Actual 20.9 L POC Total CO2 22 Base Excess -6 L O2 Saturation 81 L O2 % 100 ABG pCO2 47.1 H ABG pO2 52 L David Test POS O2 Delivery Device Vent Vent Mode APRV POC PEEP 5 Pressure High 28.0 Pressure Low 0.0 Time High 4.0 Time Low 0.0 Blood Gas Notified Whom ICU MD Blood Gas Notified Time 1108 Sodium Potassium Chloride Carbon Dioxide Anion Gap BUN Creatinine Estim Creat Clear Calc Est GFR (MDRD) Af Amer Est GFR (MDRD) Non-Af BUN/Creatinine Ratio Glucose Calcium Phosphorus Magnesium Total Bilirubin Direct Bilirubin AST ALT Alkaline Phosphatase Total Protein Albumin Globulin Hep Bs Antigen POC Glucose 236 H 197 H 01/12/19 01/13/19 01/13/19 22:59 04:45 04:45 WBC 35.4 H* RBC 2.71 L Hgb 7.6 L Hct 24.2 L MCV 89.3 MCH 28.0 MCHC 31.4 L RDW 17.8 H RDW Differential 58.5 H Plt Count 71 L Neut % (Auto) Not Reportable Absolute Neuts (auto) 27.9 H Absolute Lymphs (auto) 2.10 Total Counted 100 Neutrophils % (Manual) 75 H Band Neutrophils % 4 Lymphocytes % (Manual) 6 L Monocytes % (Manual) Metamyelocytes % 11 H Myelocytes % 1 H Promyelocytes % 3 H Nucleated RBC % Nucleated RBCs/100 WBC 3 Diff Path Review May foll Toxic Granulation 1+ Platelet Estimate MOD DEC Plt Morphology Comment RBC Morphology N CYTIC Polychromasia Hypochromasia 1+ Anisocytosis Schistocytes Absolute Retic Specimen Type Sample Site pH Bicarbonate Actual POC Total CO2 Base Excess O2 Saturation O2 % ABG pCO2 ABG pO2 David Test O2 Delivery Device Vent Mode POC PEEP Pressure High Pressure Low Time High Time Low Blood Gas Notified Whom Blood Gas Notified Time Sodium 136 Potassium 5.7 H Chloride 96 L Carbon Dioxide 18.0 L Anion Gap 22 H BUN 84 H Creatinine 4.99 H Estim Creat Clear Calc 11.61 Est GFR (MDRD) Af Amer 15 L Est GFR (MDRD) Non-Af 12 L BUN/Creatinine Ratio 16.8 Glucose 174 H Calcium 7.2 L Phosphorus 12.1 H* Magnesium 2.9 H Total Bilirubin Direct Bilirubin AST ALT Alkaline Phosphatase Total Protein Albumin Globulin Hep Bs Antigen POC Glucose 238 H 01/13/19 01/13/19 01/13/19 05:10 05:20 11:24 WBC RBC Hgb Hct MCV MCH MCHC RDW RDW Differential Plt Count Neut % (Auto) Absolute Neuts (auto) Absolute Lymphs (auto) Total Counted Neutrophils % (Manual) Band Neutrophils % Lymphocytes % (Manual) Monocytes % (Manual) Metamyelocytes % Myelocytes % Promyelocytes % Nucleated RBC % Nucleated RBCs/100 WBC Diff Path Review Toxic Granulation Platelet Estimate Plt Morphology Comment RBC Morphology Polychromasia Hypochromasia Anisocytosis Schistocytes Absolute Retic Specimen Type ART Sample Site L Radial pH 6.92 L* Bicarbonate Actual 17.1 L POC Total CO2 20 Base Excess -15 L O2 Saturation 84 L O2 % 100 ABG pCO2 82.8 H* ABG pO2 81 David Test POS O2 Delivery Device Vent Vent Mode APRV POC PEEP Pressure High 28.0 Pressure Low 0.0 Time High 4.0 Time Low 0.0 Blood Gas Notified Whom ICU MD Blood Gas Notified Time 515 Sodium Potassium Chloride Carbon Dioxide Anion Gap BUN Creatinine Estim Creat Clear Calc Est GFR (MDRD) Af Amer Est GFR (MDRD) Non-Af BUN/Creatinine Ratio Glucose Calcium Phosphorus Magnesium Total Bilirubin Direct Bilirubin AST ALT Alkaline Phosphatase Total Protein Albumin Globulin Hep Bs Antigen POC Glucose 184 H 153 H 01/13/19 01/13/19 01/14/19 18:54 23:24 05:17 WBC RBC Hgb Hct MCV MCH MCHC RDW RDW Differential Plt Count Neut % (Auto) Absolute Neuts (auto) Absolute Lymphs (auto) Total Counted Neutrophils % (Manual) Band Neutrophils % Lymphocytes % (Manual) Monocytes % (Manual) Metamyelocytes % Myelocytes % Promyelocytes % Nucleated RBC % Nucleated RBCs/100 WBC Diff Path Review Toxic Granulation Platelet Estimate Plt Morphology Comment RBC Morphology Polychromasia Hypochromasia Anisocytosis Schistocytes Absolute Retic Specimen Type Sample Site pH Bicarbonate Actual POC Total CO2 Base Excess O2 Saturation O2 % ABG pCO2 ABG pO2 David Test O2 Delivery Device Vent Mode POC PEEP Pressure High Pressure Low Time High Time Low Blood Gas Notified Whom Blood Gas Notified Time Sodium Potassium Chloride Carbon Dioxide Anion Gap BUN Creatinine Estim Creat Clear Calc Est GFR (MDRD) Af Amer Est GFR (MDRD) Non-Af BUN/Creatinine Ratio Glucose Calcium Phosphorus Magnesium Total Bilirubin Direct Bilirubin AST ALT Alkaline Phosphatase Total Protein Albumin Globulin Hep Bs Antigen POC Glucose 75 75 < 10 L* 01/14/19 01/14/19 01/14/19 05:20 05:20 05:37 WBC 29.4 H RBC 2.30 L Hgb 6.4 L Hct 20.8 L MCV 90.4 MCH 27.8 MCHC 30.8 L RDW 18.5 H RDW Differential 61.0 H Plt Count 38 L* Neut % (Auto) Not Reportable Absolute Neuts (auto) 25.0 H Absolute Lymphs (auto) 2.35 Total Counted 100 Neutrophils % (Manual) 78 H Band Neutrophils % 7 H Lymphocytes % (Manual) 8 L Monocytes % (Manual) 2 Metamyelocytes % 4 H Myelocytes % 1 H Promyelocytes % Nucleated RBC % 3.2 Nucleated RBCs/100 WBC Diff Path Review May foll Toxic Granulation Platelet Estimate MKD DEC Plt Morphology Comment LARGE RBC Morphology Polychromasia 1+ Hypochromasia 2+ Anisocytosis 2+ Schistocytes RARE Absolute Retic 0.94 Specimen Type Sample Site pH Bicarbonate Actual POC Total CO2 Base Excess O2 Saturation O2 % ABG pCO2 ABG pO2 David Test O2 Delivery Device Vent Mode POC PEEP Pressure High Pressure Low Time High Time Low Blood Gas Notified Whom Blood Gas Notified Time Sodium 137 Potassium 6.8 H* Chloride 96 L Carbon Dioxide 16.0 L Anion Gap 25 H BUN 82 H Creatinine 5.18 H Estim Creat Clear Calc 11.19 Est GFR (MDRD) Af Amer 14 L Est GFR (MDRD) Non-Af 12 L BUN/Creatinine Ratio 15.8 Glucose 22 L* Calcium 6.8 L Phosphorus 15.3 H* Magnesium 3.3 H Total Bilirubin 3.70 H Direct Bilirubin 3.07 H AST 5720 H ALT 411 H Alkaline Phosphatase 340 H Total Protein 5.4 L Albumin 1.4 L Globulin 4.0 Hep Bs Antigen POC Glucose 36 L* 01/14/19 01/14/19 01/14/19 06:04 06:34 07:01 WBC RBC Hgb Hct MCV MCH MCHC RDW RDW Differential Plt Count Neut % (Auto) Absolute Neuts (auto) Absolute Lymphs (auto) Total Counted Neutrophils % (Manual) Band Neutrophils % Lymphocytes % (Manual) Monocytes % (Manual) Metamyelocytes % Myelocytes % Promyelocytes % Nucleated RBC % Nucleated RBCs/100 WBC Diff Path Review Toxic Granulation Platelet Estimate Plt Morphology Comment RBC Morphology Polychromasia Hypochromasia Anisocytosis Schistocytes Absolute Retic Specimen Type Sample Site pH Bicarbonate Actual POC Total CO2 Base Excess O2 Saturation O2 % ABG pCO2 ABG pO2 David Test O2 Delivery Device Vent Mode POC PEEP Pressure High Pressure Low Time High Time Low Blood Gas Notified Whom Blood Gas Notified Time Sodium Potassium Chloride Carbon Dioxide Anion Gap BUN Creatinine Estim Creat Clear Calc Est GFR (MDRD) Af Amer Est GFR (MDRD) Non-Af BUN/Creatinine Ratio Glucose Calcium Phosphorus Magnesium Total Bilirubin Direct Bilirubin AST ALT Alkaline Phosphatase Total Protein Albumin Globulin Hep Bs Antigen POC Glucose 33 L* 32 L* 43 L* Microbiology 01/11/19 06:15 Blood Culture (Wb) - Central Line Blood Culture - Preliminary No growth in 48 hours. 01/11/19 06:15 Blood Culture (Wb) - Right Forearm Blood Culture - Prel iminary No growth in 48 hours. 01/12/19 04:45 Blood Culture (Wb) - Line Draw Blood Culture - Preliminary Clinical Impression(s) from Imaging Studies Chest X-Ray 01/08/19 17:20 IMPRESSION: Bibasilar infiltrates. Electronically Signed: Parker Sun, DO at 17:47 EST Tel [phone], Service support , Chest X-Ray 01/08/19 18:25 IMPRESSION: Patchy infiltrates bilaterally, left more than right. Increasing right upper lobe infiltrate. Electronically Signed: Lamin Keene, DO at 19:06 EST Tel [phone], Service support , Chest X-Ray 01/08/19 23:20 IMPRESSION: 1. Worsening bilateral airspace infiltrates. 2. Appropriate positioning of supportive tubing. Electronically Signed: Wan Arora MD at 3:37 EST Tel , Service support , Chest X-Ray 01/09/19 09:43 IMPRESSION: Stable ET tube and enteric tube. Placement of right IJ central venous catheter as above. No evidence of pneumothorax. Worsening patchy consolidation Electronically Signed: Jamesshankar Alvarez, DO at 10:37 EST Tel , Service support , Chest X-Ray 01/10/19 01:03 IMPRESSION: 1. No significant change. Extensive bilateral pulmonary infiltrates. at 0453 Reported and signed by: Mello Calvillo MD Electronically Signed: Mello Calvillo, at 4:52 EST Tel , Service support , Chest X-Ray 01/11/19 09:33 IMPRESSION: There are no acute abnormalities after left internal jugular dialysis catheter placement. There is no pneumothorax. The tip is in the expected location of the proximal SVC. Mildly improved bilateral patchy airspace opacities. Decreased size of the left pleural effusion. Stable mild enlargement of the cardiac silhouette with vascular congestion. Vascularity is mildly improved. Electronically Signed: Heather Gordon MD at 10:32 EST , Service support , Chest X-Ray 01/13/19 05:40 IMPRESSION: The endotracheal tube is in the proximal trachea. NG tube is in the stomach. There is a RIGHT-sided central venous catheter. The tip is in the superior vena cava. The lungs are expanded. There are bilateral pulmonary infiltrates similar to prior study. There is no demonstrated pleural abnormality. The heart is borderline enlarged. Electronically Signed: Dragan Love MD at 6:43 EST , Service support , Medical Necessity - Tobacco Use Smoking Status: Former smoker Tobacco Use: Cigarettes Assessment/Plan All Active Problems (Last Updated 11/02/17 @ 08:07 by Mauro Ley NP-C) LAURIE (acute kidney injury) (Acute) Acute combined respiratory failure (Acute) Respiratory acidosis (Acute) Acute renal failure (Acute) Septic shock (Acute) Community acquired pneumonia (Acute) RECOMMENDATIONS: 1. Hold tube feeds, given elevated lipase. 2. Continue D10 infusion until stabilization of blood glucose levels. 3. Discontinue all sedating medications. 4. Transition patient from APRV to assist control as ordered. 5. We will place arterial line, given inaccurate blood pressure readings by cuff. 6. Continue vasopressor support in an attempt to maintain a mean arterial pressure at or above 65 mmHg. 7. Continue antibiotics and Tamiflu as ordered. IMPRESSIONS: 1. Acute hypoxemic respiratory failure secondary to ARDS due to community- acquired pneumonia/influenza A infection The patient remains on treatment for ARDS secondary to influenza A with superimposed staphylococcal bacterial infection. Ventilator requirements remained exceedingly high. The patient will be transition from APRV to assist control this morning. We will plan to check repeat arterial blood gas. Continue to wean FiO2 and PEEP as tolerated. 2. Septic shock and multisystem organ failure secondary to community-acquired pneumonia The patient is essentially in refractory septic shock. He is currently requiring several vasopressors to maintain hemodynamic stability. Antibiotics will be continued accordingly. Overall clinical state and prognosis was discussed with the patient's family at length this morning. They are planning to gather is a family to discuss goals of care. 3. Acute kidney injury/anion gap metabolic acidosis/hyperkalemia/hyperphosphatemia Likely secondary to ischemic ATN in the setting of #2. Nephrology is currently following. Continue hemodialysis support as indicated. 4. Shock liver We will continue to provide supportive measures as noted above with vasopressor support as tolerated. We will continue to monitor liver function profile. 5. Encephalopathy Likely due to severe metabolic derangements. 6. Worsening anemia and thrombocytopenia Likely secondary to #2. Anticipate further worsening in the patient's clinical state. 7. Hypoglycemia Again, likely secondary to septic shock with multisystem organ dysfunction. In addition, the patient's fingerstick blood glucose readings are inaccurate. Continue dextrose containing infusion pending stability and blood glucose levels. 8. Diabetes mellitus/GERD/hypertension/hyperlipidemia/CODE STATUS Complicates care, management, recovery and prognosis. Hold all insulin- containing products for now. UPDATE: Following my discussion with the patient's family at the bedside this morning during rounds, and following a collective family discussion, the decision has been made to pursue comfort care measures and proceed with palliative extubation and withdrawal of life-sustaining support. The patient's CODE STATUS was updated accordingly to DNR comfort care. The patient will be premedicated with as needed fentanyl and Ativan for pain and anxiety. Family is in agreement with this plan. All questions were answered accordingly. At approximately 1307 on January 14, 2019, the patient peacefully with his family at the bedside. TIME: 50 minutes of critical care time, independent of procedures, was spent addressing the patient's acute respiratory failure, ARDS secondary to community- acquired pneumonia, refractory septic shock, multisystem organ dysfunction, a cute kidney injury, shock liver, encephalopathy, anemia, thrombocytopenia, hypoglycemia, review of all data and collaboration with the care team. (0900- 0930, [id number]) Code Visit [id number]: [id number] Critical care first hour
[2019-01-14 07:40] LABS: Bedside Glucose 58 mg/dL (70-110)
--- NOTE | 2019-01-14 07:47 | PN_ITS ---
Patient Problems: Active and Suspected Problems (Last Updated 11/02/17 @ 08:07 by Mauro Ley STOCKROOM ASSOCIATE- C) LAURIE (acute kidney injury) (Acute) Subjective: Patient is a 78-year-old gentleman with multiple comorbidities admitted with progressive shortness of breath. Chest x-ray demonstrated bilateral infiltrates and assessment of community-acquired pneumonia was made. Patient condition deteriorated was in the ICU initially managed on BiPAP and then intubated. Hospitalization complicated by septic shock as well as acute kidney injury Objective: GENERAL: On the vent HEENT: Atraumatic; moist oral mucosa EYES; Anicteric, Normal Conjunctiva NECK; supple, normal thyroid, . RESPIRATORY: Diminished to auscultation bilaterally, CARDIOVASCULAR: Regular S1 S2, GI: soft, non-tender, normoactive bowel sounds, : No Renal angle tenderness; EXTREMITIES: 2+ edema, no clubbing, NEURO: On the vent SKIN: Mottling of both upper and lower extremities PSYCH; able to assess on the vent Vitals/I&O's: Vital Signs Temp Pulse Resp BP Pulse Ox 97.2 F L 67 23 H 102/56 L 79 01/14/19 07:00 01/14/19 07:00 01/14/19 07:00 01/14/19 07:00 01/14/19 06:45 Oxygen Flow Rate (L/min) 6 Oxygen Delivery Method Mechanical Ventilator Weight: 92.5 kg Body Mass Index (BMI) 28.5 Intake and Output for Last 24 Hours 01/12/19 01/13/19 01/14/19 23:59 23:59 23:59 Intake Total 2770.7 / 2770.7 2496.0 / 2496.0 530 / 530 Output Total 2545 / 2545 1018 / 1018 0 / 0 Balance 225.7 / 225.7 1478.0 / 1478.0 530 / 530 Microbiology Past 72 Hours 01/11/19 06:15 Blood Culture (Wb) - Central Line Blood Culture - Preliminary No growth in 48 hours. 01/11/19 06:15 Blood Culture (Wb) - Right Forearm Blood Culture - Preliminary No growth in 48 hours. 01/12/19 04:45 Blood Culture (Wb) - Line Draw Blood Culture - Preliminary 01/09/19 00:15 Sputum, Induced/Lukens Gram Stain - Final 01/09/19 00:15 Sputum, Induced/Lukens Respiratory Culture - Final Staphylococcus aureus Streptococcus group C 01/08/19 17:20 Blood Culture (Wb) #2 - Anticubital Right Bacteria Detection (PCR) - Final Staphylococcus aureus 01/08/19 17:20 Blood Culture (Wb) #2 - Anticubital Right Blood Culture - Final Staphylococcus aureus Laboratory Results 01/13/19 11:24: POC Glucose 153 H 01/13/19 18:54: POC Glucose 75 01/13/19 23:24: POC Glucose 75 01/14/19 05:17: POC Glucose < 10 L* 01/14/19 05:20: WBC 29.4 H, RBC 2.30 L, Hgb 6.4 L, Hct 20.8 L, MCV 90.4, MCH 27.8, MCHC 30.8 L, RDW 18.5 H, RDW Differential 61.0 H, Plt Count 38 L*, Neut % (Auto) Not Reportable, Absolute Neuts (auto) 25.0 H, Absolute Lymphs (auto) 2.35, Total Counted 100, Neutrophils % (Manual) 78 H, Band Neutrophils % 7 H, Lymphocytes % (Manual) 8 L, Monocytes % (Manual) 2, Metamyelocytes % 4 H, Myelocytes % 1 H, Nucleated RBC % 3.2, Diff Path Review May , Platelet Estimate MKD DEC, Plt Morphology Comment LARGE, Polychromasia 1+, Hypochromasia 2+, Anisocytosis 2+, Schistocytes RARE, Absolute Retic 0.94 01/14/19 05:20: Sodium 137, Potassium 6.8 H*, Chloride 96 L, Carbon Dioxide 16.0 L, Anion Gap 25 H, BUN 82 H, Creatinine 5.18 H, Estim Creat Clear Calc 11.19, Est GFR (MDRD) Af Amer 14 L, Est GFR (MDRD) Non-Af 12 L, BUN/Creatinine Ratio 15.8, Glucose 22 L*, Calcium 6.8 L, Phosphorus 15.3 H*, Magnesium 3.3 H, Total Bilirubin 3.70 H, Direct Bilirubin 3.07 H, AST 5720 H, ALT 411 H, Alkaline Phosphatase 340 H, Total Protein 5.4 L, Albumin 1.4 L, Globulin 4.0 01/14/19 05:20: Lipase Pending 01/14/19 05:37: POC Glucose 36 L* 01/14/19 06:04: POC Glucose 33 L* 01/14/19 06:34: POC Glucose 32 L* 01/14/19 07:01: POC Glucose 43 L* 01/14/19 07:35: POC Glucose 58 L Current Medications Chlorhexidine Gluconate () 15 ml PO BID [facility] Last Admin: 01/13/19 21:51 Dose: 15 ml Chlorhexidine Gluconate () 1 each TOPICAL DAILY [facility] Last Admin: 01/14/19 05:31 Dose: 1 each Dextrose (D50w Syringe) 0 gm IV X1 PRN; Protocol PRN Reason: Hypoglycemia Last Admin: 01/14/19 06:05 Dose: 25 gm Glucagon () 1 mg IM .X1 PRN PRN Reason: Hypoglycemia Sodium Chloride () 250 mls @ 15 mls/hr IV .[id number] PRN PRN Reason: SALINE FLUSH Last Admin: 01/11/19 22:04 Dose: 15 mls/hr Fentanyl () 100 mls @ 2.5 mls/hr IV .Q40H [facility] Last Admin: 01/14/19 05:46 Dose: 2.5 mls/hr Vasopressin 40 units/ Sodium (Chloride) 52 mls @ 3.12 mls/hr IV .[id number] [facility] Last Admin: 01/13/19 18:58 Dose: Not Given Norepinephrine Bitartrate 8 mg (/ Dextrose) 258 mls @ 19.35 mls/hr IV .[id number] [facility]; Protocol Last Admin: 01/14/19 04:30 Dose: 19.35 mls/hr Piperacillin Sod/Tazobactam (Sod 3.375 gm/ Sodium Chloride) 50 mls @ 12.5 mls/hr IV Q12 [facility] Last Admin: 01/13/19 21:50 Dose: 12.5 mls/hr Enteral Nutritional Formula (Vital Af 1.2 Malcom Liquid) 1,000 mls @ 20 mls/hr GT .Q48H [facility] Last Admin: 01/13/19 19:59 Dose: 20 mls/hr Dextrose (Dextrose 10%-Water) 250 mls @ 50 mls/hr IV .Q5H [facility] Last Admin: 01/14/19 06:42 Dose: 50 mls/hr Pantoprazole Sodium 40 mg/ (Sodium Chloride) 110 mls @ 330 mls/hr IV Q12 [facility] Insulin Human Lispro (Humalog Kwikpen (Bkc)) 0 unit SC Q6 [facility]; Protocol Last Admin: 01/14/19 05:30 Dose: Not Given Magnesium Hydroxide (Milk Of Magnesia) 30 ml PO DAILY PRN PRN PRN Reason: Constipation Methylprednisolone (Solu-Medrol) 40 mg IV Q6 [facility] Last Admin: 01/14/19 05:31 Dose: 40 mg Oseltamivir Phosphate (Tamiflu) 30 mg NG DAILY [facility] Stop: 01/16/19 10:01 Last Admin: 01/13/19 19:58 Dose: 30 mg Polyethylene Glycol (Miralax) 17 gm GT PRN PRN PRN Reason: Constipation Senna/Docusate Sodium (Senokot-S, Meaghan-Colace) 2 tablet PO DAILY [facility] Last Admin: 01/13/19 10:09 Dose: Not Given Sodium Chloride () 10 - 40 ml IV UD PRN PRN Reason: SALINE FLUSH Last Admin: 01/14/19 05:31 Dose: 20 ml Medical Necessity - Tobacco Use Smoking Status: Former smoker Tobacco Use: Cigarettes Assessment/Plan All Active Problems (Last Updated 11/02/17 @ 08:07 by Mauro Ley, STOCKROOM ASSOCIATE-C) LAURIE (acute kidney injury) (Acute) Acute combined respiratory failure (Acute) Respiratory acidosis (Acute) Acute renal failure (Acute) Septic shock (Acute) Community acquired pneumonia (Acute) Patient is a 78-year-old gentleman with multiple comorbidities admitted with progressive shortness of breath. Chest x-ray demonstrated bilateral infiltrates and assessment of community-acquired pneumonia was made. Patient condition deteriorated was in the ICU initially managed on BiPAP and then intubated. Hospitalization complicated by septic shock as well as acute kidney injury 1. Septic shock secondary to community-acquired pneumonia. Patient respiratory panel was positive for influenza A. Blood cultures revealed methicillin sensitive staph aureus. Patient currently remains on piperacillin-tazobactam also is on vasopressin 2. Acute hypoxic and hypercapnic respiratory failure with respiratory acidosis patient is on the vent vent management deferred to pension agent 3. Cardiopulmonary arrest (PEA) on 01/12/2019 successfully resuscitated with CPR and ACLS protocol 4. Acute kidney injury secondary to ATN from septic shock and hypoperfusion. Nephrology consulted hemodialysis recommended patient scheduled to undergo dialysis on 01/14/2019 5. New onset A. fib with RVR 6. MSSA bacteremia 7. Anemia secondary to anemia of chronic disorder patient has had a significant drop following admission 8. Thrombocytopenia attributed to patient's severe sepsis 9. Diabetes mellitus type II 10. Essential hypertension antihypertensives on hold with patient being hypotensive from his septic shock 11. Dyslipidemia 12. GERD 13. DVT prophylaxis patient was on SC heparin discontinued in view of significant thrombocytopenia Active Medications Chlorhexidine Gluconate () 15 ml PO BID [facility] Last Admin: 01/13/19 21:51 Dose: 15 ml Chlorhexidine Gluconate () 1 each TOPICAL DAILY [facility] Last Admin: 01/14/19 05:31 Dose: 1 each Dextrose (D50w Syringe) 0 gm IV X1 PRN; Protocol PRN Reason: Hypoglycemia Last Admin: 01/14/19 06:05 Dose: 25 gm Glucagon () 1 mg IM .X1 PRN PRN Reason: Hypoglycemia Sodium Chloride () 250 mls @ 15 mls/hr IV .[id number] PRN PRN Reason: SALINE FLUSH Last Admin: 01/11/19 22:04 Dose: 15 mls/hr Fentanyl () 100 mls @ 2.5 mls/hr IV .Q40H [facility] Last Admin: 01/14/19 05:46 Dose: 2.5 mls/hr Vasopressin 40 units/ Sodium (Chloride) 52 mls @ 3.12 mls/hr IV .[id number] [facility] Last Admin: 01/13/19 18:58 Dose: Not Given Norepinephrine Bitartrate 8 mg (/ Dextrose) 258 mls @ 19.35 mls/hr IV .[id number] [facility]; Protocol Last Admin: 01/14/19 04:30 Dose: 19.35 mls/hr Piperacillin Sod/Tazobactam (Sod 3.375 gm/ Sodium Chloride) 50 mls @ 12.5 mls /hr IV Q12 [facility] Last Admin: 01/13/19 21:50 Dose: 12.5 mls/hr Enteral Nutritional Formula (Vital Af 1.2 Malcom Liquid) 1,000 mls @ 20 mls/hr GT .Q48H [facility] Last Admin: 01/13/19 19:59 Dose: 20 mls/hr Dextrose (Dextrose 10%-Water) 250 mls @ 50 mls/hr IV .Q5H [facility] Last Admin: 01/14/19 06:42 Dose: 50 mls/hr Pantoprazole Sodium 40 mg/ (Sodium Chloride) 110 mls @ 330 mls/hr IV Q12 [facility] Insulin Human Lispro (Humalog Kwikpen (Bkc)) 0 unit SC Q6 [facility]; Protocol Last Admin: 01/14/19 05:30 Dose: Not Given Magnesium Hydroxide (Milk Of Magnesia) 30 ml PO DAILY PRN PRN PRN Reason: Constipation Methylprednisolone (Solu-Medrol) 40 mg IV Q6 [facility] Last Admin: 01/14/19 05:31 Dose: 40 mg Oseltamivir Phosphate (Tamiflu) 30 mg NG DAILY [facility] Stop: 01/16/19 10:01 Last Admin: 01/13/19 19:58 Dose: 30 mg Polyethylene Glycol (Miralax) 17 gm GT PRN PRN PRN Reason: Constipation Senna/Docusate Sodium (Senokot-S, Meaghan-Colace) 2 tablet PO DAILY [facility] Last Admin: 01/13/19 10:09 Dose: Not Given Sodium Chloride () 10 - 40 ml IV UD PRN PRN Reason: SALINE FLUSH Last Admin: 01/14/19 05:31 Dose: 20 ml Clinical Impression(s) from Imaging Studies Chest X-Ray 01/08/19 17:20 IMPRESSION: Bibasilar infiltrates. Electronically Signed: Parker Sun DO at 17:47 EST Tel [phone], Service support , Chest X-Ray 01/08/19 18:25 IMPRESSION: Patchy infiltrates bilaterally, left more than right. Increasing right upper lobe infiltrate. Electronically Signed: Lamin Keene DO at 19:06 EST Tel [phone], Service support , Chest X-Ray 01/08/19 23:20 IMPRESSION: 1. Worsening bilateral airspace infiltrates. 2. Appropriate positioning of supportive tubing. Electronically Signed: Wan Arora MD at 3:37 EST Tel , Service support , Chest X-Ray 01/09/19 09:43 IMPRESSION: Stable ET tube and enteric tube. Placement of right IJ central venous catheter as above. No evidence of pneumothorax. Worsening patchy consolidation Electronically Signed: James Alvarez DO at 10:37 EST Tel , Service support , Chest X-Ray 01/10/19 01:03 IMPRESSION: 1. No significant change. Extensive bilateral pulmonary infiltrates. at 0453 Reported and signed by: Mello Calvillo MD Electronically Signed: Mello Calvillo, at 4:52 EST Tel , Service support , Chest X-Ray 01/11/19 09:33 IMPRESSION: There are no acute abnormalities after left internal jugular dialysis catheter placement. There is no pneumothorax. The tip is in the expected location of the proximal SVC. Mildly improved bilateral patchy airspace opacities. Decreased size of the left pleural effusion. Stable mild enlargement of the cardiac silhouette with vascular congestion. Vascularity is mildly improved. Electronically Signed: Heather Gordon MD at 10:32 EST , Service support , Chest X-Ray 01/13/19 05:40 IMPRESSION: The endotracheal tube is in the proximal trachea. NG tube is in the stomach. There is a RIGHT-sided central venous catheter. The tip is in the superior vena cava. The lungs are expanded. There are bilateral pulmonary infiltrates similar to prior study. There is no demonstrated pleural abnormality. The heart is borderline enlarged. Electronically Signed: Dragan Love MD at 6:43 EST , Service support , Code Visit Inpatient E&M: [id number] Subs Hosp L3
--- NOTE | 2019-01-14 08:10 | NURSING ---
D10W rate @ 75 cc/hr
--- NOTE | 2019-01-14 08:13 | CPS ---
Dr. Dobbs notified of critical abg values
[2019-01-14 08:16] LABS: Lipase 5596 U/L (73-393)
[2019-01-14 08:16] LABS: Bedside Glucose 45 mg/dL (70-110)
--- NOTE | 2019-01-14 08:21 | NURSING ---
Unable to complete CAM assessment d/t RASS -5
--- NOTE | 2019-01-14 08:30 | NURSING ---
HD in progress
[2019-01-14 08:41] LABS: Bedside Glucose 19 mg/dL (70-110)
[2019-01-14 08:57] LABS: Glucose 248 mg/dL (74-106)
--- NOTE | 2019-01-14 09:00 | NURSING ---
D10W @ 25 cc/hr after result of BMP stat glucose
--- NOTE | 2019-01-14 09:57 | CASEMGMT ---
RN PRASHANTH Note: Per interdisciplinary rounds, pt condition remains critical. Dr. Dobbs spoke with family re: prognosis and plan of care. Son is calling family to come in so decisions re: further care can be made. -RN PRASHANTH spoke with family offering emotional support and questions answered. Plan is to have Dr. Dobbs speak with family when they have arrived. Shanae WHITE RN ACM
--- NOTE | 2019-01-14 10:10 | NURSING ---
L radial arterial line inserted per Dr. Dobbs; Levo maxed at 30 mcg/min and vaso restarted at 0.04 units/min per Dr. Dobbs verbal order for BP 40/20s
--- NOTE | 2019-01-14 10:53 | PN.ID_ITS ---
Patient Problems: Active and Suspected Problems (Last Updated 11/02/17 @ 08:07 by Mauro Ley MECHANICAL DEVELOPMENT ENGINEER- C) LAURIE (acute kidney injury) (Acute) Subjective: Condition worsened, vanc/zosyn added over the weekend, now with GNR in bcx. Fever, hypothermia, hypotensive on 2 pressors. - Physical Exam General: Non-Cooperative Lungs: Diminished Cardiovascular: Tachycardic Abdomen: Soft, Non Tender, Non-Distended Extremities: Cyanosis Vital Signs Temp Pulse Resp BP Pulse Ox 94.9 F L 80 16 82/37 L 91 01/14/19 09:00 01/14/19 10:10 01/14/19 09:00 01/14/19 10:45 01/14/19 08:00 Oxygen Flow Rate (L/min) 6 Oxygen Delivery Method Mechanical Ventilator Weight: 92.5 kg Body Mass Index (BMI) 28.5 Intake and Output for Last 24 Hours 01/12/19 01/13/19 01/14/19 23:59 23:59 23:59 Intake Total 2770.7 / 2770.7 2496.0 / 2496.0 530 / 530 Output Total 2545 / 2545 1018 / 1018 0 / 0 Balance 225.7 / 225.7 1478.0 / 1478.0 530 / 530 Microbiology Past 72 Hours 01/12/19 04:45 Blood Culture - Preliminary Blood Culture (Wb) - Line Draw 01/11/19 06:15 Blood Culture - Preliminary Blood Culture (Wb) - Central Line No growth in 48 hours. 01/11/19 06:15 Blood Culture - Preliminary Blood Culture (Wb) - Right Forearm No growth in 48 hours. 01/09/19 00:15 Gram Stain - Final Sputum, Induced/Lukens Respiratory Culture - Final Staphylococcus aureus Streptococcus group C 01/08/19 17:20 Bacteria Detection (PCR) - Final Blood Culture (Wb) #2 - Anticubital Right Staphylococcus aureus Blood Culture - Final Staphylococcus aureus Laboratory Tests Past 24 Hrs 01/14/19 01/14/19 01/14/19 05:20 05:20 05:20 WBC 29.4 H RBC 2.30 L Hgb 6.4 L Hct 20.8 L MCV 90.4 MCH 27.8 MCHC 30.8 L RDW 18.5 H RDW Differential 61.0 H Plt Count 38 L* Neut % (Auto) Not Reportable Absolute Neuts (auto) 25.0 H Absolute Lymphs (auto) 2.35 Total Counted 100 Neutrophils % (Manual) 78 H Band Neutrophils % 7 H Lymphocytes % (Manual) 8 L Monocytes % (Manual) 2 Metamyelocytes % 4 H Myelocytes % 1 H Nucleated RBC % 3.2 Diff Path Review May foll Platelet Estimate MKD DEC Plt Morphology Comment LARGE Polychromasia 1+ Hypochromasia 2+ Anisocytosis 2+ Schistocytes RARE Absolute Retic 0.94 Sodium 137 Potassium 6.8 H* Chloride 96 L Carbon Dioxide 16.0 L Anion Gap 25 H BUN 82 H Creatinine 5.18 H Estim Creat Clear Calc 11.19 Est GFR (MDRD) Af Amer 14 L Est GFR (MDRD) Non-Af 12 L BUN/Creatinine Ratio 15.8 Glucose 22 L* Calcium 6.8 L Phosphorus 15.3 H* Magnesium 3.3 H Total Bilirubin 3.70 H Direct Bilirubin 3.07 H AST 5720 H ALT 411 H Alkaline Phosphatase 340 H Ammonia Total Protein 5.4 L Albumin 1.4 L Globulin 4.0 Lipase 5596 H Blood Type Antibody Screen Crossmatch 01/14/19 01/14/19 01/14/19 07:55 07:55 08:37 WBC RBC Hgb Hct MCV MCH MCHC RDW RDW Differential Plt Count Neut % (Auto) Absolute Neuts (auto) Absolute Lymphs (auto) Total Counted Neutrophils % (Manual) Band Neutrophils % Lymphocytes % (Manual) Monocytes % (Manual) Metamyelocytes % Myelocytes % Nucleated RBC % Diff Path Review Platelet Estimate Plt Morphology Comment Polychromasia Hypochromasia Anisocytosis Schistocytes Absolute Retic Sodium Potassium Chloride Carbon Dioxide Anion Gap BUN Creatinine Estim Creat Clear Calc Est GFR (MDRD) Af Amer Est GFR (MDRD) Non-Af BUN/Creatinine Ratio Glucose 248 H Calcium Phosphorus Magnesium Total Bilirubin Direct Bilirubin AST ALT Alkaline Phosphatase Ammonia 225.0 H Total Protein Albumin Globulin Lipase Blood Type O POSITIVE Antibody Screen NEGATIVE Crossmatch See Detail POC Glucose 01/14/19 01/14/19 01/14/19 08:33 08:10 07:35 POC Glucose 19 L* 45 L 58 L 01/14/19 01/14/19 01/14/19 07:01 06:34 06:04 POC Glucose 43 L* 32 L* 33 L* 02/01/14/19 01/13/19 05:37 05:17 23:24 POC Glucose 36 L* < 10 L* 75 01/13/19 01/13/19 18:54 11:24 POC Glucose 75 153 H Medical Necessity - Tobacco Use Smoking Status: Former smoker Tobacco Use: Cigarettes Route of nutrition/ use of supplements: [] Nutritional Intake: [] IV Site: [] James Catheter: [] - Assessment/Plan Antibiotics: [] Assessment/Plan: [] Active and Suspected Problems (Last Updated 11/02/17 @ 08:07 by Mauro Ley, MECHANICAL DEVELOPMENT ENGINEER- C) LAURIE (acute kidney injury) (Acute) Acute combined respiratory failure (Acute) Respiratory acidosis (Acute) Acute renal failure (Acute) Septic shock (Acute) Community acquired pneumonia (Acute) Septic shock with LAURIE due to MSSA bacteremia from pneumonia and acute flu A - SBP in the 40s on multiple pressors. On vanc/zosyn/tamiflu. Family meeting today. Now with GNR in blood. Will follow, d/w Dr. Dobbs
[2019-01-14 11:10] LABS: Allen Test POS; Base Excess -21 mmol/L (-2 to +2); Bicarbonate 12.2 mmol/L (22-26); Blood Gas Specimen Type ART; FI02 95; Mode APRV; O2 Delivery Device Vent; PO2 73 mmHG (75-100); SITE L Radial; SO2 79 % (95-99); Time Given 648; Total Carbon Dioxide 14 mmol/L; pCO2 62.8 mmHg (35-45)
--- NOTE | 2019-01-14 11:30 | NURSING ---
Pt son/ELHAMK Aakash, verbalizes wishes to pursue comfort measures at this time. Dr. Dobbs made aware. Aakash to contact all family and have them present to say goodbyes before terminal extubation.
[2019-01-14 12:09] LABS: Pathologist Review Reviewed
[2019-01-14 12:16] LABS: Pathologist Review Reviewed
[2019-01-14 12:20] LABS: Pathologist Review Reviewed
--- NOTE | 2019-01-14 12:26 | DIALYSIS ---
Hemodialysis x 3 hours unable to be completed. Completed 1.5 hours of treatment. Pt hypotensive despite increased Pressers. Fluid balance -700ml. Heparin 1000units/ml to close CVC ports to close CVC ports to fill volume. Report given to GOSIA Olivares. Pt stable.
[2019-01-14] MEDS: fentaNYL 100 MCG/2 ML Ampul IV (12:55)
[2019-01-14] MEDS: LORazepam 2 MG/ML Syringe IV (12:55)
--- NOTE | 2019-01-14 13:00 | NURSING ---
Pt terminally extubated at 1300. 2 mg ativan and 25 mcg fentanyl given IVP prior to extubation. Pt without respirations upon extubation. Several family and hospital employment coach at bedside.
--- NOTE | 2019-01-14 13:18 | PN.RENAL_ITS ---
Patient Problems: Active and Suspected Problems (Last Updated 11/02/17 @ 08:07 by Mauro Ley NP- C) LAURIE (acute kidney injury) (Acute) Subjective: intubated - Physical Exam Neck: Supple, No JVD, Negative Carotid Bruits Lungs: Clear to auscultation, Normal air movement Cardiovascular: Regular rate, No murmurs Abdomen: Bowel Sounds Present, Soft, Non Tender Extremities: No edema, Capillary Refill Less than 3 Seconds Skin: No rashes, No breakdown Musculoskeletal: No Tenderness to Palpation of Joints or Extremities Vital Signs Temp Pulse Resp BP Pulse Ox 94.9 F L 80 16 82/37 L 88 01/14/19 09:00 01/14/19 10:10 01/14/19 09:00 01/14/19 10:45 01/14/19 08:30 Oxygen Flow Rate (L/min) 6 Oxygen Delivery Method Room Air Weight: 92.5 kg Body Mass Index (BMI) 28.5 Intake and Output for Last 24 Hours 01/12/19 01/13/19 01/14/19 23:59 23:59 23:59 Intake Total 2770.7 / 2770.7 2496.0 / 2496.0 530 / 530 Output Total 2545 / 2545 1018 / 1018 0 / 0 Balance 225.7 / 225.7 1478.0 / 1478.0 530 / 530 Microbiology Past 72 Hours 01/12/19 04:45 Blood Culture - Preliminary Blood Culture (Wb) - Line Draw 01/11/19 06:15 Blood Culture - Preliminary Blood Culture (Wb) - Central Line No growth in 48 hours. 01/11/19 06:15 Blood Culture - Preliminary Blood Culture (Wb) - Right Forearm No growth in 48 hours. 01/09/19 00:15 Gram Stain - Final Sputum, Induced/Lukens Respiratory Culture - Final Staphylococcus aureus Streptococcus group C Laboratory Tests Past 24 Hrs 01/12/19 01/13/19 01/14/19 04:45 04:45 05:20 WBC 29.4 H RBC 2.30 L Hgb 6.4 L Hct 20.8 L MCV 90.4 MCH 27.8 MCHC 30.8 L RDW 18.5 H RDW Differential 61.0 H Plt Count 38 L* Neut % (Auto) Not Reportable Absolute Neuts (auto) 25.0 H Absolute Lymphs (auto) 2.35 Total Counted 100 Neutrophils % (Manual) 78 H Band Neutrophils % 7 H Lymphocytes % (Manual) 8 L Monocytes % (Manual) 2 Metamyelocytes % 4 H Myelocytes % 1 H Nucleated RBC % 3.2 Diff Path Review Reviewed Reviewed Reviewed Platelet Estimate MKD DEC Plt Morphology Comment LARGE Polychromasia 1+ Hypochromasia 2+ Anisocytosis 2+ Schistocytes RARE Absolute Retic 0.94 Specimen Type Sample Site pH Bicarbonate Actual POC Total CO2 Base Excess O2 Saturation O2 % ABG pCO2 ABG pO2 David Test O2 Delivery Device Vent Mode Pressure High Pressure Low Time High Blood Gas Notified Whom Blood Gas Notified Time Sodium Potassium Chloride Carbon Dioxide Anion Gap BUN Creatinine Estim Creat Clear Calc Est GFR (MDRD) Af Amer Est GFR (MDRD) Non-Af BUN/Creatinine Ratio Glucose Calcium Phosphorus Magnesium Total Bilirubin Direct Bilirubin AST ALT Alkaline Phosphatase Ammonia Total Protein Albumin Globulin Lipase Blood Type Antibody Screen Crossmatch 01/14/19 01/14/19 01/14/19 05:20 05:20 06:49 WBC RBC Hgb Hct MCV MCH MCHC RDW RDW Differential Plt Count Neut % (Auto) Absolute Neuts (auto) Absolute Lymphs (auto) Total Counted Neutrophils % (Manual) Band Neutrophils % Lymphocytes % (Manual) Monocytes % (Manual) Metamyelocytes % Myelocytes % Nucleated RBC % Diff Path Review Platelet Estimate Plt Morphology Comment Polychromasia Hypochromasia Anisocytosis Schistocytes Absolute Retic Specimen Type ART Sample Site L Radial pH 6.90 L* Bicarbonate Actual 12.2 L POC Total CO2 14 Base Excess -21 L O2 Saturation 79 L O2 % 95 ABG pCO2 62.8 H ABG pO2 73 L David Test POS O2 Delivery Device Vent Vent Mode APRV Pressure High 28.0 Pressure Low 0.0 Time High 4.0 Blood Gas Notified Whom ICU Blood Gas Notified Time 648 Sodium 137 Potassium 6.8 H* Chloride 96 L Carbon Dioxide 16.0 L Anion Gap 25 H BUN 82 H Creatinine 5.18 H Estim Creat Clear Calc 11.19 Est GFR (MDRD) Af Amer 14 L Est GFR (MDRD) Non-Af 12 L BUN/Creatinine Ratio 15.8 Glucose 22 L* Calcium 6.8 L Phosphorus 15.3 H* Magnesium 3.3 H Total Bilirubin 3.70 H Direct Bilirubin 3.07 H AST 5720 H ALT 411 H Alkaline Phosphatase 340 H Ammonia Total Protein 5.4 L Albumin 1.4 L Globulin 4.0 Lipase 5596 H Blood Type Antibody Screen Crossmatch 01/14/19 01/14/19 01/14/19 07:55 07:55 08:37 WBC RBC Hgb Hct MCV MCH MCHC RDW RDW Differential Plt Count Neut % (Auto) Absolute Neuts (auto) Absolute Lymphs (auto) Total Counted Neutrophils % (Manual) Band Neutrophils % Lymphocytes % (Manual) Monocytes % (Manual) Metamyelocytes % Myelocytes % Nucleated RBC % Diff Path Review Platelet Estimate Plt Morphology Comment Polychromasia Hypochromasia Anisocytosis Schistocytes Absolute Retic Specimen Type Sample Site pH Bicarbonate Actual POC Total CO2 Base Excess O2 Saturation O2 % ABG pCO2 ABG pO2 David Test O2 Delivery Device Vent Mode Pressure High Pressure Low Time High Blood Gas Notified Whom Blood Gas Notified Time Sodium Potassium Chloride Carbon Dioxide Anion Gap BUN Creatinine Estim Creat Clear Calc Est GFR (MDRD) Af Amer Est GFR (MDRD) Non-Af BUN/Creatinine Ratio Glucose 248 H Calcium Phosphorus Magnesium Total Bilirubin Direct Bilirubin AST ALT Alkaline Phosphatase Ammonia 225.0 H Total Protein Albumin Globulin Lipase Blood Type O POSITIVE Antibody Screen NEGATIVE Crossmatch See Detail POC Glucose 01/14/19 01/14/19 01/14/19 08:33 08:10 07:35 POC Glucose 19 L* 45 L 58 L 01/14/19 01/14/19 01/14/19 07:01 06:34 06:04 POC Glucose 43 L* 32 L* 33 L* 01/14/19 01/14/19 01/13/19 05:37 05:17 23:24 POC Glucose 36 L* < 10 L* 75 01/13/19 18:54 POC Glucose 75 Medical Necessity - Tobacco Use Smoking Status: Former smoker Tobacco Use: Cigarettes Assessment/Plan All Active Problems (Last Updated 11/02/17 @ 08:07 by ISABEL SmallsC) LAURIE (acute kidney injury) (Acute) Acute combined respiratory failure (Acute) Respiratory acidosis (Acute) Acute renal failure (Acute) Septic shock (Acute) Community acquired pneumonia (Acute) 1-Acute kidney injury and chronic kidney disease baseline creatinine seems around 1.1 mg a deciliter in 2017. Acute kidney injury is most probably from ischemic ATN. Patient was started on hemodialysis January 10 for metabolic and volume support 2-high anion gap metabolic acidosis related to acute kidney injury and lactic acidosis. last lactate 3.1 3-hyperkalemia: HD today 4-Acute hypoxemic respiratory failure due to ARDS/pneumonia. On vent support as per the ICU team. 5- Sepsis from bilateral pneumonia with bacteremia. On antibiotics as per the ID team. Plan family decided to go hospice
--- NOTE | 2019-01-14 14:02 | CHAPLAIN ---
Type of Pastoral Visit _x__ Initial Visit ___ Follow-up Visit ___ On-call Visit ___ General Patient Visit ___ Spiritual Assessment ___ Family Conference _x__ Bereavement ___ Rapid Response ___ Code Blue ___ Other (describe below) Pastoral Care Referral From ___ Patient _x__ Family _x__ Nurse ___ Physician ___ Noteman ___ Roof Truss Detailer ___ Other (describe below) Sacrament/Intervention _x__ Active listening ___ Anointing ___ Nondenominational _x__ Bereavement ___ Communion _x__ Ashely exploration ___ _x__ Life review _x__ Prayer ___ Reconciliation ___ Sacrament of Sick _x__ Supportive presence ___ Wedding ___ Other (describe below) Pastoral Comments met with family prior to extubation of patient; offered prayer and presence; stayed with family after extubation as members gathered together at of patient; presented a white suzette from ICU Bereavement Team
--- NOTE | 2019-01-14 14:03 | PCM.DEATH ---
Preliminary Cause of Septic shock Date of Admission: 01/08/19 Date of : 01/14/19 - Principle Diagnosis Septic shock secondary to acute influenza A infection as well as community-acquired pneumonia with methicillin sensitive staph aureus. Problem List: 1. Septic shock secondary to community-acquired pneumonia 2. Acute influenza A infection 3. Acute hypoxic and hypercapnic respiratory failure with respiratory acidosis 4. Cardiopulmonary arrest (PEA) on 01/12/2019 s 4. Acute kidney injury secondary to ATN from septic shock and hypoperfusion 6. MSSA bacteremia 7. Anemia secondary to anemia of chronic disorder 8. Thrombocytopenia attributed to patient's severe sepsis 9. Diabetes mellitus type II 10. Essential hypertension 11. Dyslipidemia 12. GERD 13. New onset A. fib with RVR Hospital Course Patient is a 78-year-old gentleman with multiple comorbidities admitted with progressive shortness of breath. Chest x-ray demonstrated bilateral infiltrates and assessment of community-acquired pneumonia was made. Patient condition deteriorated was in the ICU initially managed on BiPAP and then intubated. Hospitalization complicated by septic shock as well as acute kidney injury. Patient was admitted to the intensive care unit managed aggressively however his condition continued to deteriorate. Family milk meeting was held on 11/13/2019 decision was made to terminally wean patient. Patient did quit breathing at 1307 with absent heart tones. Patient was pronounced 1307 on 11/13/2019. Code Visit time spent 35 min Inpatient E&M: [id number] Disch Hosp
--- NOTE | 2019-01-14 14:07 | EXP.PCM_ITS ---
Preliminary Cause of Septic shock Date of Admission: 01/08/19 Date of : 01/14/19 - Principle Diagnosis Septic shock secondary to acute influenza A infection as well as community- acquired pneumonia with methicillin sensitive staph aureus. Problem List: 1. Septic shock secondary to community-acquired pneumonia 2. Acute influenza A infection 3. Acute hypoxic and hypercapnic respiratory failure with respiratory acidosis 4. Cardiopulmonary arrest (PEA) on 01/12/2019 s 4. Acute kidney injury secondary to ATN from septic shock and hypoperfusion 6. MSSA bacteremia 7. Anemia secondary to anemia of chronic disorder 8. Thrombocytopenia attributed to patient's severe sepsis 9. Diabetes mellitus type II 10. Essential hypertension 11. Dyslipidemia 12. GERD 13. New onset A. fib with RVR Hospital Course Patient is a 78-year-old gentleman with multiple comorbidities admitted with progressive shortness of breath. Chest x-ray demonstrated bilateral infiltrates and assessment of community-acquired pneumonia was made. Patient condition deteriorated was in the ICU initially managed on BiPAP and then intubated. Hospitalization complicated by septic shock as well as acute kidney injury. Patient was admitted to the intensive care unit managed aggressively however his condition continued to deteriorate. Family milk meeting was held on 11/13/2019 decision was made to terminally wean patient. Patient did quit breathing at 1307 with absent heart tones. Patient was pronounced 1307 on 11/13/2019. Code Visit time spent 35 min Inpatient E&M: [id number] Disch Hosp
--- NOTE | 2019-01-14 15:30 | NURSING ---
VALDO CORCORAN all PIVs and gonzales removed from pt at this time. Pt placed in body bag per home request.
--- NOTE | 2019-01-14 16:15 | NURSING ---
Pt released to home at this time. toney Finn's son made aware.
== END 2019-01-14 13:07 | DRG 870 ==
LOC: ED 18:36 → ICU 20:17
PROVIDERS: Hospitalist; Internal Medicine Critical Care Medicine; Internal Medicine Nephrology; Admitting Provider Family Medicine; Emergency Provider Emergency Medicine; Family Provider Family Medicine; PCP Family Medicine; Referring Provider Hospitalist; Visit Provider Internal Medicine
DX: A41.01 Sepsis due to Methicillin susceptible Staphylococcus aureus (principal); J10.08 Influenza due to other identified influenza virus with other specified pneumonia; J15.211 Pneumonia due to Methicillin susceptible Staphylococcus aureus; R65.21 Severe sepsis with septic shock; N17.0 Acute kidney failure with tubular necrosis; J96.02 Acute respiratory failure with hypercapnia; J96.01 Acute respiratory failure with hypoxia; K92.1 Melena; E87.2 Acidosis; I46.9 Cardiac arrest, cause unspecified; D63.8 Anemia in other chronic diseases classified elsewhere; D69.59 Other secondary thrombocytopenia; K21.9 Gastro-esophageal reflux disease without esophagitis; I48.91 Unspecified atrial fibrillation; Z87.891 Personal history of nicotine dependence; E78.5 Hyperlipidemia, unspecified; Z79.899 Other long term (current) drug therapy; E11.9 Type 2 diabetes mellitus without complications; E87.5 Hyperkalemia; Z66 Do not resuscitate; Z79.84 Long term (current) use of oral hypoglycemic drugs
CPT/HCPCS: 31500; 31720; 36415; 36600; 51702; 71045; 80048; 80076; 82140; 82803; 82947; 82962; 83605; 83690; 83735; 84100; 84484; 85025; 85610; 85730; 86850; 86900; 86920; 87040; 87070; 87077; 87149; 87186; 87205; 87340; 87449; 87633; 87641; 87804; 90937; 92950; 93005; 93306; 94002; 94003; 94640; 97802; 99251; 99285; J7030; J7040; J7050; Q9957; A4216; C1751; C1752; C8929; G0257; G0463; J0153; J3490